=== PATIENT | male | born 1960 | race Caucasian/White ===

== ENCOUNTER 2019-10-18 16:40 | Inpatient (IN) | payer MEDICARE, SELFPAY ==
[2019-10-18] VITALS (8 sets, daily range): BP systolic 106–121; BP diastolic 73–89; PULSE 65–104; RESP 16–18; TEMP 36.5–36.7; O2SAT 65–98; BMI 30.7
--- NOTE | 2019-10-18 16:51 | XR_ITS ---
WS: [id number] Portable AP upright chest, 10/18/2019 Clinical Data: SOB Comparison: Portable chest, 10/17/2017. Findings: The heart is enlarged and larger than was noted on the prior chest. There is a small right effusion. The pulmonary vascularity is moderately increased. No pneumonia or pneumothorax is seen. XR/XR chest 1V portable [id number] Impression: Increasing cardiomegaly with pulmonary vascular congestion.
--- NOTE | 2019-10-18 16:51 | ECG_ITS ---
Measurements Intervals [place] Rate: 100 P: 60 MN: 185 QRS: 28 QRSD: 162 T: 197 QT: 414 QTc: 535 SINUS TACHYCARDIA LEFT BUNDLE BRANCH BLOCK Compared to ECG 10/18/2017 01:12:31 Left bundle-branch block now present Sinus rhythm no longer present Left ventricular hypertrophy no longer present ST (T wave) deviation no longer present Electronically Signed On 10-19-2019 13:00:10 CDT by Maryam Garcia M.D. [id number]
[2019-10-18 17:35] LABS: Basophils % 0.4 %; Eosinophils # 0.1 10^3/uL (0.0-0.8); Eosinophils % 0.8 %; Hematocrit 33.2 % (42.0-52.0); Hemoglobin 10.6 g/dL (11.7-16.6); Lymphocytes # 2.1 10^3/uL (0.8-4.8); Lymphocytes % 27.6 %; Mean Corpuscular HGB Conc 31.9 g/dL (30.0-36.0); Mean Corpuscular Hemoglobin 28.8 pg (28.0-34.0); Mean Corpuscular Volume 90.2 fL (80-94); Mean Platelet Volume 11.8 fL (7.4-10.4); Monocytes # 0.6 10^3/uL (0.2-0.9); Monocytes % 7.7 %; Neutrophils # 4.7 10^3/uL (1.8-7.7); Neutrophils % 63.2 %; Nucleated Red Blood Cells % 0 %; Platelet Count 165 10^3/cmm (130-400); Red Blood Count 3.68 10^6/uL (4.1-5.3); White Blood Count 7.4 10^3/uL (4.0-10.0)
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
[2019-10-18 17:51] LABS: Troponin(5th) Baseline 18 ng/mL (0-15)
[2019-10-18 18:00] LABS: Anion Gap 15.2 (5-19); Blood Urea Nitrogen 13 mg/dL (8-23); Carbon Dioxide 24 mmol/L (22-29); Chloride 101 mmol/L (98-107); D Dimer 0.73 ug/mIFEU (0-0.59); Glomerular Filtration Rate 98.6 mL/min (90-130); INR 1.17 (0.8-1.2); Partial Thromboplastin Time 31.9 SECONDS (23.9-36.7); Potassium 4.2 mmol/L (3.5-5.1); Sodium 136 mmol/L (136-145)
[2019-10-18 18:01] LABS: Alanine Aminotransferase 64 U/L (0-41); Albumin Level 3.6 g/dL (3.5-5.2); Alkaline Phosphatase 98 IU/L (40-130); Aspartate Amino Transferase 30 U/L (0-40); Calcium 9.2 mg/dL (8.5-10.5); Creatine Phosphokinase 62 U/L (39-308); Creatinine Clr Calc Pharmacy 118.1889; Globulin 3.5 g/dL (1.3-4.6); Glucose 294 mg/dL (65-115); NT Pro B Type Natriuretic Pept 4244 pg/mL (0-125); Osmolality Calculated 289 mOsm/kg (285-295); Total Bilirubin 0.6 mg/dL (0.15-1.2); Total Protein 7.1 g/dL (6.6-8.7)
--- NOTE | 2019-10-18 18:02 | USCV_ITS ---
Ivan De Leon Age: 59 Gender: M : 1960 Exam Date: 10/18/2019 18:19 Ordering Phys: Nimisha Gomez DO Technologist: Jaimie Farmer Exam Location: [facility] [place] Indication: LEG SWELLING HISTORY: Leg swelling. PROCEDURES: The venous duplex Doppler examination of both lower extremities was performed in the standard fashion. The following venous structures were evaluated: common femoral vein, profunda vein, proximal portion of the greater saphenous vein, superficial femoral vein, and the popliteal vein. In addition, the posterior tibial and peroneal trunk were evaluated. Serial compression, augmentation maneuvers, and spectral Doppler flow evaluation were performed. FINDINGS: No DVT seen in anyvessel examined CONCLUSIONS No evidence of right lower extremity DVT. No evidence of left lower extremity DVT. Yahir Cortez MD (Electronically Signed) Final Date: 19 October 2019 10:12 S
--- NOTE | 2019-10-18 18:02 | CTR_ITS ---
PROCEDURE INFORMATION: Exam: CT Angiography Chest With Contrast Exam date and time: 10/18/2019 6:43 PM Age: 59 years old Clinical indication: Abnormal findings; Abnormal diagnostic tests; Elevated d-dimer; Shortness of breath; Additional info: Dyspnea, positive d-dimer TECHNIQUE: Imaging protocol: Computed tomographic angiography of the chest with intravenous contrast. 3D rendering: MIP and/or 3D reconstructed images were created by the technologist. Total DLP: 623.62 mGy-cm Radiation optimization: All CT scans at this facility use at least one of these dose optimization techniques: automated exposure control; mA and/or kV adjustment per patient size (includes targeted exams where dose is matched to clinical indication); or iterative reconstruction. Contrast material: OMNI 350; Contrast volume: 78 ml; Contrast route: IV; COMPARISON: CR XR chest 1V portable [id number] 10/18/2019 6:41 PM FINDINGS: Pulmonary arteries: The the overall exam quality is good for evaluating the pulmonary arteries. There are no intraluminal filling defects to indicate pulmonary embolism. Aorta: Unremarkable. No aortic aneurysm. No aortic dissection. Lungs: There are patchy ground-glass opacities in the peribronchial and central portions of the upper and lower lobes. Septal thickening is noted in the upper lower lobes in a pattern most consistent with interstitial edema. Pleural space: Bilateral moderate pleural effusions are relatively symmetric in size and layer posteriorly. Heart: The heart is significantly enlarged especially the left ventricle and atrium. Numerous calcified plaques in the coronary arteries. Pancreas: The visualized pancreas is atrophic. Lymph nodes: Scattered enlarged mediastinal nodes. A node in the prevascular space measures up to 3.6 cm. Hilar nodes measure up to 1.8 cm. A subcarinal node measures 3.3 cm. Paratracheal nodes measure up to 1.7 cm. Bones/joints: The chronic healed fracture through the body of the left scapula. Soft tissues: Unremarkable. CT/CT angio chest PE protcl [id number] IMPRESSION: 1. Overall findings most consistent with congestive heart failure. 2. No pulmonary embolism. Radiation Dose CTDIVOL = (mGy): DLP = 623.62 (mGy-cm)
[2019-10-18 18:38] LABS: Influenza A by IFA Negative (Negative); Influenza B by IFA Negative (Negative)
--- NOTE | 2019-10-18 18:59 | PC.NURSE ---
REPORT RECEIVED FROM JUN BULLARD AND CARE TRANSFERRED TO JUN ALAN
[2019-10-18] MEDS: iohexol 350 mg/mL 100 mL Btl IV (19:04)
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
[2019-10-18] MEDS: FUROsemide 10 mg/mL SDV 4mL 40 MG IVP (19:41)
[2019-10-18 19:47] LABS: Troponin 5 2HR 19.44 ng/mL (0-15); Troponin 5 2HR Delta 1.44 ABS# (0-10)
--- NOTE | 2019-10-18 22:51 | ECG_ITS ---
Measurements Intervals [place] Rate: 96 P: 59 IL: 184 QRS: 31 QRSD: 166 T: 190 QT: 434 QTc: 550 SINUS RHYTHM LEFT BUNDLE BRANCH BLOCK Compared to ECG 10/18/2017 01:12:31 Left bundle-branch block now present Left ventricular hypertrophy no longer present ST (T wave) deviation no longer present Electronically Signed On 10-19-2019 13:03:25 CDT by Maryam Garcia M.D. [email or web address]
[2019-10-18 23:37] LABS: Glucose Point of Care 144 mg/dL (70-110)
[2019-10-19] VITALS: BP 117/73; PULSE 95; RESP 17; TEMP 37.1; O2SAT 95
[2019-10-19] MEDS: trazodone 50 mg Tablet 25 MG PO (00:08)
[2019-10-19 00:14] LABS: Amphetamines Screen Urine Positive (Negative); Barbiturates Screen Urine Negative (Negative); Benzodiazepines Screen Urine Negative (Negative); Cocaine Screen Urine Negative (Negative); Opiate Screen Urine Negative (Negative); PCP Screen Urine Negative (Negative); THC Screen Urine Negative (Negative)
[2019-10-19 00:24] LABS: Troponin 5 6HR 22.26 ng/mL (0-15); Troponin 5 6HR Delta 4.26 ng/L (0-12)
[2019-10-19] MEDS: insulin glargine 100 units/1 mL 20 UNIT SUBCUT ×2 (01:14→20:56)
[2019-10-19 04:00] VITALS: BP 101/70; PULSE 95; RESP 18; TEMP 36.4; O2SAT 91
[2019-10-19 05:30] LABS: Basophils % 0.5 %; Eosinophils # 0.1 10^3/uL (0.0-0.8); Eosinophils % 1.7 %; Hematocrit 34.7 % (42.0-52.0); Hemoglobin 11.3 g/dL (11.7-16.6); Lymphocytes # 2.3 10^3/uL (0.8-4.8); Lymphocytes % 28.8 %; Mean Corpuscular HGB Conc 32.6 g/dL (30.0-36.0); Mean Corpuscular Hemoglobin 28.8 pg (28.0-34.0); Mean Corpuscular Volume 88.3 fL (80-94); Monocytes # 0.6 10^3/uL (0.2-0.9); Monocytes % 7.1 %; Neutrophils % 61.7 %; Nucleated Red Blood Cells % 0 %; Platelet Count 191 10^3/cmm (130-400); Red Blood Count 3.93 10^6/uL (4.1-5.3); White Blood Count 8.1 10^3/uL (4.0-10.0)
[2019-10-19 05:55] LABS: Alanine Aminotransferase 73 U/L (0-41); Albumin Level 3.9 g/dL (3.5-5.2); Alkaline Phosphatase 104 IU/L (40-130); Anion Gap 16.6 (5-19); Aspartate Amino Transferase 43 U/L (0-40); Blood Urea Nitrogen 11 mg/dL (8-23); Calcium 9.5 mg/dL (8.5-10.5); Carbon Dioxide 24 mmol/L (22-29); Chloride 101 mmol/L (98-107); Globulin 3.8 g/dL (1.3-4.6); Glomerular Filtration Rate 137.4 mL/min (90-130); Glucose 154 mg/dL (65-115); Osmolality Calculated 285 mOsm/kg (285-295); Potassium 3.6 mmol/L (3.5-5.1); Sodium 138 mmol/L (136-145); Total Bilirubin 1.1 mg/dL (0.15-1.2); Total Protein 7.7 g/dL (6.6-8.7)
[2019-10-19 06:49] LABS: Glucose Point of Care 137 mg/dL (70-110)
[2019-10-19 07:30] VITALS: BP 92/64; PULSE 89; RESP 20; TEMP 36.5; O2SAT 93
[2019-10-19] MEDS: metoprolol succinate ER (24 HR) 25 mg Tablet 12.5 MG PO (08:36)
[2019-10-19] MEDS: aspirin 81 mg EC Tablet PO (08:37)
[2019-10-19] MEDS: spironolactone 25 mg Tablet PO (08:37)
[2019-10-19] MEDS: CLONazepam 1 mg Tablet PO ×2 (08:37→17:41)
[2019-10-19] MEDS: atorvastatin 40 mg Tablet 80 MG PO (08:37)
[2019-10-19] MEDS: FUROsemide 10 mg/mL SDV 4mL 20 MG IVP (08:38)
--- NOTE | 2019-10-19 10:49 | PC.CHAP ---
Pastoral Care Encounter/Spiritual Assessment Type of Contact [] Declined auto air conditioning installer visit [] Patient/Family/Request visit [] Outpatient visit [] Follow-up visit [] Physician referral [] Code/Alert [x] Routine visit [] Staff referral [] Actively dying [] Patient sleeping [] Family support [] [] Out of room [] Palliative care [] [] Receiving care in room [] Pre-surgical visit [] Trauma [] Long length of stay [] ICU visit [] Other: Relational/Emotional Strength [x] Patient feels connected with others/family/visitors/staff [] Distress [] Loneliness/isolation [] Abandonment Spirituality of Patient [x] Person of Brigitte [x] Attends Taoism of their Brigitte [x] Believes in Prayer [] Reads Bible or Congregation materials [] There are Spiritual issues to be addressed [place] Interventions [x] Prayer []x Active listening [] Non-anxious presence [] Spiritual/emotional support [] Crisis/trauma care [] Spiritual counseling [] Bereavement support [] Provided bereavement packet [] Provided Bible/devotional materials [] Provided toy/stuffed animal, coloring book to patient or family member [] Provided Communion [] Anointing/[place] [] Salvation [x] Completed spiritual assessment [] Other: Impact on Illness or Injury [] Angry [] Fearful [] Anxious [] Often cries [] Exhaustion [] Unable to work [] Unable to attend taoist [] Unable to walk/stand [] Unable to read [] Unable to drive [] Unable to eat/drink [] Unable to sleep [] Unable to be with family [] Patient intubated [] Other: Summary patient ready to go hom Time spent with patient 10 min
[2019-10-19 10:58] LABS: Glucose Point of Care 261 mg/dL (70-110)
[2019-10-19 11:33] VITALS: BP 112/73; PULSE 87; RESP 16; TEMP 36.4; O2SAT 97
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
[2019-10-19 15:41] VITALS: BP 99/65; PULSE 91; RESP 18; TEMP 36.9; O2SAT 97
[2019-10-19 17:06] LABS: Glucose Point of Care 240 mg/dL (70-110)
[2019-10-19 20:00] VITALS: BP 100/67; PULSE 92; RESP 18; TEMP 36.8; O2SAT 98
[2019-10-19 21:01] LABS: Glucose Point of Care 227 mg/dL (70-110)
--- NOTE | 2019-10-19 21:56 | USCV_ITS ---
Ivan De Leon Age: 59 Gender: M : 1960 Exam Date: 10/19/2019 06:03 Ordering Phys: Alvaro Johnson MD Technologist: Hailey Shay Exam Location: [facility] [place] Indication: CHF BP: 101 / 70 HR: 88 Rhythm: Sinus Technical Quality: Adequate MEASUREMENTS (Male / Female) Normal Values 2D ECHO LV Diastolic Diameter PLAX 7.0 cm 4.2 - 5.9 / 3.9 - 5.3 cm LV Systolic Diameter PLAX 6.3 cm IVS Diastolic Thickness 1.1 cm 0.6 - 1.0 / 0.6 - 0.9 cm IVS Systolic Thickness 1.2 cm LVPW Diastolic Thickness 1.0 cm 0.6 - 1.0 / 0.6 - 0.9 cm LVPW Systolic Thickness 1.2 cm LVOT Diameter 2.0 cm LV Ejection Fraction 2D Teich 19.6 % LV Ejection Fraction MOD 2C 23.3 % LV Ejection Fraction 2C AL 23.1 % LA Diameter 4.4 cm LA Width 5.1 cm LA Height 7.8 cm RA Width 5.8 cm RA Height 6.6 cm Aorta at Sinotubular Diameter 3.5 cm M-MODE LV Diastolic Diameter MM 9.2 cm 4.2 - 5.9 / 3.9 - 5.3 cm LV Systolic Diameter MM 8.2 cm LV Ejection Fraction MM Teich 22.5 % IVS Diastolic Thickness MM 0.8 cm 0.6 - 1.0 / 0.6 - 0.9 cm IVS Systolic Thickness MM 0.9 cm LVPW Diastolic Thickness MM 0.9 cm 0.6 - 1.0 / 0.6 - 0.9 cm LVPW Systolic Thickness MM 1.1 cm Aortic Annulus Diameter 3.9 cm LA Ao Ratio MM 1.1 MV E Point Septal Separation 3.6 cm DOPPLER AV Peak Velocity 128.0 cm/s LVOT Peak Velocity 79.0 cm/s AV Area Cont Eq vti 1.8 cm squared AV Area Cont Eq pk 2.0 cm squared MV Area PHT 3.4 cm squared MV E' Velocity 113.0 cm/s TV Peak E Velocity 65.0 cm/s Right Atrial Pressure 3.0 mmHg PV Peak Velocity 85.0 cm/s RV Acceleration Time 0.1 s RV Ejection Time 0.2 s RV AcT/ET 0.4 FINDINGS Left Ventricle Moderately increased left ventricular cavity size. Normal left ventricular wall thickness. Severely decreased left ventricular systolic function. Left ventricular ejection fraction is estimated at 15 %. Grade II/IV diastolic dysfunction, moderately elevated filling pressures. Right Ventricle Normal right ventricular size and systolic function. Right Atrium Mildly increased right atrial size. Left Atrium Moderately increased left atrial size. Mitral Valve Structurally normal mitral valve. Moderate-severe mitral valve regurgitation. Aortic Valve Structurally normal aortic valve without significant sclerosis or stenosis. There is no aortic regurgitation. Tricuspid Valve Structurally normal tricuspid valve. [id number] tricuspid valve regurgitation. Pulmonic Valve Pulmonic valve not well visualized. Mild pulmonary valve regurgitation. Pericardium Normal pericardium without effusion. Aorta Normal ascending aorta dimension. CONCLUSIONS Moderately increased left ventricular cavity size. Normal left ventricular wall thickness. Severely decreased left ventricular systolic function. Left ventricular ejection fraction is estimated at 15 %. Grade II/IV diastolic dysfunction, moderately elevated filling pressures. Mildly increased right atrial size. Moderately increased left atrial size. Structurally normal mitral valve. Moderate-severe mitral valve regurgitation. When compared to the previous study done 10/20/2017 there has been very little change. The ejection fraction is probably slightly more diminished however overall the echo is unchanged. Dr. Js Hodge MD (Electronically Signed) Final Date: 19 October 2019 12:29 S
[2019-10-20 00:18] VITALS: BP 102/69; PULSE 89; RESP 18; TEMP 36.7; O2SAT 97
[2019-10-20 04:00] VITALS: BP 104/68; PULSE 83; RESP 18; TEMP 36.4; O2SAT 93
[2019-10-20 04:57] LABS: Basophils % 0.5 %; Eosinophils # 0.2 10^3/uL (0.0-0.8); Eosinophils % 3.3 %; Hematocrit 35.5 % (42.0-52.0); Hemoglobin 11.6 g/dL (11.7-16.6); Lymphocytes # 1.7 10^3/uL (0.8-4.8); Lymphocytes % 30.1 %; Mean Corpuscular HGB Conc 32.7 g/dL (30.0-36.0); Mean Corpuscular Hemoglobin 30.1 pg (28.0-34.0); Mean Corpuscular Volume 92.2 fL (80-94); Mean Platelet Volume 11.7 fL (7.4-10.4); Monocytes # 0.5 10^3/uL (0.2-0.9); Monocytes % 8.8 %; Neutrophils # 3.3 10^3/uL (1.8-7.7); Neutrophils % 57.3 %; Nucleated Red Blood Cells % 0 %; Platelet Count 194 10^3/cmm (130-400); Red Blood Count 3.85 10^6/uL (4.1-5.3); Red Cell Distribution Width 13.9 % (12.1-15.1); White Blood Count 5.8 10^3/uL (4.0-10.0)
[2019-10-20 05:20] LABS: Alanine Aminotransferase 81 U/L (0-41); Albumin Level 3.4 g/dL (3.5-5.2); Alkaline Phosphatase 100 IU/L (40-130); Anion Gap 14.5 (5-19); Aspartate Amino Transferase 56 U/L (0-40); Blood Urea Nitrogen 12 mg/dL (8-23); Calcium 8.9 mg/dL (8.5-10.5); Carbon Dioxide 24 mmol/L (22-29); Chloride 101 mmol/L (98-107); Globulin 3.2 g/dL (1.3-4.6); Glucose 255 mg/dL (65-115); Osmolality Calculated 287 mOsm/kg (285-295); Potassium 3.5 mmol/L (3.5-5.1); Sodium 136 mmol/L (136-145); Total Bilirubin 0.5 mg/dL (0.15-1.2); Total Protein 6.6 g/dL (6.6-8.7)
[2019-10-20 05:21] LABS: Cholesterol 148 mg/dL (0-200); HDL Cholesterol 29 mg/dL (60-100); LDL Cholesterol Calculated 97 mg/dL (50-129); LDL HDL Ratio 3.34 RATIO (0.00-3.22); Triglycerides 109 mg/dL (0-150)
[2019-10-20 05:25] LABS: Estmated Average Glucose 183
[2019-10-20 06:46] LABS: Glucose Point of Care 230 mg/dL (70-110)
[2019-10-20 07:11] VITALS: BP 107/64; PULSE 88; RESP 18; TEMP 36.4; O2SAT 93
[2019-10-20] MEDS: lisinopril 10 mg Tablet PO (08:49)
[2019-10-20] MEDS: aspirin 81 mg EC Tablet PO (08:49)
[2019-10-20] MEDS: spironolactone 25 mg Tablet PO (08:49)
[2019-10-20] MEDS: atorvastatin 40 mg Tablet 80 MG PO (08:49)
[2019-10-20] MEDS: metoprolol succinate ER (24 HR) 25 mg Tablet 12.5 MG PO (08:49)
[2019-10-20] MEDS: CLONazepam 1 mg Tablet PO (08:49)
[2019-10-20] MEDS: FUROsemide 40 mg Tablet PO (08:49)
[2019-10-20 11:16] LABS: Glucose Point of Care 182 mg/dL (70-110)
[2019-10-20 12:00] VITALS: BP 112/73; PULSE 90; RESP 18; O2SAT 98
[2019-10-20 13:17] VITALS: BP 112/73; PULSE 90; RESP 18; TEMP 36.4; O2SAT 98
--- NOTE | 2019-10-26 01:36 | P.DS_ITS ---
Discharge Providers Date of Admission: 10/19/19 19:30 Date of Discharge: October 20, 2019 Attending Provider at Admission: Alvaro Johnson MD Attending Provider at Discharge: Alysia Franklin MD Primary Care Provider: Tomas Vazquez DO Diagnoses at Discharge Discharge Diagnosis (1) Congestive heart failure: Status: Acute Qualifiers: Heart failure type: unspecified Heart failure chronicity: unspecified Qualified Code(s): I50.9 - Heart failure, unspecified (2) Non-compliant behavior: Status: Acute (3) Smoker: Status: Acute (4) Left bundle branch block: Status: Acute (5) Ischemic cardiomyopathy: Status: Acute (6) Acute exacerbation of congestive heart failure: Status: Acute Reason for Visit Reason for Visit: Reason For Visit: sob Hospital Course Discharge Summary: Ivan De Leon is a 59 year old male who has a history of ischemic cardiomyopathy, coronary disease status post stents, noncompliant, active smoker, LifeVest was recommended but patient has not 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 He was noted to have CHF exacerbation and received diuresis with iv lasix. Echocardiogram showed 15% EF, reduced from last year. I discussed with the patient again the option of LifeVest and AICD, however he has declined at this visit. He reports he was previously on a LifeVest but stopped wearing it for unclear reasons. He said he would like to discuss with his outpatient bailer operators supervisor Dr. Hodge before coming to a final decision about it. He also states that he is previously had adverse reactions to statins by way of muscle weakness. He was discharged on aspirin, lower statin to 40mg qd, m etoprolol succinate, spironolactone, lisinopril. Physical Exam Narrative: EXAM NARRATIVE: GEN: Awake, alert and oriented, no acute distress CVS: S1S2 N RS: CTA B/L Abd: Soft, nt/nd , bs+ EDITOR: no focal neuro deficits Discharge Data Data Completed and Pending: Completed Studies During Hospitalization Category Date Time Status CT angio chest PE protcl [id number] Stat Cat Scan 10/18/19 18:02 Completed XR chest 1V raudel ble [id number] Stat Exams 10/18/19 16:51 Completed CV echo complete* [id number] Routine Ultrasound 10/19/19 21:56 [place] [id number] Urgent Ultrasound 10/18/19 18:02 Completed Vitals: Last Vital Signs Temp 97.6 F 10/20/19 13:17 Pulse 90 10/20/19 13:17 Resp 18 10/20/19 13:17 BP 112/73 10/20/19 13:17 Pulse Ox 98 10/20/19 13:17 Discharge Plan Discharge Patient Disposition: Home, Self-Care Condition: Stable Prescriptions: New furosemide 40 mg Tablet 40 mg PO DAILY@0800 15 Days Qty: 15 RF: 0 atorvastatin 40 mg Tablet 40 mg PO DAILY 30 Days Qty: 30 RF: 0 aspirin 81 mg Tablet,Delayed Release (Dr/Ec) 81 mg PO DAILY 30 Days Qty: 30 RF: 0 spironolactone 25 mg Tablet 25 mg PO DAILY 30 Days Qty: 30 RF: 0 lisinopril 10 mg Tablet 10 mg PO DAILY 30 Days Qty: 30 RF: 0 metoprolol succinate 25 mg Tablet Extended Release 24 Hr 12.5 mg PO DAILY 30 Days Qty: 30 RF: 0 Continued metformin 1,000 mg tablet extended release 24hr 1,000 mg PO BID RF: 0 Tresiba FlexTouch U-200 200 unit/mL (3 mL) Insulin Pen See Rx Instructions .ROUTE .COMPLEX RF: 0 Discontinued aspirin 325 mg Tablet See Rx Instructions .ROUTE .COMPLEX RF: 0 No Action clonazepam [Klonopin] 1 mg tablet 1 mg PO BID Qty: 60 RF: 2 Discharge Orders: Discharge Order (Routine); Ordered 10/20/19 Ordered By: Alysia Franklin Referrals: VIANEY [Other] Js Hodge MD [Physician] - 7-10 days (Please contact [facility] on Tuesday to schedule an appointment to see Dr. Hodge within 7-10 days. ) Dakotah Costa MD [Hospitalist] - (Please contact Dr. Costa's office on Tuesday to schedule an appointment to be seen within 4-7 days. ) Discharge Diet: Cardiac, Diabetic, Low Salt and Low Cholesterol Discharge Activity: Resume usual activity Patient Instructions: Metoprolol (By mouth), Spironolactone (By mouth), Lisinopril (By mouth), Furosemide (By mouth), Aspirin (By mouth), Atorvastatin (By mouth), Heart Failure (DC) Discharge Date/Time: 10/20/19 13:33 Discharge Attestations Time Spent in Discharge Care*: greater than 30 min Quality Metrics Clinical Quality Measures During this hospital stay, did patient experience: None Coding Level of Care Code Acute In Store Banker for Hennyg Fwd Diagnoses Congestive heart failure I50.9 Heart failure type: unspecified Heart failure chronicity: unspecified Non-compliant behavior R46.89 Smoker F17.200 Left bundle branch block I44.7 Ischemic cardiomyopathy I25.5 Acute exacerbation of congestive heart failure I50.9
== END 2019-10-20 13:33 | disposition home or self-care (01) | DRG 291 ==
LOC: ER 20:18 → MEDSURG 20:30
PROVIDERS: Admitting Provider Internal Medicine; Emergency Provider Emergency Medicine; Visit Provider Student in an Organized Health Care Education/Training Program
DX: I11.0 Hypertensive heart disease with heart failure (principal); I50.21 Acute systolic (congestive) heart failure; I44.7 Left bundle-branch block, unspecified; I25.5 Ischemic cardiomyopathy; I25.10 Atherosclerotic heart disease of native coronary artery without angina pectoris; Z95.5 Presence of coronary angioplasty implant and graft; I25.2 Old myocardial infarction; Z79.82 Long term (current) use of aspirin; Z79.4 Long term (current) use of insulin; G40.909 Epilepsy, unspecified, not intractable, without status epilepticus; E78.5 Hyperlipidemia, unspecified; Z91.19 Patient's noncompliance with other medical treatment and regimen; F17.210 Nicotine dependence, cigarettes, uncomplicated; Z79.899 Other long term (current) drug therapy
CPT/HCPCS: 12345; 36415; 36416; 71045; 71275; 80053; 80061; 80307; 82550; 82962; 83036; 83880; 84484; 85025; 85378; 85610; 85730; 87804; 93005; 93306; 93970; 96372; 96375; 99283; G0378; J1650; J1815; J1940; Q9967

== ENCOUNTER → 2019-10-23 10:45 | Outpatient (BNVA) | payer MEDICARE, SELFPAY | PROVIDERS: Visit Provider Nurse Practitioner | DX: F41.1 Generalized anxiety disorder (principal); F34.1 Dysthymic disorder | CPT/HCPCS: 99213 ==

== ENCOUNTER → 2020-01-08 13:12 | Outpatient (BNVA) | payer MEDICARE, SELFPAY | PROVIDERS: Referring Provider Nurse Practitioner Family; Visit Provider Podiatrist Foot & Ankle Surgery | DX: M79.671 Pain in right foot (principal); M79.672 Pain in left foot | CPT/HCPCS: 73630 ==

== ENCOUNTER 2020-01-14 08:48 | Observation (INO) | payer MEDICARE, SELFPAY ==
[2020-01-11 14:16] VITALS: BMI 27.8
[2020-01-14] VITALS (15 sets, daily range): BP systolic 73–113; BP diastolic 51–76; PULSE 77–94; RESP 16–20; TEMP 36.2–36.8; O2SAT 94–99
--- NOTE | 2020-01-14 | SCC_ITS ---
Procedure Done: Single-lead AICD implantation 60.7 seconds of fluoroscopic guidance, for a cumulative dose of 21.62 mGy, was provided to Dr. Escobedo by the radiology department. C-arm images of the chest were saved for the patient's permanent record. [facility]
--- NOTE | 2020-01-14 05:42 | XR_ITS ---
WS: [id number] PORTABLE CHEST HISTORY: Preop for AICD implantation COMPARISON: 10/18/2019 Hyperinflated lungs with no pneumonia. Normal vasculature. No pleural effusion or pneumothorax. Cardiac size: Moderately enlarged cardiac silhouette is similar to the prior study. Pulmonary arterie s are prominent. Mediastinum/Aorta: Prominent pulmonary arteries. No osseous abnormality seen. XR/XR chest 1V portable [id number] IMPRESSION: 1. Moderate cardiomegaly. 2. Pulmonary hypertension. 3. Chronic emphysema.
--- NOTE | 2020-01-14 05:42 | ECG_ITS ---
Measurements Intervals [place] Rate: 90 P: 58 DC: 195 QRS: 30 QRSD: 165 T: 182 QT: 418 QTc: 512 SINUS RHYTHM WITH OCCASIONAL VENTRICULAR PREMATURE COMPLEXES LEFT BUNDLE BRANCH BLOCK [120+ ms QRS DURATION, 80+ ms Q/S IN V1/V2, 85+ ms R IN I/aVL/V5/V6] Compared to ECG 10/19/2019 00:22:19 Ventricular premature complex(es) now present Electronically Signed On 01-14-2020 19:30:47 CDT by Alvaro Caceres M.D. [email or web address]
--- NOTE | 2020-01-14 05:42 | SC_ITS ---
WS: [id number] C-ARM RADIOGRAPHS CHEST; 2 IMAGES HISTORY: AICD implantation COMPARISON: 01/14/2020 Intraoperative imaging during ICD placement. SC/C-arm FL for Pacemaker IMPRESSION: Intraoperative imaging during AICD placement.
[2020-01-14] MEDS: sodium chloride 0.9% 1,000 ML 30 ML IV (06:22)
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
[2020-01-14 06:25] LABS: Basophils # 0.1 10^3/uL (0.0-0.1); Basophils % 0.9 %; Eosinophils # 0.2 10^3/uL (0.0-0.8); Eosinophils % 2.4 %; Hematocrit 38.9 % (42.0-52.0); Hemoglobin 12.5 g/dL (11.7-16.6); Lymphocytes # 2.6 10^3/uL (0.8-4.8); Lymphocytes % 33.4 %; Mean Corpuscular HGB Conc 32.1 g/dL (30.0-36.0); Monocytes # 0.6 10^3/uL (0.2-0.9); Monocytes % 7.6 %; Neutrophils # 4.3 10^3/uL (1.8-7.7); Neutrophils % 55.4 %; Nucleated Red Blood Cells % 0 %; Platelet Count 165 10^3/cmm (130-400); Red Blood Count 4.47 10^6/uL (4.1-5.3); Red Cell Distribution Width 16.2 % (12.1-15.1); White Blood Count 7.8 10^3/uL (4.0-10.0)
[2020-01-14 06:25] LABS: Glucose Point of Care 202 mg/dL (70-110)
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
[2020-01-14 06:32] LABS: INR 0.96 (0.8-1.2)
[2020-01-14 06:57] LABS: Anion Gap 13.3 (5-19); Blood Urea Nitrogen 16 mg/dL (8-23); Calcium 6.5 mg/dL (8.5-10.5); Carbon Dioxide 16 mmol/L (22-29); Chloride 113 mmol/L (98-107); Glomerular Filtration Rate 219.4 mL/min (90-130); Glucose 164 mg/dL (65-115); Osmolality Calculated 288 mOsm/kg (285-295); Potassium 3.3 mmol/L (3.5-5.1); Sodium 139 mmol/L (136-145)
[2020-01-14 07:12] LABS: Add Urine Microscopic? NO
[2020-01-14 07:27] LABS: Urine Appearance Clear (CLEAR); Urine Color Yellow (Yellow)
[2020-01-14 07:28] LABS: Bilirubin Urine Neg (NEGATIVE); Blood Urine Neg (Negative); Glucose Urine UA Norm (Normal); Ketones Urine Negative (Negative); Leukocyte Esterase Urine Negative (Negative); Nitrate Urine Negative (Negative); Protein Urine Neg (Negative); Urobilinogen Urine Norm (Negative); pH Urine 5 (5-7)
[2020-01-14] MEDS: lidocaine 1% INJ 20 mL SUBCUT (07:32)
[2020-01-14] MEDS: ceFAZolin 1,000 mg SDV 1000 MG IRRIGATION (07:32)
--- NOTE | 2020-01-14 08:24 | PM.OP ---
Operative Report Date of procedure: January 14, 2020 Pre-op Diagnosis: Ischemic cardiomyopathy Post-op diagnosis: same Procedure Done: Single-lead AICD implantation Implants: AICD and lead Pathology: none sent Surgeon: Parvez Escobedo Anesthesia: MAC and Local (10 cc 1% lidocaine) Estimated blood loss (mL): 15 Complications: None: Post procedure chest x-ray pending Findings: Fluoroscopy utilized for guidewire, sheath, and subsequent lead positioning Condition: stable Disposition: PACU Brief History: Mr. Watson is a 59-year-old gentleman with severe ischemic cardiomyopathy with last reported ejection fraction of 15% by echocardiography in October of this year. AICD implantation has been recommended by cardiology. Rationale, details, and risk of the procedure were carefully and frankly discussed. Proper consents have been reviewed and signed. He wishes to proceed. Procedure: Procedure: Mr. Watson was taken to the OR suite and placed in the supine position over a shoulder roll. He received conscious sedation with continuous anesthesia monitoring by. His entire chest was sterilely prepped and draped. 1% lidocaine was infiltrated in the right subclavicular region. While in Trendelenburg position, utilizing modified seldinger technique, a guidewire was placed in the [left/right] subclavian vein. This was confirmed in position by fluoroscopy. Next, after infiltration with lidocaine, a subcutaneous pocket was created beginning from the exit point of the guidewire and extending laterally and inferiorly. Cautery was utilized to create the pocket just above the pectoralis musculature. Hemostasis was confirmed. An antibiotic-soaked sponge was placed in the wound. A dilator and tear-away sheath was placed over the guidewire and advanced under fluoroscopy. Guidewire and dilator were removed. Next using a combination of curved and straight stylettes, the right ventricular lead was placed in position by fluoroscopy. The distal screw was extended. Interrogation was then performed confirming appropriate parameters. The tear-away sheath was then removed and the ventricular lead was sewn to the floor of the subcutaneous pocket. Pacing generator was brought into the field, and after confirmation of hemostasis in the subcutaneous pocket, the lead was connected to the generator with appropriate capture. The entire system was interrogated by fluoroscopy. Lead and generator were secured in the pocket. Sponge and needle count was correct. The wound was then closed in 2 layers of 3-0 Vicryl suture. Skin was reapproximated in a subcuticular manner with 4-0 Monocryl suture. A pressure dressing was applied. The right arm was placed in a sling. The patient had equal breath sounds bilaterally. He was then transferred to the PACU, where chest x-ray is currently pending. Following are the specifics of this system: Right ventricular lead is 55 cm and model [id number]. Serial number [id number] Ventricular lead had sensing of 5.0 mV with an impedance of 600 ohms. Threshold was 0.4 V Generator: [employer] Model #[id number] Serial # [id number]
--- NOTE | 2020-01-14 08:37 | XR_ITS ---
WS: [id number] PORTABLE CHEST HISTORY: s/p AICD implant COMPARISON: Study earlier the same day. Interval placement RIGHT subclavian AICD. Lung biopsy decreased with areas of atelectasis. This is probably due to portable technique and poor inspiration. No pleural effusion or pneumothorax. Cardiac size: Normal. Mediastinum/Aorta: Normal mediastinum. No osseous abnormality seen. XR/XR chest 1V portable [id number] IMPRESSION: No complications status post AICD insertion.
--- NOTE | 2020-01-14 08:51 | ANE.PACU2 ---
Inpatient post-anesthesia follow up: Airway intact: Yes Vital signs: Temperature 97.8 F Pulse Rate 84 Respiratory Rate 18 Blood Pressure 74/59 Pulse Oximetry 96 Oxygen Delivery Me thod Room Air Oxygen Flow Rate Fraction of Inspir ed Oxygen Hydration adequate: Yes Nausea and vomiting: No Pain level: 1 Mental status: Baseline
[2020-01-14] MEDS: pantoprazole DR 40 mg Tablet PO (10:17)
[2020-01-14] MEDS: aspirin 325 mg Tablet PO (10:17)
[2020-01-14] MEDS: sodium chloride 0.9% 250 ML IV (10:23)
[2020-01-14 11:09] LABS: Glucose Point of Care 261 mg/dL (70-110)
--- NOTE | 2020-01-14 12:16 | PC.RESP ---
SMOKING CESSATION INFORMATION SENT TO PATIENT.
[2020-01-14 17:04] LABS: Glucose Point of Care 185 mg/dL (70-110)
[2020-01-14 21:04] LABS: Glucose Point of Care 273 mg/dL (70-110)
[2020-01-15] VITALS: BP 99/67; PULSE 84; RESP 24; TEMP 36.4; O2SAT 95
[2020-01-15] MEDS: HYDROcodone-acetaminophen 5-325 mg Tablet 1 TAB PO (00:23)
[2020-01-15 00:31] LABS: Glucose Point of Care 210 mg/dL (70-110)
[2020-01-15 03:52] VITALS: BP 90/58; PULSE 77; RESP 18; TEMP 36.8; O2SAT 98
--- NOTE | 2020-01-15 06:00 | XR_ITS ---
WS: [id number] CHEST, 1 view. HISTORY: Post permanent pacemaker placement; visualize lead tip COMPARISON: 01/14/2020 Single lead defibrillator. Distal tip of the defibrillator projects over the LEFT diaphragm. Lungs ar e clear. No pulmonary venous congestion. No pneumonia. No pleural effusion or pneumothorax. Cardiac size: Mildly enlarged cardiac silhouette. Mediastinum/Aorta: Normal mediastinum. No osseous abnormality seen. XR/XR chest 1V [id number] IMPRESSION: Mild cardiomegaly. No acute cardiopulmonary disease.
--- NOTE | 2020-01-15 06:33 | PM.DCS ---
Discharge Providers Date of Admission: 01/14/20 08:48 Date of Discharge: January 15, 2020 Attending Provider at Admission: Parvez Escobedo MD Attending Provider at Discharge: Parvez Escobedo MD Diagnoses at Discharge Discharge Diagnosis (1) Ischemic cardiomyopathy: Status: Acute Reason for Visit Reason for Visit: Brief History: Planned admission for AICD implantation secondary to severe ischemic cardiomyopathy Hospital Course Discharge Summary: Mr. Watson was electively admitted for single lead AICD implantation for severe ischemic cardiomyopathy with a documented ejection fraction of 15% from echocardiography back in October. He underwent single lead implantation yesterday without difficulty. He is convalesced on the brooks with minimal discomfort and with no arrhythmias. He completed 3 doses of postop antibiotics. Device interrogation has been completed this morning. Outer bandage has been removed. Minimal swelling in the region. He will be discharged home today in stable condition. Activity restrictions have been given. He will be scheduled for follow-up a week from Tuesday and [facility]. At the time of discharge she is in stable condition. Physical Exam Chest: COMMONS NORMALS: normal inspection of the chest (Outer bandage was removed. Minimal local swelling. Underlying bandage remains dry.) Extremity: COMMON NORMALS: no clubbing, cyanosis or edema Discharge Data Data Completed and Pending: Completed Studies During Hospitalization Category Date Time Status XR chest 1V raudel ble [id number] Routine Exams 01/14/20 05:42 Completed XR chest 1V raudel ble [id number] Routine Exams 01/14/20 08:37 Completed Pending at discharge Category Date Time Status XR chest 1V [id number] Routine Exams 01/15/20 06:00 Ordered Labs from last 24 hours 01/15/20 01/14/20 01/14/20 00:24 20:52 16:59 Sodium Potassium Chloride Carbon Dioxide Anion Gap BUN Creatinine GFR Calculation Glucose POC Glucose 210 273 185 Calculated Osmolal ity Calcium Urine Color Urine Appearance Urine pH Ur Specific Gravit y Urine Protein Urine Glucose (UA) Urine Ketones Urine Blood Urine Nitrate Urine Bilirubin Urine Urobilinogen Ur Leukocyte Kalpana ase 01/14/20 01/14/20 01/14/20 10:56 07:05 06:30 Sodium 139 Potassium 3.3 L Chloride 113 H Carbon Dioxide 16 L Anion Gap 13.3 BUN 16 Creatinine 0.4 L GFR Calculation 219.4 H Glucose 164 H POC Glucose 261 Calculated Osmolal ity 288 Calcium 6.5 L Urine Color Yellow Urine Appearance Clear Urine pH 5 Ur Specific Gravit y 1.010 Urine Protein Neg Urine Glucose (UA) Norm Urine Ketones Negative Urine Blood Neg Urine Nitrate Negative Urine Bilirubin Neg Urine Urobilinogen Norm Ur Leukocyte Kalpana ase Negative Vitals: Last Vital Signs Temp 98.3 F 01/15/20 03:52 Pulse 77 01/15/20 03:52 Resp 18 01/15/20 03:52 BP 90/58 01/15/20 03:52 Pulse Ox 98 01/15/20 03:52 Discharge Plan Discharge Patient Disposition: Home, Self-Care Condition: Stable Prescriptions: New hydrocodone-acetaminophen 5-325 mg Tablet 1 tab PO Q6H PRN (Reason: Moderate Pain) Qty: 10 RF: 0 Continued aspirin 325 mg tablet 325 mg PO DAILY RF: 0 metoprolol succinate 25 mg tablet extended release 24 hr 12.5 mg PO DAILY 90 Days Qty: 45 RF: 3 spironolactone 25 mg tablet 25 mg PO DAILY 90 Days Qty: 90 RF: 3 furosemide 40 mg tablet 40 mg PO DAILY 90 Days Qty: 90 RF: 3 lisinopril 10 mg tablet 10 mg PO DAILY 90 Days Qty: 90 RF: 3 (DME) Diabetic Shoes See Rx Instructions .ROUTE .MEDSUPPLY Qty: 1 RF: 0 metformin 1,000 mg tablet extended release 24hr 1,000 mg PO BID RF: 0 clonazepam [Klonopin] 1 mg tablet 1 mg PO BID Qty: 60 RF: 2 Tresiba FlexTouch U-200 200 unit/mL (3 mL) Insulin Pen 24 unit SUBCUT DAILY RF: 0 Discharge Orders: Discharge Order (Routine); Ordered 01/15/20 Ordered By: Parvez Escobedo Referrals: [facility] [Provider Group] - 01/25/20 (Pacemaker clinic) Discharge Diet: Usual diet Discharge Activity: Limit activity as instructed Activity Restrictions/Additional Instructions: May begin daily showers tomorrow after removing bandage Do not reach above head with right arm for 5 days Report any swelling, redness, increasing tenderness, fever, or drainage around incision Area of incision may be sore for next 2 weeks Discharge Attestations Time Spent in Discharge Care*: less than 30 min Specific Discharge Activities: Specific discharge activities: educating patient, discussing with field case manager/social workers/dc planners, documenting/other paperwork and evaluating patient/reviewing data Time Spent in Smoking Cessation: Time spent discussing smoking cessation with patient: 3 to 10 minutes Details of Smoking Cessation Education: Again briefly discussed smoking cessation. This has been done numerous times by numerous physicians, though unfortunately he does continue. Status at Discharge: Cognitive status at discharge: cognitively intact, Functional status at discharge: independent ambulation Overall status at discharge: patient is back to baseline Quality Metrics Clinical Quality Measures During this hospital stay, did patient experience: None Coding Level of Care Code Acute Source Water Protection Specialist for Tae Mcclendon Diagnoses Ischemic cardiomyopathy I25.5
[2020-01-15 07:20] VITALS: BP 101/69; PULSE 91; RESP 20; TEMP 36.6; O2SAT 99
[2020-01-15 08:15] VITALS: BP 101/69; PULSE 91; RESP 20; TEMP 36.6; O2SAT 99
== END 2020-01-15 08:36 | disposition home or self-care (01) ==
LOC: MEDSURG 08:49
PROVIDERS: Admitting Provider Thoracic Surgery (Cardiothoracic Vascular Surgery); Visit Provider Thoracic Surgery (Cardiothoracic Vascular Surgery)
PROC: 0JH608Z Insertion of Defibrillator Generator into Chest Subcutaneous Tissue and Fascia, Open Approach (ICD-10-PCS; CPT 33249; principal; 2020-01-14 07:00)
DX: I25.5 Ischemic cardiomyopathy (principal); I50.22 Chronic systolic (congestive) heart failure; Z95.5 Presence of coronary angioplasty implant and graft; Z79.82 Long term (current) use of aspirin; M19.90 Unspecified osteoarthritis, unspecified site; I25.10 Atherosclerotic heart disease of native coronary artery without angina pectoris; E78.5 Hyperlipidemia, unspecified; F41.9 Anxiety disorder, unspecified; I25.2 Old myocardial infarction; E11.9 Type 2 diabetes mellitus without complications; Z79.84 Long term (current) use of oral hypoglycemic drugs; Z82.49 Family history of ischemic heart disease and other diseases of the circulatory system; F17.210 Nicotine dependence, cigarettes, uncomplicated; I11.0 Hypertensive heart disease with heart failure
CPT/HCPCS: 33270; 12345; 36416; 71045; 76000; 80048; 81003; 82962; 85025; 85610; 93005; 97166; 97530; 97535; C1722; G0378; J0690; J2001; J2250; J2370; J2405; J2704; J3010; J7030; J7050

== ENCOUNTER → 2020-02-05 08:49 | Outpatient (BNVA) | payer MEDICARE, SELFPAY | PROVIDERS: Visit Provider Nurse Practitioner | DX: F34.1 Dysthymic disorder (principal); F41.1 Generalized anxiety disorder | CPT/HCPCS: 99213 ==

== ENCOUNTER → 2020-05-12 08:03 | Outpatient (BNVA) | payer MEDICARE, SELFPAY | PROVIDERS: PCP Nurse Practitioner Family; Visit Provider Nurse Practitioner | DX: F41.1 Generalized anxiety disorder (principal); F34.1 Dysthymic disorder; F33.42 Major depressive disorder, recurrent, in full remission | CPT/HCPCS: 99213 ==

== ENCOUNTER → 2020-08-04 13:58 | Outpatient (BNVA) | payer MEDICARE, SELFPAY | PROVIDERS: PCP Nurse Practitioner Family; Visit Provider Nurse Practitioner Family | DX: I50.9 Heart failure, unspecified (principal); I25.10 Atherosclerotic heart disease of native coronary artery without angina pectoris | CPT/HCPCS: 80048; 83880 ==

== ENCOUNTER → 2020-08-21 08:48 | Outpatient (BNVA) | payer MEDICARE, SELFPAY | PROVIDERS: PCP Nurse Practitioner Family; Visit Provider Nurse Practitioner | DX: F34.1 Dysthymic disorder (principal); F41.1 Generalized anxiety disorder | CPT/HCPCS: 99213 ==

== ENCOUNTER 2020-08-23 15:42 | Emergency (ER) | payer MEDICARE, SELFPAY ==
[2020-08-23 15:44] VITALS: BP 109/85; PULSE 88; RESP 32; O2SAT 98; BMI 30.7
--- NOTE | 2020-08-23 15:51 | CTR_ITS ---
PROCEDURE INFORMATION: Exam: CT Head Without Contrast Exam date and time: 08/23/2020 4:01 PM Age: 59 years old Clinical indication: Injury or trauma; Fall; Blunt trauma (contusions or hematomas); Additional info: Fall/ AMS TECHNIQUE: Imaging protocol: Computed tomography of the head without contrast. Radiation optimization: All CT scans at this facility use at least one of these dose optimization techniques: automated exposure control; mA and/or kV adjustment per patient size (includes targeted exams where dose is matched to clinical indication); or iterative reconstruction. COMPARISON: CT head wo con* [id number] 10/17/2017 7:45 PM RADIATION DOSE METRICS: Total DLP (mGy-cm): 925.12 FINDINGS: Limitations: The study is slightly limited by mild patient motion artifact. Brain: Mild parenchymal volume loss noted. There is decreased attenuation of the periventricular white matter, consistent with mild microangiopathic chronic white matter disease. No intracranial hemorrhage noted. Cerebral ventricles: The ventricles are proportional to the sulci. No hydrocephalus is noted. Bones/joints: No fracture or other acute osseous abnormality. Paranasal sinuses: Mild mucoperiosteal thickening in the right maxillary sinus. The included paranasal sinuses are otherwise clear. Mastoid air cells: The mastoid air cells are clear bilaterally. Soft tissues: The soft tissues appear unremarkable. CT/CT head wo con* [id number] IMPRESSION: 1. The study is slightly limited by mild patient motion artifact. 2. Chronic intracranial changes are present. 3. No acute intracranial abnormality is noted. 4. There is no interval change from the prior examination. Radiation Dose CTDIVOL = (mGy): DLP = 925.12 (mGy-cm)
--- NOTE | 2020-08-23 15:52 | CTR_ITS ---
PROCEDURE INFORMATION: Exam: CT Cervical Spine Without Contrast Exam date and time: 08/23/2020 4:01 PM Age: 59 years old Clinical indication: Injury or trauma; Fall; Blunt trauma TECHNIQUE: Imaging protocol: Computed tomography images of the cervical spine without contrast. Radiation optimization: All CT scans at this facility use at least one of these dose optimization techniques: automated exposure control; mA and/or kV adjustment per patient size (includes targeted exams where dose is matched to clinical indication); or iterative reconstruction. COMPARISON: CTA Head/Neck [id number] 10/18/2017 6:08 PM RADIATION DOSE METRICS: Total DLP (mGy-cm): 826.38 FINDINGS: Bones/joints: Vertebral body heights are preserved. No compression fractures are noted. Vertebral alignment is physiologic. Degenerative facet joint changes are noted on the right at C4-C5. Discs/Spinal canal/Neural foramina: Disc heights are preserved. No significant intervertebral disc narrowing. No significant spinal canal or neural foraminal stenosis demonstrated. Lungs: The lung apices are unremarkable. Pleural space: Right pleural effusion. Soft tissues: The soft tissues appear unremarkable. CT/CT cervical spin wo con* [id number] IMPRESSION: No acute abnormality demonstrated. Radiation Dose CTDIVOL = (mGy): DLP = 826.38 (mGy-cm)
--- NOTE | 2020-08-23 16:03 | ECG_ITS ---
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 Measurements Intervals [place] Rate: 87 P: 21 [place]: 198 QRS: 36 QRSD: 177 T: 248 QT: 467 QTc: 565 Interpretive Statements Sinus rhythm with a ventricular couplets Left bundle branch block pattern Nonspecific ST-T changes Electronically Signed On 08-24-2020 9:20:32 BOLT LOADER by Herman Hendrix M.D. [email or web address]
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
[2020-08-23 16:07] LABS: Glucose Point of Care 347 mg/dL (70-110)
[2020-08-23 16:18] LABS: Basophils # 0.1 10^3/uL (0.0-0.1); Basophils % 0.6 %; Eosinophils # 0.1 10^3/uL (0.0-0.8); Hemoglobin 11.1 g/dL (11.7-16.6); Lymphocytes # 1.7 10^3/uL (0.8-4.8); Lymphocytes % 19.8 %; Mean Corpuscular HGB Conc 32.6 g/dL (30.0-36.0); Mean Corpuscular Hemoglobin 25.5 pg (28.0-34.0); Mean Corpuscular Volume 78.2 fL (80-94); Mean Platelet Volume 11.9 fL (7.4-10.4); Monocytes # 0.9 10^3/uL (0.2-0.9); Monocytes % 10.3 %; Neutrophils # 5.86 10^3/uL (1.8-7.7); Neutrophils % 67.8 %; Nucleated Red Blood Cells % 0 %; Platelet Count 209 10^3/cmm (130-400); Red Blood Count 4.35 10^6/uL (4.1-5.3); Red Cell Distribution Width 18.6 % (12.1-15.1); White Blood Count 8.6 10^3/uL (4.0-10.0)
[2020-08-23 16:24] VITALS: BP 127/88; PULSE 90; RESP 17
[2020-08-23 16:40] LABS: Ammonia 27 umol/L (16-60); Lactate (Lactic Acid level) 1.8 mmol/L (0.5-2.2)
[2020-08-23 16:41] LABS: Troponin(5th) Baseline 25 ng/L (0-15)
[2020-08-23 16:49] LABS: Alanine Aminotransferase 35 U/L (0-41); Albumin Level 3.9 g/dL (3.5-5.2); Alkaline Phosphatase 104 IU/L (40-130); Anion Gap 15.7 (5-19); Aspartate Amino Transferase 30 U/L (0-40); Blood Urea Nitrogen 46 mg/dL (8-23); C Reactive Protein 18.4 mg/L (0.0-4.9); Calcium 9.4 mg/dL (8.5-10.5); Carbon Dioxide 28 mmol/L (22-29); Chloride 86 mmol/L (98-107); Creatinine Clr Calc Pharmacy 105.0568; Globulin 3.6 g/dL (1.3-4.6); Glomerular Filtration Rate 86.1 mL/min (90-130); Glucose 366 mg/dL (65-115); Lipase 59 U/L (13-60); NT Pro B Type Natriuretic Pept 4288 pg/mL (0-125); Osmolality Calculated 289 mOsm/kg (285-295); Potassium 3.7 mmol/L (3.5-5.1); Sodium 126 mmol/L (136-145); Total Bilirubin 1.7 mg/dL (0.15-1.2); Total Protein 7.5 g/dL (6.6-8.7)
[2020-08-23 16:54] VITALS: BP 123/96; PULSE 89; RESP 21
[2020-08-23 17:05] LABS: Add Urine Microscopic? NO
[2020-08-23 17:09] LABS: Alcohol Level < 10 mg/dL (0-10)
[2020-08-23 17:24] VITALS: BP 129/85; PULSE 82; RESP 20
[2020-08-23 17:29] LABS: Urine Appearance Clear (CLEAR); Urine Color Straw (Yellow); pH Urine 5 (5-7)
[2020-08-23 17:30] LABS: Bilirubin Urine Neg (Negative); Blood Urine Neg (Negative); Glucose Urine UA 4+ (Normal); Ketones Urine Negative (Negative); Leukocyte Esterase Urine Negative (Negative); Nitrate Urine Negative (Negative); Protein Urine Neg (Negative); Urobilinogen Urine 1 mg/dL (Negative)
--- NOTE | 2020-08-23 17:33 | CTR_ITS ---
PROCEDURE INFORMATION: Exam: CT Abdomen And Pelvis With Contrast Exam date and time: 08/23/2020 5:49 PM Age: 59 years old Clinical indication: Abdominal pain; Additional info: Abdominal pain, distension TECHNIQUE: Imaging protocol: Computed tomography of the abdomen and pelvis with intravenous contrast. Radiation optimization: All CT scans at this facility use at least one of these dose optimization techniques: automated exposure control; mA and/or kV adjustment per patient size (includes targeted exams where dose is matched to clinical indication); or iterative reconstruction. Contrast material: OMNI 300; Contrast volume: 95 ml; Contrast route: INTRAVENOUS (IV); COMPARISON: abdomen limited [id number] 07/10/2020 4:47 PM RADIATION DOSE METRICS: Total DLP (mGy-cm): 1479.73 FINDINGS: Tubes, catheters and devices: Permanent pacemaker/AICD leads are noted. Lungs: Mild atelectasis versus infiltrate in the right lower lobe. Pleural space: Moderate-sized right pleural effusion. Heart: Cardiomegaly is present. Liver: The liver is unremarkable in appearance. Gallbladder and bile ducts: No calcified gallstones in the gallbladder. No gallbladder wall thickening. No pericholecystic fluid. No biliary dilatation. Pancreas: There is advanced atrophy of the pancreas present. No pancreatic mass or ductal dilatation. Spleen: The spleen is normal in size and appearance. Adrenal glands: The adrenal glands appear within normal limits. Kidneys and ureters: The kidneys are normal in morphology. No hydronephrosis. No solid mass. Stomach and bowel: No acute gastric abnormality demonstrated. The small bowel is unremarkable as demonstrated. Moderate retained stool noted in the colon, suggesting constipation. Appendix: The appendix is normal in appearance. No evidence of appendicitis. Intraperitoneal space: No pneumoperitoneum. No significant fluid collection. Mild ascites in the abdomen and pelvis. Vasculature: The aorta is atherosclerotic. No aortic aneurysm. Lymph nodes: No pathologically enlarged lymph nodes. Urinary bladder: Distended urinary bladder. No morphologic abnormality of the bladder. Reproductive: Unremarkable as visualized. Bones/joints: Degenerative spine changes are noted. No acute osseous abnormality. Soft tissues: Unremarkable. CT/CT abdomen pelvis w con* [id number] IMPRESSION: 1. Mild ascites in the abdomen and pelvis. 2. Moderate retained stool noted in the colon, suggesting constipation. No acute bowel abnormality. 3. Moderate-sized right pleural effusion. This is associated with mild atelectasis versus infiltrate in the right lower lobe. 4. Cardiomegaly is present. Radiation Dose CTDIVOL = (mGy): DLP = 1479.73 (mGy-cm)
[2020-08-23 17:36] LABS: Amphetamines Screen Urine Positive (Negative); Barbiturates Screen Urine Negative (Negative); Benzodiazepines Screen Urine Negative (Negative); Cocaine Screen Urine Negative (Negative); Opiate Screen Urine Negative (Negative); PCP Screen Urine Negative (Negative); THC Screen Urine Negative (Negative)
--- NOTE | 2020-08-23 18:03 | ECG_ITS ---
[facility] Test Date: 2020-08-23 Pat Name: Ivan De Leon Department: Room: Gender: Male Quahogger: : 1960 Requested By: Waldo Santos I Order Number: [id number] Leia MD: Herman Hendrix M.D. Measurements Intervals [place] Rate: 85 P: 47 WI: 195 QRS: 23 QRSD: 181 T: 130 QT: 478 QTc: 571 Interpretive Statements SINUS RHYTHM WITH OCCASIONAL VENTRICULAR PREMATURE COMPLEXES POSSIBLE LEFT ATRIAL ENLARGEMENT [-0.1mV P WAVE IN V1/V2] LEFT BUNDLE BRANCH BLOCK [120+ ms QRS DURATION, 80+ ms Q/S IN V1/V2, 85+ ms R IN I/aVL/V5/V6] Compared to ECG 08/23/2020 15:46:24 Ventricular premature complex(es) now present Left bundle-branch block now present Ventricular-paced complex(es) or rhythm no longer present Electronically Signed On 08-24-2020 20:30:09 TRANSMITTER SUPERVISOR by Herman Hendrix M.D. [id number]
[2020-08-23 18:45] LABS: Troponin 5 2HR 21.76 ng/L (0-15)
[2020-08-23 18:54] LABS: Troponin 5 2HR Delta -3.24 ABS# (0-10)
--- NOTE | 2020-08-23 19:12 | XRR_ITS ---
PROCEDURE INFORMATION: Exam: XR Chest, 1 View Exam date and time: 08/23/2020 7:13 PM Age: 59 years old Clinical indication: Other: AMS; Prior surgery; Surgery date: 6+ months TECHNIQUE: Imaging protocol: XR of the chest Views: 1 view. COMPARISON: CR XR chest 2V* [id number] 07/10/2020 4:07 PM FINDINGS: Tubes, catheters and devices: Permanent pacemaker/AICD noted. Lungs: Mild atelectasis at the right lung base. The lungs are otherwise clear. Pleural space: Small right pleural effusion. Heart/Mediastinum: Cardiomegaly is present. Bones/joints: Unremarkable. XR/XR chest 1V portable [id number] IMPRESSION: 1. Cardiomegaly is present. 2. Small right pleural effusion. 3. Mild atelectasis at the right lung base. The lungs are otherwise clear. 4. There is no interval change from the prior examination.
[2020-08-23 19:58] VITALS: BP 130/89; PULSE 113; O2SAT 90
[2020-08-23 20:00] VITALS: PULSE 113; O2SAT 90
--- NOTE | 2020-08-23 21:01 | PC.NURSE ---
pt offered additional services, pt declined. AMA papers signed.
== END 2020-08-23 21:01 | disposition home or self-care (01) ==
PROVIDERS: Emergency Provider Family Medicine; PCP Nurse Practitioner Family
DX: J90 Pleural effusion, not elsewhere classified (principal); I11.0 Hypertensive heart disease with heart failure; I50.9 Heart failure, unspecified; E87.1 Hypo-osmolality and hyponatremia; Z79.82 Long term (current) use of aspirin; Z79.4 Long term (current) use of insulin; I25.10 Atherosclerotic heart disease of native coronary artery without angina pectoris; E78.5 Hyperlipidemia, unspecified; I25.2 Old myocardial infarction; E11.9 Type 2 diabetes mellitus without complications; F17.210 Nicotine dependence, cigarettes, uncomplicated; Z79.899 Other long term (current) drug therapy
CPT/HCPCS: 12345; 36416; 70450; 71045; 72125; 74177; 80053; 80306; 80307; 81003; 82140; 82962; 83605; 83690; 83880; 84484; 85025; 86140; 93005; 99282; 99284; 99291

== ENCOUNTER 2020-08-30 17:22 | Emergency (ER) | payer MEDICARE, SELFPAY ==
[2020-08-30 17:40] VITALS: BP 110/72; PULSE 92; RESP 14; TEMP 36.4; O2SAT 99; BMI 30.7
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
--- NOTE | 2020-08-30 17:53 | ECG_ITS ---
[facility] Test Date: 2020-08-30 Pat Name: Ivan De Leon Department: Room: Gender: Male Formula Technician: : 1960 Requested By: Parvez Nunes Order Number: [id number] Leia MD: YOVANY SEPULVEDA Measurements Intervals [place] Rate: 100 P: 29 [place]: 191 QRS: -29 QRSD: 163 T: 107 QT: 411 QTc: 531 Interpretive Statements SINUS TACHYCARDIA POSSIBLE LEFT ATRIAL ENLARGEMENT [-0.1mV P WAVE IN V1/V2] LEFT BUNDLE BRANCH BLOCK [120+ ms QRS DURATION, 80+ ms Q/S IN V1/V2, 85+ ms R IN I/aVL/V5/V6] Compared to ECG 08/23/2020 18:18:30 Sinus rhythm no longer present Ventricular premature complex(es) no longer present Electronically Signed On 08-31-2020 21:25:32 IMPLEMENTATION PROJECT COORDINATOR by YVOANY SEPULVEDA [id number]
--- NOTE | 2020-08-30 17:53 | XRR_ITS ---
PROCEDURE INFORMATION: Exam: XR Chest, 1 View Exam date and time: 08/30/2020 6:13 PM Age: 59 years old Clinical indication: Dyspnea; Prior surgery; Surgery date: 6+ months; Surgery type: Defib TECHNIQUE: Imaging protocol: XR of the chest Views: 1 view. COMPARISON: CR (CHEST, ) 08/23/2020 7:14 PM FINDINGS: Tubes, catheters and devices: Single lead pacemaker. Lungs: Hazy opacities at the right lung base are unchanged from the prior study. Pleural space: Moderate size right pleural effusion mildly increased when compared to the prior study. Heart/Mediastinum: Cardiomegaly. Bones/joints: Unremarkable. XR/XR chest 1V portable [id number] IMPRESSION: Cardiomegaly with a right pleural effusion raises concern for congestive heart failure.
[2020-08-30 18:06] VITALS: BP 112/84; PULSE 99; RESP 22; O2SAT 96
[2020-08-30 18:09] VITALS: O2SAT 96
[2020-08-30 18:10] LABS: Basophils # 0.1 10^3/uL (0.0-0.1); Basophils % 0.6 %; Eosinophils # 0.1 10^3/uL (0.0-0.8); Eosinophils % 0.8 %; Hematocrit 38.1 % (42.0-52.0); Lymphocytes # 1.7 10^3/uL (0.8-4.8); Mean Corpuscular HGB Conc 31.5 g/dL (30.0-36.0); Mean Corpuscular Volume 79.4 fL (80-94); Mean Platelet Volume 11.8 fL (7.4-10.4); Monocytes # 0.7 10^3/uL (0.2-0.9); Monocytes % 7.8 %; Neutrophils # 6.11 10^3/uL (1.8-7.7); Neutrophils % 70.5 %; Nucleated Red Blood Cells % 0 %; Platelet Count 209 10^3/cmm (130-400); Red Cell Distribution Width 18.6 % (12.1-15.1); White Blood Count 8.7 10^3/uL (4.0-10.0)
[2020-08-30 18:16] LABS: INR 1.22 (0.8-1.2)
[2020-08-30 18:18] LABS: Partial Thromboplastin Time 30.1 SECONDS (23.9-36.7)
[2020-08-30 18:20] LABS: D Dimer 1.56 ug/mIFEU (0-0.59)
[2020-08-30 18:35] LABS: Lactic Sepsis W/Reflex 1.9 mmol/L (0.5-2.2); Troponin T (5th) Once 24 ng/L (0-15)
[2020-08-30 18:39] LABS: Alanine Aminotransferase 23 U/L (0-41); Albumin Level 3.9 g/dL (3.5-5.2); Alkaline Phosphatase 118 IU/L (40-130); Anion Gap 14.3 (5-19); Aspartate Amino Transferase 21 U/L (0-40); Blood Urea Nitrogen 28 mg/dL (8-23); C Reactive Protein 9.8 mg/L (0.0-4.9); Calcium 9.7 mg/dL (8.5-10.5); Carbon Dioxide 27 mmol/L (22-29); Chloride 85 mmol/L (98-107); Globulin 6.9 g/dL (1.3-4.6); Glucose 492 mg/dL (65-115); NT Pro B Type Natriuretic Pept 4088 pg/mL (0-125); Osmolality Calculated 281 mOsm/kg (285-295); Potassium 4.3 mmol/L (3.5-5.1); Sodium 122 mmol/L (136-145); Total Protein 10.8 g/dL (6.6-8.7)
--- NOTE | 2020-08-30 18:55 | CTR_ITS ---
PROCEDURE INFORMATION: Exam: CT Angiography Chest With Contrast Exam date and time: 08/30/2020 7:33 PM Age: 59 years old Clinical indication: Dyspnea; Prior surgery; Surgery date: 6+ months; Surgery type: Pacer; Patient HX: HX of chf C/O SOB, fatigue elev d-dimer; Additional info: Dyspnea, elevated d dimer TECHNIQUE: Imaging protocol: Computed tomographic angiography of the chest with intravenous contrast. 3D rendering (Not supervised by radiologist): MIP and/or 3D reconstructed images were created by the technologist. Radiation optimization: All CT scans at this facility use at least one of these dose optimization techniques: automated exposure control; mA and/or kV adjustment per patient size (includes targeted exams where dose is matched to clinical indication); or iterative reconstruction. Contrast material: OMNI 350; Contrast volume: 95 ml; Contrast route: INTRAVENOUS (IV); COMPARISON: CT angio chest PE protcl [id number] 10/18/2019 7:16 PM RADIATION DOSE METRICS: Total DLP (mGy-cm): 603.05 FINDINGS: Tubes, catheters and devices: Single lead pacemaker device. Pulmonary arteries: Normal. No pulmonary emboli. Aorta: Unremarkable. No aortic aneurysm. No aortic dissection. Veins: There is reflux of contrast into the hepatic veins, consistent with right heart strain. Lungs: Bilateral pulmonary ground-glass opacities. There is a moderate to large right pleural effusion with adjacent compressive atelectasis or infiltrate. Pleural space: See Lungs finding. Heart: Unremarkable. No cardiomegaly. No pericardial effusion. Lymph nodes: Multiple subcentimeter mediastinal and perihilar lymph nodes. Intraperitoneal space: There is a small amount of free fluid/ascites in the visualized upper abdomen. Bones/joints: Unremarkable. No acute fracture. Soft tissues: Unremarkable. CT/CT angio chest PE protcl [id number] IMPRESSION: 1. There is a moderate to large right pleural effusion with adjacent compressive atelectasis or infiltrate. In with cardiomegaly, findings are consistent with congestive heart failure. There is right heart strain. 2. There is a small amount of free fluid/ascites in the visualized upper abdomen. 3. Bilateral pulmonary ground-glass opacities are nonspecific however likely represent pulmonary edema in this patient with congestive heart failure. Pneumonia cannot be excluded. Radiation Dose CTDIVOL = (mGy): DLP = 603.05 (mGy-cm)
[2020-08-30 18:56] LABS: SARS Covid-2 Antigen Negative (Negative)
[2020-08-30] MEDS: iohexol 350 mg/mL 100 mL Btl IV (19:47)
[2020-08-30 20:07] VITALS: BP 121/88; PULSE 101; RESP 18; O2SAT 98
[2020-08-30] MEDS: FUROsemide 10 mg/mL SDV 4mL 40 MG IVP (20:27)
[2020-08-30 20:31] VITALS: BP 121/88; PULSE 100; RESP 18; O2SAT 96
== END 2020-08-30 20:33 | disposition home or self-care (01) ==
PROVIDERS: Emergency Provider Nurse Practitioner Family; PCP Nurse Practitioner Family
DX: I11.0 Hypertensive heart disease with heart failure (principal); I50.9 Heart failure, unspecified; E11.69 Type 2 diabetes mellitus with other specified complication; Z79.82 Long term (current) use of aspirin; Z79.4 Long term (current) use of insulin; I25.10 Atherosclerotic heart disease of native coronary artery without angina pectoris; E78.5 Hyperlipidemia, unspecified; I25.2 Old myocardial infarction; F17.210 Nicotine dependence, cigarettes, uncomplicated
CPT/HCPCS: 12345; 36415; 71045; 71275; 80053; 83605; 83880; 84484; 85025; 85378; 85610; 85730; 86140; 87040; 87426; 93005; 96374; 99283; 99284; J1940; Q9967

== ENCOUNTER 2020-09-05 21:42 | Inpatient (IN) | payer MEDICARE, SELFPAY ==
[2020-09-05] VITALS (13 sets, daily range): BP systolic 85–137; BP diastolic 62–75; PULSE 100–150; RESP 24–34; O2SAT 77–100; BMI 29.2
--- NOTE | 2020-09-05 21:43 | XRR_ITS ---
PROCEDURE INFORMATION: Exam: XR Chest, 1 View Exam date and time: 09/05/2020 9:45 PM Age: 59 years old Clinical indication: Shortness of breath; Additional info: A. Fib rvr TECHNIQUE: Imaging protocol: XR of the chest Views: 1 view. COMPARISON: CR (CHEST, ) 08/30/2020 6:20 PM FINDINGS: Tubes, catheters and devices: There is a single lead cardiac AICD via right subclavian approach. Findings are stable. Lungs: Interval development of mild interstitial pulmonary edema. Stable compressive atelectasis in the right middle and lower lobes. Pleural spaces: Stable small right pleural effusion. No pneumothorax. Heart/Mediastinum: Stable marked enlargement of the cardiac silhouette. Mediastinal contours are unremarkable. Bones/joints: Unremarkable for age. XR/XR chest 1V portable [id number] IMPRESSION: 1. Interval development of mild interstitial pulmonary edema. Stable small right pleural effusion with compressive atelectasis in the right middle and lower lobes. 2. Incidental/nonacute findings are listed in the report.
[2020-09-05 21:53] LABS: Basophils # 0.1 10^3/uL (0.0-0.1); Basophils % 0.4 %; Eosinophils # 4.4 10^3/uL (0.0-0.8); Eosinophils % 17.3 %; Hematocrit 38.4 % (42.0-52.0); Hemoglobin 12.5 g/dL (11.7-16.6); Lymphocytes % 3.9 %; Mean Corpuscular HGB Conc 32.6 g/dL (30.0-36.0); Mean Corpuscular Hemoglobin 25.5 pg (28.0-34.0); Mean Corpuscular Volume 78.4 fL (80-94); Mean Platelet Volume 12.5 fL (7.4-10.4); Monocytes # 1.3 10^3/uL (0.2-0.9); Monocytes % 5.2 %; Neutrophils # 18.29 10^3/uL (1.8-7.7); Neutrophils % 71.6 %; Nucleated Red Blood Cells % 0 %; Platelet Count 271 10^3/cmm (130-400); Red Cell Distribution Width 18.6 % (12.1-15.1); White Blood Count 25.6 10^3/uL (4.0-10.0)
--- NOTE | 2020-09-05 21:57 | CTR_ITS ---
PROCEDURE INFORMATION: Exam: CT Head Without Contrast Exam date and time: 09/05/2020 10:10 PM Age: 59 years old Clinical indication: Altered mental status/memory loss; Additional info: AMS TECHNIQUE: Imaging protocol: Computed tomography of the head without contrast. Sagittal and coronal reformatted images were created and reviewed. Radiation optimization: All CT scans at this facility use at least one of these dose optimization techniques: automated exposure control; mA and/or kV adjustment per patient size (includes targeted exams where dose is matched to clinical indication); or iterative reconstruction. COMPARISON: CT head wo con* [id number] 08/23/2020 3:47 PM RADIATION DOSE METRICS: Total DLP (mGy-cm): 768.86 FINDINGS: Brain: No acute intracranial hemorrhage. No acute infarct. No intra-axial or extra-axial masses. Romano-white matter differentiation is preserved. No cerebral edema. No extra-axial fluid collections. No midline shift. No evidence for Chiari 1 malformation. Stable mild atrophy of the brain parenchyma. Cerebral ventricles: No hydrocephalus. Bones/joints: No acute fracture. Paranasal sinuses: Other visualized paranasal sinuses are clear. Mild mucoperiosteal thickening and a small air-fluid level in the visualized right maxillary sinus. Findings suggest acute on chronic sinusitis. Mastoid air cells: Mastoid air cells are clear bilaterally. Auditory system: Soft tissue density in the bilateral external auditory canals, presumably representing cerumen. Orbital cavity: No acute abnormality in the visualized orbits. Vasculature: Atherosclerotic changes in the visualized arteries. Soft tissues: No acute abnormality of the extracranial soft tissues. CT/CT head wo con* [id number] IMPRESSION: 1. No acute abnormality of the brain. 2. Mild mucoperiosteal thickening and a small air-fluid level in the visualized right maxillary sinus. Findings suggest acute on chronic sinusitis. Recommend clinical correlation. 3. Stable mild atrophy of the brain parenchyma. 4. Incidental/nonacute findings are listed in the report. Radiation Dose CTDIVOL = (mGy): DLP = 768.86 (mGy-cm)
--- NOTE | 2020-09-05 21:57 | CTR_ITS ---
PROCEDURE INFORMATION: Exam: CT Angiography Chest With Contrast Exam date and time: 09/05/2020 10:10 PM Age: 59 years old Clinical indication: Shortness of breath; Prior surgery; Surgery type: Pacer; Additional info: R/O pe, resp distress TECHNIQUE: Imaging protocol: Computed tomographic angiography of the chest with contrast. 3D rendering (Not supervised by radiologist): MIP and/or 3D reconstructed images were created by the technologist. Radiation optimization: All CT scans at this facility use at least one of these dose optimization techniques: automated exposure control; mA and/or kV adjustment per patient size (includes targeted exams where dose is matched to clinical indication); or iterative reconstruction. Contrast material: [id number]; Contrast volume: 95 ml; Contrast route: INTRAVENOUS (IV); COMPARISON: 1. CT angio chest PE protcl [id number] 08/30/2020 7:31 PM 2. CR XR chest 1V portable [id number] 09/05/2020 9:53:52 PM RADIATION DOSE METRICS: Total DLP (mGy-cm): 582.44 FINDINGS: Limitations: Respiratory motion artifact on multiple images that can limit evaluation. Tubes, catheters and devices: There is a single lead cardiac AICD via right subclavian approach. Findings are stable. Pulmonary arteries: Evaluation of peripheral pulmonary arteries is limited secondary to the phase of contrast enhancement and respiratory motion. No filling defects in the central pulmonary arteries to suggest a large pulmonary embolism. Aorta: Mild atherosclerotic changes in the visualized arteries. No evidence for aortic aneurysm. Evaluation for aortic dissection is limited due to the phase of contrast-enhancement. Lungs: Tracheobronchial structures are patent. Fullness in the pulmonary vasculature suggesting volume overload in the lungs. Findings are stable. Compressive atelectasis in the posterior right lung. No pulmonary parenchymal nodules or masses. Pleural spaces: Moderate right pleural effusion, mildly decreased in size. No pneumothorax. Heart: Stable marked enlargement of the heart. Stable extensive atherosclerotic calcification in the coronary arteries. Mediastinal space: The esophagus is unremarkable. No mediastinal hematoma. No pneumomediastinum. Lymph nodes: Stable enlarged right hilar lymph node measuring 1.5 cm in short axis. Additional sub cm short axis lymph nodes in the mediastinum are also stable. Liver: The visualized liver is unremarkable. Pancreas: Stable marked atrophy of the visualized pancreatic parenchyma. Spleen: The visualized spleen is unremarkable. Adrenal glands: The visualized right and left adrenal glands are unremarkable. Kidneys and ureters: The visualized right and left kidneys are unremarkable. Intraperitoneal space: Moderate ascites in the visualized upper abdomen, increased compared with the previous CT scan. Bones/joints: Mild degenerative changes in the visualized spine. Soft tissues: No acute abnormality in the extrathoracic soft tissues. CT/CT angio chest PE protcl [id number] IMPRESSION: 1. Fullness in the pulmonary vasculature suggesting volume overload in the lungs. Findings are stable. 2. Evaluation of peripheral pulmonary arteries is limited secondary to the phase of contrast enhancement and respiratory motion. No filling defects in the central pulmonary arteries to suggest a large pulmonary embolism. 3. Moderate right pleural effusion, mildly decreased in size. 4. Compressive atelectasis in the posterior right lung. 5. Moderate ascites in the visualized upper abdomen, increased compared with the previous CT scan. 6. Stable nonspecific enlarged right hilar lymph node, which could be reactive in nature. Followup imaging recommended to insure stability/resolution however. 7. Incidental/nonacute findings are listed in the report. Radiation Dose CTDIVOL = (mGy): DLP = 582.44 (mGy-cm)
[2020-09-05 22:02] LABS: INR 1.61 (0.8-1.2)
--- NOTE | 2020-09-05 22:06 | PC.NURSE ---
patient to CT
[2020-09-05 22:10] LABS: Troponin(5th) Baseline 48 ng/L (0-15)
[2020-09-05 22:11] LABS: D Dimer 3.14 ug/mIFEU (0-0.59)
[2020-09-05] MEDS: insulin regular-human 100 units/1 mL 10 UNIT IVP (22:28)
[2020-09-05] MEDS: sodium chloride 0.9% 1,000 ML 999 ML IV (22:29)
[2020-09-05 22:32] LABS: Glucose Point of Care 329 mg/dL (70-110)
[2020-09-05] MEDS: piperacillin-tazobactam 3.375 GM in sodium chloride 0.9% (plus) 50 ML IV (22:32)
[2020-09-05] MEDS: iohexol 350 mg/mL 100 mL Btl IV (22:33)
[2020-09-05 22:36] LABS: Lactate (Lactic Acid level) 6.9 mmol/L (0.5-2.2)
[2020-09-05 22:41] LABS: SARS Covid-2 Antigen Negative (Negative)
[2020-09-05 22:41] LABS: Influenza A by IFA Negative (Negative); Influenza B by IFA Negative (Negative)
[2020-09-05] MEDS: vancomycin 1,500 MG/300 ML PIGGYBACK 200 MG IV (23:05)
[2020-09-05 23:10] LABS: ABG PCO2 27.4 mmHg (35-45); ABG PH Result 7.44 (7.35-7.45); Alveolar-Arterial Oxygen Gradi 9.2 mmHg (5-10); Arterial Blood Gas Hematocrit 36.1 % (42-52); Base Excess ABG -4.3 mmol/L (-2.0-2.0); Blood Gas Allen Test Pos; Blood Gas Sample Site Radial, right; Blood Gas Sample Type Arterial; Carboxyhemoglobin 2.7 %THgb (0.4-20.1); HCO3 ABG 18.7 mmol/L (22-26); HGB O2 Sat 97.1 % (95-100); Ionized Calcium Level - ABG 1.1 mmol/L (1.1-1.4); Methemoglobin 0.6 % (0.4-1.5); Oxygen Device BIPAP; Oxygen Saturation ABG > 100.0; Potassium Level - ABG 3.7 mmol/L (3.5-5.0); Total Hemoglobin 11.8 g/dL (14-18)
[2020-09-05 23:10] LABS: Glucose Point of Care 298 mg/dL (70-110)
--- NOTE | 2020-09-05 23:41 | W.ED.SOB ---
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 Lloyd. He is mentally altered patient he was found to have low saturations in the field. He continues to have low saturations at times here, although his pulse ox waveform has been difficult at times. We had him on BiPAP for a bit, with improved oxygenation. He began to struggle with the BiPAP, so he is back on nasal cannula currently at 4 L. Saturations are in the low to mid 90s. He continues to be altered to some degree. His previous CO2 levels have been low to normal. His sodium, is significantly low at 118. His BUN and creatinine are elevated, particularly the BUN. If this is an acute uremia, it could contribute to his mental status alteration as well. His ammonia level is not elevated. He does have some elevation in liver enzymes including bilirubin, but the patient has a history of both heart failure and hep C which would account for this. He was hypotensive for a bit, and blood pressures been supported with Levophed. He is received Lasix for the fluid overload along with some sodium chloride for the hyponatremia and blood pressure support. He was given 10 more milligrams of Cardizem for heart rate in the 140s, and currently heart rate is down to 110. He will go to the ICU. Hospitalist is aware. Lab Data: Labs: Lab Results 09/05/20 09/05/20 09/05/20 Range/Units 21:25 21:25 21:25 WBC 25.6 H (4.0-10.0) 10^3/ uL RBC 4.90 (4.1-5.3) 10^6/u L Hgb 12.5 (11.7-16.6) g/dL Hct 38.4 L (42.0-52.0) % MCV 78.4 L (80-94) fL MCH 25.5 L (28.0-34.0) pg MCHC 32.6 (30.0-36.0) g/dL RDW 18.6 H (12.1-15.1) % Plt Count 271 (130-400) 10^3/c mm MPV 12.5 H (7.4-10.4) fL Neut % (Auto) 71.6 % Lymph % (Auto) 3.9 % Saline % (Auto) 5.2 % Eos % (Auto) 17.3 % Baso % (Auto) 0.4 % Neut # (Auto) 18.29 H (1.8-7.7) 10^3/u L Lymph # (Auto) 1.0 (0.8-4.8) 10^3/u L Saline # (Auto) 1.3 H (0.2-0.9) 10^3/u L Eos # (Auto) 4.4 H (0.0-0.8) 10^3/u L Baso # (Auto) 0.1 (0.0-0.1) 10^3/u L Nucleated RBC % (a uto) 0 % Nucleated RBCs # 0.0 /100WBC PT 19.70 H (12.1-14.9) SECO NDS INR 1.61 H (0.8-1.2) D-Dimer 3.14 H (0-0.59) ug/mIFE U Specimen Type Sample Site ABG pH (7.35-7.45) ABG pCO2 (35-45) mmHg ABG pO2 (80.0-100.0) mmH g ABG HCO3 (22-26) mmol/L ABG O2 Saturation ABG Base Excess (-2.0-2.0) mmol/ L Tanner Test A-a O2 Gradient (5-10) mmHg Hematocrit (42-52) % Hgb O2 Saturation (95-100) % Carboxyhemoglobin (0.4-20.1) %THgb Methemoglobin (0.4-1.5) % Total Hemoglobin (14-18) g/dL Ionized Calcium (1.1-1.4) mmol/L O2 Delivery Device O2 Liters/Min % FiO2 % Document Control Coordinator ID Sodium Cancelled Potassium Cancelled Chloride Cancelled Carbon Dioxide Cancelled Anion Gap Cancelled BUN Cancelled Creatinine Cancelled GFR Calculation Cancelled Glucose Cancelled POC Glucose (70-110) mg/dL Calculated Osmolal ity Cancelled Lactate (0.5-2.2) mmol/L Calcium Cancelled Total Bilirubin Cancelled AST Cancelled ALT Cancelled Alkaline Phosphata se Cancelled Ammonia (16-60) umol/L Creatine Kinase Cancelled Troponin T Baselin e (0-15) ng/L Troponin T [address] [place] (0-15) ng/L Delta Troponin T (0-10) ABS# NT-Pro-B Natriuret Pep Cancelled Total Protein Cancelled Albumin Cancelled Globulin Cancelled Urine Color (Yellow) Urine Appearance (CLEAR) Urine pH (5-7) Ur Specific Gravit y (1.005-1.030) Urine Protein (Negative) Urine Glucose (UA) (Normal) Urine Ketones (Negative) Urine Blood (Negative) Urine Nitrate (Negative) Urine Bilirubin (Negative) Urine Urobilinogen (Negative) mg/dL Ur Leukocyte Kalpana ase (Negative) Urine RBC (0-2) /hpf Urine WBC (0-5) /hpf Ur Squamous Epith Cells (0-5) /hpf Amorphous Sediment /hpf Urine Bacteria (NONE) /hpf Urine Opiates Scre en (Negative) ng/mL Ur Barbiturates Sc reen (Negative) ng/mL Ur Phencyclidine S crn (Negative) ng/mL Ur Amphetamines Sc reen (Negative) ng/mL U Benzodiazepines Scrn (Negative) ng/mL Urine Cocaine Scre en (Negative) ng/mL U Marijuana (THC) Screen (Negative) ng/mL Influenza Type A A g (Negative) Influenza Type B A g (Negative) SARS-CoV-2 Ag (Rap id) (Negative) 09/05/20 09/05/20 09/05/20 Range/Units 21:25 21:51 22:00 WBC (4.0-10.0) 10^3/ uL RBC (4.1-5.3) 10^6/u L Hgb (11.7-16.6) g/dL Hct (42.0-52.0) % MCV (80-94) fL MCH (28.0-34.0) pg MCHC (30.0-36.0) g/dL RDW (12.1-15.1) % Plt Count (130-400) 10^3/c mm MPV (7.4-10.4) fL Neut % (Auto) % Lymph % (Auto) % Saline % (Auto) % Eos % (Auto) % Baso % (Auto) % Neut # (Auto) (1.8-7.7) 10^3/u L Lymph # (Auto) (0.8-4.8) 10^3/u L Saline # (Auto) (0.2-0.9) 10^3/u L Eos # (Auto) (0.0-0.8) 10^3/u L Baso # (Auto) (0.0-0.1) 10^3/u L Nucleated RBC % (a uto) % Nucleated RBCs # /100WBC PT (12.1-14.9) SECO NDS INR (0.8-1.2) D-Dimer (0-0.59) ug/mIFE U Specimen Type Arterial Sample Site Radial, left ABG pH 7.47 H (7.35-7.45) ABG pCO2 24.9 L (35-45) mmHg ABG pO2 112.0 H (80.0-100.0) mmH g ABG HCO3 18.0 L (22-26) mmol/L ABG O2 Saturation 99.3 ABG Base Excess -4.2 L (-2.0-2.0) mmol/ L Tanner Test Pos A-a O2 Gradient 0.7 L (5-10) mmHg Hematocrit 39.1 L (42-52) % Hgb O2 Saturation 95.6 (95-100) % Carboxyhemoglobin 3.0 (0.4-20.1) %THgb Methemoglobin 0.7 (0.4-1.5) % Total Hemoglobin 12.7 L (14-18) g/dL Ionized Calcium 1.1 (1.1-1.4) mmol/L O2 Delivery Device Nc O2 Liters/Min 4.0 % FiO2 % Document Control Coordinator ID Harkr Sodium 116.0 L Potassium 4.5 Chloride Carbon Dioxide Anion Gap BUN Creatinine GFR Calculation Glucose 359.0 H POC Glucose (70-110) mg/dL Calculated Osmolal ity Lactate 6.9 H* (0.5-2.2) mmol/L Calcium Total Bilirubin AST ALT Alkaline Phosphata se Ammonia (16-60) umol/L Creatine Kinase Troponin T Baselin e 48 H (0-15) ng/L Troponin T 120 [address] [place] (0-15) ng/L Delta Troponin T (0-10) ABS# NT-Pro-B Natriuret Pep Total Protein Albumin Globulin Urine Color (Yellow) Urine Appearance (CLEAR) Urine pH (5-7) Ur Specific Gravit y (1.005-1.030) Urine Protein (Negative) Urine Glucose (UA) (Normal) Urine Ketones (Negative) Urine Blood (Negative) Urine Nitrate (Negative) Urine Bilirubin (Negative) Urine Urobilinogen (Negative) mg/dL Ur Leukocyte Kalp[place] ase (Negative) Urine RBC (0-2) /hpf Urine WBC (0-5) /hpf Ur Squamous Epith Cells (0-5) /hpf Amorphous Sediment /hpf Urine Bacteria (NONE) /hpf Urine Opiates Scre en (Negative) ng/mL Ur Barbiturates Sc reen (Negative) ng/mL Ur Phencyclidine S crn (Negative) ng/mL Ur Amphetamines Sc reen (Negative) ng/mL U Benzodiazepines Scrn (Negative) ng/mL Urine Cocaine Scre en (Negative) ng/mL U Marijuana (THC) Screen (Negative) ng/mL Influenza Type A A g (Negative) Influenza Type B A g (Negative) SARS-CoV-2 Ag (Rap id) (Negative) 09/05/20 09/05/20 09/05/20 Range/Units 22:02 22:03 22:27 WBC (4.0-10.0) 10^3/ uL RBC (4.1-5.3) 10^6/u L Hgb (11.7-16.6) g/dL Hct (42.0-52.0) % MCV (80-94) fL MCH (28.0-34.0) pg MCHC (30.0-36.0) g/dL RDW (12.1-15.1) % Plt Count (130-400) 10^3/c mm MPV (7.4-10.4) fL Neut % (Auto) % Lymph % (Auto) % Saline % (Auto) % Eos % (Auto) % Baso % (Auto) % Neut # (Auto) (1.8-7.7) 10^3/u L Lymph # (Auto) (0.8-4.8) 10^3/u L Saline # (Auto) (0.2-0.9) 10^3/u L Eos # (Auto) (0.0-0.8) 10^3/u L Baso # (Auto) (0.0-0.1) 10^3/u L Nucleated RBC % (a uto) % Nucleated RBCs # /100WBC PT (12.1-14.9) SECO NDS INR (0.8-1.2) D-Dimer (0-0.59) ug/mIFE U Specimen Type Sample Site ABG pH (7.35-7.45) ABG pCO2 (35-45) mmHg ABG pO2 (80.0-100.0) mmH g ABG HCO3 (22-26) mmol/L ABG O2 Saturation ABG Base Excess (-2.0-2.0) mmol/ L Tanner Test A-a O2 Gradient (5-10) mmHg Hematocrit (42-52) % Hgb O2 Saturation (95-100) % Carboxyhemoglobin (0.4-20.1) %THgb Methemoglobin (0.4-1.5) % Total Hemoglobin (14-18) g/dL Ionized Calcium (1.1-1.4) mmol/L O2 Delivery Device O2 Liters/Min % FiO2 % Document Control Coordinator ID Sodium Potassium Chloride Carbon Dioxide Anion Gap BUN Creatinine GFR Calculation Glucose POC Glucose 329 H (70-110) mg/dL Calculated Osmolal ity Lactate (0.5-2.2) mmol/L Calcium Total Bilirubin AST ALT Alkaline Phosphata se Ammonia (16-60) umol/L Creatine Kinase Troponin T Baselin e (0-15) ng/L Troponin T 120 [address] [place] (0-15) ng/L Delta Troponin T (0-10) ABS# NT-Pro-B Natriuret Pep Total Protein Albumin Globulin Urine Color (Yellow) Urine Appearance (CLEAR) Urine pH (5-7) Ur Specific Gravit y (1.005-1.030) Urine Protein (Negative) Urine Glucose (UA) (Normal) Urine Ketones (Negative) Urine Blood (Negative) Urine Nitrate (Negative) Urine Bilirubin (Negative) Urine Urobilinogen (Negative) mg/dL Ur Leukocyte Kalp[place] ase (Negative) Urine RBC (0-2) /hpf Urine WBC (0-5) /hpf Ur Squamous Epith Cells (0-5) /hpf Amorphous Sediment /hpf Urine Bacteria (NONE) /hpf Urine Opiates Scre en (Negative) ng/mL Ur Barbiturates Sc reen (Negative) ng/mL Ur Phencyclidine S crn (Negative) ng/mL Ur Amphetamines Sc reen (Negative) ng/mL U Benzodiazepines Scrn (Negative) ng/mL Urine Cocaine Scre en (Negative) ng/mL U Marijuana (THC) Screen (Negative) ng/mL Influenza Type A A g Negative (Negative) Influenza Type B A g Negative (Negative) SARS-CoV-2 Ag (Rap id) Negative (Negative) 09/05/20 09/05/20 09/05/20 Range/Units 22:37 22:55 22:57 WBC (4.0-10.0) 10^3/ uL RBC (4.1-5.3) 10^6/u L Hgb (11.7-16.6) g/dL Hct (42.0-52.0) % MCV (80-94) fL MCH (28.0-34.0) pg MCHC (30.0-36.0) g/dL RDW (12.1-15.1) % Plt Count (130-400) 10^3/c mm MPV (7.4-10.4) fL Neut % (Auto) % Lymph % (Auto) % Saline % (Auto) % Eos % (Auto) % Baso % (Auto) % Neut # (Auto) (1.8-7.7) 10^3/u L Lymph # (Auto) (0.8-4.8) 10^3/u L Saline # (Auto) (0.2-0.9) 10^3/u L Eos # (Auto) (0.0-0.8) 10^3/u L Baso # (Auto) (0.0-0.1) 10^3/u L Nucleated RBC % (a uto) % Nucleated RBCs # /100WBC PT (12.1-14.9) SECO NDS INR (0.8-1.2) D-Dimer (0-0.59) ug/mIFE U Specimen Type Arterial Sample Site Radial, right ABG pH 7.44 (7.35-7.45) ABG pCO2 27.4 L (35-45) mmHg ABG pO2 176.0 H (80.0-100.0) mmH g ABG HCO3 18.7 L (22-26) mmol/L ABG O2 Saturation > 100.0 ABG Base Excess -4.3 L (-2.0-2.0) mmol/ L Tanner Test Pos A-a O2 Gradient 9.2 (5-10) mmHg Hematocrit 36.1 L (42-52) % Hgb O2 Saturation 97.1 (95-100) % Carboxyhemoglobin 2.7 (0.4-20.1) %THgb Methemoglobin 0.6 (0.4-1.5) % Total Hemoglobin 11.8 L (14-18) g/dL Ionized Calcium 1.1 (1.1-1.4) mmol/L O2 Delivery Device Bipap O2 Liters/Min % FiO2 40.0 % Document Control Coordinator ID Jlg Sodium Cancelled 116.0 L Potassium Cancelled 3.7 Chloride Cancelled Carbon Dioxide Cancelled Anion Gap Cancelled BUN Cancelled Creatinine Cancelled GFR Calculation Cancelled Glucose Cancelled 280.0 H POC Glucose (70-110) mg/dL Calculated Osmolal ity Cancelled Lactate (0.5-2.2) mmol/L Calcium Cancelled Total Bilirubin Cancelled AST Cancelled ALT Cancelled Alkaline Phosphata se Cancelled Ammonia (16-60) umol/L Creatine Kinase Cancelled Troponin T Baselin e (0-15) ng/L Troponin T 120 [address] [place] (0-15) ng/L Delta Troponin T (0-10) ABS# NT-Pro-B Natriuret Pep Cancelled Total Protein Cancelled Albumin Cancelled Globulin Cancelled Urine Color Yellow (Yellow) Urine Appearance Clear (CLEAR) Urine pH 5 (5-7) Ur Specific Gravit y 1.020 (1.005-1.030) Urine Protein Neg (Negative) Urine Glucose (UA) 2+ (Normal) Urine Ketones Negative (Negative) Urine Blood Neg (Negative) Urine Nitrate Negative (Negative) Urine Bilirubin 1+ H (Negative) Urine Urobilinogen 4 H (Negative) mg/dL Ur Leukocyte Kalpana ase Negative (Negative) Urine RBC 0-4 H (0-2) /hpf Urine WBC 0-4 H (0-5) /hpf Ur Squamous Epith Cells 0-4 H (0-5) /hpf Amorphous Sediment 1+ /hpf Urine Bacteria Trace (NONE) /hpf Urine Opiates Scre en (Negative) ng/mL Ur Barbiturates Sc reen (Negative) ng/mL Ur Phencyclidine S crn (Negative) ng/mL Ur Amphetamines Sc reen (Negative) ng/mL U Benzodiazepines Scrn (Negative) ng/mL Urine Cocaine Scre en (Negative) ng/mL U Marijuana (THC) Screen (Negative) ng/mL Influenza Type A A g (Negative) Influenza Type B A g (Negative) SARS-CoV-2 Ag (Rap id) (Negative) 09/05/20 09/05/20 09/05/20 Range/Units 22:57 23:07 23:37 WBC (4.0-10.0) 10^3/ uL RBC (4.1-5.3) 10^6/u L Hgb (11.7-16.6) g/dL Hct (42.0-52.0) % MCV (80-94) fL MCH (28.0-34.0) pg MCHC (30.0-36.0) g/dL RDW (12.1-15.1) % Plt Count (130-400) 10^3/c mm MPV (7.4-10.4) fL Neut % (Auto) % Lymph % (Auto) % Saline % (Auto) % Eos % (Auto) % Baso % (Auto) % Neut # (Auto) (1.8-7.7) 10^3/u L Lymph # (Auto) (0.8-4.8) 10^3/u L Saline # (Auto) (0.2-0.9) 10^3/u L Eos # (Auto) (0.0-0.8) 10^3/u L Baso # (Auto) (0.0-0.1) 10^3/u L Nucleated RBC % (a uto) % Nucleated RBCs # /100WBC PT (12.1-14.9) SECO NDS INR (0.8-1.2) D-Dimer (0-0.59) ug/mIFE U Specimen Type Sample Site ABG pH (7.35-7.45) ABG pCO2 (35-45) mmHg ABG pO2 (80.0-100.0) mmH g ABG HCO3 (22-26) mmol/L ABG O2 Saturation ABG Base Excess (-2.0-2.0) mmol/ L Tanner Test A-a O2 Gradient (5-10) mmHg Hematocrit (42-52) % Hgb O2 Saturation (95-100) % Carboxyhemoglobin (0.4-20.1) %THgb Methemoglobin (0.4-1.5) % Total Hemoglobin (14-18) g/dL Ionized Calcium (1.1-1.4) mmol/L O2 Delivery Device O2 Liters/Min % FiO2 % Document Control Coordinator ID Sodium Potassium Chloride Carbon Dioxide Anion Gap BUN Creatinine GFR Calculation Glucose POC Glucose 298 H (70-110) mg/dL Calculated Osmolal ity Lactate (0.5-2.2) mmol/L Calcium Total Bilirubin AST ALT Alkaline Phosphata se Ammonia (16-60) umol/L Creatine Kinase Troponin T Baselin e (0-15) ng/L Troponin T [address] [place] 48.20 H (0-15) ng/L Delta Troponin T 0.20 (0-10) ABS# NT-Pro-B Natriuret Pep Total Protein Albumin Globulin Urine Color (Yellow) Urine Appearance (CLEAR) Urine pH (5-7) Ur Specific Gravit y (1.005-1.030) Urine Protein (Negative) Urine Glucose (UA) (Normal) Urine Ketones (Negative) Urine Blood (Negative) Urine Nitrate (Negative) Urine Bilirubin (Negative) Urine Urobilinogen (Negative) mg/dL Ur Leukocyte Kalp[place] ase (Negative) Urine RBC (0-2) /hpf Urine WBC (0-5) /hpf Ur Squamous Epith Cells (0-5) /hpf Amorphous Sediment /hpf Urine Bacteria (NONE) /hpf Urine Opiates Scre en Negative (Negative) ng/mL Ur Barbiturates Sc reen Negative (Negative) ng/mL Ur Phencyclidine S crn Negative (Negative) ng/mL Ur Amphetamines Sc reen Positive H (Negative) ng/mL U Benzodiazepines Scrn Negative (Negative) ng/mL Urine Cocaine Scre en Negative (Negative) ng/mL U Marijuana (THC) Screen Negative (Negative) ng/mL Influenza Type A A g (Negative) Influenza Type B A g (Negative) SARS-CoV-2 Ag (Rap id) (Negative) 09/05/20 09/05/20 09/05/20 Range/Units 23:37 23:37 23:37 WBC (4.0-10.0) 10^3/ uL RBC (4.1-5.3) 10^6/u L Hgb (11.7-16.6) g/dL Hct (42.0-52.0) % MCV (80-94) fL MCH (28.0-34.0) pg MCHC (30.0-36.0) g/dL RDW (12.1-15.1) % Plt Count (130-400) 10^3/c mm MPV (7.4-10.4) fL Neut % (Auto) % Lymph % (Auto) % Saline % (Auto) % Eos % (Auto) % Baso % (Auto) % Neut # (Auto) (1.8-7.7) 10^3/u L Lymph # (Auto) (0.8-4.8) 10^3/u L Saline # (Auto) (0.2-0.9) 10^3/u L Eos # (Auto) (0.0-0.8) 10^3/u L Baso # (Auto) (0.0-0.1) 10^3/u L Nucleated RBC % (a uto) % Nucleated RBCs # /100WBC PT (12.1-14.9) SECO NDS INR (0.8-1.2) D-Dimer (0-0.59) ug/mIFE U Specimen Type Sample Site ABG pH (7.35-7.45) ABG pCO2 (35-45) mmHg ABG pO2 (80.0-100.0) mmH g ABG HCO3 (22-26) mmol/L ABG O2 Saturation ABG Base Excess (-2.0-2.0) mmol/ L Tanner Test A-a O2 Gradient (5-10) mmHg Hematocrit (42-52) % Hgb O2 Saturation (95-100) % Carboxyhemoglobin (0.4-20.1) %THgb Methemoglobin (0.4-1.5) % Total Hemoglobin (14-18) g/dL Ionized Calcium (1.1-1.4) mmol/L O2 Delivery Device O2 Liters/Min % FiO2 % Document Control Coordinator ID Sodium 118 L* Potassium 4.0 Chloride 79 L Carbon Dioxide 19 L Anion Gap 24.0 H BUN 76 H Creatinine 1.3 H GFR Calculation 56.3 L Glucose 243 H POC Glucose (70-110) mg/dL Calculated Osmolal ity 277 L Lactate 6.4 H* (0.5-2.2) mmol/L Calcium 8.3 L Total Bilirubin 4.5 H AST 139 H ALT 117 H Alkaline Phosphata se 104 Ammonia 24 (16-60) umol/L Creatine Kinase 67 Troponin T Baselin e (0-15) ng/L Troponin T 120 [address] [place] (0-15) ng/L Delta Troponin T (0-10) ABS# NT-Pro-B Natriuret Pep 9724 H Total Protein 6.9 Albumin 3.3 L Globulin 3.6 Urine Color (Yellow) Urine Appearance (CLEAR) Urine pH (5-7) Ur Specific Gravit y (1.005-1.030) Urine Protein (Negative) Urine Glucose (UA) (Normal) Urine Ketones (Negative) Urine Blood (Negative) Urine Nitrate (Negative) Urine Bilirubin (Negative) Urine Urobilinogen (Negative) mg/dL Ur Leukocyte Kalp[place] ase (Negative) Urine RBC (0-2) /hpf Urine WBC (0-5) /hpf Ur Squamous Epith Cells (0-5) /hpf Amorphous Sediment /hpf Urine Bacteria (NONE) /hpf Urine Opiates Scre en (Negative) ng/mL Ur Barbiturates Sc reen (Negative) ng/mL Ur Phencyclidine S crn (Negative) ng/mL Ur Amphetamines Sc reen (Negative) ng/mL U Benzodiazepines Scrn (Negative) ng/mL Urine Cocaine Scre en (Negative) ng/mL U Marijuana (THC) Screen (Negative) ng/mL Influenza Type A A g (Negative) Influenza Type B A g (Negative) SARS-CoV-2 Ag (Rap id) (Negative) Discharge Plan Discharge Patient Disposition: Admitted As Inpatient Admit Provider: Alvaro Johnson Clinical Impression: Acute exacerbation of congestive heart failure, Respiratory failure with hypoxia, Acute hyponatremia, Acute uremia Condition: Critical Coding Level of Care Code ED Counselor [employer] for Tae Mcclendon Exam Comprehensive
--- NOTE | 2020-09-05 23:43 | ECG_ITS ---
[facility] Test Date: 2020-09-05 Pat Name: Ivan De Leon Department: Room: Gender: Male [employer] Application Developer: : [id number] Requested By: Wilfredo Sebastian Order Number: [id number] Dupree MD: Jose Ceron M.D. Measurements Intervals [place] Rate: 114 P: [place]: QRS: 270 QRSD: 185 T: 253 QT: 403 QTc: 556 Interpretive Statements ATRIAL FLUTTER WITH RAPID VENTRICULAR RESPONSE INTRAVENTRICULAR CONDUCTION DELAY [130+ ms QRS DURATION] Compared to ECG 08/30/2020 18:21:38 Indeterminate axis now present Intraventricular conduction delay now present Sinus tachycardia no longer present Left bundle-branch block no longer present Electronically Signed On 09-06-2020 15:31:36 DIE ATTACHER by Jose Ceron M.D. [id number]
[2020-09-06] VITALS (126 sets, daily range): BP systolic 66–124; BP diastolic 44–85; PULSE 66–141; RESP 12–55; TEMP 36.4–37.2; O2SAT 74–100
[2020-09-06 00:04] LABS: Ammonia 24 umol/L (16-60)
[2020-09-06 00:07] LABS: Lactate (Lactic Acid level) 6.4 mmol/L (0.5-2.2)
[2020-09-06 00:13] LABS: Add Urine Microscopic? YES; Bilirubin Urine 1+ (Negative); Blood Urine Neg (Negative); Glucose Urine UA 2+ (Normal); Ketones Urine Negative (Negative); Leukocyte Esterase Urine Negative (Negative); Nitrate Urine Negative (Negative); Protein Urine Neg (Negative); Urine Appearance Clear (CLEAR); Urine Color Yellow (Yellow); Urobilinogen Urine 4 mg/dL (Negative); pH Urine 5 (5-7)
[2020-09-06 00:17] LABS: Alanine Aminotransferase 117 U/L (0-41); Albumin Level 3.3 g/dL (3.5-5.2); Alkaline Phosphatase 104 IU/L (40-130); Aspartate Amino Transferase 139 U/L (0-40); Blood Urea Nitrogen 76 mg/dL (8-23); Calcium 8.3 mg/dL (8.5-10.5); Carbon Dioxide 19 mmol/L (22-29); Chloride 79 mmol/L (98-107); Creatine Phosphokinase 67 U/L (39-308); Globulin 3.6 g/dL (1.3-4.6); Glomerular Filtration Rate 56.3 mL/min (90-130); Glucose 243 mg/dL (65-115); NT Pro B Type Natriuretic Pept 9724 pg/mL (0-125); Osmolality Calculated 277 mOsm/kg (285-295); Sodium 118 mmol/L (136-145); Total Bilirubin 4.5 mg/dL (0.15-1.2); Total Protein 6.9 g/dL (6.6-8.7)
[2020-09-06 00:25] LABS: Add Urine Culture? No; Amorphous Sediment Urine 1+ /hpf; Bacteria Urine TRACE /hpf; RBC Urine 0-4 /hpf (0-2); Squamous Epithelial Cell Urine 0-4 /hpf (0-5); WBC Urine 0-4 /hpf (0-5)
[2020-09-06] MEDS: FUROsemide 10 mg/mL SDV 4mL 40 MG IVP ×2 (00:44→18:11)
[2020-09-06 01:07] LABS: ABG PCO2 24.9 mmHg (35-45); ABG PH Result 7.47 (7.35-7.45); Alveolar-Arterial Oxygen Gradi 0.7 mmHg (5-10); Arterial Blood Gas Hematocrit 39.1 % (42-52); Base Excess ABG -4.2 mmol/L (-2.0-2.0); Blood Gas Allen Test Pos; Blood Gas Operator Identificat HARKR; Blood Gas Sample Site Radial, left; Blood Gas Sample Type Arterial; HGB O2 Sat 95.6 % (95-100); Ionized Calcium Level - ABG 1.1 mmol/L (1.1-1.4); Methemoglobin 0.7 % (0.4-1.5); Oxygen Device NC; Oxygen Saturation ABG 99.3; Potassium Level - ABG 4.5 mmol/L (3.5-5.0); Total Hemoglobin 12.7 g/dL (14-18)
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
[2020-09-06] MEDS: digoxin 250 mcg/ml INJ 2 mL IVP (01:31)
--- NOTE | 2020-09-06 03:20 | PC.NURSE ---
Admit Note Arrived from ER via [facility] at this time. Altered mental status. Pt has eyes closed and is restless. Repetitively saying things like heck yea you bet and shaking head side to side. Pt opens eyes to verbal stimuli and does follow simple commands. PERRL. Lance Crewmember equal. Pt oriented to self and place. Arrived to unit on room air. Levophed infusing on arrival at 6mcg/min. Pt is warm to touch. Bilateral feet are dusky with delayed cap refill. Toes cyanotic, pulses obtained via doppler. Nurse smelled fruity breath.
--- NOTE | 2020-09-06 03:43 | ECG_ITS ---
[facility] Test Date: 2020-09-05 Pat Name: Ivan De Leon Department: Room: Gender: Male Bit Sander: : 1960 Requested By: Wilfredo Sebastian Order Number: [id number] Dupree MD: Jose Ceron M.D. Measurements Intervals [place] Rate: 167 P: [place]: QRS: 102 QRSD: 150 T: -51 QT: 271 QTc: 452 Interpretive Statements ATRIAL FIBRILLATION WITH RAPID VENTRICULAR RESPONSE RIGHT AXIS DEVIATION [QRS AXIS > 100] INTRAVENTRICULAR CONDUCTION DELAY [130+ ms QRS DURATION] LATERAL MYOCARDIAL INFARCTION , OF INDETERMINATE AGE [40+ ms Q WAVE AND/OR ST/T ABNORMALITY IN I/aVL/V5/V6] Compared to ECG 08/30/2020 18:21:38 Right-axis deviation now present Intraventricular conduction delay now present Myocardial infarct finding now present Sinus tachycardia no longer present Left bundle-branch block no longer present Electronically Signed On 09-06-2020 15:33:17 LOAD BLOCKER by Jose Ceron M.D. [id number]
--- NOTE | 2020-09-06 04:05 | PC.NURSE ---
Amiodarone gtt stopped at this time. EKG preformed pt is in Sinus tach with BBB. Dr. Johnson notified, verbal orders to hold off on amiodarone gtt for now.
[2020-09-06 04:17] LABS: Amphetamines Screen Urine Positive (Negative); Barbiturates Screen Urine Negative (Negative); Benzodiazepines Screen Urine Negative (Negative); Cocaine Screen Urine Negative (Negative); Opiate Screen Urine Negative (Negative); PCP Screen Urine Negative (Negative); THC Screen Urine Negative (Negative)
--- NOTE | 2020-09-06 04:58 | PC.NURSE ---
Unable to complete admission assessment due to ams. Will reassess or attempt to notify family.
[2020-09-06 05:21] LABS: Basophils # 0.1 10^3/uL (0.0-0.1); Basophils % 0.4 %; Eosinophils # 0.1 10^3/uL (0.0-0.8); Eosinophils % 0.3 %; Hematocrit 35.7 % (42.0-52.0); Hemoglobin 11.8 g/dL (11.7-16.6); Lymphocytes # 1.3 10^3/uL (0.8-4.8); Lymphocytes % 5.2 %; Mean Corpuscular HGB Conc 33.1 g/dL (30.0-36.0); Mean Corpuscular Volume 75.6 fL (80-94); Mean Platelet Volume 12.2 fL (7.4-10.4); Monocytes # 1.6 10^3/uL (0.2-0.9); Monocytes % 6.2 %; Neutrophils # 22.31 10^3/uL (1.8-7.7); Nucleated Red Blood Cells % 0.1 %; Platelet Count 258 10^3/cmm (130-400); Red Blood Count 4.72 10^6/uL (4.1-5.3); Red Cell Distribution Width 18.4 % (12.1-15.1); White Blood Count 25.7 10^3/uL (4.0-10.0)
[2020-09-06 05:43] LABS: Anion Gap 23.1 (5-19); Blood Urea Nitrogen 77 mg/dL (8-23); Calcium 8.7 mg/dL (8.5-10.5); Carbon Dioxide 21 mmol/L (22-29); Chloride 80 mmol/L (98-107); Glomerular Filtration Rate 61.8 mL/min (90-130); Glucose 292 mg/dL (65-115); Osmolality Calculated 284 mOsm/kg (285-295); Potassium 4.1 mmol/L (3.5-5.1); Sodium 120 mmol/L (136-145)
[2020-09-06 05:49] LABS: Magnesium 2.3 mg/dL (1.7-2.3); Thyroid Stimulating Hormone 2.41 uIU/mL (0.27-4.20)
[2020-09-06] MEDS: digoxin 250 mcg Tablet PO (06:23)
[2020-09-06 06:24] LABS: Ketone (Acetest) Serum Negative (Negative)
[2020-09-06 06:29] LABS: Glucose Point of Care 308 mg/dL (70-110)
[2020-09-06 07:04] LABS: Lactate (Lactic Acid level) 2.2 mmol/L (0.5-2.2)
--- NOTE | 2020-09-06 09:38 | USR_ITS ---
PROCEDURE INFORMATION: Exam: US Abdomen, Limited; Right Upper Quadrant Exam date and time: 09/06/2020 10:58 AM Age: 59 years old Clinical indication: Abnormal findings; Abnormal lab test; Elevated liver enzymes; Additional info: Transmainitis TECHNIQUE: Imaging protocol: US abdomen. Real time ultrasound with image documentation. Limited exam focused on the right upper quadrant. COMPARISON: US abdomen limited [id number] 07/10/2020 4:47 PM FINDINGS: Pleural spaces: A right pleural effusion is present. Liver: The liver is enlarged with a mildly lobulated contour. There is diffuse increased echogenicity of the liver consistent with fatty liver. No liver masses are seen. Gallbladder: No stones are seen in the gallbladder. The gallbladder wall is thickened at 6 mm. Common bile duct: The extrahepatic bile ducts are obscured by bowel gas but there is no intrahepatic bile duct dilatation. Pancreas: Pancreas and aorta were obscured by bowel gas. Right kidney: Normal. No mass. No hydronephrosis. Intraperitoneal space: There is ascites in the upper abdomen. US/US liver [id number] IMPRESSION: 1. Hepatomegaly with fatty liver. 2. There is thickening of the gallbladder wall at 6 mm but no gallstones are seen. 3. Small ascites in the upper abdomen. 4. Right pleural effusion.
--- NOTE | 2020-09-06 10:04 | P.PN_ITS ---
Subjective Subjective: Interval history: overnight labs, H&P reviwed . Patient noted to be somnolent, answers few questions regarding name, however extremely lethargic. Through the day his mental status has continued to worsen, poorly responsive to verbal and tactile stimulus , B/L LE mottled appearance . Levophed and amiodarone titrated off overnight. 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 extremities in bed , however does not consistently follow commands Urinary Catheter Management^: Bell: Cath Placed During This Visit: yes Reason for Continuing Indwelling Catheter: Accurate Measurement of Urinary Output in Critically Ill Patients Urinary Catheter Date of Insertion: 09/05/20 Urinary Catheter Time of Insertion: 23:06 Data : 09/06/20 04:46 09/06/20 19:11 A&P Assessment and plan (1) Respiratory failure with hypoxia: Status: Acute (2) Acute hyponatremia: Status: Acute (3) Ischemic cardiomyopathy: Status: Acute (4) Smoker: Status: Acute (5) Acute exacerbation of congestive heart failure: Status: Acute (6) FABIAN (acute kidney injury): Status: Acute (7) Left bundle branch block: Status: Acute (8) ICD (implantable cardioverter-defibrillator) in place: Status: Acute (9) Hypotension: Status: Acute Additional A&P Information # Shock, currently BP improved Likely to be cardiogenic in nature ekg with A flutter, currently HR at 120bpm No significant delta troponin Overnight on levophed, titrated off this morning CArdiology consult to assist with management of cardiogenic shock, new A flutter and need for ongoing diuresis Patient overall appears extremely lethargic, cannot exclude component of septic shock given elevated white count, tachycardia, elevated lactate Start empiric Cefepime and iv vancomycin for possible sepsis Stat blood culture check procalcitonin CTA chest without signs of pneumonia, check US liver given transaminitis ? cholecytitis ??choalngitis , UA prelim without signs of UTI, R knee appears to be more warm and erythematous than left knee, however no gross joint effusion or swelling noted, Urine drug screen + for methamphetamine, mother reports past h/o drug use ??unknown IVDU # Acute on chronic systolic CHF exacerbation Reduced ejection fraction (EF15%) heart failure history of ischemic cardiomyopathy Started on levophed overnight due to concern for cardiogenic shock, pressors titrated off this morning, MAP between 65-70mmhg currently. New a flutter, cardiology consult, started on Eliquis this morning # Acute hypoxic respiratory failure Likely 2/2 CHF exacerbation, as evidenced by elevated BNP, CTA with pulmonary congestion At this present time appears to be clinically euvolemic patient currently somnolent, stop oral Bumex, change to IV lasix 40mg iv q12h # Encephalopathy Appears to be metabolic encephalopathy from sepsis, CHF exacerbation Started on empiric abx Cefepime and Vancomycin Check ABG , ammonia level Hold Eliquis, as may need LP in case does not improve in the next 24-[address] head without acute abnormalities TSH within range # Transaminitis : may be related to poor peripheral perfusion from shock and hyp otension. Check hepatitis panel, RUQ USG. # new onset A. fib with acute RVR Started on digoxin, # Hyponatremia: FS ranging between 230-280, less likely pseudohyponatremia, monitor with diuresis # FABIAN # DM: start insulin sliding scale Attestations Medical Necessity Statement*: needs ongoing evaluation and treatment for CHF exacerbation, cardiogenic shock, sepsis evaluation,close monitoing Coding Level of Care Code Acute Supervisor Insulation for Chg Fwd Diagnoses Respiratory failure with hypoxia J96.91 Acute hyponatremia E87.1 Ischemic cardiomyopathy I25.5 Smoker F17.200 Acute exacerbation of congestive heart failure I50.9 FABIAN (acute kidney injury) N17.9 Left bundle branch block I44.7 ICD (implantable cardioverter-defibrillator) in place Z95.810 Hypotension I95.9
[2020-09-06] MEDS: cefepime 2,000 MG in sodium chloride 0.9% (plus) 50 ML 100 MG IV ×2 (10:24→22:11)
[2020-09-06] MEDS: bumetanide 1 mg Tablet 2 MG PO (10:45)
[2020-09-06] MEDS: CLONazepam 1 mg Tablet PO (10:45)
[2020-09-06] MEDS: aspirin 325 mg Tablet PO (10:46)
[2020-09-06] MEDS: apixaban 5 mg Tablet PO (10:49)
[2020-09-06] MEDS: potassium chloride ER 20 mEq Tablet PO (10:50)
[2020-09-06 10:52] LABS: Procalcitonin 1.96 ng/mL (0-0.5)
[2020-09-06 11:02] LABS: C Reactive Protein 110.9 mg/L (0.0-4.9)
[2020-09-06 11:17] LABS: Erythrocyte Sedimentation Rate 13 mm/hr (0-10)
--- NOTE | 2020-09-06 12:06 | ECG_ITS ---
[facility] Test Date: 2020-09-06 Pat Name: Ivan De Leon Department: Room: ICU08 Gender: Male Career Manager: : 1960 Requested By: Jose Ceron Order Number: [id number] Leia MD: Jose Ceron M.D. Measurements Intervals [place] Rate: 113 P: 58 ME: 127 QRS: 82 QRSD: 161 T: 262 QT: 397 QTc: 546 Interpretive Statements Atrial flutter INTRAVENTRICULAR CONDUCTION DELAY [130+ ms QRS DURATION] Compared to ECG 09/05/2020 23:57:35 Indeterminate axis no longer present Electronically Signed On 09-06-2020 15:30:35 PEDIATRICIAN by Jose Ceron M.D. [id number]
[2020-09-06] MEDS: vancomycin 1,500 MG/300 ML PIGGYBACK 200 MG IV ×2 (12:12→23:33)
--- NOTE | 2020-09-06 12:47 | PC.NURSE ---
less responsive at this time. dr. littlejohn. harmeetonoarpan given with am meds.
[2020-09-06 13:31] LABS: ABG PCO2 29.7 mmHg (35-45); ABG PH Result 7.54 (7.35-7.45); Arterial Blood Gas Hematocrit 34.5 % (42-52); Base Excess ABG 3.4 mmol/L (-2.0-2.0); Blood Gas Allen Test Pos; Blood Gas Operator Identificat GD; Blood Gas Sample Site Radial, left; Blood Gas Sample Type Arterial; HCO3 ABG 25.4 mmol/L (22-26); Oxygen Device NC; PO2 ABG 85.7 mmHg (80.0-100.0)
--- NOTE | 2020-09-06 15:04 | PC.NURSE ---
0800 recd restless, trying to get out of bed. had pulled two ivs out. stated he needed o pee. explained beth cath. and assisted bck into bed. was able, with assist, to stand for top linens to be changed. sharonda fair. bed alarm activated.
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
[2020-09-06 16:46] LABS: Hepatitis A Antibody IgM Non-Reactive (Nonreactive); Hepatitis B Core AB, Total Non-Reactive (Nonreactive); Hepatitis B Surface Antigen Non-Reactive (Nonreactive)
--- NOTE | 2020-09-06 17:03 | USR_ITS ---
PROCEDURE INFORMATION: Exam: US Duplex Lower Extremity Veins, Bilateral Exam date and time: 09/06/2020 5:22 PM Age: 59 years old Clinical indication: Swelling (edema) of limb; Lower extremity, bilateral; Additional info: Dvt TECHNIQUE: Imaging protocol: Real-time duplex ultrasound of the extremities with 2-D ayers scale, color Doppler flow and spectral waveform analysis with image documentation. Complete exam focused on the bilateral lower extremity veins. COMPARISON: No relevant prior studies available. FINDINGS: Right deep veins: Unremarkable. The common femoral, femoral, proximal profunda femoral and popliteal veins are patent without thrombus. Normal Doppler waveforms. Normal compressibility and/or augmentation response. Right superficial veins: Saphenofemoral junction is patent without thrombus. Left deep veins: Unremarkable. The common femoral, femoral, proximal profunda femoral and popliteal veins are patent without thrombus. Normal Doppler waveforms. Normal compressibility and/or augmentation response. Left superficial veins: Saphenofemoral junction is patent without thrombus. Soft tissues: Unremarkable. US/CV venous duplex [facility] [id number] IMPRESSION: No evidence of deep vein thrombosis.
[2020-09-06 17:14] LABS: Hepatitis C Virus Antibody Reactive (Nonreactive)
[2020-09-06 17:30] LABS: Glucose Point of Care 275 mg/dL (70-110)
[2020-09-06] MEDS: acyclovir 1,000 MG in sodium chloride 0.9% (100 ml) 100 ML 120 MG IV (17:30)
[2020-09-06 17:31] LABS: Glucose Point of Care 158 mg/dL (70-110)
[2020-09-06 17:31] LABS: Alanine Aminotransferase 139 U/L (0-41); Albumin Level 3.5 g/dL (3.5-5.2); Alkaline Phosphatase 108 IU/L (40-130); Aspartate Amino Transferase 158 U/L (0-40); Blood Urea Nitrogen 74 mg/dL (8-23); Calcium 8.8 mg/dL (8.5-10.5); Carbon Dioxide 23 mmol/L (22-29); Chloride 82 mmol/L (98-107); Glomerular Filtration Rate 68.3 mL/min (90-130); Glucose 281 mg/dL (65-115); Osmolality Calculated 284 mOsm/kg (285-295); Sodium 121 mmol/L (136-145); Total Bilirubin 4.8 mg/dL (0.15-1.2); Total Protein 7.5 g/dL (6.6-8.7)
--- NOTE | 2020-09-06 17:59 | PC.NURSE ---
remains unresponsive to verbal stimuli and tactile. u.s. completed.
[2020-09-06 18:03] LABS: NT Pro B Type Natriuretic Pept 12057 pg/mL (0-125)
--- NOTE | 2020-09-06 18:16 | PC.NURSE ---
d/t pt. being unresponsive and not eating, dr. roberto. insulin be held this meal time.
[2020-09-06] MEDS: SODIUM CHLORIDE 3% IV (18:20)
[2020-09-06] MEDS: FLEXIBLE CONTAINER IV (18:20)
[2020-09-06 19:39] LABS: Ammonia 26 umol/L (16-60)
[2020-09-06 19:40] LABS: Alanine Aminotransferase 125 U/L (0-41); Albumin Level 3.3 g/dL (3.5-5.2); Alkaline Phosphatase 97 IU/L (40-130); Anion Gap 14.2 (5-19); Aspartate Amino Transferase 130 U/L (0-40); Blood Urea Nitrogen 69 mg/dL (8-23); Calcium 8.4 mg/dL (8.5-10.5); Carbon Dioxide 26 mmol/L (22-29); Chloride 89 mmol/L (98-107); Globulin 3.6 g/dL (1.3-4.6); Glomerular Filtration Rate 86.1 mL/min (90-130); Glucose 151 mg/dL (65-115); Osmolality Calculated 285 mOsm/kg (285-295); Potassium 3.2 mmol/L (3.5-5.1); Sodium 126 mmol/L (136-145); Total Bilirubin 4.1 mg/dL (0.15-1.2); Total Protein 6.9 g/dL (6.6-8.7)
[2020-09-06 20:47] LABS: Glucose Point of Care 149 mg/dL (70-110)
[2020-09-06 20:53] LABS: Glucose Point of Care 324 mg/dL (70-110)
[2020-09-07] VITALS (90 sets, daily range): BP systolic 81–153; BP diastolic 56–95; PULSE 61–125; RESP 12–36; TEMP 36.6–36.9; O2SAT 85–100
[2020-09-07] MEDS: acyclovir 1,000 MG in sodium chloride 0.9% (100 ml) 100 ML 120 MG IV (02:08)
[2020-09-07 04:32] LABS: Basophils # 0.1 10^3/uL (0.0-0.1); Basophils % 0.4 %; Eosinophils # 0.1 10^3/uL (0.0-0.8); Eosinophils % 0.5 %; Hemoglobin 10.7 g/dL (11.7-16.6); Lymphocytes # 1.2 10^3/uL (0.8-4.8); Lymphocytes % 8.2 %; Mean Corpuscular HGB Conc 32.4 g/dL (30.0-36.0); Mean Corpuscular Hemoglobin 25.4 pg (28.0-34.0); Mean Corpuscular Volume 78.2 fL (80-94); Mean Platelet Volume 11.6 fL (7.4-10.4); Monocytes # 1.1 10^3/uL (0.2-0.9); Monocytes % 7.8 %; Neutrophils # 11.66 10^3/uL (1.8-7.7); Neutrophils % 82.5 %; Nucleated Red Blood Cells % 0 %; Platelet Count 211 10^3/cmm (130-400); Red Blood Count 4.22 10^6/uL (4.1-5.3); Red Cell Distribution Width 18.9 % (12.1-15.1); White Blood Count 14.1 10^3/uL (4.0-10.0)
[2020-09-07 05:02] LABS: Alanine Aminotransferase 118 U/L (0-41); Albumin Level 3.2 g/dL (3.5-5.2); Alkaline Phosphatase 102 IU/L (40-130); Anion Gap 16.1 (5-19); Aspartate Amino Transferase 123 U/L (0-40); Blood Urea Nitrogen 63 mg/dL (8-23); Calcium 8.7 mg/dL (8.5-10.5); Carbon Dioxide 26 mmol/L (22-29); Chloride 92 mmol/L (98-107); Globulin 3.8 g/dL (1.3-4.6); Glomerular Filtration Rate 86.1 mL/min (90-130); Glucose 142 mg/dL (65-115); Magnesium 2.2 mg/dL (1.7-2.3); Osmolality Calculated 292 mOsm/kg (285-295); Potassium 3.1 mmol/L (3.5-5.1); Sodium 131 mmol/L (136-145)
[2020-09-07] MEDS: FUROsemide 10 mg/mL SDV 4mL 40 MG IVP ×2 (05:11→17:12)
[2020-09-07 05:17] LABS: Digoxin 0.8 ng/mL (0.6-1.2)
--- NOTE | 2020-09-07 05:29 | PM.EVENT ---
Event Note Event Note: Labs follow-up, patient mentation is better, he is awake and alert, patient feels hungry and wanted to eat considering improvement in his mentation I have allowed him to have cardiac diet for now under supervision Rapid correction of sodium noted I have discontinued hypertonic saline ordered requested by Dr. Franklin, I do not see any worsening neurological signs or symptoms, in fact his mentation has improved I would go ahead and start D5 at 75 mL/h and request sodium level every 4 hours monitor neurological status of the patient every 4 hours
[2020-09-07] MEDS: dextrose 5% + KCl 20 mEq 20 MEQ/1,000 ML BAG 75 MEQ IV (05:36)
[2020-09-07] MEDS: digoxin 250 mcg Tablet PO (08:08)
[2020-09-07] MEDS: aspirin 325 mg Tablet PO (08:08)
--- NOTE | 2020-09-07 09:43 | XRR_ITS ---
PROCEDURE INFORMATION: Exam: XR Chest, 1 View Exam date and time: 09/07/2020 9:44 AM Age: 59 years old Clinical indication: Other: Chf; Additional info: F/up chf TECHNIQUE: Imaging protocol: XR of the chest Views: 1 view. COMPARISON: CR XR chest 1V portable [id number] 09/05/2020 9:53 PM FINDINGS: Tubes, catheters and devices: A cardiac pacemaker is present on the right side in good position. Lungs: Unremarkable. No consolidation. Pleural spaces: There is a small right lower lobe pleural effusion. No pneumothorax. Heart/Mediastinum: There is moderate cardiomegaly. Bones/joints: Unremarkable. XR/XR chest 1V portable [id number] IMPRESSION: 1. No acute findings. 2. Small right lower lobe pleural effusion
--- NOTE | 2020-09-07 09:52 | P.PN_ITS ---
Subjective Subjective: Interval history: Mental status is much improved this morning. When I last saw him at 5 PM last evening, patient was completely obtunded, not responding to any verbal or tactile stimulus., This morning he is much more awake, alert oriented, able to have a conversation. Able to self feed and complete meal this morning. He received 50 cc of hypertonic saline at 5 PM yes terday over approximately 1-1/2 hours. Sodium has corrected from 118 at 2300 on 09/05 to 131 at 4 AM this morning. Total correction over 29 hours at 13 units. Started D5 this morning. Urine output 2.5 L overnight, peripheries better perfused today, mottling resolved, EBC trending down to 14 today. HR continues to be 120bpm in a flutter. Medications: Reviewed: Yes Vitals/I&O/Wt Last Vital Signs Temp 97.9 F 09/07/20 04:00 Pulse 120 H 09/07/20 08:15 Resp 22 H 09/07/20 08:15 BP 108/57 09/07/20 08:15 Pulse Ox 96 09/07/20 08:15 09/06/20 09/07/20 09/07/20 22:59 06:59 14:59 Intake Total 880 / 1050 540 / 1590 1062 / 1062 Output Total 2800 / 2800 1000 / 3800 675 / 675 Balance -1920 / -1750 -460 / -2210 387 / 387 Weight last 48 hrs Weight 97.749 kg Weight 95.254 kg Physical Exam Narrative: EXAM NARRATIVE: GEN: Awake, alert and oriented, no acute distress CVS: S1S2 N RS: CTA B/L Abd: Soft, nt/nd , bs+ SHIPPER RECEIVER: no focal neuro deficits at this time EXT: Peripheries better perfused this morning, mottling no longer evident, Pitting edema + B/L Urinary Catheter Management^: Bell: Cath Placed During This Visit: yes Reason for Continuing Indwelling Catheter: Accurate Measurement of Urinary Output in Critically Ill Patients Urinary Catheter Date of Insertion: 09/05/20 Urinary Catheter Time of Insertion: 23:06 Data : 09/07/20 03:53 09/07/20 03:53 Micro: Microbiology 09/06/20 10:10 Blood Culture - Preliminary Blood SPECIMEN COLLECTED 09/06/20 10:10 Blood Culture - Preliminary Blood SPECIMEN COLLECTED A&P Assessment and plan (1) Respiratory failure with hypoxia: Status: Acute (2) Acute hyponatremia: Status: Acute (3) Ischemic cardiomyopathy: Status: Acute (4) Smoker: Status: Acute (5) Acute exacerbation of congestive heart failure: Status: Acute (6) FABIAN (acute kidney injury): Status: Acute (7) Left bundle branch block: Status: Acute (8) ICD (implantable cardioverter-defibrillator) in place: Status: Acute (9) Hypotension: Status: Acute Additional A&P Information # Shock, currently BP improved Likely to be cardiogenic in nature Ekg with A flutter, currently HR at 120bpm No significant delta troponin Remains off pressors since 09/06 Appreciate cardiology recommendations to assist with management of cardiogenic shock, new A flutter and need for ongoing diuresis Cannot exclude possibility of septic shock given elevated white count, tachyc ardia, elevated lactate, elavted procal Continue empiric Cefepime and iv vancomycin for possible sepsis Mentation improved, peripheries well perfused today, less toxic appearing than previously pending blood culture Leukocytosis trending down Unclear source, CTA chest without signs of pneumonia, US liver with hapetomegaly with fatty liver, thickening of GB wall without gallstones, small ascites in upper abdomen, no c/o abdominal pain, NVD. UA prelim without signs of UTI, both knees appearing symmetric today Urine drug screen + for methamphetamine, However denies any current drug use. # Acute on chronic systolic CHF exacerbation Reduced ejection fraction (EF15%) heart failure history of ischemic cardiomyopathy New a flutter, cardiology consult, was started on Eliquis on 09/06, however discontinued after one dose in case needs LP for worsened mental status. Monitor mental status today, if continues to improve, will likely resume anticoagulation. # Acute hypoxic respiratory failure Likely 2/2 CHF exacerbation, as evidenced by elevated BNP, CTA with pulmonary congestion This morning notd on be saturating 96% on 2lpm NC, pitting edema developed compared to yesterday's exam. Extra lasix 20mg IVP now Continue 40mg iv q12h Discontinue D5 @ 75cc started this morning , monitor CMP every 6 hrs CXRP now Added Robitussin for cough noted today # Encephalopathy Appears to be metabolic encephalopathy from sepsis, CHF exacerbation Acute hyponatremia could have contributed. Mental status much improved this morning, now alert and awake, conversant, replies appropriately Started on empiric abx Cefepime and Vancomycin ABG without hypoxia or hypercapnea , ammonia level normal, TSH within range CT head without acute abnormalities Less suspicion for meningitis at this point given quick improvement, d/c acyclovir # Acute hyponatremia: Review of sodium numbers show hyponatremia developed since 08/23/20. from 01/14/20 Na 139, 08/04/20 Na at 130, 08/23/20 Na 126, 08/30/20 Na 122, 09/05/20 Na 118 . He received 50 cc of hypertonic saline at 5 PM on 09/06 over approximately 1-1.5 hours x 1. Sodium has corrected from 118 at 2300 on 09/05 to 131 at 4 AM on 09/07. Total correction over 29 hours at 13 units. Continue CMP checks every 6 hrs # Transaminitis : may be related to poor peripheral perfusion from shock and hypotension. Hep c Ab +, states that he thinks he may have been treated for Hep c in the past. Obtain records from PCP on Tuesday. If no evidence of past treatment, needs HCV PCR with genotype and referral to Dr. Armstrong as outpatient. Check HIV screen # new onset A. fib with acute RVR Started on digoxin, continued same for now Resume a/c if mentation stable over next 24-48 hrs # FABIAN , improving # DM: insulin sliding scale Diet: Carb consistent ppx: start ppx lovenox today Full code- discussed with patient today HCP per patient: He designates mother Lashonda Aguilera and step daughter Mary Jane in case he is unable to make decisions Attestations Medical Necessity Statement*: Ongoing need for iv diuresis, close sodium monitoring, mental status checks Time Spent in Patient Care: Greater than 35 minutes (>than 50% of time spent in counselling and/or direct pt care on unit) . 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
[2020-09-07] MEDS: FUROsemide 10 mg/mL SDV 2mL 20 MG IVP (10:09)
[2020-09-07] MEDS: cefepime 2,000 MG in sodium chloride 0.9% (plus) 50 ML 100 MG IV ×2 (10:10→22:06)
[2020-09-07 10:30] LABS: HIV 1 & 2 Antibody Non-Reactive (Non-Reactiv); HIV 1 & 2 Antigen Non-Reactive (Non-Reactiv)
--- NOTE | 2020-09-07 10:35 | PM.PN ---
Subjective Subjective: Interval history: Patient's mentation has improved with improvement in hyponatremia. Denies any chest pain, shortness of breath or palpitations. Still in atrial flutter with elevated heart rate Vitals/I&O/Wt Last Vital Signs Temp 97.9 F 09/07/20 04:00 Pulse 120 H 09/07/20 08:15 Resp 22 H 09/07/20 08:15 BP 108/57 09/07/20 08:15 Pulse Ox 96 09/07/20 08:15 09/06/20 09/07/20 09/07/20 22:59 06:59 14:59 Intake Total 880 / 1050 540 / 1590 1062 / 1062 Output Total 2800 / 2800 1000 / 3800 675 / 675 Balance -1920 / -1750 -460 / -2210 387 / 387 Weight last 48 hrs Weight 215 lb 8 oz Weight 210 lb Physical Exam Narrative: EXAM NARRATIVE: General: Patient is alert and oriented x 3 Cardiovascular: Tachycardic, regular rhythm, S1, S2. No significant murmur Extremities: 1+ edema Chest: Mild bilateral crackles. Abdomen: Soft nontender No neurological deficit no gaze preference no motor deficit noted EOMI, PERRLA Urinary Catheter Management^: Bell: Cath Placed During This Visit: yes Reason for Continuing Indwelling Catheter: Accurate Measurement of Urinary Output in Critically Ill Patients Urinary Catheter Date of Insertion: 09/05/20 Urinary Catheter Time of Insertion: 23:06 Data : 09/07/20 03:53 09/07/20 22:51 Micro: Microbiology 09/06/20 10:10 Blood Culture - Preliminary Blood NEGATIVE TO DATE 09/06/20 10:10 Blood Culture - Preliminary Blood NEGATIVE TO DATE A&P Assessment and plan (1) FABIAN (acute kidney injury): Status: Acute (2) Type 2 diabetes mellitus: Status: Acute Qualifiers: Diabetes mellitus complication status: with other specified complication Diabetes mellitus terminal make up operator insulin use: unspecified senior care insulin use status Qualified Code(s): E11.69 - Type 2 diabetes mellitus with other specified complication (3) Coronary artery disease: Status: Acute Qualifiers: Associated angina: without angina Coronary Disease-Associated Artery/Lesion type: [place] artery [place] vs. transplanted heart: [place] heart Qualified Code(s): I25.10 - Atherosclerotic heart disease of [place] coronary artery without angina pectoris (4) ICD (implantable cardioverter-defibrillator) in place: Status: Acute (5) Ischemic cardiomyopathy: Status: Acute (6) Encephalopathy: Status: Acute (7) Atrial flutter: Status: Acute Patient's mentation improved with improved hyponatremia He is off pressors at this time. He is maintaining MAP Antibiotic therapy per medicine team. Blood cultures pending. He is currently in atrial flutter with rapid ventricular rate. He was started on digoxin. Continue. If heart rate not controlled by tomorrow, consider initiating amio gtt Continue p.o. Bumex for now. Thank you for involving us with care of this patient. We will continue to follow. Please call with questions. Attestations Medical Necessity Statement*: Care expected to cross 2 midnights Coding Level of Care Code Acute Universal Worker Assisted Living for g Fwd Diagnoses FABIAN (acute kidney injury) N17.9 Type 2 diabetes mellitus E11.69 Diabetes mellitus complication status: with other specified complication Diabetes mellitus terminal make up operator insulin use: unspecified senior care insulin use status Coronary artery disease I25.10 Associated angina: without angina Coronary Disease-Associated Artery/Lesion type: [place] artery [place] vs. transplanted heart: [place] heart ICD (implantable cardioverter-defibrillator) in place Z95.810 Ischemic cardiomyopathy I25.5 Encephalopathy G93.40 Atrial flutter I48.92
[2020-09-07] MEDS: nicotine 21 mg Patch 1 PATCH TRANSDERMA (11:19)
[2020-09-07] MEDS: lidocaine 1% 5 ML in potassium chloride premix 100 ML 25 ML IV ×2 (11:21→15:56)
[2020-09-07 11:37] LABS: Glucose Point of Care 305 mg/dL (70-110)
[2020-09-07] MEDS: vancomycin 1,500 MG/300 ML PIGGYBACK 200 MG IV ×2 (12:02→23:23)
--- NOTE | 2020-09-07 12:47 | PC.NURSE ---
Update Patient has been sitting up in bed this shift. Patient has eaten all meals so far and is alert and orientated to self and date. Unable to tell why he was brought into hospital. Lower legs are red and warm. 1+ pitting edema noted and capillary refill less than 3 seconds. Distal pulses found with dopplar.
[2020-09-07 12:49] LABS: Alanine Aminotransferase 110 U/L (0-41); Albumin Level 3.3 g/dL (3.5-5.2); Alkaline Phosphatase 107 IU/L (40-130); Anion Gap 16.4 (5-19); Aspartate Amino Transferase 102 U/L (0-40); Blood Urea Nitrogen 60 mg/dL (8-23); Calcium 8.3 mg/dL (8.5-10.5); Carbon Dioxide 24 mmol/L (22-29); Chloride 86 mmol/L (98-107); Globulin 3.7 g/dL (1.3-4.6); Glomerular Filtration Rate 98.6 mL/min (90-130); Glucose 291 mg/dL (65-115); Osmolality Calculated 284 mOsm/kg (285-295); Potassium 3.4 mmol/L (3.5-5.1); Sodium 123 mmol/L (136-145); Total Bilirubin 3.9 mg/dL (0.15-1.2)
[2020-09-07 14:15] LABS: Vancomycin Trough 21.7 ug/mL (10-15)
[2020-09-07 15:54] LABS: Sodium 125 mmol/L (136-145)
[2020-09-07 17:09] LABS: Glucose Point of Care 214 mg/dL (70-110)
[2020-09-07 17:38] LABS: Alanine Aminotransferase 106 U/L (0-41); Albumin Level 3.4 g/dL (3.5-5.2); Alkaline Phosphatase 109 IU/L (40-130); Anion Gap 14.9 (5-19); Aspartate Amino Transferase 90 U/L (0-40); Blood Urea Nitrogen 56 mg/dL (8-23); Calcium 8.6 mg/dL (8.5-10.5); Carbon Dioxide 26 mmol/L (22-29); Chloride 90 mmol/L (98-107); Globulin 3.8 g/dL (1.3-4.6); Glomerular Filtration Rate 98.6 mL/min (90-130); Glucose 116 mg/dL (65-115); Osmolality Calculated 280 mOsm/kg (285-295); Potassium 3.9 mmol/L (3.5-5.1); Sodium 127 mmol/L (136-145); Total Bilirubin 3.5 mg/dL (0.15-1.2); Total Protein 7.2 g/dL (6.6-8.7)
--- NOTE | 2020-09-07 18:19 | PC.NURSE ---
Change Patient is still sitting up in bed at this time. Patient is resting in bed with eyes closed and only ate 25% for dinner because I just feel weird . Patient is sitting in bed with eyes closed, bobbing head back and forth and reaching his hands out in front of him grabbing at the air. When talking with the patient he is still orientated to self, place and time.
--- NOTE | 2020-09-07 20:34 | PC.ADMIT ---
[address] Admission Note: The patient,Ivan De Leon,59 y/o, was given written information regarding hospital policies, unit procedures and contact persons. Patient's smoking status: current every day smoker. Vital Signs - 8 hr 09/07/20 12:45 09/07/20 13:00 09/07/20 13:15 Temperature Pulse Rate Respiratory Rate Blood Pressure 117/81 115/75 115/75 Pulse Oximetry 09/07/20 13:30 09/07/20 13:45 09/07/20 14:00 Temperature Pulse Rate 116 H Respiratory Rate Blood Pressure 103/68 103/68 119/73 Pulse Oximetry 09/07/20 14:15 09/07/20 14:30 09/07/20 14:45 Temperature Pulse Rate 116 H 117 H Respiratory Rate 20 H 19 H Blood Pressure 119/73 99/66 99/66 Pulse Oximetry 98 98 09/07/20 15:00 09/07/20 15:15 09/07/20 15:30 Temperature Pulse Rate 116 H 97 116 H Respiratory Rate 28 H 15 29 H Blood Pressure 93/68 90/70 95/72 Pulse Oximetry 98 98 98 09/07/20 15:45 09/07/20 16:00 09/07/20 16:15 Temperature Pulse Rate 116 H 117 H 117 H Respiratory Rate 24 H 23 H 26 H Blood Pressure 95/72 90/70 90/70 Pulse Oximetry 99 98 97 09/07/20 16:30 09/07/20 16:45 09/07/20 17:00 Temperature 98.5 F Pulse Rate 117 H 117 H 117 H Respiratory Rate 26 H 13 26 H Blood Pressure 94/70 94/70 90/69 Pulse Oximetry 97 97 98 09/07/20 17:15 09/07/20 17:30 09/07/20 17:45 Temperature Pulse Rate 117 H 117 H Respiratory Rate 21 H 23 H Blood Pressure 86/68 99/74 96/64 Pulse Oximetry 99 97 09/07/20 18:00 09/07/20 18:15 09/07/20 20:11 Temperature Pulse Rate 118 H 118 H 119 H Respiratory Rate 24 H 22 H Blood Pressure 101/81 101/81 Pulse Oximetry 93
[2020-09-07 20:41] LABS: Glucose Point of Care 154 mg/dL (70-110)
[2020-09-07 23:19] LABS: Alanine Aminotransferase 98 U/L (0-41); Albumin Level 3.2 g/dL (3.5-5.2); Alkaline Phosphatase 111 IU/L (40-130); Anion Gap 16.1 (5-19); Aspartate Amino Transferase 85 U/L (0-40); Blood Urea Nitrogen 53 mg/dL (8-23); Calcium 8.5 mg/dL (8.5-10.5); Carbon Dioxide 22 mmol/L (22-29); Chloride 93 mmol/L (98-107); Glomerular Filtration Rate 98.6 mL/min (90-130); Glucose 103 mg/dL (65-115); Osmolality Calculated 279 mOsm/kg (285-295); Potassium 4.1 mmol/L (3.5-5.1); Sodium 127 mmol/L (136-145); Total Bilirubin 3.7 mg/dL (0.15-1.2); Total Protein 7.2 g/dL (6.6-8.7)
[2020-09-08] VITALS (25 sets, daily range): BP systolic 89–122; BP diastolic 57–85; PULSE 95–121; RESP 12–39; TEMP 36.9; O2SAT 85–100
[2020-09-08 04:55] LABS: Basophils # 0.1 10^3/uL (0.0-0.1); Basophils % 0.4 %; Eosinophils # 0.1 10^3/uL (0.0-0.8); Eosinophils % 0.6 %; Hematocrit 36.1 % (42.0-52.0); Hemoglobin 11.3 g/dL (11.7-16.6); Lymphocytes # 1.5 10^3/uL (0.8-4.8); Lymphocytes % 12.8 %; Mean Corpuscular HGB Conc 31.3 g/dL (30.0-36.0); Mean Corpuscular Hemoglobin 24.5 pg (28.0-34.0); Mean Corpuscular Volume 78.3 fL (80-94); Monocytes % 8.9 %; Neutrophils # 8.66 10^3/uL (1.8-7.7); Neutrophils % 76.3 %; Nucleated Red Blood Cells % 0.2 %; Platelet Count 197 10^3/cmm (130-400); Red Blood Count 4.61 10^6/uL (4.1-5.3); Red Cell Distribution Width 19.1 % (12.1-15.1); White Blood Count 11.4 10^3/uL (4.0-10.0)
[2020-09-08] MEDS: FUROsemide 10 mg/mL SDV 4mL 40 MG IVP ×2 (05:06→17:17)
[2020-09-08 05:21] LABS: Alanine Aminotransferase 89 U/L (0-41); Albumin Level 3.3 g/dL (3.5-5.2); Alkaline Phosphatase 113 IU/L (40-130); Anion Gap 15.9 (5-19); Aspartate Amino Transferase 74 U/L (0-40); Blood Urea Nitrogen 46 mg/dL (8-23); Calcium 8.5 mg/dL (8.5-10.5); Carbon Dioxide 25 mmol/L (22-29); Chloride 92 mmol/L (98-107); Globulin 3.7 g/dL (1.3-4.6); Glomerular Filtration Rate 98.6 mL/min (90-130); Glucose 98 mg/dL (65-115); Osmolality Calculated 280 mOsm/kg (285-295); Potassium 3.9 mmol/L (3.5-5.1); Sodium 129 mmol/L (136-145); Total Bilirubin 3.7 mg/dL (0.15-1.2)
[2020-09-08 07:44] LABS: Glucose Point of Care 129 mg/dL (70-110)
[2020-09-08] MEDS: digoxin 250 mcg Tablet PO (08:15)
[2020-09-08] MEDS: nicotine 21 mg Patch 1 PATCH TRANSDERMA (08:15)
[2020-09-08] MEDS: aspirin 325 mg Tablet PO (08:15)
--- NOTE | 2020-09-08 09:25 | PC.CHAP ---
Pastoral Care Encounter/Spiritual Assessment Type of Contact [] Declined inside sales advertising executive visit [] Patient/Family/Request visit [] Outpatient visit [] Follow-up visit [] Physician referral [] Code/Alert [x] Routine visit [] Staff referral [] Actively dying [] Patient sleeping [] Family support [] [] Out of room [] Palliative care [] [] Receiving care in room [] Pre-surgical visit [] Trauma [] Long length of stay [x] ICU visit [] Other: Relational/Emotional Strength [] Patient feels connected with others/family/visitors/staff [] Distress [] Loneliness/isolation [] Abandonment Spirituality of Patient [] Person of Brigitte [] Attends Jew of their Brigitte [] Believes in Prayer [] Reads Bible or Sabianism materials [] There are Spiritual issues to be addressed Facility Maintenance Helper Interventions [x] Prayer [x] Active listening [x] Non-anxious presence [x] Spiritual/emotional support [] Crisis/trauma care [] Spiritual counseling [] Bereavement support [] Provided bereavement packet [] Provided Bible/devotional materials [] Provided toy/stuffed animal, coloring book to patient or family member [] Provided Communion [] Anointing/[place] [] Salvation [x] Completed spiritual assessment [] Other: Impact on Illness or Injury [] Angry [] Fearful [] Anxious [] Often cries [] Exhaustion [] Unable to work [] Unable to attend restorationist [] Unable to walk/stand [] Unable to read [] Unable to drive [] Unable to eat/drink [] Unable to sleep [] Unable to be with family [] Patient intubated [] Other: Summary patient setting up.. still having discomfort. Time spent with patient 10 min
--- NOTE | 2020-09-08 10:14 | P.PN_ITS ---
Subjective Subjective: Interval history: Patient is doing well. He denies complaints of chest pain, shortness of breath or palpitations. Sitting in chair today. Off pressors. Maintaining blood pressure. Vitals/I&O/Wt Last Vital Signs Temp 98.5 F 09/07/20 17:00 Pulse 121 H 09/08/20 09:00 Resp 21 H 09/08/20 09:00 BP 92/67 09/08/20 09:00 Pulse Ox 93 09/08/20 09:00 09/07/20 09/08/20 09/08/20 22:59 06:59 14:59 Intake Total 870 / 3347 590 / 3937 480 / 480 Output Total 2700 / 3375 950 / 4325 Balance -1830 / -28 -360 / -388 480 / 480 Physical Exam Narrative: EXAM NARRATIVE: GENERAL: Patient is alert, awake and oriented x3. [] NECK: No jugular vein distension. [] HEENT: No cyanosis. No icterus. No pallor. [] HEART: Tachycardia, regular S1 and S2. No murmur, rub or gallop. [] LUNGS: Clear to auscultate bilaterally. [] ABDOMEN: Soft, nontender and nondistended. Positive bowel sounds. No guarding, rebound or tenderness. [] CENTRAL NERVOUS SYSTEM: Grossly nonfocal. [] EXTREMITIES: Lower extremities with no edema bilaterally. Pulses palpable in the lower extremities, both dorsalis pedis and posterior tibial. [] Urinary Catheter Management^: Bell: Cath Placed During This Visit: yes Reason for Continuing Indwelling Catheter: Accurate Measurement of Urinary Output in Critically Ill Patients Urinary Catheter Date of Insertion: 09/05/20 Urinary Catheter Time of Insertion: 23:06 Data : 09/08/20 04:23 09/08/20 04:23 Micro: Microbiology 09/06/20 10:10 Blood Culture - Preliminary Blood NEGATIVE TO DATE 09/06/20 10:10 Blood Culture - Preliminary Blood NEGATIVE TO DATE A&P Assessment and plan (1) FABIAN (acute kidney injury): Status: Acute (2) Type 2 diabetes mellitus: Status: Acute Qualifiers: Diabetes mellitus complication status: with other specified complication Diabetes mellitus fdc insulin use: unspecified instructional designer insulin use status Qualified Code(s): E11.69 - Type 2 diabetes mellitus with other s pecified complication (3) Coronary artery disease: Status: Acute Qualifiers: Coronary Disease-Associated Artery/Lesion type: [place] artery [place] vs. transplanted heart: [place] heart Associated angina: without angina Qualified Code(s): I25.10 - Atherosclerotic heart disease of [place] coronary artery without angina pectoris (4) ICD (implantable cardioverter-defibrillator) in place: Status: Acute (5) Ischemic cardiomyopathy: Status: Acute (6) Encephalopathy: Status: Acute (7) Atrial flutter: Status: Acute Patient's mentation improved with improved hyponatremia He is off pressors at this time. He is maintaining MAP Antibiotic therapy per medicine team. Blood cultures pending. He is currently in atrial flutter with rapid ventricular rate. He was started on digoxin. Continue. Initiate amio drip. Will need to monitor liver function closely. Continue p.o. Bumex for now. Patient is responding well. Thank you for involving us with care of this patient. We will continue to fol low. Please call with questions. Attestations 2 Medical Necessity Statement*: Care expected to cross 2 midnights. Coding Level of Care Code Acute Certified Massage Therapist for [facility] Fwd Diagnoses FABIAN (acute kidney injury) N17.9 Type 2 diabetes mellitus E11.69 Diabetes mellitus complication status: with other specified complication Diabetes mellitus instructional designer insulin use: unspecified fdc insulin use status Coronary artery disease I25.10 Coronary Disease-Associated Artery/Lesion type: [place] artery [place] vs. transplanted heart: [place] heart Associated angina: without angina ICD (implantable cardioverter-defibrillator) in place Z95.810 Ischemic cardiomyopathy I25.5 Encephalopathy G93.40 Atrial flutter I48.92
--- NOTE | 2020-09-08 10:29 | PM.PN ---
Subjective Subjective: Interval history: is doing fine, he was seen sitting in his chair for good close to 6 hours,he is tolerating his diet well. His H/R due to A.flutter is still uncontrolled. His other vitals and labs have been reviewed. Medications: Reviewed: Yes Vitals/I&O/Wt Last Vital Signs Temp 98.5 F 09/07/20 17:00 Pulse 121 H 09/08/20 09:00 Resp 21 H 09/08/20 09:00 BP 92/67 09/08/20 09:00 Pulse Ox 93 09/08/20 09:00 09/07/20 09/08/20 09/08/20 22:59 06:59 14:59 Intake Total 870 / 3347 590 / 3937 480 / 480 Output Total 2700 / 3375 950 / 4325 Balance -1830 / -28 -360 / -388 480 / 480 Physical Exam Const: COMMON NORMALS: patient oriented x3 HENMT: COMMON NORMALS: normocephalic and atraumatic HEAD & SCALP: normocephalic and atraumatic Chest: COMMONS NORMALS: normal inspection of the chest CHEST: Yes Symmetrical chest wall rise Resp: COMMON NORMALS: normal respiratory effort, No retractions and clear to auscultation bilaterally EFFORT & INSPECTION: Yes symmetric chest movement AUSCULTATION: clear to auscultation bilaterally Cardio: COMMON NORMALS: Peripheral pulses 2+ throughout PERIPHERAL PULSES: Peripheral pulses 2+ throughout OTHER: S1S2 of variable Intensity. GI: COMMON NORMALS: Normal to inspection, nondistended, normoactive bowel sounds present, Soft to palpation, non-tender, No hepatosplenomegaly present and no masses AUSCULTATION: Yes normoactive bowel sounds PALPATION: Yes Soft to palpation and Yes No hepatosplenomegaly present RECTAL EXAM: Yes deferred Extremity: NARRATIVE EXTREMITY EXAM: 1 + B/L Pitting edema present in both Lower Extremity Neuro: COMMON NORMALS: patient oriented x3 Urinary Catheter Management^: Bell: Cath Placed During This Visit: yes Reason for Continuing Indwelling Catheter: Accurate Measurement of Urinary Output in Critically Ill Patients Urinary Catheter Date of Insertion: 09/05/20 Urinary Catheter Time of Insertion: 23:06 Data : 09/08/20 04:23 09/08/20 04:23 Micro: Microbiology 09/06/20 10:10 Blood Culture - Preliminary Blood NEGATIVE TO DATE 09/06/20 10:10 Blood Culture - Preliminary Blood NEGATIVE TO DATE A&P Assessment and plan (1) Respiratory failure with hypoxia: Status: Acute (2) Atrial flutter with rapid ventricular response: Status: Acute (3) Acute hyponatremia: Status: Acute (4) Ischemic cardiomyopathy: Status: Acute (5) Smoker: Status: Acute (6) Acute exacerbation of congestive heart failure: Status: Acute (7) FABIAN (acute kidney injury): Status: Acute (8) Left bundle branch block: Status: Acute (9) ICD (implantable cardioverter-defibrillator) in place: Status: Acute (10) Hypotension: Status: Acute Additional A&P Information # Shock, currently BP improved Likely to be cardiogenic in nature Ekg with A flutter, currently HR at 120bpm No significant delta troponin Remains off pressors since 09/06 Appreciate cardiology recommendations to assist with management of cardiogenic shock, new A flutter and need for ongoing diuresis Cannot exclude possibility of septic shock given elevated white count, tachycardia, elevated lactate, elavted procal Continue empiric Cefepime and iv vancomycin for possible sepsis Mentation improved, peripheries well perfused today, less toxic appearing than previously pending blood culture Leukocytosis trending down Unclear source, CTA chest without signs of pneumonia, US liver with hapetomegaly with fatty liver, thickening of GB wall without gallstones, small ascites in upper abdomen, no c/o abdominal pain, NVD. UA prelim without signs of UTI, both knees appearing symmetric today Urine drug screen + for methamphetamine, However denies any current drug use. # Acute on chronic systolic CHF exacerbation Reduced ejection fraction (EF15%) heart failure history of ischemic cardiomyopathy New a flutter, cardiology consult, was started on Eliquis on 09/06, however discontinued after one dose in case needs LP for worsened mental status. Monitor mental status today, if continues to improve, will likely resume anticoagulation. # A.Flutter with RVR : Currently rate is from 110-120 On Digoxin : 250 mg po daily Started on Amio drip after 150 MG Bolus dose. Continue Tele Am Dig Level Resume Eliquis 5 MG Q12 H daily # Acute hypoxic respiratory failure Likely 2/2 CHF exacerbation, as evidenced by elevated BNP, CTA with pulmonary congestion This morning notd on be saturating 96% on 2lpm NC, pitting edema developed compared to yesterday's exam. Extra lasix 20mg IVP now Continue 40mg iv q12h Discontinue D5 @ 75cc started this morning , monitor CMP every 6 hrs CXRP now Added Robitussin for cough noted today # Encephalopathy Appears to be metabolic encephalopathy from sepsis, CHF exacerbation Acute hyponatremia could have contributed. Mental status much improved this morning, now alert and awake, conversant, replies appropriately Started on empiric abx Cefepime and Vancomycin ABG without hypoxia or hypercapnea , ammonia level normal, TSH within range CT head without acute abnormalities Less suspicion for meningitis at this point given quick improvement, d/c acyclovir # Acute hyponatremia: Review of sodium numbers show hyponatremia developed since 08/23/20. from 01/14/20 Na 139, 08/04/20 Na at 130, 08/23/20 Na 126, 08/30/20 Na 122, 09/05/20 Na 118 . He received 50 cc of hypertonic saline at 5 PM on 09/06 over approximately 1-1.5 hours x 1. Sodium has corrected from 118 at 2300 on 09/05 to 131 at 4 AM on 09/07. Total correction over 29 hours at 13 units. Continue CMP checks every 6 hrs # Transaminitis : may be related to poor peripheral perfusion from shock and hypotension. Hep c Ab +, states that he thinks he may have been treated for Hep c in the past. Obtain records from PCP on Tuesday. If no evidence of past treatment, needs HCV PCR with genotype and referral to Dr. Armstrong as outpatient. Check HIV screen # new onset A. fib with acute RVR Started on digoxin, continued same for now Resume a/c if mentation stable over next 24-48 hrs # FABIAN ,Resolved # DM: insulin sliding scale Diet: Carb consistent DVT ppx: On Eliquis Full code HCP per patient: He designates mother Lashonda Aguilera and step daughter Mary Jane in case he is unable to make decisions Attestations Medical Necessity Statement*: Patient needs to be in hospital for the management of A.Flutter, I.V Diuretic and for monitoring of mentation Coding Level of Care Code Acute Nurse Informatics Educator for [facility] Fwd Diagnoses Respiratory failure with hypoxia J96.91 Atrial flutter with rapid ventricular response I48.92 Acute hyponatremia E87.1 Ischemic cardiomyopathy I25.5 Smoker F17.200 Acute exacerbation of congestive heart failure I50.9 FABIAN (acute kidney injury) N17.9 Left bundle branch block I44.7 ICD (implantable cardioverter-defibrillator) in place Z95.810 Hypotension I95.9
[2020-09-08] MEDS: cefepime 2,000 MG in sodium chloride 0.9% (plus) 50 ML 100 MG IV ×2 (10:59→23:56)
[2020-09-08 11:14] LABS: Glucose Point of Care 387 mg/dL (70-110)
--- NOTE | 2020-09-08 15:59 | PC.RESP ---
Smoking Cessation information sent to patient.
[2020-09-08] MEDS: vancomycin 1,500 MG/300 ML PIGGYBACK 200 MG IV (17:17)
[2020-09-08 17:27] LABS: Glucose Point of Care 403 mg/dL (70-110)
[2020-09-08] MEDS: apixaban 5 mg Tablet PO (20:31)
[2020-09-09] VITALS (25 sets, daily range): BP systolic 86–124; BP diastolic 64–91; PULSE 99–119; RESP 22–36; TEMP 35.9–36.8; O2SAT 88–99
[2020-09-09 04:01] LABS: Basophils # 0.1 10^3/uL (0.0-0.1); Basophils % 0.9 %; Eosinophils # 0.1 10^3/uL (0.0-0.8); Eosinophils % 0.5 %; Hematocrit 38.2 % (42.0-52.0); Hemoglobin 12.2 g/dL (11.7-16.6); Lymphocytes # 1.9 10^3/uL (0.8-4.8); Lymphocytes % 13.7 %; Mean Corpuscular HGB Conc 31.9 g/dL (30.0-36.0); Mean Corpuscular Hemoglobin 24.8 pg (28.0-34.0); Mean Corpuscular Volume 77.8 fL (80-94); Mean Platelet Volume 11.4 fL (7.4-10.4); Monocytes # 1.5 10^3/uL (0.2-0.9); Monocytes % 10.8 %; Nucleated Red Blood Cells % 0.1 %; Platelet Count 241 10^3/cmm (130-400); Red Blood Count 4.91 10^6/uL (4.1-5.3); White Blood Count 13.5 10^3/uL (4.0-10.0)
[2020-09-09] MEDS: ondansetron 2 mg/ML SDV 2 mL 4 MG IVP ×2 (04:19→19:21)
[2020-09-09 04:21] LABS: Alanine Aminotransferase 87 U/L (0-41); Albumin Level 3.4 g/dL (3.5-5.2); Alkaline Phosphatase 131 IU/L (40-130); Anion Gap 15.5 (5-19); Aspartate Amino Transferase 67 U/L (0-40); Blood Urea Nitrogen 44 mg/dL (8-23); Calcium 8.7 mg/dL (8.5-10.5); Carbon Dioxide 26 mmol/L (22-29); Chloride 89 mmol/L (98-107); Globulin 4.4 g/dL (1.3-4.6); Glomerular Filtration Rate 98.6 mL/min (90-130); Glucose 109 mg/dL (65-115); Magnesium 2.4 mg/dL (1.7-2.3); Osmolality Calculated 276 mOsm/kg (285-295); Potassium 3.5 mmol/L (3.5-5.1); Sodium 127 mmol/L (136-145); Total Protein 7.8 g/dL (6.6-8.7)
[2020-09-09] MEDS: FUROsemide 10 mg/mL SDV 4mL 40 MG IVP (05:46)
[2020-09-09 05:59] LABS: Glucose Point of Care 339 mg/dL (70-110)
[2020-09-09 05:59] LABS: Glucose Point of Care 81 mg/dL (70-110)
[2020-09-09 08:41] LABS: Glucose Point of Care 206 mg/dL (70-110)
[2020-09-09] MEDS: apixaban 5 mg Tablet PO ×2 (08:45→20:58)
[2020-09-09] MEDS: aspirin 81 mg EC Tablet PO (08:45)
[2020-09-09] MEDS: digoxin 250 mcg Tablet PO (08:45)
[2020-09-09] MEDS: nicotine 21 mg Patch 1 PATCH TRANSDERMA (08:46)
[2020-09-09] MEDS: lactulose oral liq 20 gm/30 mL UDC 30 GM PO (08:48)
[2020-09-09 09:05] LABS: Ammonia 28 umol/L (16-60)
--- NOTE | 2020-09-09 09:30 | PC.CHAP ---
Pastoral Care Encounter/Spiritual Assessment Type of Contact [] Declined technology director visit [] Patient/Family/Request visit [] Outpatient visit [] Follow-up visit [] Physician referral [] Code/Alert [x] Routine visit [] Staff referral [] Actively dying [] Patient sleeping [] Family support [] [] Out of room [] Palliative care [] [] Receiving care in room [] Pre-surgical visit [] Trauma [] Long length of stay [x] ICU visit [] Other: Relational/Emotional Strength [] Patient feels connected with others/family/visitors/staff [] Distress [] Loneliness/isolation [] Abandonment Spirituality of Patient [] Person of Brigitte [] Attends Faith of their Brigitte [] Believes in Prayer [] Reads Bible or Buddhist materials [] There are Spiritual issues to be addressed Metal Precision Machine Assembler Interventions [x] Prayer [] Active listening [] Non-anxious presence [] Spiritual/emotional support [] Crisis/trauma care [] Spiritual counseling [] Bereavement support [] Provided bereavement packet [] Provided Bible/devotional materials [] Provided toy/stuffed animal, coloring book to patient or family member [] Provided Communion [] Anointing/[place] [] Salvation [x] Completed spiritual assessment [] Other: Impact on Illness or Injury [] Angry [] Fearful [] Anxious [] Often cries [] Exhaustion [] Unable to work [] Unable to attend presybeterian [] Unable to walk/stand [] Unable to read [] Unable to drive [] Unable to eat/drink [] Unable to sleep [] Unable to be with family [] Patient intubated [] Other: Summary patient not feeling well today... weaker than yesterday Time spent with patient 5 min
--- NOTE | 2020-09-09 10:33 | PM.PN ---
Subjective Subjective: Interval history: is Drowsy and Less responsive today.He is also complaining of generalized body pain. He has remained afebrile. Has good urine output.Currently LOS: is - 740 CC His other vitals and labs have been reviewed. Medications: Reviewed: Yes Vitals/I&O/Wt Last Vital Signs Temp 98.2 F 09/09/20 00:00 Pulse 113 H 09/09/20 08:57 Resp 29 H 09/09/20 08:00 BP 91/70 09/09/20 08:00 Pulse Ox 99 09/09/20 08:57 09/08/20 09/09/20 09/09/20 22:59 06:59 14:59 Intake Total 1111.025 / 2786.025 550 / 3336.025 400 / 400 Output Total 1100 / 2750 550 / 3300 175 / 175 Balance 11.025 / 36.025 0 / 36.025 225 / 225 Physical Exam Narrative: EXAM NARRATIVE: Awake HENMT: COMMON NORMALS: normocephalic and atraumatic HEAD & SCALP: normocephalic and atraumatic Chest: COMMONS NORMALS: normal inspection of the chest CHEST: Yes Symmetrical chest wall rise Resp: COMMON NORMALS: normal respiratory effort, No retractions and clear to auscultation bilaterally EFFORT & INSPECTION: Yes symmetric chest movement AUSCULTATION: clear to auscultation bilaterally Cardio: COMMON NORMALS: Peripheral pulses 2+ throughout PERIPHERAL PULSES: Peripheral pulses 2+ throughout OTHER: S1S2 of variable Intensity. GI: COMMON NORMALS: Normal to inspection, nondistended, normoactive bowel sounds present, Soft to palpation, non-tender, No hepatosplenomegaly present and no masses AUSCULTATION: Yes normoactive bowel sounds PALPATION: Yes Soft to palpation and Yes No hepatosplenomegaly present RECTAL EXAM: Yes deferred Extremity: NARRATIVE EXTREMITY EXAM: 1 + B/L Pitting edema present in both Lower Extremity Urinary Catheter Management^: Bell: Cath Placed During This Visit: yes Reason for Continuing Indwelling Catheter: Accurate Measurement of Urinary Output in Critically Ill Patients Urinary Catheter Date of Insertion: 09/05/20 Urinary Catheter Time of Insertion: 23:06 Data : 09/09/20 03:40 09/09/20 03:40 A&P Assessment and plan (1) Respiratory failure with hypoxia: Status: Acute (2) Atrial flutter with rapid ventricular response: Status: Acute (3) Acute hyponatremia: Status: Acute (4) Ischemic cardiomyopathy: Status: Acute (5) Smoker: Status: Acute (6) Acute exacerbation of congestive heart failure: Status: Acute (7) FABIAN (acute kidney injury): Status: Acute (8) Left bundle branch block: Status: Acute (9) ICD (implantable cardioverter-defibrillator) in place: Status: Acute (10) Hypotension: Status: Acute Additional A&P Information # Shock, currently BP improved Likely to be cardiogenic in nature Ekg with A flutter, currently HR at 120bpm No significant delta troponin Remains off pressors since 09/06 Appreciate cardiology recommendations to assist with management of cardiogenic shock, new A flutter and need for ongoing diuresis Cannot exclude possibility of septic shock given elevated white count, tachycardia, elevated lactate, elavted procal Continue empiric Cefepime and iv vancomycin for possible sepsis Mentation improved, peripheries well perfused today, less toxic appearing than previously pending blood culture Leukocytosis trending down Unclear source, CTA chest without signs of pneumonia, US liver with hapetomegaly with fatty liver, thickening of GB wall without gallstones, small ascites in upper abdomen, no c/o abdominal pain, NVD. UA prelim without signs of UTI, both knees appearing symmetric today Urine drug screen + for methamphetamine, However denies any current drug use. # Acute on chronic systolic CHF exacerbation Reduced ejection fraction (EF15%) heart failure history of ischemic cardiomyopathy New a flutter, cardiology consult # A.Flutter with RVR : On Digoxin : 250 mg po daily Initially on Amio drip after 150 MG Bolus dose. Currently in sinus Continue Tele Dig Level : 1 Eliquis 5 MG Q12 H daily # Acute hypoxic respiratory failure Likely 2/2 CHF exacerbation, as evidenced by elevated BNP, CTA with pulmonary congestion This morning notd on be saturating 96% on 2lpm NC, pitting edema developed compared to yesterday's exam. Extra lasix 20mg IVP now Continue 40mg iv q12h Discontinue D5 @ 75cc started this morning , monitor CMP every 6 hrs CXRP now Added Robitussin for cough noted today # Encephalopathy R/O Hepatic Encephalopathy 2/2 to sepsis/CHF Excerbation Patient has been started on lactulose to target 2-3 BM Acute hyponatremia could have contributed. 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 Will consider Diagnostic/Therapeutic Tap Currently on good Abx Coverage Started on Albumin 1.5 gm/kg body weight on day 1 and 1 gm/kg body weight day 3 regimen. # Acute hyponatremia: Review of sodium numbers show hyponatremia developed since 08/23/20. from 01/14/20 Na 139, 08/04/20 Na at 130, 08/23/20 Na 126, 08/30/20 Na 122, 09/05/20 Na 118 . He received 50 cc of hypertonic saline at 5 PM on 09/06 over approximately 1-1.5 hours x 1. Sodium has corrected from 118 at 2300 on 09/05 to 131 at 4 AM on 09/07. Total correction over 29 hours at 13 units. Continue CMP checks every 6 hrs # Transaminitis : may be related to poor peripheral perfusion from shock and hypotension. Hep c Ab +, states that he thinks he may have been treated for Hep c in the past. Obtain records from PCP on Tuesday morning. If no evidence of past treatment, needs HCV PCR with genotype and referral to Dr. Armstrong as outpatient. Check HIV screen # FABIAN ,Resolved # DM: insulin sliding scale Diet: Carb consistent DVT ppx: On Eliquis Full code HCP per patient: He designates mother Lashonda Aguilera and step daughter Mary Jane in case he is unable to make decisions Attestations Medical Necessity Statement*: Patient needs to be in hospital for the management of Ac enc Coding Level of Care Code Acute Customer Success Associate for [facility] Fwd Diagnoses Respiratory failure with hypoxia J96.91 Atrial flutter with rapid ventricular response I48.92 Acute hyponatremia E87.1 Ischemic cardiomyopathy I25.5 Smoker F17.200 Acute exacerbation of congestive heart failure I50.9 FABIAN (acute kidney injury) N17.9 Left bundle branch block I44.7 ICD (implantable cardioverter-defibrillator) in place Z95.810 Hypotension I95.9
[2020-09-09 10:42] LABS: Glucose Point of Care 190 mg/dL (70-110)
[2020-09-09] MEDS: bumetanide 0.25 mg/mL SDV 10 mL 2 MG IV ×2 (10:55→22:37)
[2020-09-09] MEDS: lactulose oral liq 20 gm/30 mL UDC PO ×2 (10:58→12:06)
[2020-09-09] MEDS: cefepime 2,000 MG in sodium chloride 0.9% (plus) 50 ML 100 MG IV (11:12)
--- NOTE | 2020-09-09 12:00 | PC.SOCIAL ---
IMM Update Pg. 2 of IMM updated and reviewed with patient who verbalized understanding. Copy provided.
[2020-09-09] MEDS: vancomycin 1,500 MG/300 ML PIGGYBACK 150 MG IV (12:06)
--- NOTE | 2020-09-09 14:53 | XR_ITS ---
WS: [id number] PORTABLE CHEST HISTORY: SOB COMPARISON: 09/07/2020 Single lead RIGHT subclavian pacer. Increasing consolidation in the RIGHT lower lung field and a small RIGHT pleural effusion. LEFT lung is clear. This effusion was present on the prior CT of 09/05/2020. No pneumothorax. Cardiac size: Moderately enlarged cardiac silhouette. Mediastinum/Aorta: Normal mediastinum. No osseous abnormality seen. XR/XR chest 1V portable [id number] IMPRESSION: 1. Small RIGHT pleural effusion similar to the prior study of 09/05/2020. 2. Increasing consolidation in the RIGHT lower lung is probably pneumonia or a telectasis. 3. Mild pulmonary congestion. 4. Marked cardiomegaly.
[2020-09-09] MEDS: levofloxacin-dextrose 5 % 500 MG/100 ML PREMIX 100 MG IV (15:13)
[2020-09-09 17:35] LABS: Glucose Point of Care 134 mg/dL (70-110)
--- NOTE | 2020-09-09 17:43 | PM.PN ---
Subjective Subjective: Interval history: Patient is doing well. He is a little more drowsy compared to yesterday. Diuresing with p.o. diuretics however not on a significantly negative fluid balance. Vitals/I&O/Wt Last Vital Signs Temp 97.9 F 09/09/20 15:00 Pulse 106 H 09/09/20 16:00 Resp 30 H 09/09/20 16:00 BP 95/69 09/09/20 16:00 Pulse Ox 97 09/09/20 16:00 09/09/20 09/09/20 09/09/20 06:59 14:59 22:59 Intake Total 550 / 3336.025 1836.975 / 8380.557 3727 / 3136.975 Output Total 550 / 3300 355 / 355 Balance 0 / 36.025 1481.975 / 2040.504 5253 / 2781.975 Physical Exam Narrative: EXAM NARRATIVE: GENERAL: Patient is alert, awake and oriented x3. [] NECK: No jugular vein distension. [] HEENT: No cyanosis. No icterus. No pallor. [] HEART: Tachycardia, regular S1 and S2. No murmur, rub or gallop. [] LUNGS: Clear to auscultate bilaterally. [] ABDOMEN: Soft, nontender and nondistended. Positive bowel sounds. No guarding, rebound or tenderness. [] CENTRAL NERVOUS SYSTEM: Grossly nonfocal. [] EXTREMITIES: Lower extremities with no edema bilaterally. Pulses palpable in the lower extremities, both dorsalis pedis and posterior tibial. 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 transplanted heart: [place] heart Associated angina: without angina Qualified Code(s): I25.10 - Atherosclerotic heart disease of [place] coronary artery without angina pectoris (4) ICD (implantable cardioverter-defibrillator) in place: Status: Acute (5) Ischemic cardiomyopathy: Status: Acute (6) Encephalopathy: Status: Acute (7) Atrial flutter: Status: Acute Patient's mentation improved with improved hyponatremia He is off pressors at this time. He is maintaining MAP Antibiotic therapy per medicine team. On telemetry appears to be in sinus tachycardia. Obtain an EKG. Continued digoxin. Given his elevated LFTs, can hold off on amio drip. If goes back into atrial flutter with RVR, might need to restart. IV Bumex 2 mg twice daily for now. We might need to uptitrate it based on patient's response and renal function. Thank you for involving us with care of this patient. We will continue to follow. Please call with questions. Attestations Medical Necessity Statement*: Care expected to cross 2 midnights. Coding Level of Care Code Acute Occupational Therapy Asst for g Fwd Diagnoses FABIAN (acute kidney injury) N17.9 Type 2 diabetes mellitus E11.69 Diabetes mellitus complication status: with other specified complication Diabetes mellitus skilled nursing insulin use: unspecified skilled nursing insulin use status Coronary artery disease I25.10 Coronary Disease-Associated Artery/Lesion type: [place] artery [place] vs. transplanted heart: [place] heart Associated angina: without angina ICD (implantable cardioverter-defibrillator) in place Z95.810 Ischemic cardiomyopathy I25.5 Encephalopathy G93.40 Atrial flutter I48.92
[2020-09-09 21:02] LABS: Glucose Point of Care 168 mg/dL (70-110)
[2020-09-10] VITALS (19 sets, daily range): BP systolic 77–107; BP diastolic 61–79; PULSE 110–113; RESP 12–37; TEMP 35.8–37.3; O2SAT 86–99
--- NOTE | 2020-09-10 01:02 | PC.NURSE ---
Reports that he feels like his blood sugar is dropping, Blood glucose level 128, grape juice given.
[2020-09-10 01:05] LABS: Glucose Point of Care 128 mg/dL (70-110)
[2020-09-10] MEDS: ondansetron 2 mg/ML SDV 2 mL 4 MG IVP (02:21)
[2020-09-10 03:55] LABS: Alanine Aminotransferase 54 U/L (0-41); Albumin Level 4.2 g/dL (3.5-5.2); Alkaline Phosphatase 110 IU/L (40-130); Anion Gap 17.5 (5-19); Aspartate Amino Transferase 44 U/L (0-40); Blood Urea Nitrogen 50 mg/dL (8-23); Calcium 8.4 mg/dL (8.5-10.5); Carbon Dioxide 21 mmol/L (22-29); Chloride 88 mmol/L (98-107); Glomerular Filtration Rate 98.6 mL/min (90-130); Glucose 192 mg/dL (65-115); Osmolality Calculated 275 mOsm/kg (285-295); Potassium 3.5 mmol/L (3.5-5.1); Sodium 123 mmol/L (136-145); Total Bilirubin 5.5 mg/dL (0.15-1.2); Total Protein 7.2 g/dL (6.6-8.7)
[2020-09-10 03:57] LABS: Basophils # 0.1 10^3/uL (0.0-0.1); Basophils % 1.1 %; Eosinophils # 0.1 10^3/uL (0.0-0.8); Eosinophils % 0.7 %; Hematocrit 33.7 % (42.0-52.0); Hemoglobin 10.8 g/dL (11.7-16.6); Lymphocytes # 1.9 10^3/uL (0.8-4.8); Lymphocytes % 16.8 %; Mean Corpuscular Hemoglobin 24.4 pg (28.0-34.0); Mean Corpuscular Volume 76.1 fL (80-94); Mean Platelet Volume 11.6 fL (7.4-10.4); Monocytes # 1.4 10^3/uL (0.2-0.9); Monocytes % 12.4 %; Neutrophils # 7.54 10^3/uL (1.8-7.7); Neutrophils % 66.1 %; Nucleated Red Blood Cells % 0.2 %; Platelet Count 206 10^3/cmm (130-400); Red Blood Count 4.43 10^6/uL (4.1-5.3); Red Cell Distribution Width 18.6 % (12.1-15.1); White Blood Count 11.4 10^3/uL (4.0-10.0)
[2020-09-10] MEDS: vancomycin 1,500 MG/300 ML PIGGYBACK 150 MG IV (05:55)
[2020-09-10 07:46] LABS: Glucose Point of Care 212 mg/dL (70-110)
--- NOTE | 2020-09-10 09:19 | PC.CHAP ---
Pastoral Care Encounter/Spiritual Assessment Type of Contact [] Declined phys assistant visit [] Patient/Family/Request visit [] Outpatient visit [] Follow-up visit [] Physician referral [] Code/Alert [x] Routine visit [] Staff referral [] Actively dying [] Patient sleeping [] Family support [] [] Out of room [] Palliative care [] [] Receiving care in room [] Pre-surgical visit [] Trauma [] Long length of stay [x] ICU visit [] Other: Relational/Emotional Strength [] Patient feels connected with others/family/visitors/staff [] Distress [] Loneliness/isolation [] Abandonment Spirituality of Patient [] Person of Brigitte [] Attends Zoroastrian of their Brigitte [] Believes in Prayer [] Reads Bible or Buddhism materials [] There are Spiritual issues to be addressed Echo Technician Interventions [x] Prayer [] Active listening [] Non-anxious presence [] Spiritual/emotional support [] Crisis/trauma care [] Spiritual counseling [] Bereavement support [] Provided bereavement packet [] Provided Bible/devotional materials [] Provided toy/stuffed animal, coloring book to patient or family member [] Provided Communion [] Anointing/[place] [] Salvation [x] Completed spiritual assessment [] Other: Impact on Illness or Injury [] Angry [] Fearful [] Anxious [] Often cries [] Exhaustion [] Unable to work [] Unable to attend amish [] Unable to walk/stand [] Unable to read [] Unable to drive [] Unable to eat/drink [] Unable to sleep [] Unable to be with family [] Patient intubated [] Other: Summary patient sleeping, staff states he is having issues with depression.. phys assistant continuing to not only for physical healing but also mental Time spent with patient 10 min
[2020-09-10] MEDS: aspirin 81 mg EC Tablet PO (09:25)
[2020-09-10] MEDS: nicotine 21 mg Patch 1 PATCH TRANSDERMA (09:25)
[2020-09-10] MEDS: lactulose oral liq 20 gm/30 mL UDC PO ×2 (09:26→10:44)
[2020-09-10] MEDS: apixaban 5 mg Tablet PO ×2 (09:26→21:00)
[2020-09-10] MEDS: digoxin 250 mcg Tablet PO (09:26)
--- NOTE | 2020-09-10 09:57 | PM.PN ---
Subjective Subjective: Interval history: Patient is drowsy today. Denies any complaints of chest pain. Bilirubin is elevated. Converted to normal sinus rhythm yesterday however is back in atrial flutter now. Vitals/I&O/Wt Last Vital Signs Temp 99.2 F 09/10/20 04:00 Pulse 112 H 09/10/20 09:26 Resp 24 H 09/10/20 09:00 BP 97/74 09/10/20 09:00 Pulse Ox 96 09/10/20 09:00 09/09/20 09/10/20 09/10/20 22:59 06:59 14:59 Intake Total 1790 / 3626.975 400 / 4026.975 240 / 240 Output Total 950 / 1305 800 / 2105 Balance 840 / 2321.975 -400 / 1921.975 240 / 240 Physical Exam Narrative: EXAM NARRATIVE: GENERAL: Patient is drowsy, awake and oriented x3. [] NECK: No jugular vein distension. [] HEENT: No cyanosis. No icterus. No pallor. [] HEART: Tachycardia, regular S1 and S2. No murmur, rub or gallop. [] LUNGS: Clear to auscultate bilaterally. [] ABDOMEN: Soft, nontender and nondistended. Positive bowel sounds. No guarding, rebound or tenderness. [] CENTRAL NERVOUS SYSTEM: Grossly nonfocal. [] EXTREMITIES: Lower extremities with no edema bilaterally. Pulses palpable in the lower extremities, both dorsalis pedis and posterior tibial. [] Urinary Catheter Management^: Bell: Cath Placed During This Visit: yes Reason for Continuing Indwelling Catheter: Accurate Measurement of Urinary Output in Critically Ill Patients Urinary Catheter Date of Insertion: 09/05/20 Urinary Catheter Time of Insertion: 23:06 Data : 09/11/20 04:40 09/11/20 04:40 A&P Assessment and plan (1) FABIAN (acute kidney injury): Status: Acute (2) Type 2 diabetes mellitus: Status: Acute Qualifiers: Diabetes mellitus complication status: with other specified complication Diabetes mellitus senior care insulin use: unspecified senior care insulin use status Qualified Code(s): E11.69 - Type 2 diabetes mellitus with other specified complication (3) Coronary artery disease: Status: Acute Qualifiers: Coronary Disease-Associated Artery/Lesion type: [place] artery [place] vs. transplanted heart: [place] heart Associated angina: without angina Qualified Code(s): I25.10 - Atherosclerotic heart disease of [place] coronary artery without angina pectoris (4) ICD (implantable cardioverter-defibrillator) in place: Status: Acute (5) Ischemic cardiomyopathy: Status: Acute (6) Encephalopathy: Status: Acute (7) Atrial flutter: Status: Acute Patient is more drowsy today. He is off pressors at this time. He is maintaining MAP Antibiotic therapy per medicine team. Converted to sinus rhythm yesterday however is back in atrial flutter. Continued digoxin. If heart rate does not improve, consider restarting amiodarone. Initiate metoprolol 12.5 mg twice daily. Can be uptitrated if blood pressure allows. IV Bumex 2 mg twice daily for now. Uptitrate if urine output does not improve. Thank you for involving us with care of this patient. We will continue to follow. Please call with questions. Attestations Medical Necessity Statement*: Care expected to cross 2 midnights. 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 transplanted heart: [place] heart Associated angina: without angina ICD (implantable cardioverter-defibrillator) in place Z95.810 Ischemic cardiomyopathy I25.5 Encephalopathy G93.40 Atrial flutter I48.92
[2020-09-10] MEDS: bumetanide 0.25 mg/mL SDV 10 mL 2 MG IV ×2 (10:44→22:49)
--- NOTE | 2020-09-10 10:53 | PM.PN ---
Subjective Subjective: Interval history: is Alert and awake ( AO*3 ) though he says that he feel tired today. He ate his full breakfast.Has good urine output.Continues to be in A.Flutter with RVR His other vitals and labs have been reviewed. Medications: Reviewed: Yes Vitals/I&O/Wt Last Vital Signs Temp 97.9 F 09/10/20 10:00 Pulse 112 H 09/10/20 10:00 Resp 29 H 09/10/20 10:00 BP 97/74 09/10/20 10:00 Pulse Ox 90 09/10/20 10:00 09/09/20 09/10/20 09/10/20 22:59 06:59 14:59 Intake Total 1790 / 3626.975 400 / 4026.975 240 / 240 Output Total 950 / 1305 800 / 2105 Balance 840 / 2321.975 -400 / 1921.975 240 / 240 Physical Exam Narrative: EXAM NARRATIVE: Awake Const: COMMON NORMALS: patient oriented x3 HENMT: COMMON NORMALS: normocephalic and atraumatic HEAD & SCALP: normocephalic and atraumatic Chest: COMMONS NORMALS: normal inspection of the chest CHEST: Yes Symmetrical chest wall rise Resp: COMMON NORMALS: normal respiratory effort, No retractions and clear to auscultation bilaterally EFFORT & INSPECTION: Yes symmetric chest movement AUSCULTATION: clear to auscultation bilaterally Cardio: COMMON NORMALS: Peripheral pulses 2+ throughout PERIPHERAL PULSES: Peripheral pulses 2+ throughout OTHER: S1S2 of variable Intensity. GI: AUSCULTATION: Yes normoactive bowel sounds RECTAL EXAM: Yes deferred OTHER: Mildly distended abdomen , soft Extremity: NARRATIVE EXTREMITY EXAM: 1 + B/L Pitting edema present in both Lower Extremity Neuro: COMMON NORMALS: patient oriented x3 Urinary Catheter Management^: Bell: Cath Placed During This Visit: yes Reason for Continuing Indwelling Catheter: Accurate Measurement of Urinary Output in Critically Ill Patients Urinary Catheter Date of Insertion: 09/05/20 Urinary Catheter Time of Insertion: 23:06 Data : 09/10/20 03:10 09/10/20 03:10 A&P Assessment and plan (1) Respiratory failure with hypoxia: Status: Acute (2) Atrial flutter with rapid ventricular response: Status: Acute (3) Acute hyponatremia: Status: Acute (4) Ischemic cardiomyopathy: Status: Acute (5) Smoker: Status: Acute (6) Acute exacerbation of congestive heart failure: Status: Acute (7) FABIAN (acute kidney injury): Status: Acute (8) Left bundle branch block: Status: Acute (9) ICD (implantable cardioverter-defibrillator) in place: Status: Acute (10) Hypotension: Status: Acute Additional A&P Information # Shock, currently BP improved Likely to be cardiogenic in nature Ekg with A flutter, currently HR at 110-120 bpm No significant delta troponin Remains off pressors since 09/06 Appreciate cardiology recommendations to assist with management of cardiogenic shock, new A flutter and need for ongoing diuresis Cannot exclude possibility of septic shock given elevated white count, tachycardia, elevated lactate, elavted procal Initiaaly on empiric Cefepime and iv vancomycin for possible sepsis Initially on empiric abx Cefepime and Vancomycin Cefepime was DC on 09/09 Acyclovir was Dc earlier Imipenam ( 09/09) Levofloxacin ( 09/09 ) Mentation improved, peripheries well perfused today, less toxic appearing than previously pending blood culture Leukocytosis trending down Unclear source, CTA chest without signs of pneumonia, US liver with hapetomegaly with fatty liver, thickening of GB wall without gallstones, small ascites in upper abdomen, no c/o abdominal pain, NVD. UA prelim without signs of UTI, both knees appearing symmetric today Urine drug screen + for methamphetamine, However denies any current drug use. # Acute on chronic systolic CHF exacerbation Reduced ejection fraction (EF15%) heart failure history of ischemic cardiomyopathy On Bumex 2 gm I.V Q12 H daily Monitor I/O Daily weight cardiology consult # A.Flutter with RVR : Digoxin : 250 mg po daily Metoprolol .T : 12.5 MG Q12 H Daily( 2/3) Initially on Amio drip after 150 MG Bolus dose. Continue Tele Dig Level : 1 Eliquis 5 MG Q12 H daily # Acute hypoxic respiratory failure Likely 2/2 CHF exacerbation, as evidenced by elevated BNP, CTA with pulmonary congestion This morning noted on be saturating 96% on 2lpm NC Added Robitussin for cough noted today # Encephalopathy R/O Hepatic Encephalopathy 2/2 to sepsis/CHF Excerbation Patient has been started on lactulose to target 2-3 BM Acute hyponatremia could have contributed. 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 Will consider Diagnostic/Therapeutic Tap Currently on good Abx Coverage Started on Albumin 1.5 gm/kg body weight on day 1 and 1 gm/kg body weight day 3 regimen. # Acute hyponatremia: Review of sodium numbers show hyponatremia developed since 08/23/20. from 01/14/20 Na 139, 08/04/20 Na at 130, 08/23/20 Na 126, 08/30/20 Na 122, 09/05/20 Na 118 . He received 50 cc of hypertonic saline at 5 PM on 09/06 over approximately 1-1.5 hours x 1. Sodium has corrected from 118 at 2300 on 09/05 to 131 at 4 AM on 09/07. Total correction over 29 hours at 13 units. Continue CMP checks every 6 hrs Will consider Vaptans given the fact that the patient is inherently in ADH excess state due to his underlying comorbid conditions ( H/F and Cardiac cirrhosis ) Currently On Salt Tab 1 GM Q12 H daily # Transaminitis : may be related to poor peripheral perfusion from shock and hypotension. Hep c Ab +, states that he thinks he may have been treated for Hep c in the past. Obtain records from PCP on Tuesday morning. If no evidence of past treatment, needs HCV PCR with genotype and referral to Dr. Armstrong as outpatient. Check HIV screen # FABIAN ,Resolved # DM: insulin sliding scale Diet: Carb consistent DVT ppx: On Eliquis Full code HCP per patient: He designates mother Lashonda Aguilera and step daughter Mary Jane in case he is unable to make decisions Attestations Medical Necessity Statement*: Patient needs to be in hospital for the management of Ac Encephalopathy Coding Level of Care Code Acute Powder And Primer Canning Leader for Chg Fwd Diagnoses Respiratory failure with hypoxia J96.91 Atrial flutter with rapid ventricular response I48.92 Acute hyponatremia E87.1 Ischemic cardiomyopathy I25.5 Smoker F17.200 Acute exacerbation of congestive heart failure I50.9 FABIAN (acute kidney injury) N17.9 Left bundle branch block I44.7 ICD (implantable cardioverter-defibrillator) in place Z95.810 Hypotension I95.9
[2020-09-10 12:06] LABS: Glucose Point of Care 235 mg/dL (70-110)
[2020-09-10] MEDS: metoprolol tartrate 25 mg Tablet 12.5 MG PO ×2 (14:21→17:12)
[2020-09-10] MEDS: levofloxacin-dextrose 5 % 500 MG/100 ML PREMIX 100 MG IV (14:22)
[2020-09-10] MEDS: LORazepam 1 mg Tablet PO ×2 (14:39→22:49)
[2020-09-10] MEDS: sodium chloride 1 gm Tablet PO (17:12)
[2020-09-10 18:58] LABS: Glucose Point of Care 230 mg/dL (70-110)
[2020-09-10 21:57] LABS: Glucose Point of Care 193 mg/dL (70-110)
[2020-09-10 23:29] LABS: Vancomycin Trough 21.1 ug/mL (10-15)
--- NOTE | 2020-09-10 23:44 | PC.PHAR ---
Vancomycin trough on dosage of 1500mg IVPB every 12 hours was 21.7 and trough on dosage of 1500mg IVPB every 18 hours was 21.1. Dosage is reduced to 1250mg IVPB every 24 hours with a trough to be obtained before the fourth dose at this level.
--- NOTE | 2020-09-10 23:44 | PC.NURSE ---
Agree with Critical Care Assessment performed by SN Wilbert
[2020-09-11] VITALS (18 sets, daily range): BP systolic 71–114; BP diastolic 51–87; PULSE 96–118; RESP 19–32; TEMP 36.2–36.6; O2SAT 92–98
[2020-09-11 05:40] LABS: Basophils # 0.1 10^3/uL (0.0-0.1); Eosinophils # 0.2 10^3/uL (0.0-0.8); Eosinophils % 1.3 %; Hematocrit 35.7 % (42.0-52.0); Hemoglobin 11.5 g/dL (11.7-16.6); Lymphocytes # 2.1 10^3/uL (0.8-4.8); Lymphocytes % 16.3 %; Mean Corpuscular HGB Conc 32.2 g/dL (30.0-36.0); Mean Corpuscular Hemoglobin 24.9 pg (28.0-34.0); Mean Corpuscular Volume 77.3 fL (80-94); Mean Platelet Volume 11.2 fL (7.4-10.4); Monocytes # 1.7 10^3/uL (0.2-0.9); Monocytes % 13.5 %; Neutrophils # 8.31 10^3/uL (1.8-7.7); Neutrophils % 64.3 %; Nucleated Red Blood Cells % 0.2 %; Platelet Count 204 10^3/cmm (130-400); Red Blood Count 4.62 10^6/uL (4.1-5.3); Red Cell Distribution Width 19.3 % (12.1-15.1); White Blood Count 12.9 10^3/uL (4.0-10.0)
[2020-09-11 06:06] LABS: Alanine Aminotransferase 47 U/L (0-41); Alkaline Phosphatase 116 IU/L (40-130); Anion Gap 14.6 (5-19); Aspartate Amino Transferase 39 U/L (0-40); Blood Urea Nitrogen 45 mg/dL (8-23); Calcium 8.5 mg/dL (8.5-10.5); Carbon Dioxide 24 mmol/L (22-29); Chloride 88 mmol/L (98-107); Globulin 3.2 g/dL (1.3-4.6); Glomerular Filtration Rate 98.6 mL/min (90-130); Glucose 78 mg/dL (65-115); Magnesium 1.9 mg/dL (1.7-2.3); Osmolality Calculated 266 mOsm/kg (285-295); Potassium 3.6 mmol/L (3.5-5.1); Sodium 123 mmol/L (136-145); Total Bilirubin 4.1 mg/dL (0.15-1.2); Total Protein 7.2 g/dL (6.6-8.7)
[2020-09-11 08:10] LABS: Glucose Point of Care 108 mg/dL (70-110)
[2020-09-11] MEDS: DOBUTamine drip 500 MG/250 ML PREMIX 8.8 MG IV (09:14)
[2020-09-11] MEDS: digoxin 250 mcg Tablet PO (09:21)
[2020-09-11] MEDS: lactulose oral liq 20 gm/30 mL UDC 30 GM PO ×3 (09:21→20:19)
[2020-09-11] MEDS: aspirin 81 mg EC Tablet PO (09:21)
[2020-09-11] MEDS: metoprolol tartrate 25 mg Tablet 12.5 MG PO ×2 (09:21→17:50)
[2020-09-11] MEDS: apixaban 5 mg Tablet PO ×2 (09:21→20:19)
[2020-09-11] MEDS: sodium chloride 1 gm Tablet PO ×2 (09:21→17:50)
[2020-09-11] MEDS: nicotine 21 mg Patch 1 PATCH TRANSDERMA (09:22)
[2020-09-11] MEDS: bumetanide 0.25 mg/mL SDV 10 mL 2 MG IV ×2 (09:40→22:24)
--- NOTE | 2020-09-11 10:13 | PC.SOCIAL ---
IMM Update Pg. 2 of IMM updated and reviewed with patient, who verbalized understanding. Copy provided.
[2020-09-11 12:12] LABS: Glucose Point of Care 234 mg/dL (70-110)
--- NOTE | 2020-09-11 12:15 | P.PN_ITS ---
Subjective Subjective: Interval history: Patient is doing well. Denies chest pain, shortness of breath or palpitations. Heart rate is still elevated and he is in atrial flutter. Vitals/I&O/Wt Last Vital Signs Temp 97.2 F L 09/11/20 04:30 Pulse 117 H 09/11/20 10:57 Resp 22 H 09/11/20 10:57 BP 89/71 09/11/20 10:57 Pulse Ox 93 09/11/20 10:57 09/10/20 09/11/20 09/11/20 22:59 06:59 14:59 Intake Total 420.000 / 1180.000 640 / 1820.000 710 / 710 Output Total 900 / 903 900 / 1803 500 / 500 Balance -480.000 / 277.000 -260 / 17.000 210 / 210 Physical Exam Narrative: EXAM NARRATIVE: GENERAL: Patient is drowsy, awake and oriented x3. [] NECK: No jugular vein distension. [] HEENT: No cyanosis. No icterus. No pallor. [] HEART: Tachycardia, regular S1 and S2. No murmur, rub or gallop. [] LUNGS: Clear to auscultate bilaterally. [] ABDOMEN: Soft, nontender and nondistended. Positive bowel sounds. No guarding, rebound or tenderness. [] CENTRAL NERVOUS SYSTEM: Grossly nonfocal. [] EXTREMITIES: Lower extremities with no edema bilaterally. Pulses palpable in the lower extremities, both dorsalis pedis and posterior tibial. [] Urinary Catheter Management^: Bell: Cath Placed During This Visit: yes Reason for Continuing Indwelling Catheter: Accurate Measurement of Urinary Output in Critically Ill Patients Urinary Catheter Date of Insertion: 09/05/20 Urinary Catheter Time of Insertion: 23:06 Data : 09/12/20 05:01 09/12/20 07:02 Micro: Microbiology 09/06/20 10:10 Blood Culture - Final Blood NO GROWTH AFTER 5 DAYS 09/06/20 10:10 Blood Culture - Final Blood NO GROWTH AFTER 5 DAYS 09/10/20 19:25 C.difficile Toxin B Gene (PCR) - Final Stool Routine Collection A&P Assessment and plan (1) FABIAN (acute kidney injury): Status: Acute (2) Type 2 diabetes mellitus: Status: Acute Qualifiers: Diabetes mellitus complication status: with other specified complication Diabetes mellitus longterm insulin use: unspecified longterm insulin use status Qualified Code(s): E11.69 - Type 2 diabetes mellitus with other specified complication (3) Coronary artery disease: Status: Acute Qualifiers: Coronary Disease-Associated Artery/Lesion type: [place] artery [place] vs. transplanted heart: [place] heart Associated angina: without angina Q ualified Code(s): I25.10 - Atherosclerotic heart disease of [place] coronary artery without angina pectoris (4) ICD (implantable cardioverter-defibrillator) in place: Status: Acute (5) Ischemic cardiomyopathy: Status: Acute (6) Encephalopathy: Status: Acute (7) Atrial flutter: Status: Acute Patient is feeling better. He is off pressors at this time. He is maintaining MAP Antibiotic therapy per medicine team. Patient continues to be in atrial flutter. Continued digoxin. Initiate a miodarone gtt. If heart rates do not improve,can consider VLAD/ Cardioversion IV Bumex 2 mg twice daily for now. Uptitrate if urine output does not improve. Thank you for involving us with care of this patient. We will continue to follow. Please call with questions. Attestations Medical Necessity Statement*: Care expected to cross 2 midnights Coding Level of Care Code Acute Technical Services Specialist for g Fwd Diagnoses FABIAN (acute kidney injury) N17.9 Type 2 diabetes mellitus E11.69 Diabetes mellitus complication status: with other specified complication Diabetes mellitus superintendent terminal insulin use: unspecified longterm insulin use status Coronary artery disease I25.10 Coronary Disease-Associated Artery/Lesion type: [place] artery [place] vs. transplanted heart: [place] heart Associated angina: without angina ICD (implantable cardioverter-defibrillator) in place Z95.810 Ischemic cardiomyopathy I25.5 Encephalopathy G93.40 Atrial flutter I48.92
--- NOTE | 2020-09-11 12:16 | ECG_ITS ---
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 Measurements Intervals [place] Rate: 115 P: [place]: QRS: -25 QRSD: 194 T: -60 QT: 385 QTc: 534 Interpretive Statements ATRIAL FLUTTER WITH RAPID VENTRICULAR RESPONSE BORDERLINE LEFT AXIS DEVIATION [QRS AXIS < -20] INTRAVENTRICULAR CONDUCTION DELAY [130+ ms QRS DURATION] Compared to ECG 09/06/2020 12:13:57 No significant changes Electronically Signed On 09-11-2020 20:28:50 WOOD MACHINIST by Maryam Garcia M.D. [email or web address]
[2020-09-11] MEDS: levofloxacin-dextrose 5 % 500 MG/100 ML PREMIX 100 MG IV (12:31)
--- NOTE | 2020-09-11 12:54 | PM.PN ---
Subjective Subjective: Interval history: was seen resting comfortably in bed.He continues to feel tired. He has remained in A.flutter/A.fib ( 110-120s). His other Vitals and labs have been reviewed. Medications: Reviewed: Yes Vitals/I&O/Wt Last Vital Signs Temp 97.2 F L 09/11/20 04:30 Pulse 117 H 09/11/20 10:57 Resp 22 H 09/11/20 10:57 BP 89/71 09/11/20 10:57 Pulse Ox 93 09/11/20 10:57 09/10/20 09/11/20 09/11/20 22:59 06:59 14:59 Intake Total 420.000 / 1180.000 640 / 1820.000 710 / 710 Output Total 900 / 903 900 / 1803 500 / 500 Balance -480.000 / 277.000 -260 / 17.000 210 / 210 Physical Exam Narrative: EXAM NARRATIVE: Awake Const: COMMON NORMALS: patient oriented x3 HENMT: COMMON NORMALS: normocephalic and atraumatic HEAD & SCALP: normocephalic and atraumatic Chest: COMMONS NORMALS: normal inspection of the chest CHEST: Yes Symmetrical chest wall rise Resp: COMMON NORMALS: normal respiratory effort, No retractions and clear to auscultation bilaterally EFFORT & INSPECTION: Yes symmetric chest movement AUSCULTATION: clear to auscultation bilaterally Cardio: COMMON NORMALS: Peripheral pulses 2+ throughout PERIPHERAL PULSES: Peripheral pulses 2+ throughout OTHER: S1S2 of variable Intensity. GI: AUSCULTATION: Yes normoactive bowel sounds RECTAL EXAM: Yes deferred OTHER: Mildly distended abdomen , soft Extremity: NARRATIVE EXTREMITY EXAM: 1 + B/L Pitting edema present in both Lower Extremity Neuro: COMMON NORMALS: patient oriented x3 Urinary Catheter Management^: Bell: Cath Placed During This Visit: yes Reason for Continuing Indwelling Catheter: Accurate Measurement of Urinary Output in Critically Ill Patients Urinary Catheter Date of Insertion: 09/05/20 Urinary Catheter Time of Insertion: 23:06 Data : 09/11/20 04:40 09/11/20 04:40 Micro: Microbiology 09/06/20 10:10 Blood Culture - Final Blood NO GROWTH AFTER 5 DAYS 09/06/20 10:10 Blood Culture - Final Blood NO GROWTH AFTER 5 DAYS 09/10/20 19:25 C.difficile Toxin B Gene (PCR) - Final Stool Routine Collection A&P Assessment and plan (1) Respiratory failure with hypoxia: Status: Acute (2) Atrial flutter with rapid ventricular response: Status: Acute (3) Acute hyponatremia: Status: Acute (4) Ischemic cardiomyopathy: Status: Acute (5) Smoker: Status: Acute (6) Acute exacerbation of congestive heart failure: Status: Acute (7) FABIAN (acute kidney injury): Status: Acute (8) Left bundle branch block: Status: Acute (9) ICD (implantable cardioverter-defibrillator) in place: Status: Acute (10) Hypotension: Status: Acute Additional A&P Information # Shock, currently BP improved Likely to be cardiogenic in nature Ekg with A flutter, currently HR at 110-120 bpm No significant delta troponin Remains off pressors since 09/06 Appreciate cardiology recommendations to assist with management of cardiogenic shock, new A flutter and need for ongoing diuresis Cannot exclude possibility of septic shock given elevated white count, tachycardia, elevated lactate, elavted procal Initially on empiric Cefepime and iv vancomycin for possible sepsis Initially on empiric abx Cefepime and Vancomycin Cefepime was DC on 09/09 Acyclovir was Dc earlier Imipenam ( 09/09) Levofloxacin ( 09/09 ) Mentation improved, peripheries well perfused today, less toxic appearing than previously Blood culture:NTD Leukocytosis trending down Unclear source, CTA chest without signs of pneumonia, US liver with hapetomegaly with fatty liver, thickening of GB wall without gallstones, small ascites in upper abdomen, no c/o abdominal pain, NVD. UA prelim without signs of UTI, both knees appearing symmetric today Urine drug screen + for methamphetamine, However denies any current drug use. # Acute on chronic systolic CHF exacerbation Reduced ejection fraction (EF15%) heart failure history of ischemic cardiomyopathy On Bumex 2 gm I.V Q12 H daily Started on Dobutamine Drip @3MCG/KG/MIN ( 09/11) Monitor I/O Daily weight cardiology consult # A.Flutter with RVR : Digoxin : 250 mg po daily Metoprolol .T : 12.5 MG Q12 H Daily( 09/10) on Amio drip after 150 MG Bolus dose. Continue Tele Dig Level : 1 Eliquis 5 MG Q12 H daily # Acute hypoxic respiratory failure Likely 2/2 CHF exacerbation, as evidenced by elevated BNP, CTA with pulmonary congestion This morning noted on be saturating 96% on 2lpm NC Added Robitussin for cough noted today # Encephalopathy R/O Hepatic Encephalopathy 09/09 to sepsis/CHF Excerbation / Acute hyponatremia could have contributed. 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 Will consider Diagnostic/Therapeutic Tap Currently on good Abx Coverage Started on Albumin 1.5 gm/kg body weight on day 1 and 1 gm/kg body weight day 3 regimen. # Acute hyponatremia: Review of sodium numbers show hyponatremia developed since 08/23/20. from 01/14/20 Na 139, 08/04/20 Na at 130, 08/23/20 Na 126, 08/30/20 Na 122, 09/05/20 Na 118 . He received 50 cc of hypertonic saline at 5 PM on 09/06 over approximately 1-1.5 hours x 1. Sodium has corrected from 118 at 2300 on 09/05 to 131 at 4 AM on 09/07. Total correction over 29 hours at 13 units. Continue CMP checks every 6 hrs Will consider Vaptans given the fact that the patient is inherently in ADH excess state due to his underlying comorbid conditions ( H/F and Cardiac cirrhosis ) Currently On Salt Tab 1 GM Q12 H daily # Transaminitis : may be related to poor peripheral perfusion from shock and hypotension. Hep c Ab +, states that he thinks he may have been treated for Hep c in the past. Obtain records from PCP on Tuesday morning. If no evidence of past treatment, needs HCV PCR with genotype and referral to Dr. Armstrong as outpatient. Check HIV screen # FABIAN ,Resolved # DM: insulin sliding scale Diet: Carb consistent DVT ppx: On Eliquis Full code HCP per patient: He designates mother Lashonda Aguilera and step daughter Mary Jane in case he is unable to make decisions Attestations Medical Necessity Statement*: Patient needs to be in hospital for the management of Ac Encephalopathy/A.flutter with RVR Coding Level of Care Code Acute Boxer Operator for Chg Fwd Diagnoses Respiratory failure with hypoxia J96.91 Atrial flutter with rapid ventricular response I48.92 Acute hyponatremia E87.1 Ischemic cardiomyopathy I25.5 Smoker F17.200 Acute exacerbation of congestive heart failure I50.9 FABIAN (acute kidney injury) N17.9 Left bundle branch block I44.7 ICD (implantable cardioverter-defibrillator) in place Z95.810 Hypotension I95.9
[2020-09-11 17:36] LABS: Glucose Point of Care 270 mg/dL (70-110)
[2020-09-11 19:47] LABS: Glucose Point of Care 291 mg/dL (70-110)
--- NOTE | 2020-09-11 20:08 | PC.NURSE ---
New Orders: Patient c/o increased pain to left lower extremity. RN assessed left calf region and found the leg to have increase redness, swelling, and warmth throughout lower posterior calf/ankle compared to that of the RLE. Noticeable grimacing with touch on affected area. 2nd RN to assess leg, and found that pt had the same conclusion as this RN. MD Ted process consultant updated with pertinent medical hx, and new order for a Venous Doppler to be completed was given. Orders placed.
[2020-09-11] MEDS: LORazepam 1 mg Tablet PO (20:19)
[2020-09-12] VITALS (25 sets, daily range): BP systolic 82–113; BP diastolic 53–79; PULSE 84–115; RESP 13–43; TEMP 36.5–36.7; O2SAT 90–99
[2020-09-12 05:12] LABS: Basophils # 0.1 10^3/uL (0.0-0.1); Basophils % 0.8 %; Eosinophils # 0.1 10^3/uL (0.0-0.8); Eosinophils % 1.2 %; Hematocrit 32.4 % (42.0-52.0); Hemoglobin 10.4 g/dL (11.7-16.6); Lymphocytes # 1.6 10^3/uL (0.8-4.8); Lymphocytes % 14.8 %; Mean Corpuscular HGB Conc 32.1 g/dL (30.0-36.0); Mean Corpuscular Hemoglobin 24.8 pg (28.0-34.0); Mean Corpuscular Volume 77.1 fL (80-94); Mean Platelet Volume 11.2 fL (7.4-10.4); Monocytes % 9.7 %; Neutrophils # 7.65 10^3/uL (1.8-7.7); Neutrophils % 71.2 %; Nucleated Red Blood Cells % 0 %; Platelet Count 179 10^3/cmm (130-400); Red Cell Distribution Width 19.9 % (12.1-15.1); White Blood Count 10.8 10^3/uL (4.0-10.0)
[2020-09-12 05:42] LABS: Digoxin 0.8 ng/mL (0.6-1.2)
[2020-09-12] MEDS: vancomycin 1,250 MG/250 ML PIGGYBACK 250 MG IV (07:10)
--- NOTE | 2020-09-12 07:22 | PC.NURSE ---
Shift Summary: Pt was bale to rest well throughout second half of shift. Multiple episodes of bowel incontinence. Patient stated he was unable to use bedside commode, and requested to use bedpan a few times as well. Notable redness, swelling, and warmth to both feet that extends up into the calf region on the LLE. Pain with palpation or gentle touch. Venous Doppler completed this early AM per MD orders. One increased episode of anxiety at beginning of shift, that was treated with PRN Ativan. Pt able to abide by fluid restriction and remain under the 1500mL limit. 1650 u/o Current gtt: Amio 0.5 Dobutamine 3 No verbalized needs at this time. Report given to ryan ponce RN.
[2020-09-12 07:24] LABS: Glucose Point of Care 142 mg/dL (70-110)
[2020-09-12 07:31] LABS: Alanine Aminotransferase 35 U/L (0-41); Albumin Level 4.3 g/dL (3.5-5.2); Alkaline Phosphatase 100 IU/L (40-130); Anion Gap 12.9 (5-19); Aspartate Amino Transferase 33 U/L (0-40); Blood Urea Nitrogen 30 mg/dL (8-23); Calcium 8.7 mg/dL (8.5-10.5); Carbon Dioxide 25 mmol/L (22-29); Chloride 93 mmol/L (98-107); Globulin 2.8 g/dL (1.3-4.6); Glomerular Filtration Rate 137.4 mL/min (90-130); Glucose 112 mg/dL (65-115); Magnesium 1.6 mg/dL (1.7-2.3); Osmolality Calculated 273 mOsm/kg (285-295); Sodium 128 mmol/L (136-145); Total Bilirubin 4.6 mg/dL (0.15-1.2); Total Protein 7.1 g/dL (6.6-8.7)
[2020-09-12 07:37] LABS: Potassium 2.9 mmol/L (3.5-5.1)
--- NOTE | 2020-09-12 07:41 | PC.NURSE ---
Critical Lab: K+ critical result of 2.9 received by this RN, and reported to ryan ponce RN.
[2020-09-12] MEDS: nicotine 21 mg Patch 1 PATCH TRANSDERMA (08:40)
[2020-09-12] MEDS: potassium chloride ER 20 mEq Tablet 80 MEQ PO (08:40)
[2020-09-12] MEDS: aspirin 81 mg EC Tablet PO (08:40)
[2020-09-12] MEDS: sodium chloride 1 gm Tablet PO ×2 (08:40→17:05)
[2020-09-12] MEDS: digoxin 250 mcg Tablet PO (08:40)
[2020-09-12] MEDS: apixaban 5 mg Tablet PO ×2 (08:40→20:09)
[2020-09-12] MEDS: lactulose oral liq 20 gm/30 mL UDC 30 GM PO (08:41)
[2020-09-12] MEDS: magnesium sulfate premix 2 GM/50 ML PIGGYBACK IV (08:42)
[2020-09-12] MEDS: metoprolol tartrate 25 mg Tablet 12.5 MG PO ×2 (08:42→17:05)
[2020-09-12] MEDS: bumetanide 0.25 mg/mL SDV 10 mL 2 MG IV ×2 (09:35→21:53)
[2020-09-12] MEDS: LORazepam 1 mg Tablet PO ×2 (10:11→20:09)
--- NOTE | 2020-09-12 10:45 | P.PN_ITS ---
Subjective Subjective: Interval history: was seen resting comfortably in bed.He continues to feel tired. He has remained in A.flutter/A.fib ( 110-120s). His other Vitals and labs have been reviewed. Medications: Reviewed: Yes Vitals/I&O/Wt Last Vital Signs Temp 97.7 F 09/12/20 07:00 Pulse 113 H 09/12/20 10:00 Resp 20 H 09/12/20 10:00 BP 101/55 09/12/20 10:00 Pulse Ox 99 09/12/20 10:00 09/11/20 09/12/20 09/12/20 22:59 06:59 14:59 Intake Total 760 / 2050 350 / 2400 900 / 900 Output Total 850 / 2050 2050 / 4100 300 / 300 Balance -90 / 0 -1700 / -1700 600 / 600 Physical Exam Narrative: EXAM NARRATIVE: Awake Const: COMMON NORMALS: patient oriented x3 HENMT: COMMON NORMALS: normocephalic and atraumatic HEAD & SCALP: normocephalic and atraumatic Chest: COMMONS NORMALS: normal inspection of the chest CHEST: Yes Symmetrical chest wall rise Resp: COMMON NORMALS: normal respiratory effort, No retractions and clear to auscultation bilaterally EFFORT & INSPECTION: Yes symmetric chest movement AUSCULTATION: clear to auscultation bilaterally Cardio: COMMON NORMALS: Peripheral pulses 2+ throughout PERIPHERAL PULSES: Peripheral pulses 2+ throughout OTHER: S1S2 of variable Intensity. GI: COMMON NORMALS: Normal to inspection, nondistended, normoactive bowel sounds present, Soft to palpation, non-tender, No hepatosplenomegaly present and no masses AUSCULTATION: Yes normoactive bowel sounds PALPATION: Yes Soft to palpation and Yes No hepatosplenomegaly present RECTAL EXAM: Yes deferred OTHER: Mildly distended abdomen , soft Extremity: NARRATIVE EXTREMITY EXAM: 1 + B/L Pitting edema present in both Lower Extremity Neuro: COMMON NORMALS: patient oriented x3 Urinary Catheter Management^: Bell: Cath Placed During This Visit: yes Reason for Continuing Indwelling Catheter: Accurate Measurement of Urinary Output in Critically Ill Patients Urinary Catheter Date of Insertion: 09/05/20 Urinary Catheter Time of Insertion: 23:06 Data : 09/12/20 05:01 09/12/20 07:02 Micro: Microbiology 09/06/20 10:10 Blood Culture - Final Blood NO GROWTH AFTER 5 DAYS 09/06/20 10:10 Blood Culture - Final Blood NO GROWTH AFTER 5 DAYS 09/10/20 19:25 C.difficile Toxin B Gene (PCR) - Final Stool Routine Collection A&P Assessment and plan (1) Respiratory failure with hypoxia: Status: Acute (2) Atrial flutter with rapid ventricular response: Status: Acute (3) Acute hyponatremia: Status: Acute (4) Ischemic cardiomyopathy: Status: Acute (5) Smoker: Status: Acute (6) Acute exacerbation of congestive heart failure: Status: Acute (7) FABIAN (acute kidney injury): Status: Acute (8) Left bundle branch block: Status: Acute (9) ICD (implantable cardioverter-defibrillator) in place: Status: Acute (10) Hypotension: Status: Acute (11) Hypokalemia: Status: Acute (12) Hypomagnesemia: Status: Acute Additional A&P Information # Shock, currently BP improved Likely to be cardiogenic in nature Ekg with A flutter, currently HR at 110-120 bpm No significant delta troponin Remains off pressors since 09/06 Appreciate cardiology recommendations to assist with management of cardiogenic shock, new A flutter and need for ongoing diuresis Cannot exclude possibility of septic shock given elevated white count, tachycardia, elevated lactate, elavted procal Initially on empiric Cefepime and iv vancomycin for possible sepsis Initially on empiric abx Cefepime and Vancomycin Cefepime was DC on 09/09 Acyclovir was Dc earlier Imipenam ( 09/09) Levofloxacin ( 09/09 ) Mentation improved, peripheries well perfused today, less toxic appearing than previously Blood culture:NTD Leukocytosis trending down Unclear source, CTA chest without signs of pneumonia, US liver with hapetomegaly with fatty liver, thickening of GB wall without gallstones, small ascites in upper abdomen, no c/o abdominal pain, NVD. UA prelim without signs of UTI, both knees appearing symmetric today Urine drug screen + for methamphetamine, However denies any current drug use. # Acute on chronic systolic CHF exacerbation Reduced ejection fraction (EF15%) heart failure history of ischemic cardiomyopathy On Bumex 2 gm I.V Q12 H daily Started on Dobutamine Drip @3MCG/KG/MIN ( 09/11) Monitor I/O Daily weight cardiology consult # A.Flutter with RVR : Digoxin : 250 mg po daily Metoprolol .T : 12.5 MG Q12 H Daily( 09/10) on Amio drip after 150 MG Bolus dose. Continue Tele Dig Level : 0.8 Eliquis 5 MG Q12 H daily # Acute hypoxic respiratory failure Likely 2/2 CHF exacerbation, as evidenced by elevated BNP, CTA with pulmonary congestion This morning noted on be saturating 96% on 2lpm NC Added Robitussin for cough noted today # Encephalopathy R/O Hepatic Encephalopathy / to sepsis/CHF Excerbation / Acute hyponatremia could have contributed. Patient was on lactulose to target 2-3 BM. 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 Will consider Diagnostic/Therapeutic Tap Currently on good Abx Coverage Started on Albumin 1.5 gm/kg body weight on day 1 and 1 gm/kg body weight day 3 regimen. # Chronic hypervolemic hyponatremia: Improving Review of sodium numbers show hyponatremia developed since 08/23/20. from 01/14/20 Na 139, 08/04/20 Na at 130, 08/23/20 Na 126, 08/30/20 Na 122, 09/05/20 Na 118 . He received 50 cc of hypertonic saline at 5 PM on 09/06 over approximately 1-1.5 hours x 1. Sodium has corrected from 118 at 2300 on 09/05 to 131 at 4 AM on 09/07. Total correction over 29 hours at 13 units. Continue CMP checks every 6 hrs Will consider Vaptans given the fact that the patient is inherently in ADH e xcess state due to his underlying comorbid conditions ( H/F and Cardiac cirrhosis ) Currently On Salt Tab 1 GM Q12 H daily # Transaminitis : may be related to poor peripheral perfusion from shock and hypotension. Hep c Ab +, states that he thinks he may have been treated for Hep c in the past. Obtain records from PCP on Tuesday. If no evidence of past treatment, needs HCV PCR with genotype and referral to Dr. Armstrong as outpatient. Check HIV screen # FABIAN ,Resolved # DM: insulin sliding scale Diet: Carb consistent DVT ppx: On Eliquis Full code HCP per patient: He designates mother Lashonda Aguilera and step daughter Mary Jane in case he is unable to make decisions Attestations Medical Necessity Statement*: Patient needs to be in hospital for the management of Ac Encephalopathy/A.flutter with RVR Coding Level of Care Code Acute Surgeon Assistant for Chg Fwd Exam Detailed Diagnoses Respiratory failure with hypoxia J96.91 Atrial flutter with rapid ventricular response I48.92 Acute hyponatremia E87.1 Ischemic cardiomyopathy I25.5 Smoker F17.200 Acute exacerbation of congestive heart failure I50.9 FABIAN (acute kidney injury) N17.9 Left bundle branch block I44.7 ICD (implantable cardioverter-defibrillator) in place Z95.810 Hypotension I95.9 Hypokalemia E87.6 Hypomagnesemia E83.42
[2020-09-12 11:30] LABS: Glucose Point of Care 172 mg/dL (70-110)
[2020-09-12] MEDS: DOBUTamine drip 500 MG/250 ML PREMIX 8.8 MG IV (14:08)
[2020-09-12] MEDS: levofloxacin-dextrose 5 % 500 MG/100 ML PREMIX 100 MG IV (14:09)
[2020-09-12 17:00] LABS: Glucose Point of Care 248 mg/dL (70-110)
[2020-09-12] MEDS: sodium chloride 0.9% 250 ML IV (18:27)
--- NOTE | 2020-09-12 20:04 | USCV_ITS ---
MoisesIvan andrews Age: 59 Gender: M : 1960 Exam Date: 09/12/2020 05:30 Ordering Phys: Jeffy Jean MD Technologist: Jaimie Farmer Exam Location: [facility] – [place] Indication: OPEN WOUND PT'S LT POST CALF WITH PAIN AND REDNESS HISTORY: Pain and swelling with open wound posterior Lt calf PROCEDURES: Venous duplex imaging was performed in only the left lower extremity. The following venous structures were evaluated: common femoral vein, profunda vein, proximal portion of the greater saphenous vein, superficial femoral vein, and the popliteal vein. In addition, the posterior tibial and peroneal trunk were evaluated. Serial compression, augmentation maneuvers, and spectral Doppler flow evaluation were performed. FINDINGS: Normal 2-D Doppler and augmentation and compressibility throughout the lower extremity venous structures. Additional imaging through the proximal calf veins also reveals no thrombus. Limited evaluation of the greater saphenous vein is patent with no thrombus. CONCLUSIONS No DVT left lower extremity. Dr. Michelle Henson DO (Electronically Signed) Final Date: 12 September 2020 09:41 S
[2020-09-12 20:08] LABS: Glucose Point of Care 322 mg/dL (70-110)
--- NOTE | 2020-09-12 22:51 | PM.PN ---
Subjective Subjective: Interval history: Patient is doing well. Denies chest pain, shortness of breath or palpitations. Heart rate has slowed . Vitals/I&O/Wt Last Vital Signs Temp 98.1 F 09/12/20 20:00 Pulse 110 H 09/12/20 22:00 Resp 18 09/12/20 22:00 BP 99/77 09/12/20 22:00 Pulse Ox 96 09/12/20 22:00 09/12/20 09/12/20 09/12/20 06:59 14:59 22:59 Intake Total 350 / 2400 1570 / 1570 838 / 2408 Output Total 2050 / 4100 300 / 300 700 / 1000 Balance -1700 / -1700 1270 / 1270 138 / 1408 Physical Exam Narrative: EXAM NARRATIVE: GENERAL: Patient is drowsy, awake and oriented x3. [] NECK: No jugular vein distension. [] HEENT: No cyanosis. No icterus. No pallor. [] HEART: Tachycardia, regular S1 and S2. No murmur, rub or gallop. [] LUNGS: Clear to auscultate bilaterally. [] ABDOMEN: Soft, nontender and nondistended. Positive bowel sounds. No guarding, rebound or tenderness. [] CENTRAL NERVOUS SYSTEM: Grossly nonfocal. [] EXTREMITIES: Lower extremities with no edema bilaterally. Pulses palpable in the lower extremities, both dorsalis pedis and posterior tibial. [] Urinary Catheter Management^: Bell: Cath Placed During This Visit: yes Reason for Continuing Indwelling Catheter: Accurate Measurement of Urinary Output in Critically Ill Patients Urinary Catheter Date of Insertion: 09/05/20 Urinary Catheter Time of Insertion: 23:06 Data : 09/13/20 04:37 09/13/20 04:37 A&P Assessment and plan (1) FABIAN (acute kidney injury): Status: Acute (2) Type 2 diabetes mellitus: Status: Acute Qualifiers: Diabetes mellitus complication status: with other specified complication Diabetes mellitus assistant terminal manager insulin use: unspecified long-term insulin use status Qualified Code(s): E11.69 - Type 2 diabetes mellitus with other specified complication (3) Coronary artery disease: Status: Acute Qualifiers: Coronary Disease-Associated Artery/Lesion type: [place] artery [place] vs. transplanted heart: [place] heart Associated angina: without angina Qualified Code(s): I25.10 - Atherosclerotic heart disease of [place] coronary artery without angina pectoris (4) ICD (implantable cardioverter-defibrillator) in place: Status: Acute (5) Ischemic cardiomyopathy: Status: Acute (6) Encephalopathy: Status: Acute (7) Atrial flutter: Status: Acute Patient is feeling better. He is off pressors at this time. He is maintaining MAP Antibiotic therapy per medicine team. Patient continues to be in atrial flutter. Continued digoxin. Continue amiodarone gtt. Heart rates appear to be improving this evening. If heart rates do not improve,will consider VLAD/ Cardioversion Continue bumex 2mg IV. Uptitrate if urine output does not improve. Will recommend titrating off the dobutamine gtt as can contribute to rapid ventricular rate. Thank you for involving us with care of this patient. We will continue to follow. Please call with questions. Attestations Medical Necessity Statement*: Care expected to cross 2 midnights Coding Level of Care Code Acute Green Building Architect for g Fwd Diagnoses FABIAN (acute kidney injury) N17.9 Type 2 diabetes mellitus E11.69 Diabetes mellitus complication status: with other specified complication Diabetes mellitus assistant terminal manager insulin use: unspecified long-term insulin use status Coronary artery disease I25.10 Coronary Disease-Associated Artery/Lesion type: [place] artery [place] vs. transplanted heart: [place] heart Associated angina: without angina ICD (implantable cardioverter-defibrillator) in place Z95.810 Ischemic cardiomyopathy I25.5 Encephalopathy G93.40 Atrial flutter I48.92
[2020-09-13] VITALS (25 sets, daily range): BP systolic 84–108; BP diastolic 57–82; PULSE 87–114; RESP 11–222; TEMP 35.7–37.2; O2SAT 72–100
[2020-09-13 04:46] LABS: Basophils # 0.1 10^3/uL (0.0-0.1); Basophils % 0.9 %; Eosinophils # 0.2 10^3/uL (0.0-0.8); Eosinophils % 1.5 %; Hematocrit 36.5 % (42.0-52.0); Hemoglobin 11.5 g/dL (11.7-16.6); Lymphocytes # 1.8 10^3/uL (0.8-4.8); Lymphocytes % 14.1 %; Mean Corpuscular HGB Conc 31.5 g/dL (30.0-36.0); Mean Corpuscular Hemoglobin 24.8 pg (28.0-34.0); Mean Corpuscular Volume 78.7 fL (80-94); Mean Platelet Volume 11.4 fL (7.4-10.4); Monocytes # 1.2 10^3/uL (0.2-0.9); Monocytes % 9.7 %; Neutrophils # 9.01 10^3/uL (1.8-7.7); Neutrophils % 70.8 %; Nucleated Red Blood Cells % 0 %; Platelet Count 183 10^3/cmm (130-400); Red Blood Count 4.64 10^6/uL (4.1-5.3); Red Cell Distribution Width 20.3 % (12.1-15.1); White Blood Count 12.7 10^3/uL (4.0-10.0)
[2020-09-13] MEDS: vancomycin 1,250 MG/250 ML PIGGYBACK 250 MG IV (05:00)
[2020-09-13 05:25] LABS: Alanine Aminotransferase 32 U/L (0-41); Albumin Level 4.2 g/dL (3.5-5.2); Alkaline Phosphatase 113 IU/L (40-130); Blood Urea Nitrogen 26 mg/dL (8-23); Calcium 8.7 mg/dL (8.5-10.5); Carbon Dioxide 20 mmol/L (22-29); Chloride 98 mmol/L (98-107); Globulin 2.7 g/dL (1.3-4.6); Glomerular Filtration Rate 169.6 mL/min (90-130); Glucose 86 mg/dL (65-115); Magnesium 1.7 mg/dL (1.7-2.3); Osmolality Calculated 284 mOsm/kg (285-295); Sodium 135 mmol/L (136-145); Total Bilirubin 3.7 mg/dL (0.15-1.2); Total Protein 6.9 g/dL (6.6-8.7)
[2020-09-13 05:29] LABS: Anion Gap 20.8 (5-19); Aspartate Amino Transferase 35 U/L (0-40); Potassium 3.8 mmol/L (3.5-5.1)
--- NOTE | 2020-09-13 06:00 | XRR_ITS ---
PROCEDURE INFORMATION: Exam: XR Chest, 1 View Exam date and time: 09/13/2020 5:31 AM Age: 59 years old Clinical indication: Shortness of breath; Patient HX: F/u SOB TECHNIQUE: Imaging protocol: XR of the chest Views: 1 view. COMPARISON: CR XR chest 1V portable [id number] 09/09/2020 3:07 PM FINDINGS: Lungs: There is mild indistinctness and prominence of the pulmonary vasculature with bilateral basilar strandy and interstitial opacities present, findings suggesting pulmonary edema. This may be slightly worse than that seen on 09/09/2020. Pleural spaces: There are hazy opacities at partially obscure the right hemidiaphragm likely representing a layering pleural effusion. Heart/Mediastinum: Unremarkable. No cardiomegaly. Vasculature: A stable pacemaker is placed via the right subclavian vein. Bones/joints: Unremarkable. XR/XR chest 1V portable [id number] IMPRESSION: 1. Small right pleural effusion appears stable compared with 09/09/2020. 2. Indistinctness and mild prominence of the pulmonary vasculature and bilateral basilar strandy and interstitial opacities compatible with pulmonary edema. These findings appear slightly worse than that seen on 09/09/2020.
[2020-09-13 10:04] LABS: Glucose Point of Care 141 mg/dL (70-110)
[2020-09-13] MEDS: bumetanide 0.25 mg/mL SDV 10 mL 2 MG IV ×2 (10:07→22:35)
[2020-09-13] MEDS: aspirin 81 mg EC Tablet PO (10:08)
[2020-09-13] MEDS: metoprolol tartrate 25 mg Tablet 12.5 MG PO ×2 (10:08→17:34)
[2020-09-13] MEDS: nicotine 21 mg Patch 1 PATCH TRANSDERMA (10:09)
[2020-09-13] MEDS: digoxin 250 mcg Tablet PO (10:09)
[2020-09-13] MEDS: apixaban 5 mg Tablet PO ×2 (10:11→20:16)
--- NOTE | 2020-09-13 10:40 | PC.SOCIAL ---
IMM Updated Updated pt on Pg 2 IMM. No questions voiced. Provided pt a copy. Signed, dated, & timed copy in chart.
[2020-09-13] MEDS: LORazepam 1 mg Tablet PO ×2 (11:14→20:15)
--- NOTE | 2020-09-13 11:27 | PM.PN ---
Subjective Subjective: Interval history: Mr De Leon is very anxious and wants to know more about his Uncontrolled H/R. He Continues to have good urine output on dobutamine drip as well as bumix. Medications: Reviewed: Yes Vitals/I&O/Wt Last Vital Signs Temp 96.3 F L 09/13/20 09:09 Pulse 114 H 09/13/20 10:09 Resp 19 H 09/13/20 08:00 BP 97/68 09/13/20 08:00 Pulse Ox 100 09/13/20 05:00 09/12/20 09/13/20 09/13/20 22:59 06:59 14:59 Intake Total 838 / 2408 100 / 2508 Output Total 1475 / 1775 875 / 2650 Balance -637 / 633 -775 / -142 Physical Exam Narrative: EXAM NARRATIVE: Awake Const: COMMON NORMALS: patient oriented x3 HENMT: COMMON NORMALS: normocephalic and atraumatic HEAD & SCALP: normocephalic and atraumatic Chest: COMMONS NORMALS: normal inspection of the chest CHEST: Yes Symmetrical chest wall rise Resp: COMMON NORMALS: normal respiratory effort, No retractions and clear to auscultation bilaterally EFFORT & INSPECTION: Yes symmetric chest movement AUSCULTATION: clear to auscultation bilaterally Cardio: COMMON NORMALS: Peripheral pulses 2+ throughout PERIPHERAL PULSES: Peripheral pulses 2+ throughout OTHER: S1S2 of variable Intensity. GI: COMMON NORMALS: Normal to inspection, nondistended, normoactive bowel sounds present, Soft to palpation, non-tender, No hepatosplenomegaly present and no masses AUSCULTATION: Yes normoactive bowel sounds PALPATION: Yes Soft to palpation and Yes No hepatosplenomegaly present RECTAL EXAM: Yes deferred OTHER: Mildly distended abdomen , soft Extremity: NARRATIVE EXTREMITY EXAM: 1 + B/L Pitting edema present in both Lower Extremity Neuro: COMMON NORMALS: patient oriented x3 Urinary Catheter Management^: Bell: Cath Placed During This Visit: yes Reason for Continuing Indwelling Catheter: Accurate Measurement of Urinary Output in Critically Ill Patients Urinary Catheter Date of Insertion: 09/05/20 Urinary Catheter Time of Insertion: 23:06 Data : 09/13/20 04:37 09/13/20 04:37 A&P Assessment and plan (1) Respiratory failure with hypoxia: Status: Acute (2) Atrial flutter with rapid ventricular response: Status: Acute (3) Acute hyponatremia: Status: Acute (4) Ischemic cardiomyopathy: Status: Acute (5) Smoker: Status: Acute (6) Acute exacerbation of congestive heart failure: Status: Acute (7) FABIAN (acute kidney injury): Status: Acute (8) Left bundle branch block: Status: Acute (9) ICD (implantable cardioverter-defibrillator) in place: Status: Acute (10) Hypotension: Status: Acute (11) Hypokalemia: Status: Acute (12) Hypomagnesemia: Status: Acute Additional A&P Information # Shock, currently BP improved Likely to be cardiogenic in nature Ekg with A flutter, currently HR at 110-120 bpm No significant delta troponin Remains off pressors since 09/06 Appreciate cardiology recommendations to assist with management of cardiogenic shock, new A flutter and need for ongoing diuresis Cannot exclude possibility of septic shock given elevated white count, tachycardia, elevated lactate, elavted procal Initially on empiric Cefepime and iv vancomycin for possible sepsis Initially on empiric abx Cefepime and Vancomycin Cefepime was DC on 09/09 Acyclovir was Dc earlier Imipenam ( 09/09) Levofloxacin ( 09/09 ) Mentation improved, peripheries well perfused today, less toxic appearing than previously Blood culture:NTD Leukocytosis trending down Unclear source, CTA chest without signs of pneumonia, US liver with hapetomegaly with fatty liver, thickening of GB wall without gallstones, small ascites in upper abdomen, no c/o abdominal pain, NVD. UA prelim without signs of UTI, both knees appearing symmetric today Urine drug screen + for methamphetamine, However denies any current drug use. # Acute on chronic systolic CHF exacerbation Reduced ejection fraction (EF15%) heart failure history of ischemic cardiomyopathy On Bumex 2 gm I.V Q12 H daily Started on Dobutamine Drip @3MCG/KG/MIN ( 09/11) Monitor I/O Daily weight cardiology consult # A.Flutter with RVR : Digoxin : 250 mg po daily Metoprolol .T : 12.5 MG Q12 H Daily( 09/10) on Amio drip after 150 MG Bolus dose. Continue Tele Dig Level : 0.8 Eliquis 5 MG Q12 H daily NPO After midnight for VLAD cardioversion. # Acute hypoxic respiratory failure Likely 2/2 CHF exacerbation, as evidenced by elevated BNP, CTA with pulmonary congestion This morning noted on be saturating 96% on 2lpm NC Added Robitussin for cough noted today # Encephalopathy R/O Hepatic Encephalopathy / to sepsis/CHF Excerbation / Acute hyponatremia could have contributed. Patient was on lactulose to target 2-3 BM. 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 Will consider Diagnostic/Therapeutic Tap Currently on good Abx Coverage Completed Albumin 1.5 gm/kg body weight on day 1 and 1 gm/kg body weight day 3 regimen. # Chronic hypervolemic hyponatremia: Improving ( 135 ) Review of sodium numbers show hyponatremia developed since 08/23/20. from 01/14/20 Na 139, 08/04/20 Na at 130, 08/23/20 Na 126, 08/30/20 Na 122, 09/05/20 Na 118 . He received 50 cc of hypertonic saline at 5 PM on 09/06 over approximately 1-1.5 hours x 1. Sodium has corrected from 118 at 2300 on 09/05 to 131 at 4 AM on 09/07. Total correction over 29 hours at 13 units. Continue CMP checks every 6 hrs Will consider Vaptans given the fact that the patient is inherently in ADH excess state due to his underlying comorbid conditions ( H/F and Cardiac cirrhosis ) Initially On Salt Tab 1 GM Q12 H daily ( 09/12 ) # Transaminitis : may be related to poor peripheral perfusion from shock and hypotension. Hep c Ab +, states that he thinks he may have been treated for Hep c in the past. Obtain records from PCP on Tuesday morning. If no evidence of past treatment, needs HCV PCR with genotype and referral to Dr. Armstrong as outpatient. Check HIV screen # FABIAN ,Resolved # DM: insulin sliding scale Diet: Carb consistent DVT ppx: On Eliquis Full code HCP per patient: He designates mother Lashonda Aguilera and step daughter Mary Jane in case he is unable to make decisions Attestations Medical Necessity Statement*: Patient needs to be in hospital for the management of A.Flutter with RVR Coding Level of Care Code Acute Preservative Filler Machine Operator for Chg Fwd Exam Detailed Diagnoses Respiratory failure with hypoxia J96.91 Atrial flutter with rapid ventricular response I48.92 Acute hyponatremia E87.1 Ischemic cardiomyopathy I25.5 Smoker F17.200 Acute exacerbation of congestive heart failure I50.9 FABIAN (acute kidney injury) N17.9 Left bundle branch block I44.7 ICD (implantable cardioverter-defibrillator) in place Z95.810 Hypotension I95.9 Hypokalemia E87.6 Hypomagnesemia E83.42
[2020-09-13 11:53] LABS: Glucose Point of Care 153 mg/dL (70-110)
[2020-09-13] MEDS: levofloxacin-dextrose 5 % 500 MG/100 ML PREMIX 100 MG IV (12:40)
[2020-09-13 17:08] LABS: Glucose Point of Care 390 mg/dL (70-110)
[2020-09-13 17:08] LABS: Glucose Point of Care 393 mg/dL (70-110)
--- NOTE | 2020-09-13 17:54 | PM.PN ---
Subjective Subjective: Interval history: Patient says he is not feeling well, he is anxious. He diuresed well lungs are clear heart rate however jumps up anywhere from 110-140 still in A. fib. Medications: Reviewed: Yes Vitals/I&O/Wt Last Vital Signs Temp 96.8 F L 09/13/20 17:00 Pulse 108 H 09/13/20 17:00 Resp 12 09/13/20 16:00 BP 89/67 09/13/20 17:00 Pulse Ox 92 09/13/20 16:00 09/13/20 09/13/20 09/13/20 06:59 14:59 22:59 Intake Total 100 / 2508 1250 / 1250 220 / 1470 Output Total 875 / 2650 1100 / 1100 Balance -775 / -142 1250 / 1250 -880 / 370 Physical Exam Narrative: EXAM NARRATIVE: GENERAL: Patient is alert, awake and oriented x3. NECK: No jugular vein distension. HEENT: No cyanosis. No icterus. No pallor. HEART: Irregularly irregular S1 and S2. No murmur, rub or gallop. LUNGS: Clear to auscultate bilaterally. ABDOMEN: Soft, nontender and nondistended. Positive bowel sounds. No guarding, rebound or tenderness. CENTRAL NERVOUS SYSTEM: Grossly nonfocal. EXTREMITIES: Lower extremities without edema bilaterally. Urinary Catheter Management^: Bell: Cath Placed During This Visit: yes Reason for Continuing Indwelling Catheter: Accurate Measurement of Urinary Output in Critically Ill Patients Urinary Catheter Date of Insertion: 09/05/20 Urinary Catheter Time of Insertion: 23:06 Data : 09/13/20 04:37 09/13/20 04:37 A&P Assessment and plan (1) FABIAN (acute kidney injury): Status: Acute (2) Type 2 diabetes mellitus: Status: Acute Qualifiers: Diabetes mellitus complication status: with other specified complication Diabetes mellitus mcc insulin use: unspecified intermediate project manager insulin use status Qualified Code(s): E11.69 - Type 2 diabetes mellitus with other specified complication (3) Coronary artery disease: Status: Acute Qualifiers: Coronary Disease-Associated Artery/Lesion type: [place] artery [place] vs. transplanted heart: [place] heart Associated angina: without angina Qualified Code(s): I25.10 - Atherosclerotic heart disease of [place] coronary artery without angina pectoris (4) ICD (implantable cardioverter-defibrillator) in place: Status: Acute (5) Ischemic cardiomyopathy: Status: Acute (6) Encephalopathy: Status: Acute (7) Atrial flutter: Status: Acute Continue titration of the dobutamine. Continue diuresis. Patient is not tolerating atrial fibrillation. We are planning to proceed with transesophageal echo guided electrical cardioversion. ICU staff will be touch base with anesthesia and ultrasound for VLAD guided cardioversion tomorrow, was told that it is 1 PM tomorrow. Attestations Medical Necessity Statement*: Require continuation hospitalization for above defined Coding Level of Care Code Established Pt Acute Electrical System Specialist for Chg Fwd Patient Type Established History Detailed Exam Detailed Medical Decision Making Moderate Complexity Diagnoses FABIAN (acute kidney injury) N17.9 Type 2 diabetes mellitus E11.69 Diabetes mellitus complication status: with other specified complication Diabetes mellitus intermediate project manager insulin use: unspecified intermediate project manager insulin use status Coronary artery disease I25.10 Coronary Disease-Associated Artery/Lesion type: [place] artery [place] vs. transplanted heart: [place] heart Associated angina: without angina ICD (implantable cardioverter-defibrillator) in place Z95.810 Ischemic cardiomyopathy I25.5 Encephalopathy G93.40 Atrial flutter I48.92
[2020-09-13 20:25] LABS: Glucose Point of Care 239 mg/dL (70-110)
[2020-09-13] MEDS: DOBUTamine drip 500 MG/250 ML PREMIX 8.8 MG IV (20:27)
--- NOTE | 2020-09-13 20:35 | PC.NURSE ---
Amiodarone gtt almost completed, new bag initiated
[2020-09-14] VITALS (19 sets, daily range): BP systolic 75–112; BP diastolic 51–79; PULSE 74–113; RESP 10–35; TEMP 35.3–37; O2SAT 67–100
[2020-09-14 03:50] LABS: Basophils # 0.1 10^3/uL (0.0-0.1); Basophils % 0.8 %; Eosinophils # 0.1 10^3/uL (0.0-0.8); Eosinophils % 0.6 %; Hemoglobin 11.1 g/dL (11.7-16.6); Lymphocytes # 1.6 10^3/uL (0.8-4.8); Lymphocytes % 10.7 %; Mean Corpuscular HGB Conc 30.8 g/dL (30.0-36.0); Mean Corpuscular Hemoglobin 25.3 pg (28.0-34.0); Mean Corpuscular Volume 82.2 fL (80-94); Mean Platelet Volume 10.7 fL (7.4-10.4); Monocytes # 1.2 10^3/uL (0.2-0.9); Monocytes % 8.2 %; Neutrophils # 11.29 10^3/uL (1.8-7.7); Neutrophils % 77.8 %; Nucleated Red Blood Cells % 0 %; Platelet Count 182 10^3/cmm (130-400); Red Blood Count 4.38 10^6/uL (4.1-5.3); Red Cell Distribution Width 21.1 % (12.1-15.1); White Blood Count 14.5 10^3/uL (4.0-10.0)
[2020-09-14 04:06] LABS: Alanine Aminotransferase 28 U/L (0-41); Alkaline Phosphatase 114 IU/L (40-130); Aspartate Amino Transferase 34 U/L (0-40); Blood Urea Nitrogen 23 mg/dL (8-23); Calcium 8.6 mg/dL (8.5-10.5); Carbon Dioxide 24 mmol/L (22-29); Chloride 97 mmol/L (98-107); Globulin 3.1 g/dL (1.3-4.6); Glomerular Filtration Rate 169.6 mL/min (90-130); Glucose 68 mg/dL (65-115); Magnesium 1.5 mg/dL (1.7-2.3); Osmolality Calculated 278 mOsm/kg (285-295); Sodium 133 mmol/L (136-145); Total Bilirubin 3.7 mg/dL (0.15-1.2); Total Protein 7.1 g/dL (6.6-8.7)
[2020-09-14 04:07] LABS: Anion Gap 15.3 (5-19); Potassium 3.3 mmol/L (3.5-5.1)
[2020-09-14] MEDS: vancomycin 1,250 MG/250 ML PIGGYBACK 250 MG IV (05:33)
[2020-09-14 08:18] LABS: Glucose Point of Care 89 mg/dL (70-110)
[2020-09-14] MEDS: lactulose oral liq 20 gm/30 mL UDC PO ×2 (09:14→11:47)
[2020-09-14] MEDS: bumetanide 0.25 mg/mL SDV 10 mL 2 MG IV ×2 (09:15→19:44)
[2020-09-14] MEDS: sodium chloride 1 gm Tablet PO (09:16)
[2020-09-14] MEDS: potassium chloride ER 20 mEq Tablet 40 MEQ PO (09:16)
[2020-09-14] MEDS: aspirin 81 mg EC Tablet PO (09:16)
[2020-09-14] MEDS: metoprolol tartrate 25 mg Tablet 12.5 MG PO ×2 (09:16→19:45)
[2020-09-14] MEDS: digoxin 250 mcg Tablet PO (09:16)
[2020-09-14] MEDS: apixaban 5 mg Tablet PO ×2 (09:16→19:44)
--- NOTE | 2020-09-14 09:37 | ECG_ITS ---
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
--- NOTE | 2020-09-14 10:50 | PC.NURSE ---
Addendum entered by Trini Amos RN 09/14/20 13:22: 1100-DR SEPULVEDA NOTIFIED THAT PT BACK IN A FLUTTER. PROCEDURE RESCHEDULED FOR 1300. 1300-ANESTHESIA & ULTRASOUND HERE. DR SEPULVEDA & MELISA ALSO HERE, PT CONVERTED BACK TO SINUS ON HIS OWN. WILL CONTINUE TO MONITOR. Original Note: VLAD/CARDIOVERSION CANCELLED PER DR SEPULVEDA D/T PT IN SR WITH 1ST DEGREE BLOCK. PET TRAINER NOTIFIED & SHE CALLED ANESTHESIA TO LET THEM KNOW.
--- NOTE | 2020-09-14 11:04 | P.PN_ITS ---
Subjective Subjective: Interval history: is visibly more short of breath today. VLAD cardioversion was canceled as he goes in NSR intermittently and there is a hope that once amiodarone kicks in more efficiently he will respond. He has remained afebrile. His rest of vitals and labs have been reviewed. Medications: Reviewed: Yes Vitals/I&O/Wt Last Vital Signs Temp 98.6 F 09/14/20 08:00 Pulse 104 H 09/14/20 10:00 Resp 20 H 09/14/20 10:00 BP 91/75 09/14/20 10:00 Pulse Ox 96 09/14/20 10:00 09/13/20 09/14/20 09/14/20 22:59 06:59 14:59 Intake Total 1512.67 / 2762.67 200 / 2962.67 350 / 350 Output Total 1350 / 1350 1100 / 2450 Balance 162.67 / 1412.67 -900 / 512.67 350 / 350 Physical Exam Const: COMMON NORMALS: patient oriented x3 HENMT: COMMON NORMALS: normocephalic and atraumatic HEAD & SCALP: normocephalic and atraumatic Chest: COMMONS NORMALS: normal inspection of the chest CHEST: Yes Symmetrical chest wall rise Resp: EFFORT & INSPECTION: Yes symmetric chest movement OTHER: Diminished air entry towards rt middle lung field and down Cardio: COMMON NORMALS: Peripheral pulses 2+ throughout PERIPHERAL PULSES: Peripheral pulses 2+ throughout OTHER: S1S2 of variable Intensity. GI: AUSCULTATION: Yes normoactive bowel sounds RECTAL EXAM: Yes deferred OTHER: Mildly distended abdomen , soft Extremity: NARRATIVE EXTREMITY EXAM: 1 + B/L Pitting edema present in both Lower Extremity Neuro: COMMON NORMALS: patient oriented x3 Urinary Catheter Management^: Bell: Cath Placed During This Visit: yes Reason for Continuing Indwelling Catheter: Accurate Measurement of Urinary Output in Critically Ill Patients Urinary Catheter Date of Insertion: 09/05/20 Urinary Catheter Time of Insertion: 23:06 Data : 09/14/20 03:19 09/14/20 03:19 A&P Assessment and plan (1) Respiratory failure with hypoxia: Status: Acute (2) Atrial flutter with rapid ventricular response: Status: Acute (3) Acute hyponatremia: Status: Acute (4) Ischemic cardiomyopathy: Status: Acute (5) Smoker: Status: Acute (6) Acute exacerbation of congestive heart failure: Status: Acute (7) FABIAN (acute kidney injury): Status: Acute (8) Left bundle branch block: Status: Acute (9) ICD (implantable cardioverter-defibrillator) in place: Status: Acute (10) Hypotension: Status: Acute (11) Hypokalemia: Status: Acute (12) Hypomagnesemia: Status: Acute Additional A&P Information # Shock, currently BP improved Likely to be cardiogenic in nature Ekg with A flutter, currently HR at 110-120 bpm No significant delta troponin Remains off pressors since 09/06 Appreciate cardiology recommendations to assist with management of cardiogenic shock, new A flutter and need for ongoing diuresis Cannot exclude possibility of septic shock given elevated white count, tachycardia, elevated lactate, elavted procal Initially on empiric Cefepime and iv vancomycin for possible sepsis Initially on empiric abx Cefepime and Vancomycin Cefepime was DC on 09/09 Acyclovir was Dc earlier Imipenam ( 09/09) Levofloxacin ( 09/09 ) Mentation improved, peripheries well perfused today, less toxic appearing than previously Blood culture:NTD Leukocytosis trending down Unclear source, CTA chest without signs of pneumonia, US liver with hapetomegaly with fatty liver, thickening of GB wall without gallstones, small ascites in upper abdomen, no c/o abdominal pain, NVD. UA prelim without signs of UTI, both knees appearing symmetric today Urine drug screen + for methamphetamine, However denies any current drug use. # Acute on chronic systolic CHF exacerbation Reduced ejection fraction (EF15%) heart failure history of ischemic cardiomyopathy On Bumex 2 gm I.V Q12 H daily Received metalozone 5 mg PO Once on 09/14 Initially on Dobutamine Drip @3MCG/KG/MIN ( 09/11) now on @5MCG/KG/MIN C.T chest without Contrast : 09/14 : Moderately large right pleural effusion that has increased in volume since last evaluation. Examination reveals bilateral upper lobe patchy ground- glass interstitial lung disease opacification consistent with active interstitial pneumonitis. Consideration might be given to the diagnosis of Covid-19 pneumonitis. Monitor I/O :Net Negative : Daily weight cardiology consult # A.Flutter/Fib with RVR : Digoxin : 250 mg po daily Metoprolol .T : 12.5 MG Q12 H Daily( 09/10) Initially on Amio drip after 150 MG Bolus dose.(Stopped on 09/14) Currently on Amiodarone 40 mg po TID ( 09/14 ) Continue Tele Dig Level : 0.8 Eliquis 5 MG Q12 H daily VLAD cardioversion was aborted as the patient Went into NSR.( 09/14 ) And the hope is as the amiodarone kicks in more he will respond . # Acute hypoxic respiratory failure Likely 2/ CHF exacerbation, as evidenced by elevated BNP, CTA with pulmonary congestion Saturating 96% on 2lpm NC Robitussin for cough # Encephalopathy R/O Hepatic Encephalopathy 09/09 to sepsis/CHF Excerbation / Acute hyponatremia could have contributed. Patient was on lactulose to target 2-3 BM. ABG without hypoxia or hyperca CT head without acute abnormalities TSH:Normal Monitor Mental status Initially on empiric abx Cefepime and Vancomycin Cefepime was DC on 09/09 Acyclovir was Dc earlier Vancomycin DC on 09/14 Levofloxacin ( 09/09-09/14 ) Imipenam ( 09/09) Will consider Rifaximin #Congestive Hepatopathy / to Cardiac Cirrhosis Currently on Bumix will add aldactone. C.T Abdomen and Pelvis : Moderate volume intraperitoneal ascites. Mild mesenteric edema. Cirrhotic appearing liver. Bell catheter within the decompressed urinary bladder. Free air within the lumen of the urinary bladder. Unable to differentiate iatrogenic origin versus active infectious/inflammatory cystitis. # R/O SBP Patient has moderate ascites as well as abdominal tenderness. Will consider Diagnostic/Therapeutic Tap Currently on good Abx Coverage Completed Albumin 1.5 gm/kg body weight on day 1 and 1 gm/kg body weight day 3 regimen. Will initiate Spironlactone # Chronic hypervolemic hyponatremia in the presence of excess SIADH state : Improving ( 133 ) Review of sodium numbers show hyponatremia developed since 08/23/20. from 01/14/20 Na 139, 08/04/20 Na at 130, 08/23/20 Na 126, 08/30/20 Na 122, 09/05/20 Na 118 . He received 50 cc of hypertonic saline at 5 PM on 09/06 over approximately 1-1.5 hours x 1. Sodium has corrected from 118 at 2300 on 09/05 to 131 at 4 AM on 09/07. Total correction over 29 hours at 13 units. Continue CMP checks every 6 hrs Will consider Vaptans given the fact that the patient is inherently in ADH excess state due to his underlying comorbid conditions ( H/F and Cardiac cirrhosis ) Initially On Salt Tab 1 GM Q12 H daily ( 09/12 ) now on 1 gm daily # Transaminitis : Improving may be related to poor peripheral perfusion from shock and hypotension. Hep c Ab +, states that he thinks he may have been treated for Hep c in the past. Obtain records from PCP on Tuesday morning. If no evidence of past treatment, needs HCV PCR with genotype and referral to Dr. Armstrong as outpatient. Check HIV screen # FABIAN ,Resolved # DM: insulin sliding scale Diet: Carb consistent DVT ppx: On Eliquis Full code HCP per patient: He designates mother Lashonda Aguilera and step daughter Mary Jane in case he is unable to make decisions Attestations Medical Necessity Statement*: Patient needs to be in hospital for the management of A.Fib/Flutter with RVR Coding Level of Care Code Acute Direct Marketing Manager for Chg Fwd Diagnoses Respiratory failure with hypoxia J96.91 Atrial flutter with rapid ventricular response I48.92 Acute hyponatremia E87.1 Ischemic cardiomyopathy I25.5 Smoker F17.200 Acute exacerbation of congestive heart failure I50.9 FABIAN (acute kidney injury) N17.9 Left bundle branch block I44.7 ICD (implantable cardioverter-defibrillator) in place Z95.810 Hypotension I95.9 Hypokalemia E87.6 Hypomagnesemia E83.42
[2020-09-14 11:17] LABS: Glucose Point of Care 125 mg/dL (70-110)
[2020-09-14] MEDS: amiodarone 200 mg Tablet 400 MG PO ×3 (11:47→19:45)
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
--- NOTE | 2020-09-14 15:58 | CTR_ITS ---
PROCEDURE INFORMATION: Exam: CT Chest Without Contrast; Diagnostic Exam date and time: 09/14/2020 4:02 PM Age: 59 years old Clinical indication: Condition or disease; Peritoneal effusion; Lung condition and disease; Other: N/a; Prior surgery; Surgery date: 6+ months; Surgery type: Pacer; Patient HX: R pleural effusion and ascites TECHNIQUE: Imaging protocol: Diagnostic computed tomography of the chest without contrast. Total images: 541 Radiation optimization: All CT scans at this facility use at least one of these dose optimization techniques: automated exposure control; mA and/or kV adjustment per patient size (includes targeted exams where dose is matched to clinical indication); or iterative reconstruction. COMPARISON: CT abdomen pelvis w con* [id number] 08/23/2020 5:54 PM RADIATION DOSE METRICS: Total DLP (mGy-cm): 2365.27 FINDINGS: Tubes, catheters and devices: Pacemaker. Lungs: Examination reveals bilateral upper lobe patchy ground-glass interstitial lung disease opacification consistent with active interstitial pneumonitis. Consideration might be given to the diagnosis of Covid-19 pneumonitis. Segmental compressive atelectasis and/or pneumonia right lower lobe. Mild bilateral apical peripheral acinar emphysema. Pleural spaces: Moderately large right pleural effusion. This is increased in volume since 08/23/2020. Heart: Marked cardiomegaly. No visible pericardial effusion. Advanced 3 vessel coronary artery disease. Aorta: The thoracic aorta is nonaneurysmal. Mild arterial sclerotic disease. Lymph nodes: Moderately prominent middle mediastinal and hilar lymph nodes. Dominant aortopulmonic lymph node measures 15.8 mm in the short axis. Bones/joints: No visible active or acute osseous pathology. Evidence of an old left scapular fracture. Old mild superior endplate deformity T11. Soft tissues: Unremarkable. Other findings: Obesity. IMPRESSION: 1. Moderately large right pleural effusion that has increased in volume since last evaluation. 2. Examination reveals bilateral upper lobe patchy ground-glass interstitial lung disease opacification consistent with active interstitial pneumonitis. Consideration might be given to the diagnosis of Covid-19 pneumonitis. 3. Segmental compressive atelectasis and/or pneumonia right lower lobe. 4. Mild bilateral apical peripheral acinar emphysema. 5. Marked cardiomegaly with advanced 3 vessel coronary artery disease. 6. Moderately prominent middle mediastinal and hilar lymph nodes. PROCEDURE INFORMATION: Exam: CT Abdomen And Pelvis Without Contrast Exam date and time: 09/14/2020 4:02 PM Age: 59 years old Clinical indication: Condition or disease; Peritoneal effusion; Lung condition and disease; Other: N/a; Prior surgery; Surgery date: 6+ months; Surgery type: Pacer; Patient HX: R pleural effusion and ascites TECHNIQUE: Imaging protocol: Computed tomography of the abdomen and pelvis without contrast. Radiation optimization: All CT scans at this facility use at least one of these dose optimization techniques: automated exposure control; mA and/or kV adjustment per patient size (includes targeted exams where dose is matched to clinical indication); or iterative reconstruction. COMPARISON: CT abdomen pelvis w con* [id number] 08/23/2020 5:54 PM RADIATION DOSE METRICS: Total DLP (mGy-cm): 2365.27 FINDINGS: Liver: Cirrhotic appearing liver. No visible hepatic mass or cystic structure. Gallbladder and bile ducts: Gallbladder unremarkable. No visible cholelithiasis. No visible intra or extrahepatic biliary ectasia. Pancreas: Moderately advanced partial fatty replacement of pancreas. No visible pancreatic ductal ectasia. Spleen: Spleen unremarkable. Adrenal glands: Adrenal glands unremarkable and stable since last evaluation. Kidneys and ureters: No hydronephrosis or perinephric fluid. No visible nephrolithiasis. Renal arteriosclerosis. Stomach and bowel: Diverticulosis coli without visible evidence for acute diverticulitis. Nonobstructive bowel pattern. No visible significant adynamic or reactive ileus. Liquid stool throughout the majority of the colonic tract. Appendix: The appendix is visualized and appears noninflamed. Intraperitoneal space: Moderate volume intraperitoneal ascites. Mild mesenteric edema. No visible pneumoperitoneum. Vasculature: The abdominal aorta is nonaneurysmal. Moderately advanced arterial sclerotic disease. Lymph nodes: No current visible evidence of active mesenteric or retroperitoneal lymphadenopathy. Urinary bladder: Bell catheter within the decompressed urinary bladder. Free air within the lumen of the urinary bladder. Unable to differentiate iatrogenic origin versus active infectious/inflammatory cystitis. Reproductive: Mild prostate hypertrophy. Bones/joints: No visible active or acute osseous pathology. Facet arthrosis. Mild old superior endplate deformity T11. Soft tissues: Unremarkable. Other findings: Obesity. CT/CT chest abd pel wo con IMPRESSION: 1. Moderate volume intraperitoneal ascites. 2. Mild mesenteric edema. 3. Cirrhotic appearing liver. 4. Bell catheter within the decompressed urinary bladder. Free air within the lumen of the urinary bladder. Unable to differentiate iatrogenic origin versus active infectious/inflammatory cystitis. 5. Other nonurgent, nonemergent, chronic, and age related findings as detailed in text above. Radiation Dose CTDIVOL = (mGy): DLP = 2365.27~2365.27 (mGy-cm)
--- NOTE | 2020-09-14 17:22 | PM.PN ---
Subjective Subjective: Interval history: Patient converted back to sinus rhythm twice this morning therefore VLAD/cardioversion was canceled Medications: Reviewed: Yes Vitals/I&O/Wt Last Vital Signs Temp 98.6 F 09/14/20 08:00 Pulse 96 09/14/20 14:00 Resp 20 H 09/14/20 14:00 BP 96/77 09/14/20 14:00 Pulse Ox 67 L 09/14/20 14:00 09/14/20 09/14/20 09/14/20 06:59 14:59 22:59 Intake Total 200 / 2962.67 889.867 / 889.867 Output Total 1100 / 2450 850 / 850 Balance -900 / 512.67 39.867 / 39.867 Weight last 48 hrs Weight 222 lb Weight 222 lb Physical Exam Narrative: EXAM NARRATIVE: GENERAL: Patient is alert, awake and oriented x3. NECK: No jugular vein distension. HEENT: No cyanosis. No icterus. No pallor. HEART: Regular S1 and S2. No murmur, rub or gallop. LUNGS: Clear to auscultate bilaterally. ABDOMEN: Soft, nontender and nondistended. Positive bowel sounds. No guarding, rebound or tenderness. CENTRAL NERVOUS SYSTEM: Grossly nonfocal. EXTREMITIES: Lower extremities without edema bilaterally. Urinary Catheter Management^: Bell: Cath Placed During This Visit: yes Reason for Continuing Indwelling Catheter: Accurate Measurement of Urinary Output in Critically Ill Patients Urinary Catheter Date of Insertion: 09/05/20 Urinary Catheter Time of Insertion: 23:06 Data : 09/14/20 03:19 09/14/20 03:19 A&P Assessment and plan (1) FABIAN (acute kidney injury): Status: Acute (2) Type 2 diabetes mellitus: Status: Acute Qualifiers: Diabetes mellitus complication status: with other specified complication Diabetes mellitus intermediate insulin use: unspecified intermediate insulin use status Qualified Code(s): E11.69 - Type 2 diabetes mellitus with other specified complication (3) Coronary artery disease: Status: Acute Qualifiers: Coronary Disease-Associated Artery/Lesion type: [place] artery [place] vs. transplanted heart: [place] heart Associated angina: without angina Qualified Code(s): I25.10 - Atherosclerotic heart disease of [place] coronary artery without angina pectoris (4) ICD (implantable cardioverter-defibrillator) in place: Status: Acute (5) Ischemic cardiomyopathy: Status: Acute (6) Encephalopathy: Status: Acute (7) Atrial flutter: Status: Acute Patient has been switched to p.o. amiodarone. Continue to diurese with Bumex. Cardioversion has been canceled since patient is in sinus rhythm. Continue to monitor closely. Attestations Medical Necessity Statement*: Patient require continuation hospitalization for above defined care. Coding Level of Care Code Established Pt Acute Engineering Patternmaker for Chg Fwd Patient Type Established History Detailed Exam Detailed Medical Decision Making Moderate Complexity Diagnoses FABIAN (acute kidney injury) N17.9 Type 2 diabetes mellitus E11.69 Diabetes mellitus complication status: with other specified complication Diabetes mellitus intermediate insulin use: unspecified exterminator helper termite insulin use status Coronary artery disease I25.10 Coronary Disease-Associated Artery/Lesion type: [place] artery [place] vs. transplanted heart: [place] heart Associated angina: without angina ICD (implantable cardioverter-defibrillator) in place Z95.810 Ischemic cardiomyopathy I25.5 Encephalopathy G93.40 Atrial flutter I48.92
[2020-09-14 17:59] LABS: Glucose Point of Care 346 mg/dL (70-110)
--- NOTE | 2020-09-14 19:35 | PC.NURSE ---
Dr. Oliva gave verbal to perform another rapid covid test on patient to rule out covid again due to change in chest xray. Continue care.
[2020-09-14] MEDS: metOLazone 5 MG Tablet PO (19:45)
[2020-09-14 21:20] LABS: Glucose Point of Care 339 mg/dL (70-110)
--- NOTE | 2020-09-14 21:25 | PC.NURSE ---
Received report from off going nurse. Pt's plan of care reviewed. Pt sitting up on edge of bed. Respirations are shallow and tachypneic. Respirations are clear throughout and is sating 96% on RA. Expiratory wheezing is noted. No s/sx of distress noted. Pt is alert and oriented and able to make his own decisions. Pt denies any pains or concerns at this time. Pt does appear anxious and unable to rest. Notified Dr. Jean and restarted pt's Clonazepam 1mg PO BID/PRN. Bed in lowest and locked position, call light and water within reach, x's 2 rails up. Will continue to monitor pt.
[2020-09-14 21:49] LABS: SARS Covid-2 Antigen Negative (Negative)
[2020-09-14] MEDS: CLONazepam 1 mg Tablet PO (21:54)
[2020-09-14] MEDS: DOBUTamine drip 500 MG/250 ML PREMIX 14.7 MG IV (22:51)
[2020-09-15] VITALS (13 sets, daily range): BP systolic 66–115; BP diastolic 53–83; PULSE 71–110; RESP 20–31; TEMP 35.3–36.7; O2SAT 88–100
--- NOTE | 2020-09-15 00:36 | PC.NURSE ---
Pt has been running a temp around 95.5 axillary. I've tried numerous times to cover pt up and provide extra blankets but pt keeps pulling them off and refusing to use them. Pt is alert and oriented and able to make his own decisions at this time.
[2020-09-15 07:21] LABS: Basophils # 0.1 10^3/uL (0.0-0.1); Basophils % 0.8 %; Eosinophils # 0.2 10^3/uL (0.0-0.8); Eosinophils % 1.1 %; Hematocrit 33.8 % (42.0-52.0); Hemoglobin 10.9 g/dL (11.7-16.6); Lymphocytes # 1.7 10^3/uL (0.8-4.8); Lymphocytes % 13.2 %; Mean Corpuscular HGB Conc 32.2 g/dL (30.0-36.0); Mean Corpuscular Hemoglobin 24.9 pg (28.0-34.0); Mean Corpuscular Volume 77.3 fL (80-94); Mean Platelet Volume 10.5 fL (7.4-10.4); Monocytes # 0.8 10^3/uL (0.2-0.9); Monocytes % 6.2 %; Neutrophils # 10.13 10^3/uL (1.8-7.7); Neutrophils % 77.6 %; Nucleated Red Blood Cells % 0 %; Platelet Count 167 10^3/cmm (130-400); Red Blood Count 4.37 10^6/uL (4.1-5.3); Red Cell Distribution Width 20.2 % (12.1-15.1); White Blood Count 13.1 10^3/uL (4.0-10.0)
[2020-09-15 07:40] LABS: Alanine Aminotransferase 26 U/L (0-41); Albumin Level 4.1 g/dL (3.5-5.2); Alkaline Phosphatase 118 IU/L (40-130); Anion Gap 15.6 (5-19); Aspartate Amino Transferase 29 U/L (0-40); Blood Urea Nitrogen 24 mg/dL (8-23); Calcium 8.9 mg/dL (8.5-10.5); Carbon Dioxide 23 mmol/L (22-29); Chloride 95 mmol/L (98-107); Globulin 3.2 g/dL (1.3-4.6); Glomerular Filtration Rate 137.4 mL/min (90-130); Glucose 155 mg/dL (65-115); Magnesium 1.4 mg/dL (1.7-2.3); Osmolality Calculated 279 mOsm/kg (285-295); Sodium 131 mmol/L (136-145); Total Bilirubin 3.7 mg/dL (0.15-1.2); Total Protein 7.3 g/dL (6.6-8.7)
[2020-09-15 07:51] LABS: Potassium 2.6 mmol/L (3.5-5.1)
[2020-09-15] MEDS: amiodarone 200 mg Tablet 400 MG PO ×3 (08:03→19:42)
[2020-09-15] MEDS: aspirin 81 mg EC Tablet PO (08:03)
[2020-09-15] MEDS: apixaban 5 mg Tablet PO ×2 (08:04→19:42)
[2020-09-15] MEDS: metoprolol tartrate 25 mg Tablet 12.5 MG PO ×2 (08:04→19:42)
[2020-09-15] MEDS: sodium chloride 1 gm Tablet PO (08:04)
[2020-09-15] MEDS: digoxin 250 mcg Tablet PO (08:04)
--- NOTE | 2020-09-15 09:25 | PC.CHAP ---
Pastoral Care Encounter/Spiritual Assessment Type of Contact [] Declined fur scraper visit [] Patient/Family/Request visit [] Outpatient visit [] Follow-up visit [] Physician referral [] Code/Alert [x] Routine visit [] Staff referral [] Actively dying [] Patient sleeping [] Family support [] [] Out of room [] Palliative care [] [] Receiving care in room [] Pre-surgical visit [] Trauma [] Long length of stay [x] ICU visit [] Other: Relational/Emotional Strength [] Patient feels connected with others/family/visitors/staff [] Distress [] Loneliness/isolation [] Abandonment Spirituality of Patient [] Person of Brigitte [] Attends Judaism of their Brigitte [] Believes in Prayer [] Reads Bible or Sikhism materials [] There are Spiritual issues to be addressed Principal Examiner Interventions [x] Prayer [] Active listening [] Non-anxious presence [] Spiritual/emotional support [] Crisis/trauma care [] Spiritual counseling [] Bereavement support [] Provided bereavement packet [] Provided Bible/devotional materials [] Provided toy/stuffed animal, coloring book to patient or family member [] Provided Communion [] Anointing/[place] [] Salvation [x] Completed spiritual assessment [] Other: Impact on Illness or Injury [] Angry [] Fearful [] Anxious [] Often cries [] Exhaustion [] Unable to work [] Unable to attend caodaism [] Unable to walk/stand [] Unable to read [] Unable to drive [] Unable to eat/drink [] Unable to sleep [] Unable to be with family [] Patient intubated [] Other: Summary Time spent with patient
[2020-09-15] MEDS: lidocaine 1% 5 ML in potassium chloride premix 100 ML 25 ML IV ×2 (10:34→15:17)
[2020-09-15] MEDS: CLONazepam 1 mg Tablet PO ×2 (10:34→19:42)
[2020-09-15] MEDS: bumetanide 0.25 mg/mL SDV 10 mL 2 MG IV ×2 (10:35→19:43)
--- NOTE | 2020-09-15 10:46 | P.PN_ITS ---
Subjective Subjective: Interval history: Patient is overall doing well. His heart rate is still elevated. Yesterday plan was to perform electrical cardioversion however patient is converting back to normal sinus rhythm on his own. Currently on amiodarone 400 mg 3 times daily. Also on metoprolol 12.5 mg twice daily. Vitals/I&O/Wt Last Vital Signs Temp 98.1 F 09/15/20 08:00 Pulse 110 H 09/15/20 08:04 Resp 20 H 09/15/20 08:00 BP 111/73 09/15/20 08:00 Pulse Ox 97 09/15/20 08:00 09/14/20 09/15/20 09/15/20 22:59 06:59 14:59 Intake Total 810.00 / 1882.670 660 / 2542.670 120 / 120 Output Total 400 / 1250 2650 / 3900 Balance 410.00 / 632.670 -1989 / 1357.330 120 / 120 Weight last 48 hrs Weight 222 lb Weight 222 lb Physical Exam Narrative: EXAM NARRATIVE: GENERAL: Patient is alert, awake and oriented x3. [] NECK: No jugular vein distension. [] HEENT: No cyanosis. No icterus. No pallor. [] HEART: Regular S1 and S2. No murmur, rub or gallop. [] LUNGS: Clear to auscultate bilaterally. [] ABDOMEN: Soft, nontender and nondistended. Positive bowel sounds. No guarding, rebound or tenderness. [] CENTRAL NERVOUS SYSTEM: Grossly nonfocal. [] EXTREMITIES: Lower extremities with 1+ edema bilaterally. Pulses palpable in the lower extremities, both dorsalis pedis and posterior tibial. [] Urinary Catheter Management^: Bell: Cath Placed During This Visit: yes Reason for Continuing Indwelling Catheter: Accurate Measurement of Urinary Output in Critically Ill Patients Urinary Catheter Date of Insertion: 09/05/20 Urinary Catheter Time of Insertion: 23:06 Data : 09/16/20 03:23 09/16/20 03:23 A&P Assessment and plan (1) FABIAN (acute kidney injury): Status: Acute (2) Type 2 diabetes mellitus: Status: Acute Qualifiers: Diabetes mellitus complication status: with other specified complication Diabetes mellitus [facility] insulin use: unspecified computer terminal operator insulin use status Qualified Code(s): E11.69 - Type 2 diabetes mellitus with other specified complication (3) Coronary artery disease: Status: Acute Qualifiers: Coronary Disease-Associated Artery/Lesion type: [place] artery [place] vs. transplanted heart: [place] heart Associated angina: without angina Qualified Code(s): I25.10 - Atherosclerotic heart disease of [place] coronary artery without angina pectoris (4) ICD (implantable cardioverter-defibrillator) in place: Status: Acute (5) Ischemic cardiomyopathy: Status: Acute (6) Encephalopathy: Status: Acute (7) Atrial flutter: Status: Acute We will recommend trying to wean down dobutamine. This may improve his heart rate. Continue amiodarone and metoprolol Patient continues to be in atrial flutter. Continued digoxin. Continue IV diuresis. Patient is responding well to IV medications. Thank you for involving us with care of this patient. We will continue to follow. Please call with questions. Attestations Medical Necessity Statement*: Care expected to cross 2 midnights. Coding Level of Care Code Acute Cardiac Cath Lab Manager for Tae Bruced Diagnoses FABIAN (acute kidney injury) N17.9 Type 2 diabetes mellitus E11.69 Diabetes mellitus complication status: with other specified complication Diabetes mellitus [facility] insulin use: unspecified [facility] insulin use status Coronary artery disease I25.10 Coronary Disease-Associated Artery/Lesion type: [place] artery [place] vs. transplanted heart: [place] heart Associated angina: without angina ICD (implantable cardioverter-defibrillator) in place Z95.810 Ischemic cardiomyopathy I25.5 Encephalopathy G93.40 Atrial flutter I48.92
[2020-09-15 11:00] LABS: Glucose Point of Care 201 mg/dL (70-110)
[2020-09-15 11:30] LABS: Glucose Point of Care 168 mg/dL (70-110)
--- NOTE | 2020-09-15 11:56 | PC.SOCIAL ---
IMM Update Pg.2 of IMM Updated. Copy provided to patient.
--- NOTE | 2020-09-15 16:56 | PC.NURSE ---
1600-DOBUTAMINE TAPERED DOWN & TURNED OFF. BP DROPPED AFTER BEING TURNED OFF. RESTARTED AT 2MCG/KG/MIN D/T SOFT BLOOD PRESSURE. REFUSES TO WEAR OXYGEN,STATES THAT IT CAUSES HIM TO NOT BE ABLE TO REST. AGITATED AT TIMES D/T HE WANTS SOMETHING TO DRINK JUST LET ME GO HOME, I'M READY TO SLEEP IN MY OWN BED.
[2020-09-15 17:17] LABS: Glucose Point of Care 197 mg/dL (70-110)
[2020-09-15] MEDS: DOBUTamine drip 500 MG/250 ML PREMIX 8.8 MG IV (19:41)
[2020-09-15 20:10] LABS: Glucose Point of Care 255 mg/dL (70-110)
--- NOTE | 2020-09-15 22:03 | PM.PN ---
Subjective Subjective: Interval history: no new complaints, wishes to retun home Cardioversion deferred as converted to sinus rhythm intermittently Medications: Reviewed: Yes Vitals/I&O/Wt Last Vital Signs Temp 98.1 F 09/15/20 20:00 Pulse 109 H 09/15/20 20:00 Resp 25 H 09/15/20 20:00 BP 103/77 09/15/20 20:00 Pulse Ox 98 09/15/20 20:00 09/15/20 09/15/20 09/15/20 06:59 14:59 22:59 Intake Total 660 / 2542.670 1032.005 / 1032.005 587.995 / 1620.000 Output Total 2650 / 3900 1000 / 1000 1300 / 2300 Balance -1990 / -1357.330 32.005 / 32.005 -712.005 / -680.000 Weight last 48 hrs Weight 100.698 kg Weight 100.698 kg Weight 100.698 kg Physical Exam Narrative: EXAM NARRATIVE: GEN: Awake, alert and oriented, no acute distress CVS: S1S2 N RS: CTA B/L Abd: Soft, nt/nd , bs+ PSYCHOLOGICAL OPERATIONS SPECIALIST: no focal neuro deficits at this time EXT:B/L LE pitting edema 2+ with weeping over left leg Urinary Catheter Management^: Bell: Cath Placed During This Visit: yes Reason for Continuing Indwelling Catheter: Accurate Measurement of Urinary Output in Critically Ill Patients Urinary Catheter Date of Insertion: 09/05/20 Urinary Catheter Time of Insertion: 23:06 Data : 09/15/20 07:13 09/15/20 07:13 A&P Assessment and plan (1) Respiratory failure with hypoxia: Status: Acute (2) Acute hyponatremia: Status: Acute (3) Ischemic cardiomyopathy: Status: Acute (4) Smoker: Status: Acute (5) Acute exacerbation of congestive heart failure: Status: Acute (6) FABIAN (acute kidney injury): Status: Acute (7) Left bundle branch block: Status: Acute (8) ICD (implantable cardioverter-defibrillator) in place: Status: Acute (9) Hypotension: Status: Acute (10) Atrial flutter with rapid ventricular response: Status: Acute (11) Hypokalemia: Status: Acute (12) Hypomagnesemia: Status: Acute Additional A&P Information # Shock, currently BP improved Likely to be cardiogenic in nature Ekg with new onset A flutter, currently HR at 110-120 bpm No significant delta troponin On dobutamine infusion currently Appreciate cardiology recommendations to assist with management of cardiogenic shock, new A flutter and need for ongoing diuresis Initially on empiric Cefepime and iv vancomycin for possible sepsis, changed to Imipenam ( 09/09) and Levofloxacin ( 09/09 ). Discontinue all abx today as extensive infectious w/up has not shown any overt focus of infection. RLL effusion likely to be transudate in nature, underlying consolidation could not be excluded, however has been on appropriate abx coverage thus far WBC remains stable overall Currently on Eliquis therefore will not proceed with thoracentesis for now # Acute on chronic systolic CHF exacerbation Reduced ejection fraction (EF15%) heart failure history of ischemic cardiomyopathy On Bumex 2 gm I.V Q12 H daily Received metalozone 5 mg PO Once on 09/14 Initially on Dobutamine Drip @3MCG/KG/MIN ( 09/11) now on @5MCG/KG/MIN, discussed with cardiology, plan to wean off dobutamine today C.T chest without Contrast : 09/14 : Moderately large right pleural effusion that has increased in volume since last evaluation. Examination reveals bilateral upper lobe patchy ground-glass interstitial lung disease opacification consistent with active interstitial pneumonitis. Consideration might be given to the diagnosis of Covid-19 pneumonitis. Rapid COVID ag negative x 2 on 09/05 and 09/14 Monitor I/O :Net Negative : Daily weight # A.Flutter/Fib with RVR : Digoxin : 250 mg po daily Metoprolol .T : 12.5 MG Q12 H Daily( 09/10) Currently on Amiodarone 40 mg po TID ( 09/14 ) Continue Tele Dig Level : 0.8 Eliquis 5 MG Q12 H daily VLAD cardioversion was aborted as the patient Went into NSR.( 09/14 ) # Acute hypoxic respiratory failure Likely 2/2 CHF exacerbation, as evidenced by elevated BNP, CTA with pulmonary congestion Currently remains well on RA # Encephalopathy R/O Hepatic Encephalopathy 2/2 to sepsis/CHF Excerbation / Acute hyponatremia could have contributed. Patient was on lactulose to target 2-3 BM. 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 C.T Abdomen and Pelvis : Moderate volume intraperitoneal ascites. Mild mesenteric edema. Cirrhotic appearing liver. Bell catheter within the decompressed urinary bladder. Free air within the lumen of the urinary bladder. Unable to differentiate iatrogenic origin versus active infectious/inflammatory cystitis. 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 from 01/14/20 Na 139, 08/04/20 Na at 130, 08/23/20 Na 126, 08/30/20 Na 122, 09/05/20 Na 118 . CUrrently on salt tabs 1gm po qd check NA with am lans # Transaminitis : Improving may be related to poor peripheral perfusion from shock and hypotension. Hep c Ab +, states that he thinks he may have been treated for Hep c in the past. If no evidence of past treatment, needs HCV PCR with genotype and referral to Dr. Armstrong as outpatient. \ # FABIAN ,Resolved # DM: insulin sliding scale Diet: Carb consistent DVT ppx: On Eliquis Full code HCP per patient: He designates mother Lashonda Aguilera and step daughter Mary Jane in case he is unable to make decisions Attestations Medical Necessity Statement*: titrating off doutamine drip today, needs close monitoring in ICU Critical Care Time: Critical Care Time (min): 30 Coding Level of Care Code Acute Outdoor Studies Professor for Chg Fwd Diagnoses Respiratory failure with hypoxia J96.91 Acute hyponatremia E87.1 Ischemic cardiomyopathy I25.5 Smoker F17.200 Acute exacerbation of congestive heart failure I50.9 FABIAN (acute kidney injury) N17.9 Left bundle branch block I44.7 ICD (implantable cardioverter-defibrillator) in place Z95.810 Hypotension I95.9 Atrial flutter with rapid ventricular response I48.92 Hypokalemia E87.6 Hypomagnesemia E83.42
[2020-09-16] VITALS (28 sets, daily range): BP systolic 67–110; BP diastolic 44–74; PULSE 70–112; RESP 17–28; TEMP 36.6–36.7; O2SAT 76–100
[2020-09-16 04:00] LABS: Basophils # 0.1 10^3/uL (0.0-0.1); Basophils % 0.9 %; Eosinophils # 0.1 10^3/uL (0.0-0.8); Eosinophils % 0.8 %; Hematocrit 32.6 % (42.0-52.0); Hemoglobin 10.6 g/dL (11.7-16.6); Lymphocytes # 1.5 10^3/uL (0.8-4.8); Lymphocytes % 11.3 %; Mean Corpuscular HGB Conc 32.5 g/dL (30.0-36.0); Mean Corpuscular Hemoglobin 25.1 pg (28.0-34.0); Mean Corpuscular Volume 77.3 fL (80-94); Mean Platelet Volume 10.7 fL (7.4-10.4); Monocytes # 0.8 10^3/uL (0.2-0.9); Monocytes % 6.4 %; Neutrophils % 79.8 %; Nucleated Red Blood Cells % 0 %; Platelet Count 173 10^3/cmm (130-400); Red Blood Count 4.22 10^6/uL (4.1-5.3); Red Cell Distribution Width 20.1 % (12.1-15.1)
[2020-09-16 04:17] LABS: Alanine Aminotransferase 25 U/L (0-41); Alkaline Phosphatase 125 IU/L (40-130); Anion Gap 16.3 (5-19); Aspartate Amino Transferase 28 U/L (0-40); Blood Urea Nitrogen 30 mg/dL (8-23); Carbon Dioxide 27 mmol/L (22-29); Chloride 94 mmol/L (98-107); Globulin 3.1 g/dL (1.3-4.6); Glomerular Filtration Rate 137.4 mL/min (90-130); Glucose 102 mg/dL (65-115); Osmolality Calculated 286 mOsm/kg (285-295); Sodium 135 mmol/L (136-145); Total Bilirubin 3.3 mg/dL (0.15-1.2); Total Protein 7.1 g/dL (6.6-8.7)
[2020-09-16 04:21] LABS: Potassium 2.3 mmol/L (3.5-5.1)
--- NOTE | 2020-09-16 05:51 | PC.NURSE ---
Notified hospitalist of a potassium of 2.3. Hospitalist stated she will put new orders in. Pt is asymptomatic. Pt denies any pains or concerns at this time.
[2020-09-16 07:01] LABS: Magnesium 1.4 mg/dL (1.7-2.3); Phosphorus 3.6 mg/dL (2.5-4.5)
[2020-09-16] MEDS: potassium chloride ER 20 mEq Tablet 40 MEQ PO (07:56)
[2020-09-16 08:01] LABS: Glucose Point of Care 261 mg/dL (70-110)
[2020-09-16] MEDS: lidocaine 1% 5 ML in potassium chloride premix 100 ML 25 ML IV ×2 (08:02→11:19)
[2020-09-16] MEDS: magnesium sulfate premix 2 GM/50 ML PIGGYBACK IV ×2 (08:34→23:26)
[2020-09-16] MEDS: digoxin 250 mcg Tablet PO (09:08)
[2020-09-16] MEDS: apixaban 5 mg Tablet PO ×2 (09:09→20:07)
[2020-09-16] MEDS: aspirin 81 mg EC Tablet PO (09:09)
[2020-09-16] MEDS: metoprolol tartrate 25 mg Tablet 12.5 MG PO (09:09)
[2020-09-16] MEDS: amiodarone 200 mg Tablet 400 MG PO ×2 (09:09→17:24)
[2020-09-16] MEDS: bumetanide 0.25 mg/mL SDV 10 mL 2 MG IV (09:10)
[2020-09-16] MEDS: nicotine 21 mg Patch 1 PATCH TRANSDERMA (09:19)
--- NOTE | 2020-09-16 09:28 | ECG_ITS ---
[facility] Test Date: 2020-09-16 Pat Name: Ivan De Leon Department: Room: ICU08 Gender: Male Edge Drummer: : 1960 Requested By: Jose Ceron Order Number: [id number] Leia MD: Herman Hendrix M.D. Measurements Intervals [place] Rate: 92 P: VA: QRS: 38 QRSD: 190 T: 63 QT: 476 QTc: 590 Interpretive Statements ATRIAL FIBRILLATION INDETERMINATE AXIS LEFT BUNDLE BRANCH BLOCK [120+ ms QRS DURATION, 80+ ms Q/S IN V1/V2, 85+ ms R IN I/aVL/V5/V6] Compared to ECG 09/14/2020 09:39:30 Indeterminate axis now present Left bundle-branch block now present Atrial flutter no longer present Intraventricular conduction delay no longer present Electronically Signed On 09-16-2020 19:50:54 CASE MONITOR by Herman Hendrix M.D. [id number]
--- NOTE | 2020-09-16 09:34 | PC.CHAP ---
Pastoral Care Encounter/Spiritual Assessment Type of Contact [] Declined health economist visit [] Patient/Family/Request visit [] Outpatient visit [] Follow-up visit [] Physician referral [] Code/Alert [x] Routine visit [] Staff referral [] Actively dying [] Patient sleeping [] Family support [] [] Out of room [] Palliative care [] [] Receiving care in room [] Pre-surgical visit [] Trauma [] Long length of stay [x] ICU visit [] Other: Relational/Emotional Strength [] Patient feels connected with others/family/visitors/staff [] Distress [] Loneliness/isolation [] Abandonment Spirituality of Patient [] Person of Brigitte [] Attends Moravian of their Brigitte [] Believes in Prayer [] Reads Bible or Taoist materials [] There are Spiritual issues to be addressed Quarry Boss Interventions [x] Prayer [x] Active listening [x] Non-anxious presence [x] Spiritual/emotional support [] Crisis/trauma care [] Spiritual counseling [] Bereavement support [] Provided bereavement packet [] Provided Bible/devotional materials [] Provided toy/stuffed animal, coloring book to patient or family member [] Provided Communion [] Anointing/[place] [] Salvation [x] Completed spiritual assessment [] Other: Impact on Illness or Injury [] Angry [] Fearful [] Anxious [] Often cries [] Exhaustion [] Unable to work [] Unable to attend scientology [] Unable to walk/stand [] Unable to read [] Unable to drive [] Unable to eat/drink [] Unable to sleep [] Unable to be with family [] Patient intubated [] Other: Summary patient awake, setting at the end of bed.. waiting for doctor... wanting to be released Time spent with patient 10 min
[2020-09-16] MEDS: sodium chloride 1 gm Tablet PO (09:48)
--- NOTE | 2020-09-16 11:05 | PC.NURSE ---
Dobutamine drip stopped at 0935.
--- NOTE | 2020-09-16 11:08 | PC.NURSE ---
Dobutimine drip turned back on d/t hypotension at 1105.
[2020-09-16 11:49] LABS: Glucose Point of Care 77 mg/dL (70-110)
--- NOTE | 2020-09-16 14:17 | P.PN_ITS ---
Subjective Subjective: Interval history: Patient continues to feel improved, dobutamine infusion attempted to be weaned down yesterday , however systolic bp dropped to less than 80 for which it was resumed again. This morning dobutamine again turned off, by afternoon systolic dropped to 70. He remains on RA currently, saturating 99% Medications: Reviewed: Yes Vitals/I&O/Wt Last Vital Signs Temp 98.1 F 09/16/20 08:00 Pulse 80 09/16/20 12:58 Resp 23 H 09/16/20 12:58 BP 84/62 09/16/20 12:58 Pulse Ox 99 09/16/20 12:58 09/15/20 09/16/20 09/16/20 22:59 06:59 14:59 Intake Total 587.995 / 1620.000 280 / 1900.000 717.403 / 717.403 Output Total 1300 / 2300 4450 / 6750 600 / 600 Balance -712.005 / -680.000 -4170 / -4850.000 117.403 / 117.403 Weight last 48 hrs Weight 100.698 kg Physical Exam Narrative: EXAM NARRATIVE: GEN: Awake, alert and oriented, no acute distress CVS: S1S2 N RS: CTA B/L Abd: Soft, nt/nd , bs+ MOBILE PRACTICE LEAD: no focal neuro deficits EXT: LE 2+ pitting edema Urinary Catheter Management^: Bell: Cath Placed During This Visit: yes Reason for Continuing Indwelling Catheter: Accurate Measurement of Urinary Output in Critically Ill Patients Urinary Catheter Date of Insertion: 09/05/20 Urinary Catheter Time of Insertion: 23:06 Data : 09/16/20 03:23 09/16/20 03:23 A&P Assessment and plan (1) Respiratory failure with hypoxia: Status: Acute (2) Acute hyponatremia: Status: Acute (3) Ischemic cardiomyopathy: Status: Acute (4) Smoker: Status: Acute (5) Acute exacerbation of congestive heart failure: Status: Acute (6) FABIAN (acute kidney injury): Status: Acute (7) Left bundle branch block: Status: Acute (8) ICD (implantable cardioverter-defibrillator) in place: Status: Acute (9) Hypotension: Status: Acute (10) Atrial flutter with rapid ventricular response: Status: Acute (11) Hypokalemia: Status: Acute (12) Hypomagnesemia: Status: Acute Additional A&P Information # Shock, improving Likely to be cardiogenic in nature Ekg with new onset A flutter, currently HR at 110-120 bpm No significant delta troponin On dobutamine infusion currently, overall with improvement, however attempts at weaning off result in hypotension Today, will reduce amiodarone to 400mg BID in case contributing to hypotesion, hold B blockers and add midodrine 5mg TID. Appreciate cardiology recommendations to assist with management of cardiogenic shock, new A flutter and need for ongoing diuresis Initially on empiric Cefepime and iv vancomycin for possible sepsis, changed to Imipenam ( 09/09-09/15) and Levofloxacin ( 09/09-09/15 ). Discontinued all abx today as extensive infectious w/up has not shown any overt focus of infection. HAs received adequate empiric course. RLL effusion likely to be transudate in nature, underlying consolidation could not be excluded, however has been on appropriate abx coverage thus far WBC remains stable overall between 11-13, no fever or other signs of sepsis # Acute on chronic systolic CHF exacerbation Reduced ejection fraction (EF15%) heart failure history of ischemic cardiom yopathy On Bumex 2 mg I.V Q12 H daily-> change to 2mg po q12h Received metalozone 5 mg PO Once on 09/14 Attemt to wean off dobutamine infusion Monitor I/O :Net Negative : 4.6L over 24 hrs Daily weight # A.Flutter/Fib with RVR : Digoxin : 250 mg po daily Metoprolol .T : 12.5 MG Q12 H Daily( 09/10) , hold today as attempting to wean down dobutaine Currently on Amiodarone 40 mg po TID ( 09/14 ) , reduce to 400 BID Continue Tele Dig Level : 0.8 Eliquis 5 MG Q12 H daily VLAD cardioversion was aborted as the patient Went into NSR.( 09/14 ) # Acute hypoxic respiratory failure Likely 2/2 CHF exacerbation, as evidenced by elevated BNP, CTA with pulmonary congestion Now resolved Currently remains well on RA # Encephalopathy R/O Hepatic Encephalopathy 2/2 to sepsis/CHF Excerbation / Acute hyponatremia could have contributed. 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 Mild mesenteric edema. Cirrhotic appearing liver. Bell catheter within the decompressed urinary bladder. Free air within the lumen of the urinary bladder. Unable to differentiate iatrogenic origin versus active infectious/inflammatory cystitis. 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 from 01/14/20 Na 139, 08/04/20 Na at 130, 08/23/20 Na 126, 08/30/20 Na 122, 09/05/20 Na 118 . CUrrently on salt tabs 1gm po qd Na now improved to baseline # Transaminitis : Improving may be related to poor peripheral perfusion from shock and hypotension. Hep c Ab +, states that he thinks he may have been treated for Hep c in the past. If no evidence of past treatment, needs HCV PCR with genotype and referral to Dr. Armstrong as outpatient. 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
[2020-09-16] MEDS: midodrine 5 mg TABLET PO ×2 (14:47→20:07)
[2020-09-16 16:49] LABS: Glucose Point of Care 275 mg/dL (70-110)
[2020-09-16] MEDS: bumetanide 1 mg Tablet 2 MG PO (17:23)
--- NOTE | 2020-09-16 17:55 | P.PN_ITS ---
Subjective Subjective: Interval history: Patient is doing well. No complaints of chest pain, shortness of breath or palpitations. His heart rate is better controlled. Vitals/I&O/Wt Last Vital Signs Temp 98.0 F 09/16/20 16:09 Pulse 84 09/16/20 16:28 Resp 19 H 09/16/20 16:28 BP 89/62 09/16/20 16:28 Pulse Ox 90 09/16/20 16:28 09/16/20 09/16/20 09/16/20 06:59 14:59 22:59 Intake Total 280 / 1900.000 717.403 / 717.403 155 / 872.403 Output Total 4450 / 6750 600 / 600 Balance -4170 / -4850.000 117.403 / 117.403 155 / 272.403 Weight last 48 hrs Weight 222 lb Physical Exam Narrative: EXAM NARRATIVE: GENERAL: Patient is alert, awake and oriented x3. [] NECK: No jugular vein distension. [] HEENT: No cyanosis. No icterus. No pallor. [] HEART: Regular S1 and S2. No murmur, rub or gallop. [] LUNGS: Clear to auscultate bilaterally. [] ABDOMEN: Soft, nontender and nondistended. Positive bowel sounds. No guarding, rebound or tenderness. [] CENTRAL NERVOUS SYSTEM: Grossly nonfocal. [] EXTREMITIES: Lower extremities with 1+ edema bilaterally. Pulses palpable in the lower extremities, both dorsalis pedis and posterior tibial. [] Urinary Catheter Management^: Bell: Cath Placed During This Visit: yes Reason for Continuing Indwelling Catheter: Accurate Measurement of Urinary Output in Critically Ill Patients Urinary Catheter Date of Insertion: 09/05/20 Urinary Catheter Time of Insertion: 23:06 Data : 09/17/20 03:36 09/17/20 05:00 A&P Assessment and plan (1) FABIAN (acute kidney injury): Status: Resolved (2) Type 2 diabetes mellitus: Status: Acute Qualifiers: Diabetes mellitus complication status: with other specified complication Diabetes mellitus assisted insulin use: unspecified superintendent container terminal insulin use status Qualified Code(s): E11.69 - Type 2 diabetes mellitus with other specified complication (3) Coronary artery disease: Status: Acute Qualifiers: Coronary Disease-Associated Artery/Lesion type: [place] artery [place] vs. transplanted heart: kashia heart Associated angina: without angina Qualified Code(s): I25.10 - Atherosclerotic heart disease of kashia coronary artery without angina pectoris (4) ICD (implantable cardioverter-defibrillator) in place: Status: Acute (5) Ischemic cardiomyopathy: Status: Acute (6) Encephalopathy: Status: Resolved (7) Atrial flutter: Status: Acute Wean off dobutamine. Continue amiodarone, can be decreased to 400mg BID. As blood pressure is low, might have to hold off on betablockers for now and restart as outpatient Heart rate is better controlled now. Continued digoxin. Can consider switching lasix to PO Thank you for involving us with care of this patient. We will continue to follow. Please call with questions. Attestations Medical Necessity Statement*: Care expected to cross 2 midnights. 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 transplanted heart: kashia heart Associated angina: without angina ICD (implantable cardioverter-defibrillator) in place Z95.810 Ischemic cardiomyopathy I25.5 Encephalopathy G93.40 Atrial flutter I48.92
[2020-09-16 20:41] LABS: Glucose Point of Care 184 mg/dL (70-110)
[2020-09-16 21:56] LABS: Potassium 2.8 mmol/L (3.5-5.1)
[2020-09-16 22:34] LABS: Magnesium 1.7 mg/dL (1.7-2.3); Phosphorus 2.9 mg/dL (2.5-4.5)
[2020-09-16] MEDS: potassium chloride ER 20 mEq Tablet PO (23:27)
[2020-09-16] MEDS: CLONazepam 1 mg Tablet PO (23:34)
[2020-09-17 00:21] VITALS: BP 103/71; PULSE 97; RESP 15; O2SAT 96
[2020-09-17] MEDS: DOBUTamine drip 500 MG/250 ML PREMIX 5.9 MG IV (01:08)
[2020-09-17 04:03] LABS: Basophils # 0.1 10^3/uL (0.0-0.1); Basophils % 0.8 %; Eosinophils # 0.2 10^3/uL (0.0-0.8); Eosinophils % 1.5 %; Hematocrit 33.3 % (42.0-52.0); Hemoglobin 10.5 g/dL (11.7-16.6); Lymphocytes # 1.9 10^3/uL (0.8-4.8); Lymphocytes % 17.1 %; Mean Corpuscular HGB Conc 31.5 g/dL (30.0-36.0); Mean Corpuscular Hemoglobin 25.2 pg (28.0-34.0); Mean Platelet Volume 11.5 fL (7.4-10.4); Monocytes # 0.8 10^3/uL (0.2-0.9); Monocytes % 6.8 %; Neutrophils # 8.16 10^3/uL (1.8-7.7); Neutrophils % 73.3 %; Nucleated Red Blood Cells % 0 %; Platelet Count 164 10^3/cmm (130-400); Red Blood Count 4.16 10^6/uL (4.1-5.3); Red Cell Distribution Width 21.2 % (12.1-15.1); White Blood Count 11.2 10^3/uL (4.0-10.0)
[2020-09-17 05:05] VITALS: BP 98/68; PULSE 91; RESP 18; O2SAT 96
[2020-09-17 05:27] LABS: Alanine Aminotransferase 23 U/L (0-41); Albumin Level 4.2 g/dL (3.5-5.2); Alkaline Phosphatase 133 IU/L (40-130); Anion Gap 16.6 (5-19); Aspartate Amino Transferase 29 U/L (0-40); Blood Urea Nitrogen 32 mg/dL (8-23); Calcium 9.3 mg/dL (8.5-10.5); Carbon Dioxide 28 mmol/L (22-29); Chloride 89 mmol/L (98-107); Globulin 3.3 g/dL (1.3-4.6); Glucose 267 mg/dL (65-115); Magnesium 2.1 mg/dL (1.7-2.3); Osmolality Calculated 286 mOsm/kg (285-295); Potassium 3.6 mmol/L (3.5-5.1); Sodium 130 mmol/L (136-145); Total Bilirubin 3.2 mg/dL (0.15-1.2); Total Protein 7.5 g/dL (6.6-8.7)
[2020-09-17 06:19] VITALS: PULSE 95
[2020-09-17 08:11] LABS: Glucose Point of Care 181 mg/dL (70-110)
[2020-09-17] MEDS: sodium chloride 1 gm Tablet PO (08:25)
[2020-09-17] MEDS: midodrine 5 mg TABLET PO (08:25)
[2020-09-17] MEDS: aspirin 81 mg EC Tablet PO (08:25)
[2020-09-17] MEDS: nicotine 21 mg Patch 1 PATCH TRANSDERMA (08:25)
[2020-09-17 08:26] VITALS: PULSE 104
[2020-09-17] MEDS: magnesium oxide 400 mg tablet PO (08:26)
[2020-09-17] MEDS: potassium chloride ER 20 mEq Tablet 40 MEQ PO (08:26)
[2020-09-17] MEDS: digoxin 250 mcg Tablet PO (08:26)
[2020-09-17] MEDS: bumetanide 1 mg Tablet 2 MG PO (08:26)
[2020-09-17] MEDS: apixaban 5 mg Tablet PO (08:28)
[2020-09-17] MEDS: amiodarone 200 mg Tablet 400 MG PO (08:29)
--- NOTE | 2020-09-17 08:57 | PC.CHAP ---
Pastoral Care Encounter/Spiritual Assessment Type of Contact [] Declined print washer visit [] Patient/Family/Request visit [] Outpatient visit [] Follow-up visit [] Physician referral [] Code/Alert [x] Routine visit [] Staff referral [] Actively dying [] Patient sleeping [] Family support [] [] Out of room [] Palliative care [] [] Receiving care in room [] Pre-surgical visit [] Trauma [] Long length of stay [x] ICU visit [] Other: Relational/Emotional Strength [] Patient feels connected with others/family/visitors/staff [] Distress [] Loneliness/isolation [] Abandonment Spirituality of Patient [] Person of Brigitte [] Attends Baptism of their Brigitte [] Believes in Prayer [] Reads Bible or Congregation materials [] There are Spiritual issues to be addressed [place] Interventions [x] Prayer [] Active listening [] Non-anxious presence [] Spiritual/emotional support [] Crisis/trauma care [] Spiritual counseling [] Bereavement support [] Provided bereavement packet [] Provided Bible/devotional materials [] Provided toy/stuffed animal, coloring book to patient or family member [] Provided Communion [] Anointing/[place] [] Salvation [x] Completed spiritual assessment [] Other: Impact on Illness or Injury [] Angry [] Fearful [] Anxious [] Often cries [] Exhaustion [] Unable to work [] Unable to attend adventism [] Unable to walk/stand [] Unable to read [] Unable to drive [] Unable to eat/drink [] Unable to sleep [] Unable to be with family [] Patient intubated [] Other: Summary really hoping today will be the day he can be discharged. Time spent with patient 10 min
[2020-09-17 12:21] LABS: Glucose Point of Care 160 mg/dL (70-110)
--- NOTE | 2020-09-17 12:34 | PM.DCS ---
Discharge Providers Date of Admission: 09/06/20 02:16 Date of Discharge: September 17, 2020 Attending Provider at Admission: Alvaro Johnson MD Attending Provider at Discharge: Alysia Franklin MD Primary Care Provider: MAGUE Candelario Diagnoses at Discharge Discharge Diagnosis (1) Respiratory failure with hypoxia: Status: Acute (2) Acute hyponatremia: Status: Acute (3) Ischemic cardiomyopathy: Status: Acute (4) Smoker: Status: Acute (5) Acute exacerbation of congestive heart failure: Status: Acute (6) FABIAN (acute kidney injury): Status: Acute (7) Left bundle branch block: Status: Acute (8) ICD (implantable cardioverter-defibrillator) in place: Status: Acute (9) Hypotension: Status: Acute (10) Atrial flutter with rapid ventricular response: Status: Acute (11) Hypokalemia: Status: Acute (12) Hypomagnesemia: Status: Acute Reason for Visit Reason for Visit: I could not breathe Hospital Course Hospital Course Ivan De Leon is a 59 year old male with history of ischemic cardiomyopathy severely reduced EF 15% admitted on 09/06 for for worsening shortness of breath and shock upon admission. Hospital course as below: # Shock, now resolved Likely to be cardiogenic in nature Ekg with new onset A flutter, currently HR controlled at 90-100 bpm on discharge No significant delta troponin On dobutamine infusion during course of admission, weaned off after several attempts on 09/17/20 at 3 am. Started on po midodrine 5mg BID, B blockers stopped at discharge, amiodarone reduced to 400 BID from TID dosing to help improve hypotension. Initially since septic shock could not be excluded , he received empiric course of Cefepime and iv vancomycin changed to Imipenem ( 09/09-09/15) and Levofloxacin ( 09/09-09/15 ). Extensive infectious w/up has not shown any overt focus of infection. RLL effusion likely to be transudate in nature, underlying consolidation could not be excluded, however has been on appropriate abx coverage thus far. WBC remains stable overall between 11-13, no fever or other signs of sepsis, patient does not want thoracentesis at this time. # Acute on chronic systolic CHF exacerbation Reduced ejection fraction (EF15%) heart failure history of ischemic cardiomyopathy Discharge on Bumex 2mg po q12h Currently euvolemic on above dose # A.Flutter/Fib with RVR : Digoxin : 250 mg po daily Metoprolol .T : 12.5 MG Q12 H Daily( 09/10) during admission , held at discharge Currently on Amiodarone 40 mg po BID ( 09/14 ) Eliquis 5 MG Q12 H daily VLAD cardioversion was aborted as the patient Went into NSR.( 09/14 ) # Acute hypoxic respiratory failure Likely 2/2 CHF exacerbation, as evidenced by elevated BNP, CTA with pulmonary congestion Now resolved Currently remains well on RA # Encephalopathy , multifactorial Hepatic Encephalopathy 2/2 to sepsis/CHF Excerbation / Acute hyponatremia could have contributed. 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 Mild mesenteric edema. Cirrhotic appearing liver. Bell catheter within the decompressed urinary bladder. Free air within the lumen of the urinary bladder. Unable to differentiate iatrogenic origin versus active infectious/inflammatory cystitis. # Chronic hypervolemic hyponatremia in the presence of excess SIADH state : Now resolved # Transaminitis : Improving may be related to poor peripheral perfusion from shock and hypotension. Hep c Ab +, states that he thinks he may have been treated for Hep c in the past. f/up with PCP # FABIAN ,resolved # DM: resume home medications Invokana and metformin Diet: Carb consistent DVT ppx: On Eliquis Full code HCP per patient: He designates mother Lashonda Aguilera and step daughter Mary Jane in case he is unable to make decisions HE is significantly imroved during course of admission. f/up with [facility] in one week. Physical Exam Narrative: EXAM NARRATIVE: GEN: Awake, alert and oriented, no acute distress CVS: S1S2 N RS: CTA B/L Abd: Soft, nt/nd , bs+ CURB SETTER HELPER: no focal neuro deficits EXT: 1+ pitting edema +, improved over admission Urinary Catheter Management^: Bell: Cath Placed During This Visit: yes, but has since been removed by the nurse Reason for Continuing Indwelling Catheter: Decision to DC Catheter Urinary Catheter Date of Insertion: 09/05/20 Urinary Catheter Time of Insertion: 23:06 Date Urinary Catheter Removed: 09/17/20 Time Urinary Catheter Discontinued: 11:00 Discharge Data Data Completed and Pending: Completed Studies During Hospitalization Category Date Time Status CT angio chest PE protcl [id number] Stat Cat Scan 09/05/20 21:[address] chest abd pel wo con Routine Cat Scan 09/14/20 15:[address] head wo con* 7 [id number] Stat Cat Scan 09/05/20 21:57 Completed XR chest 1V raudel ble [id number] Routine Exams 09/07/20 09:43 Completed XR chest 1V raudel ble [id number] Routine Exams 09/09/20 14:53 Completed XR chest 1V raudel ble [id number] Routine Exams 09/13/20 06:00 Completed XR chest 1V raudel ble [id number] Stat Exams 09/05/20 21:43 [place] [id number] Routin e Ultrasound 09/06/20 17:03 [place] [id number] Routin e Ultrasound 09/12/20 20:04 Completed US liver [id number] Ro utine Ultrasound 09/06/20 09:38 Completed Pending at discharge Category Date Time Status MRSA by PCR AM LA BS Lab 09/12/20 10:23 Received Labs from last 24 hours 09/17/20 09/17/20 09/17/20 12:16 08:07 05:00 WBC RBC Hgb Hct MCV MCH MCHC RDW Plt Count MPV Neut % (Auto) Lymph % (Auto) [place] % (Auto) Eos % (Auto) Baso % (Auto) Neut # (Auto) Lymph # (Auto) [place] # (Auto) Eos # (Auto) Baso # (Auto) Nucleated RBC % (a uto) Nucleated RBCs # Sodium 130 L Potassium 3.6 Chloride 89 L Carbon Dioxide 28 Anion Gap 16.6 BUN 32 H Creatinine 0.7 GFR Calculation 115.0 Glucose 267 H POC Glucose 160 H 181 H Calculated Osmolal ity 286 Calcium 9.3 Phosphorus Magnesium 2.1 Total Bilirubin 3.2 H AST 29 ALT 23 Alkaline Phosphata se 133 H Total Protein 7.5 Albumin 4.2 Globulin 3.3 09/17/20 09/17/20 09/17/20 03:36 03:36 03:36 WBC 11.2 H RBC 4.16 Hgb 10.5 L Hct 33.3 L MCV 80.0 MCH 25.2 L MCHC 31.5 RDW 21.2 H Plt Count 164 MPV 11.5 H Neut % (Auto) 73.3 Lymph % (Auto) 17.1 [place] % (Auto) 6.8 Eos % (Auto) 1.5 Baso % (Auto) 0.8 Neut # (Auto) 8.16 H Lymph # (Auto) 1.9 [place] # (Auto) 0.8 Eos # (Auto) 0.2 Baso # (Auto) 0.1 Nucleated RBC % (a uto) 0 Nucleated RBCs # 0.0 Sodium Cancelled Potassium Cancelled Chloride Cancelled Carbon Dioxide Cancelled Anion Gap Cancelled BUN Cancelled Creatinine Cancelled GFR Calculation Cancelled Glucose Cancelled POC Glucose Calculated Osmolal ity Cancelled Calcium Cancelled Phosphorus Magnesium Cancelled Total Bilirubin Cancelled AST Cancelled ALT Cancelled Alkaline Phosphata se Cancelled Total Protein Cancelled Albumin Cancelled Globulin Cancelled 09/16/20 09/16/20 09/16/20 21:06 21:06 20:10 WBC RBC Hgb Hct MCV MCH MCHC RDW Plt Count MPV Neut % (Auto) Lymph % (Auto) [place] % (Auto) Eos % (Auto) Baso % (Auto) Neut # (Auto) Lymph # (Auto) [place] # (Auto) Eos # (Auto) Baso # (Auto) Nucleated RBC % (a uto) Nucleated RBCs # Sodium Potassium 2.8 L* D Chloride Carbon Dioxide Anion Gap BUN Creatinine GFR Calculation Glucose POC Glucose 184 H Calculated Osmolal ity Calcium Phosphorus 2.9 Magnesium 1.7 Total Bilirubin AST ALT Alkaline Phosphata se Total Protein Albumin Globulin 09/16/20 16:44 WBC RBC Hgb Hct MCV MCH MCHC RDW Plt Count MPV Neut % (Auto) Lymph % (Auto) [place] % (Auto) Eos % (Auto) Baso % (Auto) Neut # (Auto) Lymph # (Auto) [place] # (Auto) Eos # (Auto) Baso # (Auto) Nucleated RBC % (a uto) Nucleated RBCs # Sodium Potassium Chloride Carbon Dioxide Anion Gap BUN Creatinine GFR Calculation Glucose POC Glucose 275 H Calculated Osmolal ity Calcium Phosphorus Magnesium Total Bilirubin AST ALT Alkaline Phosphata se Total Protein Albumin Globulin Vitals: Last Vital Signs Temp 98.0 F 09/16/20 20:24 Pulse 104 H 09/17/20 08:26 Resp 18 09/17/20 05:05 BP 98/68 09/17/20 05:05 Pulse Ox 96 09/17/20 05:05 Discharge Plan Discharge Patient Disposition: Home Health Service Condition: Stable Prescriptions: New Pacerone 200 mg Tablet 400 mg PO BID 30 Days Qty: 60 RF: 0 midodrine 5 mg Tablet 5 mg PO TID 30 Days Qty: 90 RF: 0 digoxin 250 mcg (0.25 mg) Tablet 250 mcg PO DAILY 30 Days Qty: 30 RF: 0 aspirin 81 mg Tablet,Delayed Release (Dr/Ec) 81 mg PO DAILY 30 Days Qty: 30 RF: 0 Klor-Con M20 20 mEq Tablet,Er Particles/Crystals 40 meq PO DAILY Qty: 30 RF: 0 magnesium oxide 400 mg (241.3 mg magnesium) Tablet 400 mg PO BID 30 Days Qty: 60 RF: 0 bumetanide 1 mg Tablet 2 mg PO BID 30 Days Qty: 60 RF: 0 Eliquis 5 mg Tablet 5 mg PO BID@0900,2100 30 Days Qty: 60 RF: 0 Continued metformin 1,000 mg tablet extended release 24hr 1,000 mg PO BID RF: 0 clonazepam [Klonopin] 1 mg tablet 1 mg PO BID Qty: 60 RF: 2 Tresiba FlexTouch U-200 200 unit/mL (3 mL) Insulin Pen See Rx Instructions .ROUTE .COMPLEX RF: 0 Invokana 100 mg tablet 100 mg PO QAM Qty: 30 RF: 0 Discontinued aspirin 325 mg tablet 325 mg PO DAILY RF: 0 lisinopril 10 mg tablet 10 mg PO DAILY 90 Days Qty: 90 RF: 3 furosemide 40 mg tablet 80 mg PO BID RF: 0 potassium chloride 20 mEq tablet extended release 20 meq PO BID Qty: 90 RF: 3 metolazone 2.5 mg Tablet 2.5 mg PO DAILY RF: 0 spironolactone 25 mg Tablet 25 mg PO DAILY RF: 0 Discharge Orders: Discharge Order (Routine); Ordered 09/17/20 Ordered By: Alysia Franklin [place] [facility] [place] [place]Outside] Araceli Sousa FNP [Primary Care Provider] - Jose Ceron M.D [Physician] - 1 week Discharge Diet: Diabetic Discharge Activity: Increase activity as tolerated Discharge Attestations Time Spent in Discharge Care*: greater than 30 min Specific Discharge Activities: educating patient, discussing with pcp/other providers, discussing with correctional casework specialist/social workers/dc planners, documenting/other paperwork and evaluating patient/reviewing data Status at Discharge: Cognitive status at discharge: cognitively intact, Quality Metrics Clinical Quality Measures During this hospital stay, did patient experience: None Coding Level of Care Code Acute Inspector 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
--- NOTE | 2020-09-17 14:44 | PM.PN ---
Subjective Subjective: Interval history: Patient is overall doing well. He denies complaints of chest pain, shortness of breath or palpitations. Heart rate is better controlled now. Diuresing well. Vitals/I&O/Wt Last Vital Signs Temp 98.0 F 09/16/20 20:24 Pulse 104 H 09/17/20 08:26 Resp 18 09/17/20 05:05 BP 98/68 09/17/20 05:05 Pulse Ox 96 09/17/20 05:05 09/16/20 09/17/20 09/17/20 22:59 06:59 14:59 Intake Total 489.68 / 1207.083 731.997 / 1939.080 540 / 540 Output Total 2850 / 3450 1750 / 5200 Balance -2360.32 / -2242.917 -1018.003 / -3260.920 540 / 540 Weight last 48 hrs Weight 222 lb Physical Exam Narrative: EXAM NARRATIVE: GENERAL: Patient is alert, awake and oriented x3. [] NECK: No jugular vein distension. [] HEENT: No cyanosis. No icterus. No pallor. [] HEART: Regular S1 and S2. No murmur, rub or gallop. [] LUNGS: Clear to auscultate bilaterally. [] ABDOMEN: Soft, nontender and nondistended. Positive bowel sounds. No guarding, rebound or tenderness. [] CENTRAL NERVOUS SYSTEM: Grossly nonfocal. [] EXTREMITIES: Lower extremities with 1+ edema bilaterally. Pulses palpable in the lower extremities, both dorsalis pedis and posterior tibial. [] Urinary Catheter Management^: Bell: Cath Placed During This Visit: yes, but has since been removed by the nurse Reason for Continuing Indwelling Catheter: Decision to DC Catheter Urinary Catheter Date of Insertion: 09/05/20 Urinary Catheter Time of Insertion: 23:06 Date Urinary Catheter Removed: 09/17/20 Time Urinary Catheter Discontinued: 11:00 Data : 09/17/20 03:36 09/17/20 05:00 A&P Assessment and plan (1) FABIAN (acute kidney injury): Status: Resolved (2) Type 2 diabetes mellitus: Status: Acute Qualifiers: Diabetes mellitus complication status: with other specified complication Diabetes mellitus mcfp insulin use: unspecified terminal operations manager insulin use status Qualified Code(s): E11.69 - Type 2 diabetes mellitus with other specified complication (3) Coronary artery disease: Status: Acute Qualifiers: Coronary Disease-Associated Artery/Lesion type: [place] artery [place] vs. transplanted heart: [place] heart Associated angina: without angina Qualified Code(s): I25.10 - Atherosclerotic heart disease of [place] coronary artery without angina pectoris (4) ICD (implantable cardioverter-defibrillator) in place: Status: Acute (5) Ischemic cardiomyopathy: Status: Acute (6) Encephalopathy: Status: Resolved (7) Atrial flutter: Status: Acute Off dobutamine now, maintaining blood pressure. Continue amiodarone 400 mg twice daily. As blood pressure is low, might have to hold off on betablockers for now and restart as outpatient Heart rate is better controlled now. Continued digoxin. Switch Bumex to p.o. 2 mg twice daily Patient is ready to be discharged with outpatient cardiology appointment. Thank you for involving us with care of this patient. Please call with questions. Attestations Medical Necessity Statement*: Care expected to cross 2 midnights Coding Level of Care Code Acute Safety Admin Assistant for [facility] Fwd Diagnoses FABIAN (acute kidney injury) N17.9 Type 2 diabetes mellitus E11.69 Diabetes mellitus complication status: with other specified complication Diabetes mellitus terminal operations manager insulin use: unspecified terminal operations manager insulin use status Coronary artery disease I25.10 Coronary Disease-Associated Artery/Lesion type: [place] artery [place] vs. transplanted heart: [place] heart Associated angina: without angina ICD (implantable cardioverter-defibrillator) in place Z95.810 Ischemic cardiomyopathy I25.5 Encephalopathy G93.40 Atrial flutter I48.92
[2020-09-17 14:58] VITALS: PULSE 104
--- NOTE | 2020-09-17 15:00 | PC.NURSE ---
medications obtained through [facility] beds [place] [facility]discharge instructions given and explained.pt verb understanding of instructions.discharged to exit via w/c at this time.uber to drive pt home.
== END 2020-09-17 14:59 | disposition home health service (06) | DRG 291 ==
LOC: ER 09-06 02:19 → ICU 09-06 02:28
PROVIDERS: Family Medicine; Hospitalist; Internal Medicine; Admitting Provider Internal Medicine; Emergency Provider Emergency Medicine; PCP Nurse Practitioner Family; Visit Provider Student in an Organized Health Care Education/Training Program
DX: I11.0 Hypertensive heart disease with heart failure (principal); J96.01 Acute respiratory failure with hypoxia; G93.41 Metabolic encephalopathy; R57.0 Cardiogenic shock; E87.2 Acidosis; E87.1 Hypo-osmolality and hyponatremia; N17.9 Acute kidney failure, unspecified; I48.92 Unspecified atrial flutter; I50.23 Acute on chronic systolic (congestive) heart failure; I25.5 Ischemic cardiomyopathy; Z95.810 Presence of automatic (implantable) cardiac defibrillator; F17.210 Nicotine dependence, cigarettes, uncomplicated; I48.91 Unspecified atrial fibrillation; I95.9 Hypotension, unspecified; E11.65 Type 2 diabetes mellitus with hyperglycemia; M19.90 Unspecified osteoarthritis, unspecified site; I25.10 Atherosclerotic heart disease of native coronary artery without angina pectoris; Z95.5 Presence of coronary angioplasty implant and graft; E78.5 Hyperlipidemia, unspecified; F41.1 Generalized anxiety disorder; I25.2 Old myocardial infarction; G40.909 Epilepsy, unspecified, not intractable, without status epilepticus; F32.9 Major depressive disorder, single episode, unspecified; I44.7 Left bundle-branch block, unspecified; Z66 Do not resuscitate; Z79.84 Long term (current) use of oral hypoglycemic drugs; K76.1 Chronic passive congestion of liver
CPT/HCPCS: 12345; 36415; 36416; 36600; 51702; 70450; 71045; 71250; 71275; 74176; 76705; 80048; 80051; 80053; 80162; 80202; 80306; 81001; 81003; 82009; 82140; 82248; 82330; 82550; 82803; 82805; 82962; 83605; 83735; 83880; 84100; 84132; 84145; 84295; 84443; 84484; 85025; 85378; 85610; 85651; 86140; 86705; 86706; 86709; 86803; 87040; 87340; 87426; 87493; 87641; 87804; 87806; 93005; 93970; 93971; 94660; 96372; 99284; J0133; J0282; J0692; J0743; J1160; J1250; J1815; J1940; J1956; J2250; J2405; J2543; J2704; J3370; J3475; J3480; J3490; J7030; J7050; J7060; J7131; P9047; Q3014; Q9967

== ENCOUNTER → 2020-09-29 11:20 | Outpatient (BNVA) | payer MEDICARE, SELFPAY | PROVIDERS: PCP Nurse Practitioner Family; Visit Provider Nurse Practitioner Family | DX: I50.9 Heart failure, unspecified (principal) | CPT/HCPCS: 80048; 83880 ==

== ENCOUNTER 2020-10-02 13:22 | Inpatient (IN) | payer MEDICARE, SELFPAY ==
[2020-10-02] VITALS (14 sets, daily range): BP systolic 90–108; BP diastolic 63–73; PULSE 81–99; RESP 19–36; TEMP 37.2–38.5; O2SAT 86–100; BMI 36.2
--- NOTE | 2020-10-02 13:35 | CT_ITS ---
WS: [id number] CT CHEST, ABDOMEN, AND PELVIS TECHNIQUE: Contrast-enhanced CT of the chest, abdomen, and pelvis with coronal and sagittal reformatt ed images. CLINICAL INFORMATION: fever, abdominal pain and distension. AMS COMPARISON: CT September 14, 2020 DLP: 2257.[address] scans at [facility] use at least one of these dose optimization techniques: automat ed exposure control; mA and/or kV adjustment per patient size (includes targeted exams where dose is matched to clinical indication); or iterative reconstruction. CT CHEST: Cardiomegaly. Normal caliber thoracic aorta. Coronary calcification. No mediastinal or hilar lymphade nopathy. Small moderate right pleural effusion with compressive atelectasis right lower lobe unchange d since September 14, 2020. Slight patchy groundglass infiltrates in the left upper lobe. This is gloria lar to previous. Improved infiltrates in right upper lobe. Right upper lobe is well aerated today. A few patchy groundglass opacities in the left midlung and left lower lobe. Mild thoracic curve. CT ABDOMEN AND PELVIS: Cirrhotic configuration to the liver. Fibrofatty infiltration. Perihepatic ascites. Adrenal glands ar e normal. Normal GE junction. Fatty atrophy of the pancreas. Normal renal parenchymal enhancement. No hydronephrosis. Diffuse body wall anasarca and mesenteric edema is similar to the prior examination. Small amount of perisplenic ascites. Ascites in the pericolic gutters bilaterally. Urine distended bl adder. Trace free fluid in the pelvis. Sigmoid colon is normal in appearance. No evidence of small or large bowel obstruction. Tiny fat-containing umbilical hernia. Prostate calcification. CT/CT chest abd pel w con* IMPRESSION: 1. Cardiomegaly with moderate right pleural effusion and compressive atelectas is right lower lobe similar to previous. 2. A few hazy groundglass opacities in the left lung. Recommend correlation fo r pneumonitis. 3. Cirrhotic liver with fibrofatty infiltration. 4. Small to moderate perihepatic and perisplenic ascites with ascites in the p ericolic gutters. 5. Markedly distended urinary bladder. Bell catheter has been removed from pr evious. 6. Diffuse body wall anasarca and mesenteric edema is similar to previous. 7. No evidence of small or large bowel obstruction. 8. No other significant changes from previous.
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
[2020-10-02 14:07] LABS: Alanine Aminotransferase 19 U/L (0-41); Albumin Level 3.7 g/dL (3.5-5.2); Alkaline Phosphatase 156 IU/L (40-130); Aspartate Amino Transferase 27 U/L (0-40); Blood Urea Nitrogen 21 mg/dL (8-23); C Reactive Protein 36.5 mg/L (0.0-4.9); Calcium 8.6 mg/dL (8.5-10.5); Carbon Dioxide 22 mmol/L (22-29); Chloride 85 mmol/L (98-107); Globulin 4.1 g/dL (1.3-4.6); Glomerular Filtration Rate 68.1 mL/min (90-130); Glucose 155 mg/dL (65-115); Osmolality Calculated 258 mOsm/kg (285-295); Sodium 121 mmol/L (136-145); Total Bilirubin 2.5 mg/dL (0.15-1.2); Total Protein 7.8 g/dL (6.6-8.7)
[2020-10-02 14:08] LABS: Basophils # 0.1 10^3/uL (0.0-0.1); Basophils % 0.3 %; Eosinophils % 0.1 %; Hematocrit 34.1 % (42.0-52.0); Hemoglobin 10.9 g/dL (11.7-16.6); Lymphocytes # 0.6 10^3/uL (0.8-4.8); Lymphocytes % 3.7 %; Mean Corpuscular Hemoglobin 24.9 pg (28.0-34.0); Mean Corpuscular Volume 77.9 fL (80-94); Mean Platelet Volume 10.2 fL (7.4-10.4); Monocytes # 1.1 10^3/uL (0.2-0.9); Monocytes % 6.9 %; Neutrophils # 13.81 10^3/uL (1.8-7.7); Neutrophils % 88.5 %; Nucleated Red Blood Cells % 0 %; Platelet Count 293 10^3/cmm (130-400); Red Blood Count 4.38 10^6/uL (4.1-5.3); White Blood Count 15.6 10^3/uL (4.0-10.0)
[2020-10-02 14:22] LABS: Lactate (Lactic Acid level) 3.2 mmol/L (0.5-2.2)
--- NOTE | 2020-10-02 14:22 | CT_ITS ---
WS: [id number] CT HEAD TECHNIQUE: Noncontrast CT of the head obtained from the skullbase to the vertex. CLINICAL INFORMATION: ams COMPARISON: None. DLP: 1954.[address] scans at [facility] use at least one of these dose optimization techniques: automat ed exposure control; mA and/or kV adjustment per patient size (includes targeted exams where dose is matched to clinical indication); or iterative reconstruction. FINDINGS: No evidence of intracranial hemorrhage or mass effect. Ventricular system and basal cisterns are mckoy nt. Mild small vessel changes with mild parenchymal volume loss. No extra-axial fluid collections. No evidence of mass or mass effect. Normal ayers-white differentiation. Small amount of fluid in the right maxillary sinus. CT/CT head wo con* [id number] IMPRESSION: 1. No evidence of intracranial hemorrhage or mass effect. 2. Mild right maxillary sinusitis. 3. Mild small vessel changes. Mild parenchymal volume loss. 4. No acute intracranial findings.
[2020-10-02 14:25] LABS: SARS Covid-2 Antigen Negative (Negative)
[2020-10-02 14:25] LABS: Influenza A by IFA Negative (Negative); Influenza B by IFA Negative (Negative)
[2020-10-02] MEDS: sodium chloride 0.9% 1,000 ML 999 ML IV (14:52)
[2020-10-02 15:08] LABS: Add Urine Microscopic? NO
[2020-10-02] MEDS: piperacillin-tazobactam 3.375 GM in sodium chloride 0.9% (plus) 50 ML IV (15:24)
[2020-10-02 15:30] LABS: Bilirubin Urine Neg (Negative); Blood Urine Neg (Negative); Glucose Urine UA Norm (Normal); Ketones Urine Negative (Negative); Leukocyte Esterase Urine Negative (Negative); Nitrate Urine Negative (Negative); Protein Urine Neg (Negative); Urine Appearance Clear (CLEAR); Urine Color Yellow (Yellow); Urobilinogen Urine Norm (Negative); pH Urine 5 (5-7)
[2020-10-02 15:37] LABS: Amphetamines Screen Urine Negative (Negative); Barbiturates Screen Urine Negative (Negative); Benzodiazepines Screen Urine Negative (Negative); Cocaine Screen Urine Negative (Negative); Opiate Screen Urine Negative (Negative); PCP Screen Urine Negative (Negative); THC Screen Urine Negative (Negative)
[2020-10-02 16:05] LABS: Ammonia 45 umol/L (16-60)
[2020-10-02] MEDS: vancomycin 1,500 MG/300 ML PIGGYBACK 200 MG IV (16:14)
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
--- NOTE | 2020-10-02 17:59 | PC.NURSE ---
when pt. arrived on med surg floor pt. was swinging head back and forth thanked us for being so good to him. pt. answered my questions correctly name date of location how many children he has. pt. continues to mumble words and shaking head back and forth and confusedly laughs.
[2020-10-02 18:35] LABS: Glucose Point of Care 157 mg/dL (70-110)
--- NOTE | 2020-10-02 19:57 | PC.NURSE ---
Patient admitted to floor. Was able to answer orientation question to person and place but then was unable to answer questions further. No family available to be able to answer admission questions. Patient has a beth placed in ER. Has bilateral lower extremity with pitted edema and cellulitis. Patient is on 4L NC unable to verify if this is his baseline. Has a blister to his left middle finger that is fluid filled. Also a spot noted to Right upper thigh that is reddened. Fingers are orangish-yellow in color. Appears that patient is a smoker. Upon assessment has inspiratory and expiratory wheezed through-out. Patient's skin appears to be yellow tinted and sceleras are yellowish in color as well. Patient bed alarm set and call light in reach.
[2020-10-02 20:24] LABS: Magnesium 1.8 mg/dL (1.7-2.3)
[2020-10-02 20:57] LABS: Glucose Point of Care 172 mg/dL (70-110)
[2020-10-02] MEDS: docusate sodium 100 mg Capsule PO (20:57)
[2020-10-02] MEDS: midodrine 5 mg TABLET PO (20:57)
[2020-10-02] MEDS: magnesium oxide 400 mg tablet PO (20:57)
[2020-10-02] MEDS: apixaban 5 mg Tablet PO (20:57)
[2020-10-02] MEDS: CLONazepam 1 mg Tablet PO (20:57)
[2020-10-02] MEDS: amiodarone 200 mg Tablet 400 MG PO (20:59)
[2020-10-02] MEDS: bumetanide 0.25 mg/mL SDV 4 mL 2 MG IV (22:33)
[2020-10-03] VITALS (14 sets, daily range): BP systolic 94–107; BP diastolic 60–71; PULSE 51–86; RESP 18–20; TEMP 36.4–37.3; O2SAT 94–100
[2020-10-03] MEDS: piperacillin-tazobactam 3.375 GM in sodium chloride 0.9% (plus) 50 ML IV ×3 (00:52→20:25)
--- NOTE | 2020-10-03 04:30 | PC.PHAR ---
Pharmacokinetic dosing service Date: 10/03/20 Time: 429 Objective: Patient: Ivan De Leon Floor: 277-1 Age: 60 yo Serum creatinine: 1.1 mg/dL Height: 71.0 Inches Weight (kg): 117.934 Diagnosis: Relevant medical/social history: Cultures and sensitivities: Other labs: Assessment: IBW (kg): 75.30 Dosing wt(kg): 92.4 Estimated Creatinine clearance (ml/min): 75.1 CRCL method: Cockcroft and Gault using ibw(default). Drug selected: Vancomycin Loading dose (mg): 0 Vd (liters): 83.2 (factor used: 0.9 L/kg) Daniel (hr-1): 0.067 Half life (hrs): 10.35 Recommended dose: 1500 mg Interval: 12 hrs Infusion time (hrs): 1.5 Predicted peak (mcg/mL): 31.0 Predicted trough (mcg/mL): 15.34 Adjusted body weight was selected for vancomycin dosing. To switch back, select the total body weight option above. Renal function is stable [ ] /unstable [ ] Recommendations: Give Vancomycin 1500 mg q 12 hrs with an expected Cpeak of 31.0 mcg/ml and an expected Ctrough of 15.34 mcg/ml Renal dosing of other antibiotics (review renal dosing of other medications and list guidelines here): Thank you for the consult, will continue to follow. Signature: Nallely Benedict [facility]
[2020-10-03] MEDS: vancomycin 1,500 MG/300 ML PIGGYBACK 200 MG IV ×2 (05:13→16:29)
[2020-10-03 05:56] LABS: Anion Gap 16.2 (5-19); Blood Urea Nitrogen 21 mg/dL (8-23); Carbon Dioxide 24 mmol/L (22-29); Chloride 88 mmol/L (98-107); Glomerular Filtration Rate 68.1 mL/min (90-130); Glucose 99 mg/dL (65-115); Osmolality Calculated 261 mOsm/kg (285-295); Potassium 4.2 mmol/L (3.5-5.1); Sodium 124 mmol/L (136-145)
[2020-10-03 06:48] LABS: Glucose Point of Care 158 mg/dL (70-110)
--- NOTE | 2020-10-03 10:35 | PC.CHAP ---
Pastoral Care Encounter/Spiritual Assessment Type of Contact [] Declined landscape gardener visit [] Patient/Family/Request visit [] Outpatient visit [] Follow-up visit [] Physician referral [] Code/Alert [] Routine visit [] Staff referral [] Actively dying [] Patient sleeping [] Family support [] [] Out of room [] Palliative care [] [] Receiving care in room [] Pre-surgical visit [] Trauma [] Long length of stay [] ICU visit [] Other: Relational/Emotional Strength [] Patient feels connected with others/family/visitors/staff [] Distress [] Loneliness/isolation [] Abandonment Spirituality of Patient [x] Person of Brigitte [] Attends Taoism of their Brigitte [] Believes in Prayer [] Reads Bible or Zoroastrianism materials [] There are Spiritual issues to be addressed Licensed Acupuncturist Interventions [x] Prayer [] Active listening [] Non-anxious presence [] Spiritual/emotional support [] Crisis/trauma care [] Spiritual counseling [] Bereavement support [] Provided bereavement packet [] Provided Bible/devotional materials [] Provided toy/stuffed animal, coloring book to patient or family member [] Provided Communion [] Anointing/[place] [] Salvation [x] Completed spiritual assessment [] Other: Impact on Illness or Injury [] Angry [] Fearful [] Anxious [] Often cries [] Exhaustion [] Unable to work [] Unable to attend episcopal [] Unable to walk/stand [] Unable to read [] Unable to drive [] Unable to eat/drink [] Unable to sleep [] Unable to be with family [] Patient intubated [] Other: Summary pataint having sleeping problems Time spent with patient 5 min x
[2020-10-03 10:44] LABS: Glucose Point of Care 232 mg/dL (70-110)
[2020-10-03] MEDS: amiodarone 200 mg Tablet 400 MG PO ×2 (11:52→18:14)
[2020-10-03] MEDS: potassium chloride ER 20 mEq Tablet 40 MEQ PO (11:55)
[2020-10-03] MEDS: CLONazepam 1 mg Tablet PO ×2 (11:56→18:14)
[2020-10-03] MEDS: spironolactone 25 mg Tablet PO (11:56)
[2020-10-03] MEDS: docusate sodium 100 mg Capsule PO ×2 (11:56→18:14)
[2020-10-03] MEDS: apixaban 5 mg Tablet PO ×2 (11:57→20:26)
[2020-10-03] MEDS: magnesium oxide 400 mg tablet PO ×2 (11:57→18:14)
[2020-10-03] MEDS: midodrine 5 mg TABLET PO ×3 (11:57→20:26)
[2020-10-03] MEDS: aspirin 81 mg EC Tablet PO (11:57)
[2020-10-03] MEDS: bumetanide 0.25 mg/mL SDV 10 mL 2 MG IV ×2 (12:54→23:23)
--- NOTE | 2020-10-03 14:50 | PC.NURSE ---
Late entry AM medications given late due to another patient's emergency. Morning insulin of 2 units that was to be given to patient was wasted and non- administered as well as the morning dose of Gabapentin as the next dose was scheduled once able to administered.
--- NOTE | 2020-10-03 15:12 | PC.NURSE ---
Patient's mom wanted to speak with a nurse. This nurse spoke with patient and mother at bedside. Gave an update on patient's condition from when he came into the ER yesterday to today and what the plan was. Patient's mom wanted to speak with discharge planning as she wanted to encourage patient to discharge to SNF stating that he does not take his medications as ordered and is not able to take care of himself. She states she is not able to care for him as she is elderly and has her own medical issues. Patient did agree to SNF after discussing not being able to get better at home by himself. Spoke with Laura Mae merchandise planner and she stated she would speak with mother and patient at bedside.
[2020-10-03] MEDS: ondansetron 2 mg/ML SDV 2 mL 4 MG IVP (16:50)
--- NOTE | 2020-10-03 17:04 | PC.NURSE ---
Patient complained of nausea and shortness of breath reported to CIVIL ENGINEERING TECHNICIAN. This nurse checked on patient. Patient appeared to be short of breath with respirations of 30. Lung sounds have inspiratory and expiratory wheezes with diminished lung sounds. Vital signs were 84 heart rate, blood pressure 97/64, 97% on 3L NC, and temp is 98.8 axillary. Respiratory called and physican notified.
[2020-10-03 17:15] LABS: ABG PCO2 26.1 mmHg (35-45); ABG PH Result 7.49 (7.35-7.45); Alveolar-Arterial Oxygen Gradi 15.4 mmHg (5-10); Arterial Blood Gas Hematocrit 31.7 % (42-52); Base Excess ABG -2.5 mmol/L (-2.0-2.0); Blood Gas Allen Test Pos; Blood Gas Operator Identificat MONRO; Blood Gas Sample Site Radial, right; Blood Gas Sample Type Arterial; Carboxyhemoglobin 1.9 %THgb (0.4-20.1); HCO3 ABG 19.9 mmol/L (22-26); HGB O2 Sat 94.1 % (95-100); Ionized Calcium Level - ABG 1.1 mmol/L (1.1-1.4); Methemoglobin 0.5 % (0.4-1.5); Oxygen Device NC; Oxygen Saturation ABG 96.4; PO2 ABG 74.7 mmHg (80.0-100.0); Potassium Level - ABG 4.8 mmol/L (3.5-5.0); Total Hemoglobin 10.4 g/dL (14-18)
[2020-10-03] MEDS: ipratropium-albuterol 3 mL Neb INHALATION ×2 (17:15→20:03)
--- NOTE | 2020-10-03 17:23 | P.PN_ITS ---
Subjective Subjective: Interval history: Patient was noted to have wheezing, no fever or chills, slightly confused. Medications: Reviewed: Yes Vitals/I&O/Wt Last Vital Signs Temp 97.6 F 10/03/20 19:24 Pulse 74 10/03/20 20:09 Resp 20 H 10/03/20 20:03 BP 94/60 10/03/20 19:24 Pulse Ox 94 10/03/20 20:03 10/03/20 10/03/20 10/03/20 06:59 14:59 22:59 Intake Total 350 / 1400 360 / 360 300 / 660 Output Total 500 / 2100 400 / 400 Balance -150 / -700 -40 / -40 300 / 260 Weight last 48 hrs Weight 113.988 kg Weight 117.934 kg Physical Exam 2 Narrative: EXAM NARRATIVE: General : jaundice appearing Head: Normocephalic atraumatic eyes pupils equal round and reactive to light and accommodation extraocular muscles are intact no appreciable scleral icterus ENT nasal and pharyngeal mucosa is erythematous he has posterior clear to white drainage in the posterior pharynx Neck: No JVD thyromegaly neck moves supple Lymph: No clavicular or axillary lymphadenopathy Chest: Normal to except inspection chest rises normally with inspiration Lungs manage breath sounds throughout crackles bilaterall abdomen y Abdomen: Obviously distended with fluid wave. Nontender to palpation I believe I could feel his liver approximately 2 to 3 cm below rib cage. This was nontender to palpation no varicosities seen : Normal male no scrotal edema \Pelvis no CVA tenderness Extremities: 4+ pitting edema into groin. Bilateral lower extremities with erythema and warmth to touch. Right leg just slightly worse than left leg. Skin: Onchyolosis of toenails. Dry toes and feet with calluses medially and on plantar surfaces. Neuro: Alert oriented to self and place. No asterisk. [id number]-[id number] was close. Cranial nerves II through XII grossly intact. Motor and sensory grossly intact no focal deficits noted. Remainder of exam unchanged. Urinary Catheter Management^: Bell: Cath Placed During This Visit: yes Reason for Continuing Indwelling Catheter: Other Urinary Catheter Date of Insertion: 10/02/20 Urinary Catheter Time of Insertion: 15:00 Data : 10/02/20 13:01 10/03/20 04:19 Micro: Microbiology 10/02/20 14:50 Blood Culture - Preliminary Blood NEGATIVE TO DATE 10/02/20 13:50 Blood Culture - Preliminary Blood NEGATIVE TO DATE A&P Assessment and plan (1) Cellulitis: Status: Acute Qualifiers: Site of cellulitis: extremity Site of cellulitis of extremity: lower extremity Laterality: right Qualified Code(s): L03.115 - Cellulitis of right lower limb (2) Type 2 diabetes mellitus: Status: Acute Qualifiers: Diabetes mellitus complication status: with other specified complication Diabetes mellitus intermediate project manager insulin use: unspecified intermediate project manager insulin use status Qualified Code(s): E11.69 - Type 2 diabetes mellitus with other specified complication (3) Coronary artery disease: Status: Acute Qualifiers: Coronary Disease-Associated Artery/Lesion type: [place] artery [place] vs. transplanted heart: [place] heart Associated angina: without angina Qualified Code(s): I25.10 - Atherosclerotic heart disease of [place] coronary artery without angina pectoris (4) ICD (implantable cardioverter-defibrillator) in place: Status: Acute (5) LV dysfunction: Status: Acute (6) Ischemic cardiomyopathy: Status: Acute (7) Non-compliant behavior: Status: Acute (8) Smoker: Status: Acute (9) Cirrhosis of liver with ascites: Status: Acute Vancomycin and zosyn for cellulitis Possibly due to edema Check pro-calcitonin in am Home meds. accu checks. See other Due to EF of 15-20% Severe acute on chronic systolic heart failure. Needs IV bumex, I resumed Bumex 2 mg IV instead of his home dose orally. May need drip. Pt non adherent and will likely require many days of treatment. As above. Agreeable to SNF Counseled to quit. He states he is not wanting to quit at this time. Mild respiratory distress - started on duoneb Check ABG Chest x-ray in am Wean supplemental o2 as tolerated. 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 transplanted heart: [place] heart Associated angina: without angina ICD (implantable cardioverter-defibrillator) in place Z95.810 LV dysfunction I51.9 Ischemic cardiomyopathy I25.5 Non-compliant behavior R46.89 Smoker F17.200 Cirrhosis of liver with ascites K74.60; R18.8
[2020-10-03 17:24] LABS: Glucose Point of Care 167 mg/dL (70-110)
[2020-10-03 21:14] LABS: Glucose Point of Care 122 mg/dL (70-110)
[2020-10-04] VITALS (13 sets, daily range): BP systolic 90–100; BP diastolic 62–73; PULSE 63–770; RESP 17–24; TEMP 36.3–37.1; O2SAT 94–99
[2020-10-04] MEDS: ondansetron 2 mg/ML SDV 2 mL 4 MG IVP ×2 (00:53→21:50)
[2020-10-04] MEDS: ipratropium-albuterol 3 mL Neb INHALATION ×3 (03:39→20:43)
[2020-10-04 04:28] LABS: Basophils # 0.1 10^3/uL (0.0-0.1); Basophils % 0.6 %; Eosinophils % 0.2 %; Hematocrit 32.3 % (42.0-52.0); Hemoglobin 10.3 g/dL (11.7-16.6); Lymphocytes # 1.5 10^3/uL (0.8-4.8); Lymphocytes % 11.6 %; Mean Corpuscular HGB Conc 31.9 g/dL (30.0-36.0); Mean Corpuscular Hemoglobin 24.9 pg (28.0-34.0); Mean Platelet Volume 9.9 fL (7.4-10.4); Monocytes # 1.4 10^3/uL (0.2-0.9); Monocytes % 11.5 %; Neutrophils % 75.6 %; Nucleated Red Blood Cells % 0 %; Platelet Count 257 10^3/cmm (130-400); Red Blood Count 4.14 10^6/uL (4.1-5.3); Red Cell Distribution Width 20.9 % (12.1-15.1); White Blood Count 12.5 10^3/uL (4.0-10.0)
[2020-10-04] MEDS: piperacillin-tazobactam 3.375 GM in sodium chloride 0.9% (plus) 50 ML IV ×3 (04:44→20:29)
[2020-10-04 04:52] LABS: Alanine Aminotransferase 19 U/L (0-41); Albumin Level 3.2 g/dL (3.5-5.2); Alkaline Phosphatase 121 IU/L (40-130); Anion Gap 18.4 (5-19); Aspartate Amino Transferase 37 U/L (0-40); Blood Urea Nitrogen 30 mg/dL (8-23); Calcium 8.4 mg/dL (8.5-10.5); Carbon Dioxide 20 mmol/L (22-29); Chloride 87 mmol/L (98-107); Globulin 3.8 g/dL (1.3-4.6); Glomerular Filtration Rate 47.6 mL/min (90-130); Glucose 101 mg/dL (65-115); Magnesium 1.9 mg/dL (1.7-2.3); Osmolality Calculated 256 mOsm/kg (285-295); Potassium 5.4 mmol/L (3.5-5.1); Sodium 120 mmol/L (136-145); Total Bilirubin 3.7 mg/dL (0.15-1.2)
[2020-10-04 05:55] LABS: Vancomycin Trough 23.4 ug/mL (10-15)
[2020-10-04 06:45] LABS: Glucose Point of Care 123 mg/dL (70-110)
--- NOTE | 2020-10-04 07:00 | XRR_ITS ---
PROCEDURE INFORMATION: Exam: XR Chest Exam date and time: 10/04/2020 7:45 AM Age: 60 years old Clinical indication: Shortness of breath; Additional info: Respiratory failure TECHNIQUE: Imaging protocol: XR of the chest Views: 1 view. COMPARISON: CT chest abd pel w con* 10/02/2020 2:51 PM FINDINGS: Tubes, catheters and devices: A permanent pacemaker appears in satisfactory position. Lungs: There is right basilar opacification consistent with basilar consolidation atelectasis and pleural effusion. This is similar to the previous chest x-ray. There are diffuse interstitial infiltrates. Pleural spaces: There is a moderate right pleural effusion unchanged. Heart/Mediastinum: The cardiac silhouette is enlarged but unchanged. Bones/joints: Unremarkable. XR/XR chest 1V portable [id number] IMPRESSION: 1. Stable cardiomegaly. 2. No significant change in the right basilar opacification consistent with basilar consolidation atelectasis and pleural effusion.
[2020-10-04] MEDS: midodrine 5 mg TABLET PO ×3 (08:46→21:25)
[2020-10-04] MEDS: amiodarone 200 mg Tablet 400 MG PO (08:46)
[2020-10-04] MEDS: CLONazepam 1 mg Tablet PO (08:46)
[2020-10-04] MEDS: magnesium oxide 400 mg tablet PO ×2 (08:46→17:44)
[2020-10-04] MEDS: potassium chloride ER 20 mEq Tablet 40 MEQ PO (08:46)
[2020-10-04] MEDS: spironolactone 25 mg Tablet PO (08:46)
[2020-10-04] MEDS: apixaban 5 mg Tablet PO ×2 (08:47→21:25)
[2020-10-04] MEDS: aspirin 81 mg EC Tablet PO (08:47)
[2020-10-04] MEDS: docusate sodium 100 mg Capsule PO ×2 (08:47→17:44)
[2020-10-04] MEDS: vancomycin 1,000 MG in sodium chloride 0.9% 250 ML 250 MG IV ×2 (08:51→23:07)
[2020-10-04 11:23] LABS: Glucose Point of Care 215 mg/dL (70-110)
[2020-10-04] MEDS: bumetanide 0.25 mg/mL SDV 10 mL 2 MG IV (12:05)
--- NOTE | 2020-10-04 13:01 | P.PN_ITS ---
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 Laboratory workup on arrival showed a WBC of 15.6, hemoglobin of 10.9, hematocrit 34.1 and a platelet count of 293. Sodium 121, potassium 5.0, chloride 85, bicarb 22, BUN 21 and creatinine of 1.5. AST of 27, ALT of 19, alkaline phosphatase of 156 and ammonia 45. Urinalysis and urinary drug screen were all negative. Imaging studies included a CT of chest abdomen and pelvis with showed cardiomegaly with moderate right pleural effusion and compressive atelectasis of right lower lobe, a few hazy ground glass opacities, cirrhotic liver with fibrofatty infiltration, small to moderate ascites, markedly distended urinary bladder and anasarca. Head CT was negative. Upon arrival to ER patient as noted to have significant edema, erythema to both lower extremities with wounds in the setting of diabetes. Also noted to have a fever of 101.3 on arrival. He was empirically started on antibiotics including vancomycin pharmacy to dose and zosyn 3.375 gm IV q8hr. This was in addition to bumex 2 mg IV BID, NSAIDS and aldactone. Unfortunately patients renal function worsened to a creatinine of 1.5. Those medication were all held. Medications: Reviewed: Yes Vitals/I&O/Wt Last Vital Signs Temp 98.7 F 10/04/20 11:38 Pulse 71 10/04/20 11:38 Resp 17 10/04/20 11:38 BP 95/68 10/04/20 11:38 Pulse Ox 95 10/04/20 11:38 10/03/20 10/04/20 10/04/20 22:59 06:59 14:59 Intake Total 300 / 660 50 / 710 1400 / 1400 Output Total 1500 / 1900 Balance 300 / 260 -1450 / -1190 1400 / 1400 Weight last 48 hrs Weight 113.398 kg Weight 113.988 kg Weight 117.934 kg Physical Exam Narrative: EXAM NARRATIVE: General : jaundice appearing HEENT : Grossly unremarkable Chest: Normal to except inspection chest rises normally with inspiration Lungs: Decrese BS on Right > Left Abdomen: Obviously distended with fluid wave. NT/ND Extremities: 4+ pitting edema into groin. Bilateral lower extremities with erythema and warmth to touch. Right leg just slightly worse than left leg. - improving Skin: Onchyolosis of toenails. Dry toes and feet with calluses medially and on plantar surfaces. Neuro: Alert oriented to self and place. No asterisk. [id number] was close. Cranial nerves II through XII grossly intact. Motor and sensory grossly intact no focal deficits noted. Urinary Catheter Management^: Bell: Cath Placed During This Visit: yes Reason for Continuing Indwelling Catheter: Other Urinary Catheter Date of Insertion: 10/02/20 Urinary Catheter Time of Insertion: 15:00 Data : 10/04/20 04:16 10/04/20 04:16 Micro: Microbiology 10/02/20 14:50 Blood Culture - Preliminary Blood NEGATIVE TO DATE 10/02/20 13:50 Blood Culture - Preliminary Blood NEGATIVE TO DATE A&P Assessment and plan (1) Cirrhosis of liver with ascites: Status: Acute (2) Atrial flutter with rapid ventricular response: Status: Acute (3) Atrial flutter: Status: Acute (4) Pneumonia: Status: Acute Qualifiers: Laterality: left Lung location: unspecified part of lung Pneumonia type: due to unspecified organism Qualified Code(s): J18.9 - Pneumonia, unspecified organism (5) Acute exacerbation of congestive heart failure: Status: Acute (6) Left bundle branch block: Status: Acute (7) Generalized anxiety disorder: Status: Acute (8) ICD (implantable cardioverter-defibrillator) in place: Status: Acute (9) Coronary artery disease: Status: Acute Qualifiers: Coronary Disease-Associated Artery/Lesion type: [place] artery [place] vs. transplanted heart: [place] heart Associated angina: without angina Qualified Code(s): I25.10 - Atherosclerotic heart disease of [place] coronary artery without angina pectoris (10) Type 2 diabetes mellitus: Status: Acute Qualifiers: Diabetes mellitus complication status: with other specified complication Diabetes mellitus ferry terminal agent insulin use: unspecified detention insulin use status Qualified Code(s): E11.69 - Type 2 diabetes mellitus with other specified complication (11) Cellulitis: Status: Acute Qualifiers: Site of cellulitis: extremity Site of cellulitis of extremity: lower extremity Laterality: right Qualified Code(s): L03.115 - Cellulitis of right lower limb (12) LV dysfunction: Status: Acute (13) Ischemic cardiomyopathy: Status: Acute (14) Non-compliant behavior: Status: Acute (15) Smoker: Status: Acute Sepsis due to diabetic LE wounds with cellulites - Continue vancomycin pharmacy to dose - Zosyn 3.375g IV q8hr - 10/02- blood culture x 2 - NGTD - T-max on arrival 101.3 - Leukocytosis improving - Wound care - Keep legs elevated - May consider wrapping - If no improvement may consider imaging - Will obtain BRIANNE Acute on chronic encephalopathy - Infectious vs hepatic - Improving - Appears to be back to baseline - Ammonia 45 on arrival - Holding sedating agents Liver Cirrhosis due to Cardiac Hepatopathy / Jaundice - LFT stable - Increasing total bill - Thrombocytopenia improving - Ascites - May consider Paracentesis - CMP / INR in am Acute on chronic severe systolic heart failure - EF of 15-20% - Bumex 2 mg IV BID - HOLD due to worsening renal function - Monitor daily weight - May consider cardiology consult Acute renal insufficiency / Hyperkalemia - Cardio-hepatorenal component - Hold bumex, Kcl, aldactone, NSAIDs - Consult neprhology - Monitor urine output Acute Respiratory distress with hypoxia - Component of fluid overload and undiagnosed COPD - Now weaned off oxygen - Bronchodilator treatments - Chest x-ray today - stable - May consider paracentesis Paroxysmal Atrial fibrillation/flutter - Amiodarone decrease to 200 mg PO BID - Eliquis 5 mg PO BID - may consider reducing dose to 2.5 - Monitor on Telemetry - On Midodrine for chronic hypotension Diabetes Mellitus - Sliding scale insulin - Qachs checks - Carb/cardiac diet DVT pox - Eliquis Attestations Medical Necessity Statement*: Will require further hospitalization for management of increasing renal failure, fluid overload, hyperkalemia and cellulitis Time Spent in Patient Care: Greater than 35 minutes (>than 50% of time spent in counselling and/or direct pt care on unit) . Coding Level of Care Code Acute Metal Storage Worker for Tae Fwfiona Diagnoses Cirrhosis of liver with ascites K74.60; R18.8 Atrial flutter with rapid ventricular response I48.92 Atrial flutter I48.92 Pneumonia J18.9 Laterality: left Lung location: unspecified part of lung Pneumonia type: due to unspecified organism Acute exacerbation of congestive heart failure I50.9 Left bundle branch block I44.7 Generalized anxiety disorder F41.1 ICD (implantable cardioverter-defibrillator) in place Z95.810 Coronary artery disease I25.10 Coronary Disease-Associated Artery/Lesion type: [place] artery [place] vs. transplanted heart: [place] heart Associated angina: without angina Type 2 diabetes mellitus E11.69 Diabetes mellitus complication status: with other specified complication Diabetes mellitus detention insulin use: unspecified ferry terminal agent insulin use status Cellulitis L03.115 Site of cellulitis: extremity Site of cellulitis of extremity: lower extremity Laterality: right LV dysfunction I51.9 Ischemic cardiomyopathy I25.5 Non-compliant behavior R46.89 Smoker F17.200
[2020-10-04] MEDS: sodium polystyrene sulfonate 15 gm/60 mL Btl PO (14:15)
[2020-10-04 17:16] LABS: Glucose Point of Care 235 mg/dL (70-110)
[2020-10-04] MEDS: amiodarone 200 mg Tablet PO (17:45)
[2020-10-04 20:52] LABS: Glucose Point of Care 156 mg/dL (70-110)
[2020-10-04] MEDS: LORazepam 0.5 mg Tablet 0.25 MG PO (21:26)
[2020-10-05] VITALS (13 sets, daily range): BP systolic 90–104; BP diastolic 60–70; PULSE 60–77; RESP 16–20; TEMP 35.8–36.5; O2SAT 90–99; BMI 35.8
[2020-10-05] MEDS: piperacillin-tazobactam 3.375 GM in sodium chloride 0.9% (plus) 50 ML IV ×3 (05:05→20:17)
[2020-10-05 06:30] LABS: Basophils % 0.4 %; Eosinophils # 0.1 10^3/uL (0.0-0.8); Eosinophils % 0.6 %; Hemoglobin 10.6 g/dL (11.7-16.6); Lymphocytes # 1.7 10^3/uL (0.8-4.8); Lymphocytes % 14.8 %; Mean Corpuscular HGB Conc 32.1 g/dL (30.0-36.0); Mean Corpuscular Hemoglobin 24.8 pg (28.0-34.0); Mean Corpuscular Volume 77.1 fL (80-94); Mean Platelet Volume 10.1 fL (7.4-10.4); Monocytes # 1.1 10^3/uL (0.2-0.9); Monocytes % 9.3 %; Neutrophils # 8.38 10^3/uL (1.8-7.7); Neutrophils % 73.9 %; Nucleated Red Blood Cells % 0.2 %; Platelet Count 263 10^3/cmm (130-400); Red Blood Count 4.28 10^6/uL (4.1-5.3); Red Cell Distribution Width 20.6 % (12.1-15.1); White Blood Count 11.3 10^3/uL (4.0-10.0)
[2020-10-05 06:45] LABS: Glucose Point of Care 122 mg/dL (70-110)
[2020-10-05 06:48] LABS: Ammonia 10 umol/L (16-60)
--- NOTE | 2020-10-05 07:07 | PC.NURSE ---
Patient educated multiple time during the night to continue keeping legs elevated to assist with leg edema. Patient expressed understanding but stated he needed to continue to remain sitting on side of bed and was unable to breath laying down. Nurse educated patient about the possibility of legs becoming worse if not elevated.
[2020-10-05] MEDS: ipratropium-albuterol 3 mL Neb INHALATION ×3 (08:17→20:01)
[2020-10-05 08:18] LABS: Procalcitonin 0.73 ng/mL (0-0.5)
[2020-10-05 08:29] LABS: Alanine Aminotransferase 20 U/L (0-41); Alkaline Phosphatase 108 IU/L (40-130); Globulin 3.7 g/dL (1.3-4.6); Glucose 98 mg/dL (65-115); Total Protein 6.7 g/dL (6.6-8.7)
[2020-10-05 08:38] LABS: Chloride 85 mmol/L (98-107); Potassium 5.2 mmol/L (3.5-5.1); Sodium 120 mmol/L (136-145)
[2020-10-05 08:39] LABS: Anion Gap 21.2 (5-19); Aspartate Amino Transferase 45 U/L (0-40); Blood Urea Nitrogen 37 mg/dL (8-23); Calcium 7.8 mg/dL (8.5-10.5); Carbon Dioxide 19 mmol/L (22-29); Glomerular Filtration Rate 47.6 mL/min (90-130); Osmolality Calculated 259 mOsm/kg (285-295); Total Bilirubin 3.3 mg/dL (0.15-1.2)
[2020-10-05 09:27] LABS: Vancomycin Trough 26.6 ug/mL (10-15)
--- NOTE | 2020-10-05 09:30 | PC.NURSE ---
Lab called with critical vancomycin trough of 26.6. typewriter assembler notified care nurse KENYA Luis and Dr Salcedo.
[2020-10-05] MEDS: docusate sodium 100 mg Capsule PO ×2 (09:46→18:02)
[2020-10-05] MEDS: magnesium oxide 400 mg tablet PO ×2 (09:46→18:02)
[2020-10-05] MEDS: apixaban 5 mg Tablet PO ×2 (09:46→20:18)
[2020-10-05] MEDS: aspirin 81 mg EC Tablet PO (09:46)
[2020-10-05] MEDS: midodrine 5 mg TABLET PO ×3 (09:46→20:18)
[2020-10-05] MEDS: amiodarone 200 mg Tablet PO ×2 (09:46→18:02)
[2020-10-05] MEDS: vancomycin 1,000 MG in sodium chloride 0.9% 250 ML 250 MG IV (10:12)
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
--- NOTE | 2020-10-05 12:49 | PC.SOCIAL ---
IMM Update Pg. 2 of IMM updated and reviewed with patient. Copy provided.
[2020-10-05 14:26] LABS: Cortisol Random 19.29 ug/dL (2.47-19.5); Creatine Phosphokinase 241 U/L (39-308); Thyroid Stimulating Hormone 6.83 uIU/mL (0.27-4.20); Uric Acid 5.9 mg/dL (3.4-7.0)
[2020-10-05 14:37] LABS: Potassium, Radom Urine 32 mmol/L
[2020-10-05 14:48] LABS: Urine Random Chloride 10 mmol/L; Urine Random Sodium 10 mmol/L
[2020-10-05] MEDS: sodium chloride 1 gm Tablet PO ×2 (14:59→20:18)
[2020-10-05 16:43] LABS: Glucose Point of Care 229 mg/dL (70-110)
[2020-10-05 16:44] LABS: Glucose Point of Care 175 mg/dL (70-110)
--- NOTE | 2020-10-05 17:05 | PM.PN ---
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 Laboratory workup on arrival showed a WBC of 15.6, hemoglobin of 10.9, hematocrit 34.1 and a platelet count of 293. Sodium 121, potassium 5.0, chloride 85, bicarb 22, BUN 21 and creatinine of 1.5. AST of 27, ALT of 19, alkaline phosphatase of 156 and ammonia 45. Urinalysis and urinary drug screen were all negative. Imaging studies included a CT of chest abdomen and pelvis with showed cardiomegaly with moderate right pleural effusion and compressive atelectasis of right lower lobe, a few hazy ground glass opacities, cirrhotic liver with fibrofatty infiltration, small to moderate ascites, markedly distended urinary bladder and anasarca. Head CT was negative. Upon arrival to ER patient as noted to have significant edema, erythema to both lower extremities with wounds in the setting of diabetes. Also noted to have a fever of 101.3 on arrival. He was empirically started on antibiotics including vancomycin pharmacy to dose and zosyn 3.375 gm IV q8hr. This was in addition to bumex 2 mg IV BID, NSAIDS and aldactone. Unfortunately patients renal function worsened to a creatinine of 1.5. Those medication were all held. Subjective 10/05 Patient was more alert and talkative today. Was upset and wanting klonopin to be resumed. No fever or chills, no nausea or vomiting. Medications: Reviewed: Yes Vitals/I&O/Wt Last Vital Signs Temp 97.6 F 10/05/20 15:06 Pulse 70 10/05/20 15:06 Resp 17 10/05/20 15:06 BP 97/66 10/05/20 15:06 Pulse Ox 90 10/05/20 15:06 10/05/20 10/05/20 10/05/20 06:59 14:59 22:59 Intake Total 300 / 2050 780 / 780 100 / 880 Output Total 450 / 1525 450 / 450 Balance -150 / 525 330 / 330 100 / 430 Weight last 48 hrs Weight 116.573 kg Weight 113.398 kg Physical Exam Narrative: EXAM NARRATIVE: General : jaundice appearing - improving HEENT : Grossly unremarkable Chest: Normal to except inspection chest rises normally with inspiration Lungs: Decrease BS on Right > Left Abdomen: Obviously distended with fluid wave. NT/ND Extremities: 4+ pitting edema into groin. Bilateral lower extremities with erythema and warmth to touch. Right leg just slightly worse than left leg. - improving Skin: Onchyolosis of toenails. Dry toes and feet with calluses medially and on plantar surfaces. - left calf wound , b/l heel decubitus ulcer - no obvious drainage. Neuro: Alert oriented to self and place. No asterisk. Cyyiex-sq-[id number] was close. Cranial nerves II through XII grossly intact. Motor and sensory grossly intact no focal deficits noted. Urinary Catheter Management^: Bell: Cath Placed During This Visit: yes Reason for Continuing Indwelling Catheter: Acute Urinary Retention or Obstruction Urinary Catheter Date of Insertion: 10/02/20 Urinary Catheter Time of Insertion: 15:00 Data : 10/05/20 05:55 10/05/20 05:55 A&P Assessment and plan (1) Cirrhosis of liver with ascites: Status: Acute (2) Atrial flutter with rapid ventricular response: Status: Acute (3) Atrial flutter: Status: Acute (4) Pneumonia: Status: Acute Qualifiers: Laterality: left Lung location: unspecified part of lung Pneumonia type: due to unspecified organism Qualified Code(s): J18.9 - Pneumonia, unspecified organism (5) Acute exacerbation of congestive heart failure: Status: Acute (6) Left bundle branch block: Status: Acute (7) Generalized anxiety disorder: Status: Acute (8) ICD (implantable cardioverter-defibrillator) in place: Status: Acute (9) Coronary artery disease: Status: Acute Qualifiers: Coronary Disease-Associated Artery/Lesion type: [place] artery [place] vs. transplanted heart: [place] heart Associated angina: without angina Qualified Code(s): I25.10 - Atherosclerotic heart disease of [place] coronary artery without angina pectoris (10) Type 2 diabetes mellitus: Status: Acute Qualifiers: Diabetes mellitus complication status: with other specified complication Diabetes mellitus usp insulin use: unspecified usp insulin use status Qualified Code(s): E11.69 - Type 2 diabetes mellitus with other specified complication (11) Cellulitis: Status: Acute Qualifiers: Site of cellulitis: extremity Site of cellulitis of extremity: lower extremity Laterality: right Qualified Code(s): L03.115 - Cellulitis of right lower limb (12) LV dysfunction: Status: Acute (13) Ischemic cardiomyopathy: Status: Acute (14) Non-compliant behavior: Status: Acute (15) Smoker: Status: Acute Sepsis due to diabetic LE wounds with cellulites - Continue vancomycin pharmacy to dose - Zosyn 3.375g IV q8hr - Can consider de-escalation of abx - 10/02- blood culture x 2 - NGTD - T-max on arrival 101.3 - Fever curve improved - Leukocytosis improving - Wound care - Keep legs elevated - heal off-loading - May consider wrapping if brianne negative - If no improvement may consider imaging - Will obtain BRIANNE - to be read in am Acute renal insufficiency / Hyperkalemia / Hyponatremia - Cardio-hepatorenal component - Hold bumex, Kcl, aldactone, NSAIDs - Monitor urine output - Nephrology consulted - Vaptan plus diuretics per nephro - S/p kayexelate 15g PO x 1 Acute on chronic encephalopathy - Infectious vs hepatic - Improving - Appears to be back to baseline - Ammonia 45 on arrival - Holding sedating agents Liver Cirrhosis due to Cardiac Hepatopathy / Jaundice - LFT stable - Increasing total bill - Thrombocytopenia improving - Ascites - May consider Paracentesis - CMP / INR in am Acute on chronic severe systolic heart failure - EF of 15-20% - Bumex 2 mg IV BID - HOLD due to worsening renal function - Monitor daily weight - May consider cardiology consult Acute Respiratory distress with hypoxia - Improved - Component of fluid overload and undiagnosed COPD - Now weaned off oxygen - Bronchodilator treatments - Chest x-ray today - stable - May consider paracentesis - Off oxygen currently Paroxysmal Atrial fibrillation/flutter - Amiodarone decrease to 200 mg PO BID - Eliquis 5 mg PO BID - may consider reducing dose to 2.5 - Monitor on Telemetry - On Midodrine for chronic Hypotension Diabetes Mellitus - Sliding scale insulin - Qachs checks - Carb/cardiac diet DVT pox - Eliquis Disposition - Plan to discharge to SNF at discharge. CM working on authorization Attestations Medical Necessity Statement*: Will continue hospitalization for management of lower extremity infection on antibiotics and renal dysfunction with electrolyte abnormalities Time Spent in Patient Care: Greater than 35 minutes (>than 50% of time spent in counselling and/or direct pt care on unit). Coding Level of Care Code Acute Shoe Stock Associate for Hennyg Fwd Diagnoses Cirrhosis of liver with ascites K74.60; R18.8 Atrial flutter with rapid ventricular response I48.92 Atrial flutter I48.92 Pneumonia J18.9 Laterality: left Lung location: unspecified part of lung Pneumonia type: due to unspecified organism Acute exacerbation of congestive heart failure I50.9 Left bundle branch block I44.7 Generalized anxiety disorder F41.1 ICD (implantable cardioverter-defibrillator) in place Z95.810 Coronary artery disease I25.10 Coronary Disease-Associated Artery/Lesion type: [place] artery [place] vs. transplanted heart: [place] heart Associated angina: without angina Type 2 diabetes mellitus E11.69 Diabetes mellitus complication status: with other specified complication Diabetes mellitus usp insulin use: unspecified intermission coordinator insulin use status Cellulitis L03.115 Site of cellulitis: extremity Site of cellulitis of extremity: lower extremity Laterality: right LV dysfunction I51.9 Ischemic cardiomyopathy I25.5 Non-compliant behavior R46.89 Smoker F17.200
--- NOTE | 2020-10-05 18:50 | USCV_ITS ---
Ivan De Leon Age: 60 Gender: M : 1960 Exam Date: 10/05/2020 14:48 Ordering Phys: Chace Salcedo MD Technologist: [place] [facility] [place]: Foot Infection, poor healing RIGHT LEFT Brachial 92.00 mmHg Brachial mmHg Pressure (mmHg) Waveform Pressure (mmHg) Waveform 108.00 CHANGE DIRECTOR 111.00 123.00 DPA 107.00 1.34 Ankle/Brachial Index 1.21 FINDINGS See measurements listed above. Normal resting ABIs bilaterally CONCLUSIONS No significant arterial obstruction, based on the above findings. Dr Herman Hendrix MD [facility] (Electronically Signed) Final Date: 06 October 2020 23:06 S
[2020-10-05] MEDS: CLONazepam 1 mg Tablet PO (20:18)
[2020-10-05 21:13] LABS: Glucose Point of Care 152 mg/dL (70-110)
[2020-10-05 21:40] LABS: Alanine Aminotransferase 29 U/L (0-41); Albumin Level 3.3 g/dL (3.5-5.2); Alkaline Phosphatase 112 IU/L (40-130); Anion Gap 19.8 (5-19); Aspartate Amino Transferase 57 U/L (0-40); Blood Urea Nitrogen 39 mg/dL (8-23); Calcium 7.9 mg/dL (8.5-10.5); Carbon Dioxide 18 mmol/L (22-29); Chloride 84 mmol/L (98-107); Globulin 3.5 g/dL (1.3-4.6); Glomerular Filtration Rate 56.1 mL/min (90-130); Glucose 120 mg/dL (65-115); Osmolality Calculated 255 mOsm/kg (285-295); Potassium 4.8 mmol/L (3.5-5.1); Total Protein 6.8 g/dL (6.6-8.7)
[2020-10-05 21:47] LABS: Sodium 117 mmol/L (136-145)
[2020-10-06] VITALS (10 sets, daily range): BP systolic 97–110; BP diastolic 61–77; PULSE 64–111; RESP 16–18; TEMP 35.7–37.2; O2SAT 91–98
[2020-10-06] MEDS: vancomycin 1,000 MG in sodium chloride 0.9% 250 ML 250 MG IV ×2 (00:29→10:48)
[2020-10-06] MEDS: bumetanide 0.25 mg/mL SDV 10 mL 2 MG IV (00:44)
[2020-10-06] MEDS: piperacillin-tazobactam 3.375 GM in sodium chloride 0.9% (plus) 50 ML IV ×2 (03:25→11:59)
[2020-10-06 06:37] LABS: Glucose Point of Care 145 mg/dL (70-110)
--- NOTE | 2020-10-06 07:00 | XR_ITS ---
WS: [id number] PORTABLE CHEST HISTORY: respiratory failure COMPARISON: 10/04/2020 Single lead RIGHT subclavian defibrillator is stable in position. Hyperexpanded lungs from emphysema. Increasing opacification in the mid and RIGHT lower lung field. T here is a small to moderate RIGHT pleural effusion with atelectasis. Increasing atelectasis on the RI GHT involving the middle lobe and the RIGHT lower lobe. Small to moderate RIGHT pleural effusion with no pneumothorax. Cardiac size: Mildly enlarged cardiac silhouette. Mediastinum/Aorta: Normal mediastinum. No osseous abnormality seen. XR/XR chest 1V portable [id number] IMPRESSION: 1. Increasing volume loss and atelectasis in the RIGHT middle and RIGHT lower lobes since 10/02/2020 and 10/04/2020. This may be compressive atelectasis from s mall to moderate RIGHT pleural effusion but mucous plugging should also be cons idered. 2. Cardiomegaly.
[2020-10-06 07:02] LABS: Basophils # 0.1 10^3/uL (0.0-0.1); Basophils % 0.7 %; Eosinophils # 0.2 10^3/uL (0.0-0.8); Eosinophils % 1.6 %; Hematocrit 31.8 % (42.0-52.0); Hemoglobin 10.2 g/dL (11.7-16.6); Lymphocytes # 1.5 10^3/uL (0.8-4.8); Lymphocytes % 14.6 %; Mean Corpuscular HGB Conc 32.1 g/dL (30.0-36.0); Mean Corpuscular Hemoglobin 24.6 pg (28.0-34.0); Mean Corpuscular Volume 76.6 fL (80-94); Mean Platelet Volume 10.6 fL (7.4-10.4); Monocytes % 9.6 %; Neutrophils # 7.29 10^3/uL (1.8-7.7); Neutrophils % 72.2 %; Nucleated Red Blood Cells % 0 %; Platelet Count 245 10^3/cmm (130-400); Red Blood Count 4.15 10^6/uL (4.1-5.3); Red Cell Distribution Width 20.4 % (12.1-15.1); White Blood Count 10.1 10^3/uL (4.0-10.0)
--- NOTE | 2020-10-06 07:05 | PM.PN ---
Subjective Subjective: Interval history: states he feels better. dec edema. no n/v/f/c/chacon/d/sob at rest. +orthopnea and PND Medications: Reviewed: Yes Medication Review Details: Current Medications Albuterol/Ipratropium (Ipratropium-Albuterol 3 Ml Neb) 3 ml INHALATION Q6H.RESPIRATORY [facility], [facility] Last Admin: 10/06/20 03:37 Dose: Not Given Documented by: Amiodarone HCl (Amiodarone 200 Mg Tablet) 200 mg PO BID [facility] Last Admin: 10/05/20 18:02 Dose: 200 mg Documented by: Apixaban (Apixaban 5 Mg Tablet) 5 mg PO BID@0900,2100 [facility] Last Admin: 10/05/20 20:18 Dose: 5 mg Documented by: Aspirin (Aspirin 81 Mg Ec Tablet) 81 mg PO DAILY [facility] Last Admin: 10/05/20 09:46 Dose: 81 mg Documented by: Bumetanide (Bumetanide 0.25 Mg/Ml Sdv 10 Ml) 2 mg IV Q12H [facility] Last Admin: 10/06/20 00:44 Dose: 2 mg Documented by: Clonazepam (Clonazepam 1 Mg Tablet) 1 mg PO BEDTIME [facility] Last Admin: 10/05/20 20:18 Dose: 1 mg Documented by: Dextrose (Dextrose 50% Syringe 50 Ml) 50 ml IVP PRN PRN; Protocol PRN Reason: hypoglycemia protocol Dextrose (Dextrose 50% Syringe 50 Ml) 25 ml IVP ONCE PRN; Protocol PRN Reason: hypoglycemia protocol Docusate Sodium (Docusate Sodium 100 Mg Capsule) 100 mg PO BID [facility] Last Admin: 10/05/20 18:02 Dose: 100 mg Documented by: Glucagon (Glucagon 1 Mg/Ml Inj 1 Ml) 1 mg IM ONCE PRN; Protocol PRN Reason: Adult Acute Hypoglycemia Prot. Dextrose (D5w) 500 mls @ 100 mls/hr IV ONCE PRN; Protocol PRN Reason: Adult Acute Hypoglycemia Prot Piperacillin Sod/Tazobactam (Sod 3.375 gm/ Sodium Chloride) 50 mls @ 12.5 mls/hr IV Q8H [facility]; Protocol Last Admin: 10/06/20 03:25 Dose: 12.5 mls/hr Documented by: Vancomycin HCl 1,000 mg/ (Sodium Chloride) 250 mls @ 250 mls/hr IV Q12H [facility] Last Admin: 10/06/20 00:29 Dose: 250 mls/hr Documented by: Albumin Human (Albumin) 25 gm in 100 mls @ 60 mls/hr IV Q8H [facility] Last Admin: 10/06/20 05:13 Dose: 60 mls/hr Documented by: Insulin Aspart (Insulin Aspart 100 Unit/1 Ml) 0 unit SUBCUT WM&BEDTIME [facility]; Protocol Last Admin: 10/05/20 22:03 Dose: 2 unit Documented by: Magnesium Oxide (Magnesium Oxide 400 Mg Tablet) 400 mg PO BID [facility] Last Admin: 10/05/20 18:02 Dose: 400 mg Documented by: Midodrine (Midodrine 5 Mg Tablet) 5 mg PO TID [facility] Last Admin: 10/05/20 20:18 Dose: 5 mg Documented by: Non-Formulary Medication (Canagliflozin [Invokana]) 100 mg PO QAM [facility] Last Admin: 10/06/20 05:19 Dose: Not Given Documented by: Ondansetron HCl (Ondansetron 2 Mg/Ml Sdv 2 Ml) 4 mg IVP Q8H PRN PRN Reason: vomiting, or N/V if npo Last Admin: 10/04/20 21:50 Dose: 4 mg Documented by: Sodium Chloride (Sodium Chloride 1 Gm Tablet) 1 gm PO TID [facility] Last Admin: 10/05/20 20:18 Dose: 1 gm Documented by: Spironolactone (Spironolactone 25 Mg Tablet) 25 mg PO DAILY [facility] Last Admin: 10/04/20 08:46 Dose: 25 mg Documented by: Vitals/I&O/Wt Last Vital Signs Temp 96.3 F L 10/06/20 04:00 Pulse 64 10/06/20 06:00 Resp 17 10/06/20 04:00 BP 97/63 10/06/20 04:00 Pulse Ox 91 10/06/20 04:00 10/05/20 10/06/20 10/06/20 22:59 06:59 14:59 Intake Total 510 / 1290 150 / 1440 Output Total 1000 / 1450 Balance 510 / 840 -850 / -10 Weight last 48 hrs Weight 114.714 kg Weight 116.573 kg Physical Exam Narrative: EXAM NARRATIVE: appears older than stated age, mild jaundice. BP low normal heent- nc/at, icteric, PERRLA neck no jvp lung - deccrackles, dull bases heart reg, +BC abd soft, nt, distended, + ascites ext b/l edema neuro- a,a, o x 2+ moves all ext, interactive Urinary Catheter Management^: Bell: Cath Placed During This Visit: yes Reason for Continuing Indwelling Catheter: Other Urinary Catheter Date of Insertion: 10/02/20 Urinary Catheter Time of Insertion: 15:00 Data : 10/06/20 05:55 10/05/20 20:43 A&P Additional A&P Information 60 yr old man 1. chronic severe CM- no nataliya-i/ aRB, entresto w/ FABIAN. baseline cr is 0.6 -rt effusion on cxr- consider thoracentesis 2. FABIAN- pt has severe CM, and was on aldactone, bactrim, and bumex on admission- please determine if he was on NSAID's -pt likely has CRS, +/- HRS. also med effect -pt was given NSAID on admission -d/c NSAIDs -monitor chemistries and uop -good uop. cr improving slowly 3. hyponatremia- from FABIAN and CHF- agree w/ diuresis- via paracentesis or thoracentesis -na dropped to 117- fluid restrict -hold bumex until na rises -fluid restrict -low ur na- hold diuretics - tsh mildly elevated at 6.8- per medicine- not cause of hyponatremia - normalcortisol level - tolvaptan is not available in the hospital -urine SG 1010 from water and Q diuretic effect -check albumin and give w/ diuretic -monitor chemistries given sz hx 3.inc bili per medicine -agree w/ paracentesis 4. potassium improved 5. DM cellulitis of legs- monitor vanco level. please keep trough under 20. renal dose zosyn -last vanco trough 26- PLEASE LOWER DOSE 6. p a fib- rate controlled discussed w/ Dr. Salcedo in detail seen w/ RN, telehealth visit time spent 30 minutes Attestations Medical Necessity Statement*: cellulitis, fabian, hyponatremia, ascites Time Spent in Patient Care: 16 - 35 minutes Coding Level of Care Code Acute Service Center Representative for Tae Mcclendon
[2020-10-06 08:15] LABS: Alanine Aminotransferase 26 U/L (0-41); Albumin Level 3.5 g/dL (3.5-5.2); Alkaline Phosphatase 105 IU/L (40-130); Aspartate Amino Transferase 57 U/L (0-40); Blood Urea Nitrogen 39 mg/dL (8-23); Calcium 7.9 mg/dL (8.5-10.5); Carbon Dioxide 17 mmol/L (22-29); Chloride 85 mmol/L (98-107); Globulin 3.4 g/dL (1.3-4.6); Glomerular Filtration Rate 68.1 mL/min (90-130); Glucose 113 mg/dL (65-115); Magnesium 2.2 mg/dL (1.7-2.3); Osmolality Calculated 254 mOsm/kg (285-295); Phosphorus 2.8 mg/dL (2.5-4.5); Procalcitonin 0.47 ng/mL (0-0.5); Total Protein 6.9 g/dL (6.6-8.7)
[2020-10-06 08:38] LABS: Anion Gap 20.1 (5-19); Potassium 5.1 mmol/L (3.5-5.1); Sodium 117 mmol/L (136-145)
--- NOTE | 2020-10-06 08:41 | PC.NURSE ---
Patient has Sodium of 117. Rice Drier notified Dr Pop and Care Nurse.
[2020-10-06] MEDS: amiodarone 200 mg Tablet PO ×2 (09:27→18:10)
[2020-10-06] MEDS: docusate sodium 100 mg Capsule PO ×2 (09:27→18:10)
[2020-10-06] MEDS: sodium chloride 1 gm Tablet PO ×3 (09:27→20:49)
[2020-10-06] MEDS: midodrine 5 mg TABLET PO ×3 (09:27→20:49)
[2020-10-06] MEDS: magnesium oxide 400 mg tablet PO ×2 (09:27→18:10)
[2020-10-06] MEDS: aspirin 81 mg EC Tablet PO (09:27)
[2020-10-06] MEDS: apixaban 5 mg Tablet PO (09:27)
[2020-10-06 10:51] LABS: Glucose Point of Care 216 mg/dL (70-110)
--- NOTE | 2020-10-06 11:54 | PM.PN ---
Subjective Subjective: Interval history: He states overall is doing much better than he was coming here. He is looking forward to his rehabilitation and is disappointed that he is not ready to go there today. Understands that his sodium levels are dangerously low. He denies any trouble breathing. Denies chest pain. He does state that he has not slept flat in bed in years, and so most of the time needs to be propped up. Currently sitting up in chair, states is comfortable. States the redness in his legs has significantly improved. He says that he got injured by a IV needle? Catheter? that was tangled in the sheets during last hospitalization. Intermittently there has been small amount of weeping from his legs. Currently minimal. Vitals/I&O/Wt Last Vital Signs Temp 98.1 F 10/06/20 11:29 Pulse 68 10/06/20 11:29 Resp 16 10/06/20 11:29 BP 103/77 10/06/20 11:29 Pulse Ox 96 10/06/20 11:29 10/05/20 10/06/20 10/06/20 22:59 06:59 14:59 Intake Total 510 / 1290 400 / 1690 410 / 410 Output Total 1000 / 1450 Balance 510 / 840 -600 / 240 410 / 410 Weight last 48 hrs Weight 114.714 kg Weight 116.573 kg Physical Exam Const: COMMON NORMALS: no acute distress and patient oriented x3 GENERAL APPEARANCE: frail appearing HENMT: COMMON NORMALS: oropharynx normal Neck/C-Spine: COMMON NORMALS: no JVD Resp: COMMON NORMALS: normal respiratory effort and clear to auscultation bilaterally AUSCULTATION: clear to auscultation bilaterally Cardio: COMMON NORMALS: no JVD, regular rhythm, S1 normal heart sound present, S2 normal heart sound present and No murmurs present (Cardio) RHYTHM: regular rhythm HEART SOUNDS: S1 normal heart sound present and S2 normal heart sound present GI: COMMON NORMALS: Normal to inspection, nondistended, normoactive bowel sounds present, Soft to palpation and non-tender PALPATION: Yes Soft to palpation Extremity: COMMON NORMALS: no joint enlargement GENERAL: Yes edema (Bilateral lower extremity edema, right greater than left.) OTHER: Chronic bilateral lower extremity venous stasis changes. Minimal weeping on the left. Neuro: COMMON NORMALS: patient oriented x3 and moves all extremities Skin: LESIONS: lesion noted OTHER: Shallow ulceration/ruptured blister around 3 cm in diameter on posterior lower left calf. Urinary Catheter Management^: Ebll: Cath Placed During This Visit: yes Reason for Continuing Indwelling Catheter: Other Urinary Catheter Date of Insertion: 10/02/20 Urinary Catheter Time of Insertion: 15:00 Data : 10/06/20 05:55 10/06/20 05:55 A&P Assessment and plan (1) Cirrhosis of liver with ascites: Status: Acute (2) Atrial flutter with rapid ventricular response: Status: Acute (3) Atrial flutter: Status: Acute (4) Pneumonia: Status: Acute Qualifiers: Laterality: left Lung location: unspecified part of lung Pneumonia type: due to unspecified organism Qualified Code(s): J18.9 - Pneumonia, unspecified organism (5) Acute exacerbation of congestive heart failure: Status: Acute (6) Left bundle branch block: Status: Acute (7) Generalized anxiety disorder: Status: Acute (8) ICD (implantable cardioverter-defibrillator) in place: Status: Acute (9) Coronary artery disease: Status: Acute Qualifiers: Coronary Disease-Associated Artery/Lesion type: [place] artery [place] vs. transplanted heart: [place] heart Associated angina: without angina Qualified Code(s): I25.10 - Atherosclerotic heart disease of [place] coronary artery without angina pectoris (10) Type 2 diabetes mellitus: Status: Acute Qualifiers: Diabetes mellitus complication status: with other specified complication Diabetes mellitus senior care insulin use: unspecified recenterer insulin use status Qualified Code(s): E11.69 - Type 2 diabetes mellitus with other specified complication (11) Cellulitis: Status: Acute Qualifiers: Site of cellulitis: extremity Site of cellulitis of extremity: lower extremity Laterality: right Qualified Code(s): L03.115 - Cellulitis of right lower limb (12) LV dysfunction: Status: Acute (13) Ischemic cardiomyopathy: Status: Acute (14) Non-compliant behavior: Status: Acute (15) Smoker: Status: Acute Hyponatremia: Persistently low sodium, 117 today. Appreciate nephrology assessment, recommendations. Diuretic held today. Fluid restriction maintain 1200 mL/day. Check T4, T3. Continue to monitor sodium, I&O and volume status. He states would not want to stay in the hospspital longer than 1-2 days. We discussed risks of severely low sodium level and he understands need behind additional hospitalization and monitoring until sodium level is improving sufficiently. Sepsis due to diabetic LE wounds with cellulites: resolving. Continue antibiotics. Cellulitis: with significant improvement. Change Abx to cipro and doxycycline by mouth. BRIANNE pending. Acute renal insufficiency: improving. - Cardio-hepatorenal component, continuing with albumin infusions. Diuretics had to be held. - Hold bumex, Kcl, aldactone, NSAIDs - Monitor urine output - Vaptannot available - S/p kayexelate 15g PO x 1 Acute on chronic encephalopathy: appears improved to baseline. Continue treatment of metabolic abnormalities, infection. Did not see that he is on lactulose. 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 Eliquis would have to be held if paracentesis considered. Additional benefit, although appeas SBP suspicion was not high, may help exclude this possibility as well. Sepsis improving. As it appears exceedingly likely he may benefit from proceding with paracentesis, Eliquis for now is held. Small pleural effusion: discussed w radiology, rather small for thoracentesis Acute on chronic severe systolic heart failure: fluid restriction. Diuretic on hold for now due to worsening hyponatremia. - EF of 15-20% Acute Respiratory distress with hypoxia - Improved - Component of fluid overload and undiagnosed COPD Doing well on room air. Paroxysmal Atrial fibrillation/flutter : hold Eliquis for now - Amiodarone decrease to 200 mg PO BID - Monitor on Telemetry - On Midodrine for chronic Hypotension Diabetes Mellitus - Sliding scale insulin - Qachs checks - Carb/cardiac diet DVT pox - heparin SC, changed from Eliquis as paracentesis appears may likely be needed His prognosis is poor with advanced cirrhosis complicated with hepatorrenal syndrome, severe hyponatremia, with severe CHF among other comorbidities. Disposition - Plan to discharge to SNF at discharge. Attestations Medical Necessity Statement*: Continue admisison for assessment and management of severe hyponatremia, CHF, in setting of advanced cirrhosis, improving FABIAN, severe CHF and other comorbidities. Coding Level of Care Code Acute Dry Chain Operator for Tae Mcclendon Diagnoses Cirrhosis of liver with ascites K74.60; R18.8 Atrial flutter with rapid ventricular response I48.92 Atrial flutter I48.92 Pneumonia J18.9 Laterality: left Lung location: unspecified part of lung Pneumonia type: due to unspecified organism Acute exacerbation of congestive heart failure I50.9 Left bundle branch block I44.7 Generalized anxiety disorder F41.1 ICD (implantable cardioverter-defibrillator) in place Z95.810 Coronary artery disease I25.10 Coronary Disease-Associated Artery/Lesion type: [place] artery [place] vs. transplanted heart: [place] heart Associated angina: without angina Type 2 diabetes mellitus E11.69 Diabetes mellitus complication status: with other specified complication Diabetes mellitus senior care insulin use: unspecified senior care insulin use status Cellulitis L03.115 Site of cellulitis: extremity Site of cellulitis of extremity: lower extremity Laterality: right LV dysfunction I51.9 Ischemic cardiomyopathy I25.5 Non-compliant behavior R46.89 Smoker F17.200
[2020-10-06 14:16] LABS: Free T4 Free Thyroxine 1.19 ng/dL (0.82-1.77); T3 Free 1.3 PG/ML (2.0-4.4)
--- NOTE | 2020-10-06 14:58 | PC.NURSE ---
this nurse has had to change tanesha pads from under pt's feet/legs every 2-3 hours from weeping.
[2020-10-06 16:47] LABS: Glucose Point of Care 125 mg/dL (70-110)
[2020-10-06 17:12] LABS: Vancomycin Random 29.6 ug/mL (20.0-40.0)
[2020-10-06 17:13] LABS: Albumin Level 3.5 g/dL (3.5-5.2); Alkaline Phosphatase 111 IU/L (40-130); Blood Urea Nitrogen 37 mg/dL (8-23); Carbon Dioxide 17 mmol/L (22-29); Chloride 93 mmol/L (98-107); Globulin 3.5 g/dL (1.3-4.6); Glucose 100 mg/dL (65-115); Osmolality Calculated 263 mOsm/kg (285-295); Sodium 122 mmol/L (136-145); Total Bilirubin 2.7 mg/dL (0.15-1.2)
[2020-10-06 17:27] LABS: Alanine Aminotransferase 19 U/L (0-41); Anion Gap 16.3 (5-19); Aspartate Amino Transferase 30 U/L (0-40); Potassium 4.3 mmol/L (3.5-5.1)
[2020-10-06] MEDS: doxycycline 100 mg Tablet PO (18:10)
[2020-10-06] MEDS: ipratropium-albuterol 3 mL Neb INHALATION (20:15)
[2020-10-06] MEDS: CLONazepam 1 mg Tablet PO (20:49)
[2020-10-06] MEDS: ciprofloxacin 500 mg Tablet PO (20:49)
[2020-10-06] MEDS: heparin 5,000 unit/mL INJ 1 mL 5000 UNIT SUBCUT (20:49)
[2020-10-06 20:54] LABS: Glucose Point of Care 163 mg/dL (70-110)
[2020-10-06] MEDS: guaiFENesin 600 mg Tablet PO (22:50)
[2020-10-07] VITALS (12 sets, daily range): BP systolic 95–140; BP diastolic 61–72; PULSE 49–108; RESP 16–18; TEMP 36.3–36.7; O2SAT 90–99
[2020-10-07] MEDS: ipratropium-albuterol 3 mL Neb INHALATION ×2 (03:43→15:13)
[2020-10-07] MEDS: heparin 5,000 unit/mL INJ 1 mL 5000 UNIT SUBCUT ×2 (05:51→12:39)
[2020-10-07 06:36] LABS: Glucose Point of Care 153 mg/dL (70-110)
--- NOTE | 2020-10-07 07:06 | PM.PN ---
Subjective Subjective: Interval history: feels better. swollen, no n/v/f/c/chacon/d/sob Medications: Reviewed: Yes Medication Review Details: Current Medications Albuterol/Ipratropium (Ipratropium-Albuterol 3 Ml Neb) 3 ml INHALATION Q6H.RESPIRATORY [facility] Last Admin: 10/07/20 03:43 Dose: 3 ml Documented by: Amiodarone HCl (Amiodarone 200 Mg Tablet) 200 mg PO BID [facility] Last Admin: 10/06/20 18:10 Dose: 200 mg Documented by: Apixaban (Apixaban 5 Mg Tablet) 5 mg PO BID@0900,2100 [facility] Last Admin: 10/06/20 09:27 Dose: 5 mg Documented by: Aspirin (Aspirin 81 Mg Ec Tablet) 81 mg PO DAILY [facility] Last Admin: 10/06/20 09:27 Dose: 81 mg Documented by: Ciprofloxacin HCl (Ciprofloxacin 500 Mg Tablet) 500 mg PO BID@0900,2100 [facility]; Protocol Last Admin: 10/06/20 20:49 Dose: 500 mg Documented by: Clonazepam (Clonazepam 1 Mg Tablet) 1 mg PO BEDTIME [facility] Last Admin: 10/06/20 20:49 Dose: 1 mg Documented by: Dextrose (Dextrose 50% Syringe 50 Ml) 50 ml IVP PRN PRN; Protocol PRN Reason: hypoglycemia protocol Dextrose (Dextrose 50% Syringe 50 Ml) 25 ml IVP ONCE PRN; Protocol PRN Reason: hypoglycemia protocol Docusate Sodium (Docusate Sodium 100 Mg Capsule) 100 mg PO BID [facility] Last Admin: 10/06/20 18:10 Dose: 100 mg Documented by: Doxycycline Monohydrate (Doxycycline 100 Mg Tablet) 100 mg PO BID [facility]; Protocol Last Admin: 10/06/20 18:10 Dose: 100 mg Documented by: Glucagon (Glucagon 1 Mg/Ml Inj 1 Ml) 1 mg IM ONCE PRN; Protocol PRN Reason: Adult Acute Hypoglycemia Prot. Guaifenesin (Guaifenesin 600 Mg Tablet) 600 mg PO BID [facility] Last Admin: 10/06/20 22:50 Dose: 600 mg Documented by: Heparin Sodium (Beef Lung) (Heparin 5,000 Unit/Ml Inj 1 Ml) 5,000 unit SUBCUT Q8H [facility] Last Admin: 10/07/20 05:51 Dose: 5,000 unit Documented by: Dextrose (D5w) 500 mls @ 100 mls/hr IV ONCE PRN; Protocol PRN Reason: Adult Acute Hypoglycemia Prot Albumin Human (Albumin) 25 gm in 100 mls @ 60 mls/hr IV Q8H [facility] Last Admin: 10/07/20 05:51 Dose: 60 mls/hr Documented by: Insulin Aspart (Insulin Aspart 100 Unit/1 Ml) 0 unit SUBCUT WM&BEDTIME [facility]; Protocol Last Admin: 10/06/20 21:05 Dose: 2 unit Documented by: Magnesium Oxide (Magnesium Oxide 400 Mg Tablet) 400 mg PO BID [facility] Last Admin: 10/06/20 18:10 Dose: 400 mg Documented by: Midodrine (Midodrine 5 Mg Tablet) 5 mg PO TID [facility] Last Admin: 10/06/20 20:49 Dose: 5 mg Documented by: Non-Formulary Medication (Canagliflozin [Invokana]) 100 mg PO QAM [facility] Last Admin: 10/07/20 06:40 Dose: Not Given Documented by: Ondansetron HCl (Ondansetron 2 Mg/Ml Sdv 2 Ml) 4 mg IVP Q8H PRN PRN Reason: vomiting, or N/V if npo Last Admin: 10/04/20 21:50 Dose: 4 mg Documented by: Sodium Chloride (Sodium Chloride 1 Gm Tablet) 1 gm PO TID [facility] Last Admin: 10/06/20 20:49 Dose: 1 gm Documented by: Vitals/I&O/Wt Last Vital Signs Temp 97.7 F 10/07/20 04:00 Pulse 75 10/07/20 06:00 Resp 17 10/07/20 04:00 BP 101/66 10/07/20 04:00 Pulse Ox 95 10/07/20 04:00 10/06/20 10/07/20 10/07/20 22:59 06:59 14:59 Intake Total 560 / 1470 340 / 1810 Output Total 1000 / 1000 Balance 560 / 1470 -660 / 810 Weight last 48 hrs Weight 112.083 kg Weight 114.714 kg Physical Exam Narrative: EXAM NARRATIVE: appears older than stated age, mild jaundice. BP low normal heent- nc/at, icteric, PERRLA neck no jvp lung - deccrackles, dull bases heart reg, +BC abd soft, nt, distended, + ascites ext b/l edema. rt leg redness- improving neuro- a,a, o x 3 moves all ext, interactive Urinary Catheter Management^: Bell: Cath Placed During This Visit: yes Reason for Continuing Indwelling Catheter: Accurate Measurement of Urinary Output in Critically Ill Patients Urinary Catheter Date of Insertion: 10/02/20 Urinary Catheter Time of Insertion: 15:00 Data : 10/06/20 05:55 10/06/20 16:04 A&P Additional A&P Information 60 yr old man 1. chronic severe CM- no nataliya-i/ aRB, entresto w/ FABIAN. baseline cr is 0.6 -rt effusion on cxr- consider thoracentesis - EF of 15-20% 2. FABIAN- pt has severe CM, and was on aldactone, bactrim, and bumex on admission- please determine if he was on NSAID's -pt likely has CRS, +/- HRS. also med effect -pt was given NSAID on admission -d/c NSAIDs -monitor chemistries and uop -good uop. cr improving slowly 3. hyponatremia- from FABIAN and CHF- agree w/ diuresis- via paracentesis or thoracentesis -na dropped to 117- fluid restrict -na improved to 122 off of diuretics. if want to diurese, would perform paracentesis or thoracentesis -hold bumex until na rises -low ur na- hold diuretics - tsh mildly elevated at 6.8- per medicine- not cause of hyponatremia - normalcortisol level - tolvaptan is not available in the hospital -urine SG 1010 from water and Q diuretic effect -check albumin and give w/ diuretic -monitor chemistries given sz hx 3.inc bili per medicine -agree w/ paracentesis 4. Non AGMA from renal failure- monitor- may use sodium bicarbonate pills w/ diuretics in future 5. DM cellulitis of legs- monitor vanco level. please keep trough under 20. renal dose zosyn -last vanco trough 26- PLEASE LOWER DOSE 6. p a fib- rate controlled 7. DM per medicine discussed w/ RN seen w/ RN, telehealth visit time spent 30 minutes Attestations Medical Necessity Statement*: per medicine Time Spent in Patient Care: 16 - 35 minutes Coding Level of Care Code Acute Director Graphics for Tae Mcclendon
[2020-10-07] MEDS: magnesium oxide 400 mg tablet PO (08:31)
[2020-10-07] MEDS: doxycycline 100 mg Tablet PO (08:31)
[2020-10-07] MEDS: sodium chloride 1 gm Tablet PO ×2 (08:31→15:16)
[2020-10-07] MEDS: guaiFENesin 600 mg Tablet PO (08:32)
[2020-10-07] MEDS: ciprofloxacin 500 mg Tablet PO (08:32)
[2020-10-07] MEDS: amiodarone 200 mg Tablet PO (08:32)
[2020-10-07] MEDS: midodrine 5 mg TABLET PO ×2 (08:32→15:16)
[2020-10-07] MEDS: aspirin 81 mg EC Tablet PO (08:32)
[2020-10-07] MEDS: docusate sodium 100 mg Capsule PO (08:33)
--- NOTE | 2020-10-07 10:07 | PC.SOCIAL ---
IMM Updated Updated pt on Pg 2 IMM. No questions voiced. Provided pt a copy. Signed, dated, & timed copy in chart.
[2020-10-07 10:44] LABS: Glucose Point of Care 164 mg/dL (70-110)
--- NOTE | 2020-10-07 15:28 | PC.NURSE ---
Patient is alert and orientated. Signed AMA paperwork, doctor aware. IV removed, catheter tip intact. Patient tolerated well. Bell cath removed intact. Patient tolerated well.
--- NOTE | 2020-10-07 22:38 | P.DS_ITS ---
Discharge Providers Date of Admission: 10/02/20 16:10 Date of Discharge: October 07, 2020 Attending Provider at Admission: Soy Miller DO Attending Provider at Discharge: Joey Pop Primary Care Provider: MAGUE Candelario Diagnoses at Discharge Discharge Diagnosis (1) Cirrhosis of liver with ascites: Status: Acute (2) Atrial flutter with rapid ventricular response: Status: Acute (3) Atrial flutter: Status: Acute (4) Pneumonia: Status: Acute Qualifiers: Laterality: left Lung location: unspecified part of lung Pneumonia type: due to unspecified organism Qualified Code(s): J18.9 - Pneumonia, unspecified organism (5) Acute exacerbation of congestive heart failure: Status: Acute (6) Left bundle branch block: Status: Acute (7) Generalized anxiety disorder: Status: Acute (8) ICD (implantable cardioverter-defibrillator) in place: Status: Acute (9) Coronary artery disease: Status: Acute Qualifiers: Coronary Disease-Associated Artery/Lesion type: [place] artery [place] vs. transplanted heart: [place]ka heart Associated angina: without angina Qualified Code(s): I25.10 - Atherosclerotic heart disease of [place] coronary artery without angina pectoris (10) Type 2 diabetes mellitus: Status: Acute Qualifiers: Diabetes mellitus complication status: with other specified complication Diabetes mellitus half-way insulin use: unspecified half-way insulin use [facility] Qualified Code(s): E11.69 - Type 2 diabetes mellitus with other specified complication (11) Cellulitis: Status: Acute Qualifiers: Site of cellulitis: extremity Site of cellulitis of extremity: lower extremity Laterality: right Qualified Code(s): L03.115 - Cellulitis of right lower limb (12) LV dysfunction: Status: Acute (13) Ischemic cardiomyopathy: Status: Acute (14) Non-compliant behavior: Status: Acute (15) Smoker: Status: Acute Reason for Visit Reason for Visit: AMS/ POSSIBLE SEPSIS Hospital Course Hospital Course 60-year-old gentleman with severe cardiomyopathy, chronic systolic congestive heart failure, EF 15-20%, status post ICD, CAD, PCI/stenting, liver cirrhosis, seizure disorder, DM 2, HTN, HLD, paroxysmal atrial flutter/fibrillation, on digoxin/amiodarone/Eliquis, with portal hypertension with recurrent ascites, with recent admission to the hospital 09/06-09/17, readmitted 10/02 with altered mental status, with WBC of 15.6, hemoglobin of 10.9, hematocrit 34.1 and a platelet count of 293. Sodium 121, potassium 5.0, chloride 85, bicarb 22, BUN 21 and creatinine of 1.5. AST of 27, ALT of 19, alkaline phosphatase of 156 and ammonia 45. Urinalysis and urinary drug screen were all negative. Imaging studies included a CT of chest abdomen and pelvis with showed cardiomegaly with moderate right pleural effusion and compressive atelectasis of right lower lobe, a few hazy ground glass opacities, cirrhotic liver with fibrofatty infiltration, small to moderate ascites, markedly distended urinary bladder and anasarca. Head CT was negative. Upon arrival to ER patient as noted to have significant edema, erythema to both lower extremities with wounds in the setting of diabetes. Also noted to have a fever of 101.3 on arrival. He was empirically started on antibiotics including vancomycin pharmacy to dose and zosyn 3.375 gm IV q8hr. This was in addition to bumex 2 mg IV BID, NSAIDS and aldactone. Unfortunately patients renal function worsened to a creatinine of 1.5. Those medication were all held. Hospitalization was also complicated by worsening hyponatremia, low sodium 117. Diuretics had to be discontinued. He was maintained on sodium chloride tablets. Nephrology assessed him, were considering tolvaptan, however, this was not available in the hospital. Sodium did gradually improve up to 122 with fluid restriction, holding diuretic, sodium chloride tablets. With noted ascites on abdominal imaging, pleural effusion, inability to diurese, his anticoagulation was held in anticipation of paracentesis, possible thoracentesis. Cellulitis with treatment with antibiotics gradually improved. His acute kidney injury gradually improved, with albumin infusions, holding of diuretics. Kidney injury considered multifactorial secondary to including cardiorenal syndrome, hepatorenal syndrome, possible contribution of NSAID, as well as Bactrim and diuretics preadmission. Subjectively he reported feeling much better. Due to functional capacity decline, deconditioning, arrangements were underway for placement to correction facility for additional rehabilitation. Given severity of his heart failure, no apparent progression to liver cirrhosis, with severe hyponatremia, and with acute kidney injury with possible cardiorenal syndrome, hepatorenal syndrome, among additional etiologies, with continued smoking, poor adherence with medical therapy his overall prognosis is poor, with high likelihood of additional complications and comorbid conditions possibly in the near future as discussed in detail with him and his mother today. Unfortunately despite additional persistent edema, recommendation for additional assessment management of peritoneal ascites, possibly thoracentesis of pleural effusion, additional assessment management and monitoring of hyponatremia, in setting of severe heart failure/cardiomyopathy, liver cirrhosis, he declined additional therapy today requesting to be discharged AGAINST MEDICAL ADVICE. Extensive discussion was undertaken with him and in the presence of his mother. He appears to understand well that he is risking disability and premature given the number of severe comorbid conditions, including brain edema, encephalopathy, seizures, respiratory failure, heart failure, renal failure, risk of additional complications, and incompletely managed hyponatremia, volume overload, as well as inadequate preparation time for discharge. He states that he needs to take care of several personal issues, and that he may come back to ER. He was several times encouraged to reconsider and stay for additional care, or return for additional care without repercussions. He voiced understanding. He said he did not want additional aggressive interventions at this time. He states he may consider obtaining additional interventions, possibly paracentesis, possibly th oracentesis, on selective basis, if he decides to return to the hospital. He does state he does not want very aggressive care. In case of decision not to pursue further aggressive treatment, hospice care may be a valid alternative consideration. If not returning to hospital if he is asked to at least make soonest available appointment with his primary care provider (and this is also requested on AMA discharge orders), to follow-up regarding severe CHF, edema, ascites, pleural effusion, improving cellulitis, for which he is asked to complete antibiotic course after discharge, as well as liver cirrhosis. We also discussed additional possible complications stemming from liver cirrhosis, as well as lactulose therapy to prevent hepatic encephalopathy. He was able to restate the risks. He verbalized understanding and intention to further discuss these during subsequent episode of care. He denied there was anything else we could do differently to help him decide to stay. Additional AMA discharge instructions per discussion with nephrology include recommendation to decrease diuretic dose at home to 1 mg Bumex daily. Hold spironolactone for 3 days. In case of weight gain, increase Bumex dose to 1 mg twice a day. He is asked to follow-up sodium level and renal function at the next earliest visit. Please consider referral to hepatology. He is asked to follow-up with his museum specialist. Physical Exam Const: COMMON NORMALS: no acute distress and patient oriented x3 GENERAL APPEARANCE: frail appearing HENMT: COMMON NORMALS: oropharynx normal Neck/C-Spine: COMMON NORMALS: no JVD Resp: COMMON NORMALS: normal respiratory effort and clear to auscultation bilaterally AUSCULTATION: clear to auscultation bilaterally Cardio: COMMON NORMALS: no JVD, regular rhythm, S1 normal heart sound present, S2 normal heart sound present and No murmurs present (Cardio) RHYTHM: regular rhythm HEART SOUNDS: S1 normal heart sound present and S2 normal heart sound present GI: COMMON NORMALS: Soft to palpation and non-tender PALPATION: Yes Soft to palpation and Yes Ascites present Extremity: COMMON NORMALS: no joint enlargement GENERAL: Yes edema (Bilateral lower extremity edema, right greater than left.) OTHER: Chronic bilateral lower extremity venous stasis changes. No erythema. Minimal weeping bilaterally. Neuro: COMMON NORMALS: patient oriented x3 and moves all extremities Skin: LESIONS: lesion noted OTHER: Shallow ulceration/ruptured blister around 3 cm in diameter on posterior lower left calf. Urinary Catheter Management^: Bell: Cath Placed During This Visit: yes Reason for Continuing Indwelling Catheter: Accurate Measurement of Urinary Output in Critically Ill Patients Urinary Catheter Date of Insertion: 10/02/20 Urinary Catheter Time of Insertion: 15:00 Discharge Data Data Completed and Pending: Completed Studies During Hospitalization Category Date Time Status CT chest abd pel w con* Urgent Cat Scan 10/02/20 13:[address] head wo con* 7 0450 Urgent Cat Scan 10/02/20 14:22 Completed XR chest 1V raudel ble 32313 Routine Exams 10/04/20 07:00 Completed XR chest 1V raudel ble [id number] Routine Exams 10/06/20 07:00 Completed CV ankle brachial index 32124 Routi ne Ultrasound 10/05/20 18:50 Completed Labs from last 24 hours 10/07/20 10/07/20 10:37 06:31 POC Glucose 164 H 153 H Vitals: Last Vital Signs Temp 98.0 F 10/07/20 14:49 Pulse 63 10/07/20 15:27 Resp 16 10/07/20 15:27 BP 99/61 10/07/20 14:49 Pulse Ox 98 10/07/20 15:27 Discharge Plan Discharge Patient Disposition: Left Against Medical Advice Condition: Fair Prescriptions: New sodium chloride 1 gram Tablet 1 g PO TID Qty: 90 RF: 0 doxycycline monohydrate 100 mg Tablet 100 mg PO BID Qty: 6 RF: 0 Continued metformin 1,000 mg tablet extended release 24hr 1,000 mg PO BID RF: 0 clonazepam [Klonopin] 1 mg tablet 1 mg PO BID Qty: 60 RF: 2 Tresiba FlexTouch U-200 200 unit/mL (3 mL) Insulin Pen See Rx Instructions .ROUTE .COMPLEX RF: 0 midodrine 5 mg Tablet 5 mg PO TID 30 Days Qty: 90 RF: 0 digoxin 250 mcg (0.25 mg) Tablet 250 mcg PO DAILY 30 Days Qty: 30 RF: 0 aspirin 81 mg Tablet,Delayed Release (Dr/Ec) 81 mg PO DAILY 30 Days Qty: 30 RF: 0 potassium chloride [Klor-Con M20] 20 mEq Tablet,Er Particles/Crystals 40 meq PO DAILY Qty: 30 RF: 0 magnesium oxide 400 mg (241.3 mg magnesium) Tablet 400 mg PO BID 30 Days Qty: 60 RF: 0 Eliquis 5 mg Tablet 5 mg PO BID@0900,2100 30 Days Qty: 60 RF: 0 Invokana 100 mg tablet 100 mg PO QAM Qty: 30 RF: 0 Changed amiodarone [Pacerone] 200 mg Tablet 200 mg PO BID 30 Days Qty: 60 RF: 0 bumetanide 1 mg tablet 1 mg PO DAILY Qty: 0 RF: 0 Held spironolactone 25 mg tablet 25 mg PO DAILY Qty: 90 RF: 2 Hold Instructions: Resume on 10/10/20. Discontinued sulfamethoxazole-trimethoprim [Bactrim DS] 800-160 mg tablet 1 tab PO BID 10 Days Qty: 20 RF: 0 Discharge Orders: Discharge Order (Routine); Ordered 10/07/20 Ordered By: Joye Pop Referrals: Araceli Sousa FNP [Primary Care Provider] - 10/14/20 2:30 pm Hailey Torrez FNP [Nurse Practitioner] - 10/13/20 2:15 pm (Please arrive 15 min early for this appointment. If unable to make appointment please call to reschedule.) Discharge Diet: Diabetic Discharge Activity: Increase activity as tolerated and Limit activity as instructed Activity Restrictions/Additional Instructions: Please be aware you are leaving the hospital prematurely before your assessment treatment is complete. With low sodium, fluid overload, fluid in your belly, fluid under the lung, you are at risk of progressive worsening in your condition, disability and . You are invited to reconsider and stay to continue your treatment, or return to ER at any time. Otherwise at least please make sure to follow-up with your primary care doctor, and have them recheck your labs including sodium level due to very low sodium while in the hospital, renal function, liver function. Please make sure to follow-up with cardiology clinic. Please discuss with your primary care doctor referral to see a liver specialist. Please reduce diuretic dose to 1 mg Bumex once a day. Hold spironolactone for 3 days. Measure weight daily. If you start increasing in weight, increase Bumex dose to 1 mg twice a day. Discharge Attestations Time Spent in Discharge Care*: greater than 30 min Status at Discharge: Cognitive status at discharge: cognitively intact , Quality Metrics Clinical Quality Measures During this hospital stay, did patient experience: None Coding Level of Care Code Acute Safety Associate for Hennyg Fwd Diagnoses Cirrhosis of liver with ascites K74.60; R18.8 Atrial flutter with rapid ventricular response I48.92 Atrial flutter I48.92 Pneumonia J18.9 Laterality: left Lung location: unspecified part of lung Pneumonia type: due to unspecified organism Acute exacerbation of congestive heart failure I50.9 Left bundle branch block I44.7 Generalized anxiety disorder F41.1 ICD (implantable cardioverter-defibrillator) in place Z95.810 Coronary artery disease I25.10 Coronary Disease-Associated Artery/Lesion type: [place] artery [place] vs. transplanted heart: [place] heart Associated angina: without angina Type 2 diabetes mellitus E11.69 Diabetes mellitus complication status: with other specified complication Diabetes mellitus half-way insulin use: unspecified oysterman insulin use status Cellulitis L03.115 Site of cellulitis: extremity Site of cellulitis of extremity: lower extremity Laterality: right LV dysfunction I51.9 Ischemic cardiomyopathy I25.5 Non-compliant behavior R46.89 Smoker F17.200
--- NOTE | 2020-10-08 16:22 | PC.NURSE ---
Late entry: This RN was in the room with Dr. Pop when he went over the risk of leaving AMA. Patient was encouraged to stay. Then this RN was with Dr. Pop for approximately 15 minutes talking with patient mother about the risk of leaving and if the patients condition worsened the need to return to the ER. Patient left AMA after knowing the risk. Waiver signed.
== END 2020-10-07 15:29 | disposition left against medical advice (07) | DRG 871 ==
LOC: ER 13:45 → MEDSURG 16:23
PROVIDERS: Hospitalist; Internal Medicine Nephrology; Admitting Provider Internal Medicine; Emergency Provider Family Medicine; PCP Nurse Practitioner Family; Visit Provider Internal Medicine
DX: A41.9 Sepsis, unspecified organism (principal); I50.23 Acute on chronic systolic (congestive) heart failure; J96.01 Acute respiratory failure with hypoxia; J18.9 Pneumonia, unspecified organism; L03.115 Cellulitis of right lower limb; G93.40 Encephalopathy, unspecified; I13.0 Hypertensive heart and chronic kidney disease with heart failure and stage 1 through stage 4 chronic kidney disease, or unspecified chronic kidney disease; R18.8 Other ascites; K76.6 Portal hypertension; N17.9 Acute kidney failure, unspecified; J44.0 Chronic obstructive pulmonary disease with (acute) lower respiratory infection; I48.92 Unspecified atrial flutter; N18.9 Chronic kidney disease, unspecified; E11.22 Type 2 diabetes mellitus with diabetic chronic kidney disease; Z91.19 Patient's noncompliance with other medical treatment and regimen; I25.5 Ischemic cardiomyopathy; F17.210 Nicotine dependence, cigarettes, uncomplicated; M19.90 Unspecified osteoarthritis, unspecified site; I25.10 Atherosclerotic heart disease of native coronary artery without angina pectoris; Z95.5 Presence of coronary angioplasty implant and graft; E78.5 Hyperlipidemia, unspecified; I25.2 Old myocardial infarction; Z95.810 Presence of automatic (implantable) cardiac defibrillator; K74.60 Unspecified cirrhosis of liver; Z79.01 Long term (current) use of anticoagulants; Z79.84 Long term (current) use of oral hypoglycemic drugs; Z53.29 Procedure and treatment not carried out because of patient's decision for other reasons; E87.5 Hyperkalemia; F41.1 Generalized anxiety disorder; I44.7 Left bundle-branch block, unspecified; I48.0 Paroxysmal atrial fibrillation
CPT/HCPCS: 36415; 36416; 36600; 51702; 70450; 71045; 71260; 74177; 80048; 80051; 80053; 80202; 80306; 81003; 82140; 82330; 82436; 82533; 82550; 82553; 82805; 82962; 83605; 83735; 83880; 84100; 84133; 84145; 84300; 84439; 84443; 84481; 84550; 85025; 86140; 87040; 87426; 87804; 93922; 94640; 96365; 96366; 96372; 97110; 97162; 97530; 99285; J1644; J1815; J2405; J2543; J3370; J3490; J7030; J7050; P9047; Q3014; Q9967

== ENCOUNTER 2020-10-08 04:05 | Emergency (ER) | payer MEDICARE, SELFPAY ==
[2020-10-08 04:05] VITALS: PULSE 0
[2020-10-08] MEDS: EPINEPHrine 0.1 mg/mL SYR 10 mL 1 MG IVP ×2 (04:05→04:06)
--- NOTE | 2020-10-08 04:05 | PC.NURSE ---
EMS report witnessed arrest by significant other. EMS gave EPI x 8-10, bicarb x 2, atropine. Did have ROSC for 7-8 minutes. Pt in PEA on arrival by EMS and CPR in progress.
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
--- NOTE | 2020-10-08 04:40 | PC.NURSE ---
Kasi Villalobos chocolate coater notified at 04:22am. Body released. Post mortem care performed
--- NOTE | 2020-10-08 04:58 | PC.NURSE ---
Addendum entered by Danica Ayala RN 10/08/20 05:59: time 04:05 Original Note: CPR in progress on arrival. Pulse check asystole on arrival. Chest compressions resumed. Pt placed on monitor and defibrillator pads in place
--- NOTE | 2020-10-08 05:32 | PC.NURSE ---
Step Daughter, Zulma is at bedside. Reports awaiting arrival of pt mother
--- NOTE | 2020-10-08 05:54 | PC.NURSE ---
Addendum entered by Danica Ayala RN 10/08/20 05:59: time 04:07 Original Note: asystole, no chest wall movement, no heart movement noted on ultrasound, chest compressions resumed
--- NOTE | 2020-10-08 05:54 | PC.NURSE ---
Per [facility] Pt is candidate for donation.
--- NOTE | 2020-10-08 05:55 | PC.NURSE ---
Addendum entered by Danica Ayala RN 10/08/20 05:59: time 04:09 Original Note: Asystole, chest compressions resumed
--- NOTE | 2020-10-08 05:56 | PC.NURSE ---
Addendum entered by Danica Ayala RN 10/08/20 05:58: time 04:13 Addendum entered by Danica Ayala RN 10/08/20 05:57: TOD 04:[address] Miguel Original Note: asystole, no carotid pulse, no cardiac wall movement
--- NOTE | 2020-10-08 06:29 | PC.NURSE ---
Tavo time [id number] - [facility] Notified
== END 2020-10-08 06:33 | disposition expired ==
PROVIDERS: Emergency Provider Emergency Medicine; PCP Nurse Practitioner Family
DX: I46.9 Cardiac arrest, cause unspecified (principal); Z79.01 Long term (current) use of anticoagulants; Z79.82 Long term (current) use of aspirin; Z79.4 Long term (current) use of insulin; I25.10 Atherosclerotic heart disease of native coronary artery without angina pectoris; E78.5 Hyperlipidemia, unspecified; I10 Essential (primary) hypertension; I25.2 Old myocardial infarction; E11.9 Type 2 diabetes mellitus without complications; F17.210 Nicotine dependence, cigarettes, uncomplicated
CPT/HCPCS: 99285; J0171